=== PATIENT | female | born 1990 | race Caucasian/White ===

== ENCOUNTER 2024-01-03 10:43 | Outpatient (CLI) | payer BC, SELFPAY ==
[2024-01-03 11:45] LABS: Basophils # 0.1 K/mm3 (0-0.2); Basophils % 0.9 % (0.1-2.0); Eosinophils # 0.2 K/mm3 (0.0-0.4); Eosinophils % 2.7 % (0.1-12.0); Hematocrit 40.6 % (37.0-47.0); Hemoglobin 12.8 g/dL (12.2-16.2); Lymphocytes # 2.2 K/mm3 (0.7-4.5); Lymphocytes % 24.5 % (10-50); Mean Corpuscular HGB Conc 31.5 g/dL (31.8-35.4); Mean Corpuscular Hemoglobin 28.4 pg (27.0-31.2); Mean Platelet Volume 7.4 fl (7.4-10.4); Monocytes # 0.5 K/mm3 (0.1-1.0); Monocytes % 5.3 % (1.7-9.3); Neutrophils # 5.9 K/mm3 (1.8-7.8); Neutrophils % 66.6 % (37.0-80.0); Platelet Count 446 K/mm3 (142-424); White Blood Count 8.8 K/mm3 (4.8-10.8)
[2024-01-03 12:22] LABS: Direct LDL Cholesterol 116.39 mg/dL (100-129)
[2024-01-03 12:27] LABS: Free T4 (Free Thyroxine) 0.91 ng/dl (0.78-2.19)
[2024-01-03 12:41] LABS: Thyroid Stimulating Hormone 1.28 uIU/mL (0.465-4.68)
[2024-01-03 14:14] LABS: Alanine Aminotransferase 59 U/L (12-78); Alkaline Phosphatase 69 U/L (38-126); Aspartate Amino Transferase 43 U/L (14-36); Bilirubin,Direct 0.1 mg/dl (0.0-0.4); Bilirubin,Indirect 0.2 mg/dL (0.0-0.9); Bilirubin,Total 0.3 mg/dl (0.2-1.3); Bilirubin,Unconjugated 0.2 mg/dL (0.0-1.1); Blood Urea Nitrogen 6 mg/dl (7-17); Calcium 9.5 mg/dl (8.4-10.2); Carbon Dioxide 28 mmol/L (22.0-30.0); Chloride 108 mmol/L (98-107); Chol/HDL Ratio 4.9 (1-3.5); Cholesterol 207 mg/dl (140-200); Estimated Glomerular Filt Rate 97 ml/min (>60); GFR (African American) 117 ML/MIN (>60); Glucose 100 mg/dl (74-100); HDL Cholesterol 42 mg/dl (40-60); Sodium 141 mmol/L (136-145); Total Protein,Serum 6.9 g/dl (6.3-8.2); Triglycerides 116 mg/dl (30-150); VLDL Cholesterol 23 mg/dL (0-40)
== END 2024-01-03 23:59 | disposition home or self-care (01) ==
LOC: LAB 10:44
PROVIDERS: PCP Nurse Practitioner Family; Visit Provider Nurse Practitioner
DX: R00.2 Palpitations (principal); R07.9 Chest pain, unspecified
CPT/HCPCS: 36415; 80048; 80061; 80076; 83735; 84439; 84443; 85025; 93270

== ENCOUNTER 2024-01-21 13:53 | Outpatient (CLI) | payer BC, SELFPAY ==
--- NOTE | 2024-01-21 13:53 | CA_ITS ---
APPROVED REPORT EXAM: Comprehensive 2D, Doppler, and color-flow Echocardiogram Computer Aided Design Technician: Umm Castañeda RDCS Ht: 4 ft 11 in Wt: 207lbs BSA: 1.87 BP: 132/88 mmHg Indications: Chest pain, palpitations M-Mode Dimensions RVDd 1.69 cm (0.9-2.6) LA Diam 3.11 cm (1.9-4.0) LVDd 4.28 cm (3.5-5.7) LVDs 2.67 cm (3.5-5.7) IVSd 0.59 cm (0.6-1.1) PWd 0.72 cm (0.6-1.1) EF (Teich) 68.00% FS 37.60% EDV (Teich) 82.20 mL ESV (Teich) 26.30 mL LV Diastology E Decel Time 213 (160-240 msec) E/A Ratio 1.4 Mitral Valve MV E Max Alvaro. 69.0 (40-130 cm/s) MV A Velocity 50.0 (40-130 cm/s) E/A Ratio 1.38 MV PHT 62.0 ms Left Ventricle The left ventricle is normal size. The left ventricular systolic function is normal. The left ventricular ejection fraction is within the normal range. There is normal left ventricular wall thickness. There is normal LV segmental wall motion. The left ventricular diastolic function is normal. LVEF is 55%. Right Ventricle The right ventricle is normal size. The right ventricular systolic function is normal. Atria The left atrium size is normal. The right atrium size is normal. There is no Doppler evidence of atrial shunt. Aortic Valve There is valve opens well. There is no aortic valvular stenosis. No aortic regurgitation is present. Mitral Valve The mitral valve is normal in structure. No evidence of mitral valve stenosis. There is no mitral valve regurgitation noted. Tricuspid Valve The tricuspid valve leaflets are thin and pliable. Trace tricuspid regurgitation. Insufficient TR jet to estimate RVSP. Pulmonic Valve The pulmonary valve is normal in structure. Trace pulmonic regurgitation. Great Vessels The aortic root is normal in size. The ascending aorta is not well-visualized. IVC is normal in size and collapses >50% with inspiration. Pericardium There is no pericardial effusion. Other Information Study Quality: Adequate Conclusion Normal biventricular systolic function. No significant valvular stenosis or regurgitation. Electronically signed by : Alexa Georges MD 01/25/2024 00:53:05
--- NOTE | 2024-01-21 13:53 | CA_ITS ---
APPROVED REPORT Exam: Exercise Treadmill Technologist: Nasrin Ndiaye Ht: 4 ft 11 in Wt: 207 lbs BSA: 1.87 m2 HR: 89 bpm BP: 155/65 mmHg Rhythm: NSR Indications: Chest pain, Palpitations Medical History Medications: Metoprolol,,,,, Pantoprazole,,,,, TopIRAMATE,,,,, Anne-Marie,,,,, AmiTRIPTYLINE,,,,, Vitamin D2,,,,, OxYbutynin,,,,, Phentermine,,,,, RIZATRIPTAN,,,,, Mirabegron,,,,, Epinephrine,,,,, FluTICASONE Propionate,,,,, Stress Test Details Test: Manual Treadmill, Exercise stress testing was performed using a Raman protocol. HR Resting HR: 94 bpm Max Heart Rate (APMHR): 188 bpm Max HR Achieved: 164 bpm Target HR (85% APMHR): 160 bpm % of APMHR: 87 Recovery HR: 104 bpm HR response to stress: Normal HR response to stress BP Resting BP: 155.0/65 mmHg Max BP: 172/90 mmHg Recovery BP: 147.0/76.0 mmHg BP response to stress: Normal blood pressure response to stress. ECG Resting ECG: Normal sinus rhythm Stress ECG: < 0.[address] depression Arrhythmia: PVCs Recovery ECG: Return to baseline within 3 minutes of recovery Recovery Arrhythmia: None Clinical Exercise duration: 08:41 min Highest Stage Achieved: Exercise capacity: 10.1 METs Overall Exercise Capacity for Age: Average Stress ECG Conclusion Stopped early due to leg pain. Symptoms: Shortness of air. No chest pain. Arrhythmias/Ectopy: PVC ST-T Changes: < 0.[address] depression Conclusion: Average exercise capacity. No ischemic ECG changes at peak stress. GXT only. Test Summary REST . . . . . . . Sitting REST . . . . . . . Standing REST 02:51 0.0 0.0 94 . 155/ 65 . . Stage 1 01:00 10.0 1.7 115 . . . . Stage 1 02:00 10.0 1.7 126 . . . . Stage 1 03:00 10.0 1.7 124 . 144/ 82 . . Stage 2 01:00 12.0 2.5 136 . . . . Stage 2 02:00 12.0 2.5 141 . . . . Stage 2 03:00 12.0 2.5 140 . 156/ 84 . . Stage 3 01:00 14.0 3.4 154 . . . . Stage 3 . . . . . . . Protocol changed to Manual Treadmill Stage 3 02:00 14.0 3.0 164 . . . . Stage 3 02:41 14.0 3.0 163 . . . Stop exercise at 08:41 RECOVERY 01:00 0.0 0.0 129 . 172/ 90 . . RECOVERY 02:00 0.0 0.0 120 . 156/ 80 . . RECOVERY 03:00 0.0 0.0 105 . 157/ 98 . . RECOVERY 04:00 0.0 0.0 108 . 157/ 98 . . RECOVERY 04:32 0.0 0.0 105 . 147/ 76 . . Electronically signed by : Alexa Georges MD 01/24/2024 14:13:13
== END 2024-01-21 23:59 | disposition home or self-care (01) ==
LOC: RT 13:53
PROVIDERS: PCP Nurse Practitioner Family; Visit Provider Nurse Practitioner
DX: R07.9 Chest pain, unspecified (principal); R00.2 Palpitations
CPT/HCPCS: 93017; 93018; 93306

== ENCOUNTER 2025-05-21 15:49 | Outpatient (CLI) | payer OTHER, SELFPAY ==
--- OUTSIDE RECORDS SUMMARY | 2025-05-21 15:51 | XMS_ITS | Clinical Summary ---
Author Organization [facility] Address [address] [place] [address] Care Team Providers Care Community Relations Police Lieutenant Name Role Phone Rose Pradhan BRUNO Primary Care Provider [phone]- [phone] Allergies Active Allergy Reactions Criticality Noted Date Comments Cephalosporins Rash 11/12/2021 Penicillins Reaction Unknown 11/12/2021 Sulfa (Sulfonamide Antibiotics) Reaction Unknown 11/12/2021 Medications citalopram (CELEXA) 20 mg tablet TAKE ONE (1) TABLET DAILY 09/05/2021 Active MYRBETRIQ 25 mg Tb24 ER tab TAKE ONE (1) TABLET DAILY 11/01/2021 Active fluticasone propionate (FLONASE) 50 mcg/Actuation nasal spray SPRAY ONE (1) SPRAY INTO EACH NOSTRIL ONCE DAILY 08/26/2021 Active oxybutynin (DITROPAN) 5 mg tablet TAKE ONE (1) TABLET BY MOUTH TWICE DAILY 09/13/2021 Active Phentermine (ADIPEX-P) 37.5 mg tablet TAKE ONE (1) TABLET EVERY DAY 11/08/2021 Active esomeprazole (NEXIUM) [address] capsule TAKE ONE (1) CAPSULE EVERY DAY BY ORAL ROUTE FOR 30 DAYS. Active metoprolol (TOPROL-XL) 25 mg XL tablet TAKE ONE (1) TABLET TWICE A DAY BY ORAL ROUTE FOR 90 DAYS. 01/03/2024 Active MYRBETRIQ 50 mg Tb24 ER tab Take 1 Tablet by mouth Once Daily. 01/03/2024 Active vilazodone 20 mg Tab Take 20 mg by mouth. Active amitriptyline (ELAVIL) 25 mg tablet Take 1 Tablet by mouth Once Daily. 01/03/2024 Active levocetirizine (XYZAL) 5 mg tablet Take 1 Tablet by mouth Once Daily. 01/03/2024 Active Topiramate 50 mg Tab TAKE ONE (1) TABLET EVERY DAY BY ORAL ROUTE AT BEDTIME FOR 90 DAYS. 01/03/2024 Active Social History Tobacco Use Types Packs/Day Years Used Date Smoking Tobacco: Never Passive Smoke Exposure: Never Smokeless Tobacco: Never Tobacco Cessation:Counseling Given: Not Answered PHQ-2 Answer Date Recorded PHQ-2 SCORE 0 06/15/2024 Comments No Sex and Gender Information Value Date Recorded Sex Assigned at Not on file Legal Sex Female 11:52 AM EST Gender Identity Not on file Sexual Orientation Not on file Last Filed Vital Signs Vital Sign Reading Time Taken Comments Blood Pressure 121/86 06/15/2024 5:53 PM EDT Pulse 87 06/15/2024 5:53 PM EDT Temperature 36.6 C (97.9 F) 06/15/2024 5:53 PM EDT Respiratory Rate 18 06/15/2024 5:53 PM EDT Oxygen Saturation 100% 06/15/2024 5:53 PM EDT Inhaled Oxygen Concentration - - Weight 93 kg (205 lb) 06/15/2024 5:53 PM EDT Height 151.1 cm (4' 11.5 ) 06/15/2024 5:53 PM ED T Body Mass Index 40.71 06/15/2024 5:53 PM EDT Plan of Treatment Health Maintenance Due Date Last Done Comments HEP C SCREENING 1991 PAP SMEAR EVERY 3 YR (Cervical Cancer Screen) 1991 DTAP/TDAP/TD VACCINE (2 - Td or Tdap) 07/03/2023 07/03/2013 ANNUAL WELLNESS EXAM 03/14/2025 03/13/2024, 03/08/2023, 03/07/2022, Additional history exists COVID-19 Vaccine ( season) 2025 05/05/2021, 11/16/2020 INFLUENZA VACCINE (#1) 2025 HEP A VACCINE Aged Out No longer elig ible based on patient's age to complete this topic HIB VACCINE Aged Out No longer eligi ble based on patient's age to complete this topic ROTOVIRUS VACCINE Aged Out No longer eligible based on patient's age to complete this topic Insurance Care Teams Community Relations Police Lieutenant Relationship Specialty Start Date End Date Rose Pradhan APRN [address] [place] [id number] PCP - General Nurse Practitioner 06/15/24
--- OUTSIDE RECORDS SUMMARY | 2025-05-21 15:51 | XMS_ITS | Clinical Summary ---
Author Organization [facility] Address [address] [place] [id number] Care Team Providers Care Passenger Vessel Chef Name Role Phone Carolynn Rose CARR Primary Care Provider [phone]- [phone] Source Comments This information has been disclosed to you from confidential records protectedfrom disclosure by state law. You shall make no further disclosure of thisinformation without the specific, written, and informed release of theindividual to whom it pertains, or as otherwise permitted by law. A generalauthorization for the release of medical or other information is not sufficientfor the purposes of therelease of HIV test results or diagnoses. [id number] Health Allergies Active Allergy Reactions Criticality Noted Date Comments Adhesive 03/10/2024 Cephalosporins 03/10/2024 Penicillin 03/10/2024 Sulfa (Sulfonamide Antibiotics) 02/16 Medications amitriptyline (ELAVIL) 25 MG tablet Take 1 tablet (25 mg total) by mouth at bedtime. Active mirabegron (MYRBETRIQ) 50 mg Take 1 tablet (50 mg total) by mouth daily. Active pantoprazole (PROTONIX) 40 MG tablet Take 1 tablet (40 mg total) by mouth every morning before breakfast. Active vilazodone (VIIBYRD) 20 mg Tab Take 1 tablet (20 mg total) by mouth daily. Active levocetirizine (XYZAL) 5 MG tablet Take 1 tablet (5 mg total) by mouth every evening. Active topiramate (TOPAMAX) 50 MG tablet Take 1 tablet (50 mg total) by mouth 2 times a day. Active methylPREDNISol one (MEDROL, ALLIE,) 4 mg tablet follow package directions 21 each 4 Active fluticasone propionate (FLONASE) 50 mcg/actuation nasal spray Use 2 sprays into each nostril daily. 16 g 1 4 Active azelastine (ASTELIN) 137 mcg (0.1 %) nasal spray Use 2 sprays into each nostril 2 times a day. Use in each nostril as directed 30 mL 3 4 Active Active Problems Problem Noted Date Diagnosed Date Sensation of fullness in left ear 04/10/2024 Hearing loss of left ear 04/10/2024 Dysfunction of left eustachian tube 03/10/2024 ASNHL (asymmetrical sensorineural hearing loss) 03/10/2024 Social History Tobacco Use Types Packs/Day Years Used Date Smoking Tobacco: Never Smokeless Tobacco: Never Tobacco Cessation:Counseling Given: Not Answered Alcohol Use Standard Drinks/Week Comments Never 0 (1 standard drink = 0.6 oz pur e alcohol) AUDIT-C Answer Date Recorded Q1: How often do you have a drink containing alcohol? Never 03/10/2024 Q2: How many drinks containi ng alcohol do you have on a typical day when you are drinking? Patient does not drink Q3: How often do you have si x or more drinks on one occasion? Never 03/10/2024 PHQ-2 Answer Date Recorded PHQ-2 Total Score 0 03/10/2024 Yearly Questionnaire Answer Date Record ed Do you need any assistance w ith obtaining housing, meals, medication, transportation or medical equipment? No 03/10 Assistance needed for: Not on file Yearly Questionnaire Answer Date Record ed Do you need any assistance w ith obtaining housing, meals, medication, transportation or medical equipment? No 03/10 Assistance needed for: Not on file Yearly Questionnaire Answer Date Record ed Do you need any assistance w ith obtaining housing, meals, medication, transportation or medical equipment? No 03/10 Assistance needed for: Not on file 4 Comments No Sex and Gender Information Value Date Recorded Sex Assigned at Not on file Legal Sex Female 10:54 AM EDT Gender Identity Not on file Sexual Orientation Not on file Last Filed Vital Signs Vital Sign Reading Time Taken Comments Blood Pressure 125/78 2024 4:16 PM EST Pulse 82 2024 4:16 PM EST Temperature - - Respiratory Rate - - Oxygen Saturation 90% 04/10/2024 3:36 PM EDT Inhaled Oxygen Concentration 90% 04/10/2024 3 :36 PM EDT Weight 92.1 kg (203 lb) 2024 4:16 PM EST Height 149.9 cm (4' 11 ) 2024 4:16 PM EST Body Mass Index 41 2024 4:16 PM EST Plan of Treatment Health Maintenance Due Date Last Done Comments Diabetes Screening 1991 Hepatitis C Screening ([facility]) 1991 HIV Screening 11/17/2009 Cervical Cancer Screening/Pa p Smear ([facility]) 11/17/2021 Immunization: DTaP/Tdap/Td ( 4 - Td or Tdap) 07/03/2023 07/03/2013, 12/15/2002, 03/24/1996 Depression Screening 03/10/2025 03/10/2024 Immunization: COVID-19 ( season) 2025 05/05/2021, 11/16/2020 Immunization: Influenza ([facility]) (#1) 05/18/2025 06/06/2013, 07/01/2012 Immunization: Hepatitis B Completed 1996, 05/05/1996, 03/24/1996 Immunization: Pneumococcal Aged Out N o longer eligible based on patient's age to complete this topic Insurance BLUE [facility] Care Teams Passenger Vessel Chef Relationship Specialty Start Date End Date Rose Pradhan APRN [address] [place] [address] [place] [address] PCP - General Family Medicine 03/09/24
[2025-05-21 16:21] LABS: Hematocrit 39.2 % (37.0-47.0); Hemoglobin 12.6 g/dL (12.2-16.2); Immature Granulocytes % 0.3 %; Mean Corpuscular HGB Conc 32.1 g/dL (31.8-35.4); Mean Corpuscular Hemoglobin 28.8 pg (27.0-31.2); Mean Corpuscular Volume 89.7 fl (81-99); Nucleated Red Blood Cells % 0 %; Platelet Count 451 K/mm3 (142-424); Red Blood Count 4.37 M/mm3 (4.20-5.40); Red Cell Distribution Width-SD 43.5 fL; White Blood Count 11.6 K/mm3 (4.8-10.8)
[2025-05-21 17:57] LABS: Free T4 (Free Thyroxine) 1.22 ng/dl (0.78-2.19)
[2025-05-21 20:11] LABS: Alanine Aminotransferase 50 U/L (12-78); Albumin Level 4.3 g/dl (3.5-5.0); Alkaline Phosphatase 83 U/L (38-126); Anion Gap 13.7 mEq/L (5-15); Aspartate Amino Transferase 45 U/L (14-36); Bilirubin,Direct 0.3 mg/dl (0.0-0.4); Bilirubin,Indirect 0.3 mg/dL (0.0-0.9); Bilirubin,Total 0.6 mg/dl (0.2-1.3); Bilirubin,Unconjugated 0.3 mg/dL (0.0-1.1); Blood Urea Nitrogen 9 mg/dl (7-17); Calcium 9.1 mg/dl (8.4-10.2); Carbon Dioxide 25 mmol/L (22.0-30.0); Chloride 104 mmol/L (98-107); Cholesterol 202 mg/dl (140-200); Creatinine,Serum 0.60 mg/dl (0.52-1.04); Estimated Glomerular Filt Rate 115 ml/min (>60); GFR (African American) 139 ML/MIN (>60); Glucose 84 mg/dl (74-100); HDL Cholesterol 44 mg/dl (40-60); Magnesium 1.5 mg/dl (1.6-2.3); Potassium 3.7 mmoL/L (3.5-5.1); Sodium 139 mmol/L (136-145); Total Protein,Serum 7.0 g/dl (6.3-8.2); Triglycerides 121 mg/dl (30-150)
[2025-05-21 21:20] LABS: Hemoglobin A1C 5.8 % (4.0-6.0)
[2025-05-21 22:24] LABS: Thyroid Stimulating Hormone 0.76 uIU/mL (0.465-4.68)
== END 2025-05-21 23:59 | disposition home or self-care (01) ==
LOC: LAB 15:50
PROVIDERS: PCP Nurse Practitioner Family; Visit Provider Nurse Practitioner
DX: R00.2 Palpitations (principal); R07.9 Chest pain, unspecified; R73.09 Other abnormal glucose; E66.9 Obesity, unspecified
CPT/HCPCS: 36415; 80048; 80061; 80076; 83036; 83735; 84439; 84443; 85025

== ENCOUNTER 2025-06-26 08:28 | Outpatient (CLI) | payer OTHER, SELFPAY ==
--- OUTSIDE RECORDS SUMMARY | 2025-06-26 08:31 | XMS_ITS | Continuity of Care Document ---
Author Organization [facility] Address [address] [place] [address] Care Team Providers Care Extra Gang Supervisor Name Role Phone BENNIE LOMELI Acid Maker Assessment Encounter Date Assessment Date Assessment LastModified by Organization Details LastModified Time 05/05/2025 05/05/2025 Patient's migraine headaches are worsening from last visit. Patient has been taking preventative medication as prescribed. Frequency of headaches is approximately every a day. There have not been possible side effects from the medication. Abortive medication fails to alleviate headache. Triggering factors remain stress. Patient counseled on risk of NSAID withdrawal headaches. Patient will monitor blood pressure and report if unable to control or if they develop new symptoms. [email or web address] Not available 05/05/2025 22:58:43 Plan of Treatment Reminders Order Date Submit Date Provider Last Modified By Organization Details Last Modified Time Details Appointments None recorded. Lab None recorded. Referral None recorded. Procedures None recorded. Surgeries None recorded. Imaging None recorded. Medication Orders Ubrelvy 100 mg tablet 2024 025 [email or web address] [facility], [address], [place], [address], 13:18:36 amlodipine 2.5 mg tablet 2024 025 JESSICA [facility], [address], [place], [address], 13:15:05 amitriptyli ne 50 mg tablet 2024 025 [facility], [address], [place], [address], 5 13:15:05 albuterol sulfate HFA 90 mcg/actuati on aerosol inhaler 2024 025 [facility], [address], [place], [address], 5 13:15:06 Patient TargetsNo targets recorded. Patient InstructionsNo instructions recorded. Reason for Referral None Reported. Problems Name Problem SNOMED Code Status Onset Date Resolution Date Notes Provider Name and Address Organization Details Recorded Time Irritabl e bowel syndrome [id number] Active lactose intolera nt Katie Petey, [employer] [address], [place], [address], [place] [facility] 4 11:12:16 Polycyst ic ovaries Completed 01/15/2023 Teresa adair, [place] - [facility] 3 15:34:53 Hyperins ulinism 82407923 Active Katie Angelo [employer] [address], [place], [address], [place] [facility] 4 11:12:06 Asthma 619310424 Active Katiebrinda Angelo [employer] [address], [place], [address], [place] [facility] 4 11:11:48 Chronic intersti tial cystitis 143489731 Active 2011 Katie Angelo [employer] [address], [place], [address], [place] [facility] 4 11:11:53 Cyst of right ovary 6993026855 6841424 Completed 201801/15/2023 Teresa [place]air[place] [facility] 3 15:35:05 Exposure to SARS-CoV -2 Completed 201901/15/2023 [place] [facility] 3 15:34:31 COVID-19 683906803 Completed 201901/15/2023 Teresa Zacariass null[place] [facility] 3 15:34:22 Migraine 68266265 Active 2020 Katie Angelo, [employer] [address], [place], [address] [facility] 4 11:12:22 Mixed anxiety and depressi ve disorder 112663744 Active 2021 Katie Angelo, [employer] [address], [place], [address], [place] [facility] 4 11:12:24 Menorrha esteban 692508285 Completed 202101/15/2023 Teresa Zacariass [place] [facility] 3 15:34:40 Irregula r intermen strual bleeding 99970400 Completed 202101/15/2023 Teresa [place]ac[place]ass [place] [facility] 3 15:34:35 Uterine leiomyom a 15997859 Completed 202101/15/2023 Teresa Maar [place] [facility] 3 15:34:59 Cellulit is of skin 779415437 Completed 202101/15/2023 [place] Mar[place] [facility] 3 15:34:26 Depressi ve disorder 34377839 Active 2021 Katie Angelo, [employer]ERK [address], [place], [address], [place] [facility] 4 11:11:54 Metaboli c syndrome X 047679845 Active 2022 Katie Angelo, [employer] [address], [place], [address], [place] [facility] 4 11:12:20 Body mass index 30+ - obesity 352644916 Active 2022 Adela Bluntcker, [employer] [address], [place], [address], [place] [facility] 5 09:30:49 Obesity 860750063 Active 2022 Katie Angelo, [employer] [address], [place], [address], [place] [facility] 4 11:12:30 Fatigue 81845059 Active 2022 Katie Angelo, [employer] [address], [place], [address], [place] [facility] 4 11:12:02 Acute left otitis media 925448911 Completed 202201/15/2023 Adela Coello, [employer] [address], [place], [address], [place] [facility] 4 10:26:25 Conjunct ivitis 1592392 Completed 202201/15/2023 Teresa Mar[place] [facility] 3 15:35:08 Pain of ear 330958930 Completed 202201/15/2023 [place] Mar[place] [facility] 3 15:34:46 Influenz a-like symptoms 941407729 Completed 202201/15/2023 [place] [facility] 3 15:34:37 Upper respirat ory infectio n 52774362 Completed 202201/15/2023 [place] [facility] 3 15:34:56 Pharyngi tis 631871539 Completed 202201/15/2023 Caryn Sand[place] [facility] 5 09:03:35 History of total hysterec nilay 072671492 Active 2022 Katie Angelo, [employer] [address], [place], [address], [place] [facility] 4 11:12:04 Acne 30223320 Active 2022 Katie Angelo, [employer] [address], [place], [address], [place] [facility] 4 11:11:42 Pain of breast 20767521 Completed 202212/10/2023 bilat [place]-benig n lymph node left breast Katie Angelo, [employer] [address], [place], [address], [place] [facility] 4 11:12:37 Prediabe gustavo 597787621 Active 2022 Julieta Marcano, [employer] [address], [place], [address], [place] [facility] 5 15:58:37 Acute upper respirat ory infectio n 02193168 Completed 202209/03/2023 Caryn [place] [facility] 5 09:03:45 Insect bite - wound 915687926 Completed 202212/10/2023 Katie Angelo, [employer]ERK [address], [place], [address], [place] [facility] 4 11:12:13 Pharyngi tis 435345973 Completed 202212/10/2023 Caryn [place] [facility] 5 09:03:35 Labial cyst 145080330 Completed 202212/10/2023 Katie Angelo, [employer]ERK [address], [place], [address], [place] [facility] 4 11:12:18 Overacti ve urinary bladder 897123677 Active 2022 Katie Angelo, [employer] [address], [place], [address], [place] [facility] 4 11:12:32 Anxiety 01865035 Active 2022 Katie Agnelo, [employer]ERK [address], [place], [address], [place] [facility] 4 11:11:47 Acute left otitis media 399248702 Completed 202312/10/2023 Adela Coello, [employer] [address], [place], [address], [place] [facility] 4 10:26:25 Hyperten sive disorder 02685229 Active 2023 Julieta Marcano APRN [address], [place], [address], [place] [facility] 5 13:13:22 Right upper quadrant pain 729966890 Completed 202302/20/2024 Adela Coello APRN [address], [place], [address], [place] [facility] 4 10:53:19 Nausea 535927451 Completed 202312/10/2023 Katie Angelo APRN [address], [place], [address], [place] [facility] 4 11:12:27 Pain radiatin g to right side of chest 701261795 Completed 202303/16/2025 Caryn Kin [place] [facility] 5 09:01:52 Diarrhea 33704338 Completed 202312/10/2023 Julieta Marcano APRN [address], [place], [address], [place] [facility] 4 10:41:09 Steatoti c liver disease 409135320 Active 2023 Katie Angelo APRN [address], [place], [address], [place] [facility] 4 11:12:51 Unintent ional weight gain 8951217334 92292 Active 2023 Katie Angelo APRN [address], [place], [address], [place] [facility] 4 11:12:54 Acute pharyngi tis 013861346 Completed 202303/13/2024 Adela Coello APRN [address], [place], [address], [place] [facility] 4 10:26:30 Otitis externa 8142427 Active 2023 Tia Larsen MD [address], [place], [address], [place] [facility] 4 09:34:50 Cough 54233033 Completed 202303/13/2024 Julieta Marcano, [employer] [address], [place], [address], [place] [facility] 4 11:13:09 Malaise and fatigue 772815265 Active 2023 Johnny Justine, [employer] [address], [place], [address], [place] [facility] 4 08:09:42 Acute otitis externa of right ear 3604847270 897465 Completed 202303/13/2024 Adela Coello, [employer] [address], [place], [address], [place] [facility] 4 10:26:27 Acute sinusiti s 62422521 Completed 202303/13/2024 Adela Coello, [employer]ERK [address], [place], [address], [place] [facility] 4 10:26:36 Acute bronchit is 78791050 Completed 202303/13/2024 Adela Coello, [employer]ERK [address], [place], [address], [place] [facility] 4 10:26:21 Biliary dyskines ia 996783653 Active 2023 Adela Coello, [employer]ERK [address], [place], [address], [place] [facility] 4 08:56:27 Acute left otitis media 234815215 Completed 202303/13/2024 Adela Coello APRN [address], [place], [address], [place] [facility] 4 10:26:25 Vitamin D deficien cy 86424434 Active 2023 Rose Pradhan, [employer] [address], [place], [address], [place] [facility] 4 09:00:18 History of cholecys tectomy 183836892 Active 2023 Katie Angelo, [employer] [address], [place], [address], [place] [facility] 4 13:28:28 Non-terry pausal hot flash 4502393252 62993 Active 2023 Adela Coello, [employer] [address], [place], [address], [place] [facility] 4 10:51:47 Chest wall pain 664744887 Active 2023 Johnny Fletcher, [employer] [address], [place], [address], [place] [facility] 4 08:31:23 Chest pain 78973249 Active 2023 Johnny Fletcher, [employer] [address], [place], [address], [place] [facility] 4 10:34:37 Localize d eruption of skin 273760335 Active 2023 Adela Coello, [employer] [address], [place], [address], [place] [facility] 4 13:38:51 Middle ear effusion 0438164751 Completed 202303/16/2025 Caryn Sanderson [facility], [place] [facility] 5 09:02:21 Gastroes ophageal reflux disease without esophagi tis 201035961 Active 2023 Rose Pradhan, [employer] [address], [place], [address], [place] [facility] 4 12:08:17 Allergic rhinitis 58926391 Active 2023 Rose Pradhan APRN [address], [place], [address], [place] [facility] 4 13:25:43 Diarrhea 15169436 Active 2023 Julieta Marcano [employer] [address], [place], [address], [place] [facility] 4 10:41:09 Nausea and vomiting 44167612 Active 2023 Julieta Marcano [employer] [address], [place], [address], [place] [facility] 4 10:44:14 Acute bilatera l otitis media 361255799 Completed 202303/16/2025 Caryn [place] [facility] 5 09:02:46 Pharyngi tis 535034516 Completed 202303/16/2025 Caryn [place] [facility] 5 09:03:35 Candidia sis of vagina 64668058 Completed 202303/16/2025 Caryn [place] [facility] 5 09:01:26 Cough 79127032 Active 2023 Julieta Marcano, [employer] [address], [place], [address], [place] [facility] 4 11:13:09 Pain in finger of right hand 8284164366 11601 Active 2023 Julieta Marcano, [employer] [address], [place], [address], [place] [facility] 4 14:42:47 Sleep pattern disturba nce 60313632 Active 2023 Julieta Marcano, [employer] [address], [place], [address], [place] [facility] 4 10:03:11 Narcolep sy 61151174 Active 2023 Julieta Marcano, [employer]ERK [address], [place], [address], [place] [facility] 5 08:37:16 Pain of left knee joint 9483850860 98636 Active 2024 Julieta Marcano, [employer] [address], [place], [address], [place] [facility] 5 09:18:32 Acute lower respirat ory tract infectio n 473430691 Active 2024 Julieta Marcano, [employer] [address], [place], [address], [place] [facility] 5 14:31:38 Acute upper respirat ory infectio n 08393550 Completed 202403/16/2025 Caryn [place] [facility] 5 09:03:45 Urgent desire to urinate 09293097 Active 2024 Adela Coello, [employer] [address], [place], [address], [place] [facility] 16:47:50 Low back pain 518525145 Active 2024 Adela Coello, [employer]ERK [address], [place], [address], [place] [facility] 16:47:52 Microsco pic hematuri a 822028460 Completed 202403/16/2025 Caryn Sanderson [facility], [place] [facility] 5 09:01:11 Ear pressure sensatio n 282754080 Active 2024 Julieta Marcano, [employer] [address], [place], [address], [place] [facility] 13:22:18 Contact dermatit is 37991035 Active 2024 Julieta Marcano [employer] [address], [place], [address], [place] [facility] 5 15:32:34 Obstruct doreen sleep apnea syndrome 04831558 Active 2024 Julieta Marcano [employer] [address], [place], [address], [place] [facility] 5 14:08:48 Narcolep sy type 2 9079338896 9104 Active 2024 Julieta JeetBRUNO [address], [place], [address], [place] [facility] 5 11:27:05 Posterio r rhinorrh ea 67023027 Active 2024 Julieta Marcano [employer] [address], [place], [address], [place] [facility] 13:26:42 Feeling of lump in throat 877852565 Active 2024 Julieta Jeet [employer] [address], [place], [address], [place] [facility] 13:27:54 Infectio n of skin 122626201 Active 2024 Julieta Marcano, [employer]ERK [address], [place], [address], [place] [facility] 11:46:34 Mixed hyperlip idemia 877133879 Active 2024 Julieta Marcano, [employer]ERK [address], [place], [address], [place] [facility] 16:04:32 Mild intermit tent asthma 730575811 Active 2024 Julieta Marcano, [employer] [address], [place], [address], [place] [facility] 13:10:40 Acute migraine 2872276621 92180 Active 2024 Julieta Marcano APRN [address], [place], [address], [place] [facility] 13:17:40 Problem Notes None recorded. Procedures Surgical History Date Name Laterality Status Provider Name and Address Organization Details Recorded Time 025 OMT completed Mathew Arzate DO [address], [place], [address], [place] [facility] 12/15/2024 13:12:34 025 OMT completed Mathew Arzate DO [address], [place], [address], [place] [facility] 2024 10:21:49 024 Infusion Center completed Infusion Nurse [facility] [address], [place], [address] [facility] 08/29/2024 08:17:32 024 Infusion Center completed Infusion Nurse [facility] [address], [place], [address] [facility] 08/06/2024 08:00:28 024 Infusion Center completed Infusion Nurse [facility] [address], [place], [address] [facility] 07/30/2024 11:38:15 024 Infusion Center completed Infusion Nurse [facility] [address], [place], [address], [place] [facility] 07/23/2024 08:03:49 024 Infusion Center completed Infusion Nurse [facility] [address], [place], [address] [facility] 07/16/2024 08:18:37 024 Cholecystectomy completed Katie Angelo, [employer]ERK [address], [place], [place], [address], [place] [facility] 02/12/2024 13:28:14 024 Cholecystectomy, laparoscopic completed Caryn Sanderson [place] [facility] 03/13/2024 09:59:35 024 Ear Tubes - Tympanostomy Tubes completed Caryn [place]erson [place] [facility] 02/20/2024 10:20:35 024 Skin Tag Removal completed Bennie Lomeli, [employer]ERK [address], [place], [place], [address], [place] [facility] 11/27/2023 17:45:47 023 Dimethyl Sulfoxide (DMSO) completed Johana Krause MD [address], [place], [address], [place] [facility] 04/10/2023 12:36:40 023 Dimethyl Sulfoxide (DMSO) completed Julietamagy Webber, [employer]ERK [address], [place], [place], [address], [place] [facility] 03/27/2023 12:01:45 023 Dimethyl Sulfoxide (DMSO) completed Johana Krause MD [address], [place], [place], [address], [place] [facility] 03/13/2023 08:52:24 023 Dimethyl Sulfoxide (DMSO) completed Johana Krause MD [address], [place], [place], [address], [place] [facility] 02/27/2023 13:01:22 023 potassium sensitivity test- MOB completed Johana Krause MD [address], [place], [place], [address], [place] [facility] 02/16/2023 21:17:46 023 Skin Tag Removal completed Shanna Velasquez [place] [facility] 09/20/2022 13:25:20 022 Hysterectomy, Total laparoscopic completed Priti Jean-Baptiste [place] [facility] 07/10/2022 10:57:59 06/21/2 022 Date of Last Pap Smear completed Anne Peña, [employer] [address], [place], [address] [facility] 03/10/2022 11:52:50 021 cystoscopy completed Teresa Holmanrus [place] [facility] 01/15/2023 15:47:53 020 Systolic B/P less than 130 mm Hg completed Ashlie Dennis [place] [facility] 10/21/2019 11:01:48 020 Diastolic B/P 80-89 mm Hg completed Ashlie Dennis [place] [facility] 10/21/2019 11:01:49 019 IUD Insertion (Mirena) completed Anne Peña, [employer]ERK [address], [place], [address], [place] [facility] 02/28/2019 16:50:46 019 IUD Insertion completed Fern Cary [place] [facility] 02/28/2019 15:36:40 017 Appl. Splint - Finger completed Carolee De Leon PA-C [address], [place], [address], [place] [facility] 08/06/2017 14:45:47 017 IUD Removal completed Rissa Morgan, BRUNO [address], [place], [address], [place] [facility] 04/20/2017 15:36:01 017 IUD Removal completed Teresa Mara [place] [facility] 06/19/2017 13:23:09 015 IUD Insertion completed [place]a [place] [facility] 03/15/2017 13:13:26 013 Colposcopy completed [place] [facility] 03/15/2017 13:15:53 013 Colposcopy completed [place] [facility] 03/15/2017 13:16:23 Tonsillectomy [place]ita [place]uera [place] [facility] 11/14/2021 08:36:51 cystoscopy completed [place] Mara [place] [facility] 01/15/2023 15:47:26 Ear Tubes - Tympanostomy Tubes [place] Deepika [place] [facility] 01/02/2017 11:54:55 Remove tonsils and adenoids completed Deepika [place] [facility] 01/02/2017 11:55:01 Unlisted px urinary system completed Teresa Terry [place] [facility] 03/15/2017 13:17:16 Imaging Results None recorded. Procedure Notes None recorded. Medical Equipment None Reported. Allergies Allergen ID Allergen Name Allergen Category Reaction Reaction Severity Criticality Documentation Date Start Date Code Code System Note Provider Name and Address Organization Details Recorded Time 30318 Product containin g penicilli n (product) medicatio n Not available Not available Not available 06/23/20162007 88526 8001 SNOMED React ion: unsur e; Comme nt: pcn; Not Available [facility] 6 09:04:57 75978 Substance with sulfonami de structure and antibacte rial mechanism of action (substanc e) medicatio n Not available Not available Not available 06/23/20162007 86426 8003 SNOMED React ion: unsur e; Comme nt: Sulfo namid es; Not Available [facility] 6 09:04:57 77919 Cephalosp vi (substanc e) medicatio n rash Not available Not available 06/23/20162009 80048 7003 SNOMED React ion: rash; Not Available [facility] 6 09:28:10 Medications Name Sig Start Date Stop Date Status Note LastModified by Organization Details LastModified Time Allergy serum (from clinical data assistant ) injectio n(repeat same dose as before 2022 active Not Available Not Available Not Avai lable CANKER SORE ADHESIVE POWDER use as directed 02/16 completed Not Available Not Available Not Available Allergy serum (from clinical data assistant ) injectio n 2023 active Mix 1 Not Available Not Available Not Avai lable Allergy serum (from clinical data assistant ) injectio n 2022 active Not Available Not Available Not Avai lable Allergy serum (from clinical data assistant ) injectio n 2023 active Patient presente d with allergy serum. Not Available Not Available Not Available Magic Mouthwash (lido/meghan /maa) 10mL swish and spit every 4 hours PRN sore throat 01/03 completed Not Available Not Available Not Available Allergy serum (from clinical data assistant ) injectio n( repeat same dose as before 2022 active Not Available Not Available Not Avai lable Allergy serum (from clinical data assistant ) injectio n 2022 active Not Available Not Available Not Avai lable Allergy serum (from clinical data assistant ) inject 0.3ml 01/21 completed Not Available Not Available Not Available Magic Mouthwash (lido/meghan /maa) 10mL gargle and spit every 4 hours PRN sore throat 2021 active Not Available Not Available Not Avai lable Allergy serum (from clinical data assistant ) Mix 3 2023 active Mix 3 Not Available Not Available Not Avai lable Allergy serum (from clinical data assistant ) inject 0.25ml 2023 active Not Available Not Available Not Avai lable Allergy serum (from clinical data assistant ) injectio n 2023 active Not Available Not Available Not Avai lable Allergy serum (from clinical data assistant ) Mixture #3 q wk 2023 active Not Available Not Available Not Avai lable Allergy serum (from clinical data assistant ) SQ every week 2023 active Not Available Not Available Not Avai lable Allergy serum (from clinical data assistant ) mixture #2 q wk 2023 active Not Available Not Available Not Avai lable Allergy serum (from clinical data assistant ) inject 0.3ml 2024 active Not Available Not Available Not Avai lable Allergy serum (from clinical data assistant ) Weekly injectio ns 2023 active Mix 2 Not Available Not Available Not Avai lable Allergy serum (from clinical data assistant ) Inject ).25ml SQ from red top vial Cat, mite, W 2022 active Not Available Not Available Not Avai lable Allergy serum (from clinical data assistant ) injectio n( repeated same dose as before 2022 active Not Available Not Available Not Avai lable Allergy serum (from clinical data assistant ) inject 0.3ml 2024 active Not Available Not Available Not Avai lable Allergy serum (from clinical data assistant ) Mixture #3 q wk 2023 active Not Available Not Available Not Avai lable Allergy serum (from clinical data assistant ) inject 0.25ml RASQ from red vial Mold 2022 active Not Available Not Available Not Avai lable semagluti de 1mg/1ml injectabl e Inject 0.25mL (0.25mg= 25 units) subcutan eously once weekly for four (4) weeks. 07/18 completed Not Available Not Available Not Available Allergy serum (from clinical data assistant ) 0.25ml 2023 active Not Available Not Available Not Avai lable Allergy serum (from clinical data assistant ) inject 0.25ml 2023 active Not Available Not Available Not Avai lable Allergy serum (from clinical data assistant ) injectio n 2022 active Not Available Not Available Not Avai lable Allergy serum (from clinical data assistant ) injectio n 2023 active Not Available Not Available Not Avai lable semagluti de methylcob alamin 4mg 1mg/1ml injectabl e Inject 0.25mL (1mg=25 units) subcutan eously once weekly for four (4) weeks 01/27 completed Not Available Not Available Not Available Prescript ion - Prior Authoriza tion Request active Not Available Not Available Not Available Allergy serum (from clinical data assistant ) SQ every week 2023 active Mix 2 Not Available Not Available Not Avai lable Allergy serum (from clinical data assistant ) injectio n 2023 active Not Available Not Available Not Avai lable Allergy serum (from clinical data assistant ) Mixture #3 q wk 2023 active Not Available Not Available Not Avai lable Allergy serum (from clinical data assistant ) Inject 0.25ml SQ from red top vial cat, corn, G.T 2022 active Not Available Not Available Not Avai lable cyclobenz aprine 10 mg tablet TAKE ONE (1) TABLET THREE (3) TIMES A DAY BY ORAL ROUTE FOR 7 DAYS. 06/17 completed Not Available Not Available Not Available Anti-Diar rheal (loperami de) 2 mg tablet TAKE ONE (1) TABLET FOUR (4) TIMES A DAY BY ORAL ROUTE NEEDED, FOR DIARRHEA . 06/17 completed Not Available Not Available Not Available Mirena 21 mcg/24 hr (up to 8 years) 52 mg intrauter ine device place 1 device by intraute rine route every 5 years 08/23 completed Not Available Not Available Not Available buspirone 5 mg tablet TAKE 1 & 1/2 TABLETS BY MOUTH EVERY DAY THREE (3) TIMES DAILY NEEDED FOR ANXIETY 10/16 completed Not Available Not Available Not Available promethaz ine-DM 6.25 mg-15 mg/5 mL oral syrup TAKE FIVE (5) ML EVERY SIX (6) HOURS BY ORAL ROUTE NEEDED FOR FIVE (5) DAYS. 12/25 completed Not Available Not Available Not Available dextromet horphan polistire x ER 30 mg/5 mL oral susp ext.relea se 12hr TAKE 10ML EVERY 12 HOURS NEEDED FOR 10 DAYS. 10/16 completed Not Available Not Available Not Available prednison e 10 mg tablet TAKE ONE (1) TABLET ONCE DAILY FOR FIVE (5) DAYS 06/24 completed Not Available Not Available Not Available doxycycli ne hyclate 100 mg capsule Take 1 capsule twice a day by oral route after meals for 7 days. 02/13 completed Not Available Not Available Not Available ketoconaz ole 2 % shampoo APPLY TO THE AFFECTED AREA(S), LATHER, LEAVE IN PLACE FOR 15 MINUTES, AND THEN RINSE OFF WITH WATER BY TOPICAL ROUTE 3-5 times weekly 2024 active Not Available Not Available Not Avai lable Benadryl 12.5 mg/5 mL oral liquid 2 tsp po q6 hr prn 07/08 completed Replaced /Retired Drug 12.5 mg/5 mL oral liquid;R ecorded Status: Recorded on: 06/20/20 08 10:03PM; Disconti nued Status: Disconti nued on: 07/08/20 08 9:30AM;U ser: poczatek p Not Available Not Available Not Available Depo-Medr ol 40 mg/mL suspensio n for injection Take 1 mL by injectio n route for 1 day. 10/13 completed Not Available Not Available Not Available clindamyc in HCl 300 mg capsule TAKE 1 CAPSULE BY MOUTH FOUR (4) TIMES DAILY FOR 7 DAYS 10/13 completed Not Available Not Available Not Available citalopra m 40 mg tablet TAKE ONE (1) TABLET BY MOUTH EVERY DAY 01/20 completed Not Available Not Available Not Available triamcino lone acetonide 0.5 % topical cream APPLY A THIN LAYER TO THE AFFECTED AREA(S) BY TOPICAL ROUTE TWO (2) TIMES PER DAY FOR 10 DAYS 03/07 completed Not Available Not Available Not Available atorvasta tin 10 mg tablet TAKE ONE (1) TABLET BY MOUTH EVERY DAY 04/14 completed perisist ent cough Not Available Not Available Not Available oxybutyni n chloride ER 10 mg tablet,ex tended release 24 hr TAKE ONE (1) TABLET BY MOUTH EVERY DAY 01/03 completed Not Available Not Available Not Available azithromy yessenia 250 mg tablet TAKE 2 TABLETS TODAY, THEN TAKE 1 TABLET EVERY DAY FOR 4 DAYS 05/05 completed Not Available Not Available Not Available Lidocaine Viscous 2 % mucosal solution take 15 millilit ers and swish and spit out by oral route every 3 hours for 7 days 08/06 completed Not Available Not Available Not Available fluconazo le 150 mg tablet TAKE ONE (1) TABLET BY ORAL ROUTE EVERY 72 HOURS NEEDED 05/05 completed Not Available Not Available Not Available benzonata te 200 mg capsule Take 1 capsule 3 times a day by oral route as directed for 10 days. 11/01 completed Not Available Not Available Not Available ketotifen 0.025 % (0.035 %) eye drops INSTILL ONE (1) DROP INTO AFFECTED EYE(S) BY OPHTHALM IC ROUTE TWO (2) TIMES PER DAY 09/20 completed Not Available Not Available Not Available valacyclo vir 1 gram tablet TAKE 2 TABLETS BY MOUTH EVERY 12 HOURS FOR ONE DAY. START MOSHE AFTER ONSET OF SYMPTOMS active Not Available Not Available No t Available hydrocodo ne 5 mg-acetam inophen 325 mg tablet TAKE ONE (1) TO TWO (2) TABLETS BY MOUTH EVERY SIX (6) HOURS NEEDED FOR PAIN SCALE 1-5 02/19 completed Not Available Not Available Not Available Claritin 10 mg tablet take 1 tablet (10 mg) by oral route once daily for 30 days 03/30 completed Claritin 10 mg oral tablet;R ecorded Status: Recorded on: 01/01/20 15 1:49PM;D iscontin ued Status: Disconti nued on: 03/30/20 15 3:57PM;U ser: poczatek p;Est. Completi on: 03/01/20 15;Print ed: 01/01/20 15 Not Available Not Available Not Available Keflex 500 mg capsule take 1 capsule (500 mg) by oral route every 12 hours for 10 days 02/09 completed Keflex 500 mg oral capsule; Recorded Status: Recorded on: 02/01/20 10 9:17AM;D iscontin ued Status: Disconti nued on: 02/10/20 10 2:24PM;U ser: canarya; Est. Completi on: 02/11/20 10;Print ed: 02/01/20 10 Not Available Not Available Not Available minocycli ne 100 mg capsule take 1 capsule (100 mg) by oral route 2 times per day for 3 days 03/30 completed minocycl ine 100 mg oral capsule; Recorded Status: Recorded on: 03/03/20 15 4:54PM;D iscontin ued Status: Disconti nued on: 03/30/20 15 3:57PM;U ser: webbg;Es t. Completi on: 03/06/20 15;Indic ation: IUD insertio n - (V25.11) ;Printed : 03/03/20 15 Not Available Not Available Not Available meloxicam 15 mg tablet 02/19 completed Not Available Not Available Not Available sucralfat e 1 gram tablet 01/26 completed Not Available Not Available Not Available sumatript an 25 mg tablet TAKE ONE (1) TABLET ONE FOR ONE (1) DOSE WITH FLUIDS EARLY POSSIBLE AFTER THE ONSET OF A MIGRAINE ATTACK; IF HEADACHE RETURNS THE DOS 05/20 completed Not Available Not Available Not Available ondansetr on HCl 4 mg tablet TAKE 1 TABLET BY MOUTH EVERY 4-6 HOURS NEEDED 05/20 completed Not Available Not Available Not Available Aplisol 5 tub. unit/0.1 mL intraderm al injection solution Inject 0.1 mL by intrader mal route. 02/13 completed Not Available Not Available Not Available prednison e 20 mg tablet TAKE ONE (1) TABLET EVERY DAY BY ORAL ROUTE FOR FIVE (5) DAYS. 11/06 completed Not Available Not Available Not Available rizatript an 10 mg tablet TAKE ONE (1) TABLET AT ONSET OF MIGRAINE , MAY REPEAT DOSE IN TWO (2) HOURS (MAX THREE (3) TABS/24 HOURS) active Not Available Not Available No t Available Pyridium 100 mg tablet Take 1 tablet 3 times a day by oral route as needed for 2 days. 03/07 completed Not Available Not Available Not Available Atrovent 0.03 % nasal spray inhale 1 spray by nasal route 3 times a day for 3 days 01/09 completed Atrovent 0.03 % nasal spray,no n-aeroso l;Record ed Status: Recorded on: 09/23/19 14 3:57PM;D iscontin ued Status: Disconti nued on: 01/10/20 14 1:14PM;U ser: [email or web address] ;Est. Completi on: 09/26/19 14;Print ed: 09/23/19 14 Not Available Not Available Not Available Pyridium 200 mg tablet take 1 tablet (200 mg) by oral route 3 times per day after meals 07/25 completed Pyridium 200 mg oral tablet;R ecorded Status: Recorded on: 07/05/20 11 6:37PM;D iscontin ued Status: Disconti nued on: 07/25/20 11 3:23PM;U ser: [email or web address] ;Printed : 07/05/20 11 Not Available Not Available Not Available Elmiron 100 mg capsule Take 1 capsule 3 times a day by oral route. 04/10 completed Patient never started this, see 6 1 3 23 notes Not Available Not Available Not Available clobetaso l 0.05 % topical cream apply a thin layer to the affected area(s) by topical route 2 times per day 12/19 completed clobetas ol 0.05 % topical cream;Re corded Status: Recorded on: 05/01/20 12 4:27PM;D iscontin ued Status: Disconti nued on: 12/20/19 13 8:56AM;U ser: poczatek p;Printe d: 05/01/20 12 Not Available Not Available Not Available clindamyc in HCl 150 mg capsule 08/06 completed Not Available Not Available Not Available Protonix 20 mg tablet,de layed release Take 2 tablets every day by oral route. 05/03 completed Not Available Not Available Not Available Biaxin 500 mg tablet take 1 tablet (500 mg) by oral route every 12 hours for 10 days 05/01 completed Biaxin 500 mg oral tablet;R ecorded Status: Recorded on: 01/09/20 12 3:11PM;D iscontin ued Status: Disconti nued on: 05/01/20 12 4:32PM;U ser: himese;E st. Completi on: 01/19/20 12;Print ed: 01/09/20 12 Not Available Not Available Not Available topiramat e 25 mg tablet TAKE ONE (1) TABLET EVERY DAY AT BEDTIME X1 WEEK, THEN TWO (2) TABLETS EVERY DAY AT BEDTIME FOR REMAINDE R 11/15 completed Not Available Not Available Not Available amlodipin e 2.5 mg tablet TAKE 1 TABLET BY MOUTH EVERY DAY active Not Available Not Available No t Available metronida zole 500 mg tablet take 1 tablet (500 mg) by oral route 2 times per day for 7 days 01/24 completed Not Available Not Available Not Available phentermi ne 37.5 mg tablet TAKE 1 TABLET BY MOUTH EVERYDAY 10/20 completed Not Available Not Available Not Available fexofenad ine 180 mg tablet TAKE ONE (1) TABLET BY MOUTH EVERY DAY 01/21 completed Not Available Not Available Not Available Benadryl Itch Stopping 1 %-0.1 % topical cream APPLY TOPICALL Y FOUR (4) TIMES DAILY NEEDED. 09/03 completed Not Available Not Available Not Available ciproflox acin 500 mg tablet take 1 tablet (500 mg) by oral route every 12 hours for 7 days 09/24 completed Not Available Not Available Not Available Terazol 3 0.8 % vaginal cream insert 1 applicat orful by vaginal route once daily at bedtime for 3 days 12/26 completed Terazol 3 0.8 % vaginal cream;Re corded Status: Recorded on: 12/20/19 13 9:22AM;D iscontin ued Status: Disconti nued on: 12/27/19 13 1:13PM;U ser: [email or web address];Es t. Completi on: 12/26/19 13;Indic ation: Vulvovag inal Candidia sis - ();Prin malia: 12/20/19 13 Not Available Not Available Not Available amitripty line 50 mg tablet TAKE ONE (1) TABLET EVERY DAY BY ORAL ROUTE. active Not Available Not Available No t Available triamcino lone acetonide 0.1 % topical cream APPLY A THIN LAYER TO THE AFFECTED AREA(S) BY TOPICAL ROUTE TWO (2) TIMES PER DAY active Not Available Not Available No t Available Sudogest 30 mg tablet TAKE ONE (1) TABLET EVERY SIX (6) HOURS NEEDED. 09/20 completed Not Available Not Available Not Available butalbita l-acetami nophen-ca ffeine 50 mg-325 mg-40 mg tablet TAKE ONE (1) TABLET EVERY FOUR (4) HOURS DIRECTED . 03/07 completed Not Available Not Available Not Available Zantac 150 mg tablet take 1 tablet (150 mg) by oral route 2 times per day for 30 days 09/23 completed Zantac 150 mg oral tablet;R ecorded Status: Recorded on: 05/23/20 13 9:37AM;D iscontin ued Status: Disconti nued on: 09/23/19 14 3:39PM;U ser: [email or web address]; Est. Completi on: 08/21/20 13;Print ed: 05/23/20 13 Not Available Not Available Not Available oxycodone -acetamin ophen 5 mg-325 mg tablet TAKE ONE (1) TO TWO (2) TABLETS BY MOUTH EVERY SIX (6) HOURS NEEDED FOR PAIN TAKE ONE (1) TO TWO (2) TAB NEEDED FOR SEVERE PAIN, MAX OF SIX (6) TABLETS PER DAY 08/23 completed Not Available Not Available Not Available ofloxacin 0.3 % ear drops INSTILL 10 DROPS INTO AFFECTED EAR(S) BY OTIC ROUTE ONCE DAILY 02/19 completed Not Available Not Available Not Available citalopra m 20 mg tablet TAKE ONE (1) TABLET BY MOUTH FOR 3 DAYS ; THEN TAKE ONE (1) TABLET EVERY OTHER DAY FOR ONE WEEK ; THEN TAKE ONE (1) TABLET EVERY TWO (2) DAYS FOR ONE WEEK 02/07 completed Not Available Not Available Not Available famotidin e 20 mg tablet TAKE 1 TABLET BY MOUTH EVERY 12 HOURS 01/26 completed Not Available Not Available Not Available amitripty line 25 mg tablet TAKE ONE (1) TABLET EVERY DAY BY ORAL ROUTE FOR 90 DAYS. 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 Completi on: 04/14/20 12;Print ed: 03/15/20 12 Not Available Not Available Not Available dicyclomi ne 20 mg tablet Take 1 tablet 4 times a day by oral route as directed for 30 days. 03/16 completed Not Available Not Available Not Available benzonata te 100 mg capsule TAKE ONE (1) CAPSULE THREE (3) TIMES A DAY BY ORAL ROUTE NEEDED FOR 14 DAYS. active Not Available Not Available No t Available rizatript an 10 mg disintegr ating tablet DISSOLVE ONE (1) TABLET ON TOP OF TONGUE WITH ONSET OF HEADACHE . MAY REPEAT DOSE IN TWO (2) HOURS. MAX OF THREE (3) TABLETS IN 24 HOURS 04/16 completed Not Available Not Available Not Available hyoscyami ne 0.125 mg disintegr ating tablet Place 1 tablet every 4 hours by sublingu al route as needed. 08/06 completed Not Available Not Available Not Available ferrous gluconate 325 mg (37 mg iron) tablet take 1 tablets (650 mg) by oral route daily per day 04/13 completed ferrous gluconat e 325 mg (37 mg iron) oral tablet;R ecorded Status: Recorded on: 01/08/20 10 9:47AM;D iscontin ued Status: Disconti nued on: 04/13/20 10 10:38AM; User: [email or web address]; Est. Completi on: 08/05/20 10;Indic ation: Iron Deficien cy Anemia - (2809 00);Prin malia: 01/08/20 10 Not Available Not Available Not Available hydrocodo ne 7.5 mg-acetam inophen 325 mg tablet 08/06 completed Not Available Not Available Not Available pantopraz ole 40 mg tablet,de layed release TAKE ONE (1) TABLET BY MOUTH EVERY DAY 05/14 completed Not Available Not Available Not Available erythromy yessenia 5 mg/gram (0.5 %) eye ointment APPLY 1 CM RIBBON INTO THE LOWER CONJUNCT IVAL SAC(S) IN THE AFFECTED EYE(S) BY OPHTHALM IC ROUTE 3 TIMES PER DAY 11/27 completed Not Available Not Available Not Available oseltamiv ir 75 mg capsule take 1 capsule (75 mg) by oral route 2 times per day for 5 days 10/21 completed Not Available Not Available Not Available ferrous sulfate 325 mg (65 mg iron) tablet take 1 tablet by oral route 2 times a day for 30 days 12/26 completed ferrous sulfate 325 mg (65 mg iron) oral tablet;R ecorded Status: Recorded on: 12/28/19 12 1:52PM;D iscontin ued Status: Disconti nued on: 12/27/19 13 1:13PM;U ser: himese;E st. Completi on: 03/27/20 12;Indic ation: Iron Deficien cy Anemia - (277);Prin malia: 12/28/19 12 Not Available Not Available Not Available esomepraz ole magnesium 40 mg capsule,d elayed release TAKE ONE (1) CAPSULE BY MOUTH EVERY DAY 2024 active Not Available Not Available Not Avai lable neomycin- polymyxin -dexameth 3.5 mg/mL-10, 000 unit/mL-0 .1% eye drops INSTILL ONE (1) TO TWO (2) DROPS IN AFFECTED EYE(S) FOUR TIMES DAILY THEN TAPERING DOWN OVER A 10 DAY COURSE 09/20 completed Not Available Not Available Not Available promethaz ine 25 mg tablet TAKE ONE (1) TABLET BY ORAL ROUTE THREE (3) TIMES A DAY NEEDED FOR NAUSEA 02/13 completed Not Available Not Available Not Available Qvar 40 mcg/actua tion Metered Aerosol oral inhaler 12/19 completed Qvar 40 mcg/actu ation inhalati on aerosol; Recorded Status: Recorded on: 06/05/20 11 8:56AM;D iscontin ued Status: Disconti nued on: 12/20/19 13 8:56AM;U ser: hinesm;I ndicatio n: Asthma Preventi on - (4939 ) Not Available Not Available Not Available losartan 25 mg tablet TAKE 1 TABLET BY MOUTH EVERY DAY active Not Available Not Available No t Available metoprolo l tartrate 50 mg tablet TAKE ONE (1) TABLET BY MOUTH EVERY DAY 02/19 completed Not Available Not Available Not Available hydrochlo rothiazid e 12.5 mg capsule Take 1 capsule every day by oral route for 30 days. 12/29 completed Not Available Not Available Not Available Maxalt 5 mg tablet take 1 tablet (5 mg) by oral route once, may repeat at 2 hour interval s; do not exceed 30 mg in 24 hours 12/31 completed Maxalt 5 mg oral tablet;R ecorded Status: Recorded on: 10/22/19 15 2:41PM;D iscontin ued Status: Disconti nued on: 01/01/20 15 1:16PM;U ser: himese;I ndicatio n: Headache - (784.0); Printed: 10/22/19 15 Not Available Not Available Not Available diclofena c potassium 50 mg tablet 02/19 completed Not Available Not Available Not Available docusate sodium 100 mg capsule TAKE 1 CAPSULE BY MOUTH TWICE DAILY TAKE WITH AT LEAST 8 OZ OF WATER 08/23 completed Not Available Not Available Not Available oxybutyni n chloride ER 5 mg tablet,ex tended release 24 hr TAKE 1 TABLET BY MOUTH ONCE DAILY 04/26 completed Not Available Not Available Not Available sertralin e 25 mg tablet TAKE 1 TABLET BY MOUTH EVERY DAY 01/26 completed Not Available Not Available Not Available buspirone 7.5 mg tablet TAKE 1 TABLET BY MOUTH THREE (3) TIMES DAILY NEEDED ANXIETY active Not Available Not Available No t Available Zofran ODT 8 mg disintegr ating tablet dissolve 1 tablet by oral route 3 times a day as needed 02/19 completed Zofran ODT 8 mg oral tablet,d isintegr ating;Re corded Status: Recorded on: 01/17/20 14 1:15PM;D iscontin ued Status: Disconti nued on: 02/20/20 14 10:55AM; User: himese;P rinted: 01/17/20 14 Not Available Not Available Not Available dextromet horphan-g uaifenesi n ER 60 mg-1,200 mg tab,exten d release,1 2hr Take 1 tablet twice a day by oral route for 7 days, for cough/co ngestion . 12/25 completed Not Available Not Available Not Available monteluka st 10 mg tablet TAKE ONE (1) TABLET EVERY DAY BY ORAL ROUTE. active Not Available Not Available No t Available hydroxyzi ne HCl 25 mg tablet Take 2 po at hs 09/23 completed hydroxyz ine HCl 25 mg oral tablet;R ecorded Status: Recorded on: 08/27/20 13 12:45PM; Disconti nued Status: Disconti nued on: 09/23/19 14 3:39PM;U ser: kerrs;Es t. Completi on: 08/28/20 13;Indic ation: Insomnia , unspecif ied - (780.52) ;Printed : 08/27/20 13 Not Available Not Available Not Available mupirocin 2 % topical ointment APPLY A SMALL AMOUNT TO THE AFFECTED AREA BY TOPICAL ROUTE 3 TIMES PER DAY 10/20 completed Not Available Not Available Not Available metoprolo l succinate ER 25 mg tablet,ex tended release 24 hr TAKE ONE (1) TABLET TWICE A DAY BY ORAL ROUTE FOR 90 DAYS. active Not Available Not Available No t Available ergocalci ferol (vitamin D2) 1,250 mcg (50,000 unit) capsule TAKE 1 CAPSULE BY MOUTH TWICE A WEEK 01/28 completed Not Available Not Available Not Available azelastin e 137 mcg (0.1 %) nasal spray USE TWO (2) SPRAYS INTO EACH NOSTRIL TWO (2) TIMES A DAY. USE IN EACH NOSTRIL DIRECTED 02/13 completed Not Available Not Available Not Available epinephri ne 0.3 mg/0.3 mL injection , auto-inje ctor INJECT ONE (1) PEN A SINGLE DOSE NEEDED INTO OUTER THIGH FOR SEVERE ALLERGIC REACTION . CALL 911 AFTER USE. 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 12/29 completed Not Available Not Available Not Available levofloxa yessenia 500 mg tablet TAKE 1 TABLET BY MOUTH EVERY DAY 01/26 completed Not Available Not Available Not Available methylpre dnisolone 4 mg tablets in a dose pack TAKE ONE (1) DOSE PACKET BY ORAL ROUTE DIRECTED . 06/15 completed Not Available Not Available Not Available albuterol sulfate HFA 90 mcg/actua tion aerosol inhaler INHALE TWO (2) PUFFS BY MOUTH EVERY FOUR (4) HOURS NEEDED active Not Available Not Available No t Available ferrous sulfate 325 mg (65 mg iron) tablet,de layed release take 1 tablet by oral route daily for 30 days 09/23 completed ferrous sulfate 325 mg (65 mg iron) oral tablet,d elayed release (/JOSÉ); Recorded Status: Recorded on: 07/03/20 13 9:31AM;D iscontin ued Status: Disconti nued on: 09/23/19 14 3:39PM;U ser: hogger;E stMichelle Completi on: 10/01/19 14;Print ed: 07/03/20 13 Not Available Not Available Not Available ketorolac 60 mg/2 mL intramusc ular solution Inject 60 mg by intramus cular route. 11/17 completed Not Available Not Available Not Available celecoxib 100 mg capsule 01/26 completed Not Available Not Available Not Available oxybutyni n chloride 5 mg tablet TAKE ONE (1) TABLET BY MOUTH TWICE DAILY NEEDED FOR SPASMS active Not Available Not Available No t Available Cortispor in-TC 3.3 mg-3 mg-10 mg-0.5 mg/mL ear drops,bi pension Instill 4 drops 4 times a day by otic route as needed for 5 days. 12/19 completed Not Available Not Available Not Available brompheni ramine-ps eudoephed rine-DM 2 mg-30 mg-10 mg/5 mL oral syrup TAKE 10 ML EVERY FOUR (4) HOURS BY ORAL ROUTE NEEDED, FOR COUGH. 10/31 completed Not Available Not Available Not Available ondansetr on 4 mg disintegr ating tablet ALLOW ONE (1) TABLET TO DISSOLVE ON TOP OF THE TONGUE EVERY EIGHT (8) HOURS NEEDED 05/20 completed Not Available Not Available Not Available cefdinir 300 mg capsule Take 1 capsule every 12 hours by oral route for 10 days. 09/24 completed Not Available Not Available Not Available topiramat e 100 mg tablet TAKE ONE (1) TABLET EVERY DAY BY ORAL ROUTE AT BEDTIME active Not Available Not Available No t Available dexametha sone sodium phosphate 10 mg/mL injection solution Take 1 mL every day by injectio n route for 1 day. 02/13 completed Not Available Not Available Not Available fluticaso ne propionat e 50 mcg/actua tion nasal spray,bi pension GENTLY INHALE ONE (1) SPRAY IN EACH NARE ONE (1) TO TWO (2) TIMES PER DAY NEEDED FOR CONGESTI ON/SINUS PRESSURE active Not Available Not Available No t Available metformin ER 500 mg tablet,ex tended release 24 hr TAKE ONE (1) TABLET BY MOUTH EVERY DAY WITH A MEAL active Not Available Not Available No t Available clotrimaz ole 1 % topical cream APPLY TO THE AFFECTED AND SURROUND ING AREAS OF SKIN BY TOPICAL ROUTE 2 TIMES PER DAY IN THE MORNING AND EVENING 03/16 completed Not Available Not Available Not Available imipramin e 25 mg tablet 1-2 phs 11/06 completed imiprami ne HCl 25 mg oral tablet;R ecorded Status: Recorded on: 10/03/19 13 8:44AM;D iscontin ued Status: Disconti nued on: 11/06/19 13 10:50AM; User: molly Not Available Not Available Not Available doxycycli ne hyclate 100 mg tablet take 1 tablet by oral route BID x10 days 09/03 completed Not Available Not Available Not Available phentermi ne 37.5 mg capsule TAKE ONE (1) CAPSULE (37.5 MG) BY ORAL ROUTE ONCE DAILY BEFORE BREAKFAS T 02/19 completed Not Available Not Available Not Available naproxen 500 mg tablet TAKE ONE (1) TABLET TWICE A DAY BY ORAL ROUTE FOR 7 DAYS. 06/17 completed Not Available Not Available Not Available Estrace 1 mg tablet take 1 tablet (1 mg) by oral route once daily for 7 days 12/01 completed Estrace 1 mg oral tablet;R ecorded Status: Recorded on: 10/05/19 11 1:58PM;D iscontin ued Status: Disconti nued on: 12/02/19 11 9:36AM;U ser: webbg;Es t. Completi on: 10/12/19 11;Print ed: 10/05/19 11 Not Available Not Available Not Available Phenergan 25 mg/mL injection solution 25 mg IM for one dose 10/13 completed Not Available Not Available Not Available clindamyc in phosphate 1 % topical solution APPLY A THIN LAYER TO THE AFFECTED AREA(S) BY TOPICAL ROUTE TWO (2) TIMES PER DAY 09/03 completed Not Available Not Available Not Available neomycin- polymyxin -hydrocor t 3.5 mg-10,000 unit/mL-1 % ear drops,bi p INSTILL FOUR (4) DROPS INTO AFFECTED EAR(S) EVERY 8 HOURS FOR 7 DAYS 01/06 completed Not Available Not Available Not Available NuvaRing 0.12 mg-0.015 mg/24 hr vaginal Insert 1 vaginal ring every month by vaginal route. 06/22 completed Not Available Not Available Not Available iron ER 325 mg (65 mg iron) capsule,e xtended release 12/01 completed iron 325 mg (65 mg iron) oral capsule, extended release; Recorded Status: Recorded on: 06/07/20 10 3:02PM;D iscontin ued Status: Disconti nued on: 12/02/19 11 9:36AM;U ser: hinesm;I ndicatio n: Iron Deficien cy Anemia - (2809 ) Not Available Not Available Not Available Mononessa (28) 0.25 mg-35 mcg tablet TAKE ONE (1) TABLET BY MOUTH ONCE DAILY 03/28 completed Not Available Not Available Not Available oxymetazo line 0.05 % nasal spray [place] 2 sprays twice a day by intranas al route as needed for 2 days, for nasal congesti on. 02/19 completed Not Available Not Available Not Available bupropion HCl XL 150 mg 24 hr tablet, extended release TAKE 1 TABLET BY MOUTH EACH MORNING 06/21 completed Not Available Not Available Not Available topiramat e 50 mg tablet TAKE ONE (1) TABLET EVERY DAY BY ORAL ROUTE AT BEDTIME FOR 90 DAYS. 11/04 completed Not Available Not Available Not Available nitrofura ntoin monohydra te/macroc rystals 100 mg capsule TAKE ONE (1) CAPSULE TWICE DAILY FOR 5 DAYS 03/07 completed Not Available Not Available Not Available Sure Comfort Insulin Syringe 0.5 mL 31 gauge x 01/30 USE DIRECTED active Not Available Not Available No t Available Albuterol Sulfate HFA 90 mcg/Actua tion aerosol inhaler 2 puffs q4 hr prn cough 07/08 completed Replaced /Retired Drug 90 mcg/Actu ation inhalati on aerosol; Recorded Status: Recorded on: 06/20/20 08 10:04PM; Disconti nued Status: Disconti nued on: 07/08/20 08 9:30AM;U ser: [email or web address] p Not Available Not Available Not Available chlorhexi dine gluconate 0.12 % mouthwash SWISH AND SPIT 15 ML TWICE A DAY FOR FIVE (5) DAYS. 08/13 completed Not Available Not Available Not Available omeprazol e 1qd 12/29 completed omeprazo le 20mg;Rec orded Status: Recorded on: 08/31/20 09 10:50AM; Disconti nued Status: Disconti nued on: 12/30/19 10 9:34AM;U ser: [email or web address]; Indicati on: - (-5) Not Available Not Available Not Available Adipex-P 02/14 completed Not Available Not Available Not Available metoprolo l succinate 25mg daily 02/04 completed Cardiolo gist Not Available Not Available Not Available Mirena 04/20 completed Insertio n of Mirena 03/03/15 Not Available Not Available Not Available Tylenol Sinus 30 mg-500 mg tablet 04/13 completed Tylenol Sinus 30-500 mg oral tablet;R ecorded Status: Recorded on: 02/23/20 10 2:47PM;D iscontin ued Status: Disconti nued on: 04/13/20 10 10:38AM; User: luis alberto Not Available Not Available Not Available Loestrin 24 Fe 1 mg-20 mcg (24)/75 mg (4) tablet take 1 tablet by oral route once daily for 28 days 10/18 completed Loestrin 24 Fe 1 mg-20 mcg (24)/75 mg (4) oral tablet;R ecorded Status: Recorded on: 06/05/20 11 9:23AM;D iscontin ued Status: Disconti nued on: 10/18/19 12 6:00PM;U ser: [email or web address];Es t. Completi on: 05/06/20 12;Indic ation: Pregnanc y Contrace ption - (18.V259 00);Prin malia: 06/05/20 11 Not Available Not Available Not Available Seasoniqu e 0.15 mg-30 mcg (84)/10 mcg(7) tablets,3 month dose pack Take 1 tablet every day by oral route. 06/24 completed Not Available Not Available Not Available Implanon 68 mg subdermal implant as directed 12/01 completed Implanon 68 mg subderma l implant; Recorded Status: Recorded on: 06/14/20 10 3:23PM;D iscontin ued Status: Disconti nued on: 12/02/19 11 10:01AM; User: achvr;Jerri rosas Completi on: 06/15/20 10 Not Available Not Available Not Available hydrochlo rothiazid e 12.5 mg tablet 11/27 completed Not Available Not Available Not Available budesonid e-formote rol HFA 160 mcg-4.5 mcg/actua tion aerosol inhaler INHALE TWO (2) PUFFS TWICE A DAY BY INHALATI ON ROUTE FOR 30 DAYS. active Not Available Not Available No t Available cholecalc iferol (vitamin D3) 1,250 mcg (50,000 unit) capsule TAKE ONE (1) CAPSULE BY MOUTH EVERY WEEK ON FRIDAYS active Not Available Not Available No t Available Mario 60 mg capsule TAKE 1 CAPSULE BY MOUTH THREE (3) TIMES DAILY ADMINIST ER WITH MEALS 02/19 completed Not Available Not Available Not Available Mucinex D Maximum Strength 120 mg-1,200 mg tablet,ex tended release take 1 tablet by oral route every 12 hours as needed 06/01 completed Mucinex D Maximum Strength 120-1,20 0 mg oral tablet extended release 12 hr;Recor ded Status: Recorded on: 03/07/20 11 1:50PM;D iscontin ued Status: Disconti nued on: 06/01/20 11 1:18PM;U ser: himese;I ndicatio n: Cold Symptoms - ( 00);Prin malia: 03/07/20 11 Not Available Not Available Not Available levocetir izine 5 mg tablet TAKE ONE (1) TABLET EVERY DAY BY ORAL ROUTE FOR 90 DAYS. active Not Available Not Available No t Available guaifenes in ER 1,200 mg tablet, extended release 12 hr Take 1 tablet twice a day by oral route for 10 days. 06/12 completed Not Available Not Available Not Available diclofena c 1 % topical gel 05/20 completed prn Not Available Not Available Not Available Latisse 0.03 % eyelash drops APPLY ONE (1) DROP TO APPLICAT OR AND APPLY TO UPPER EYELID ALONG EYELASHE S BY TOPICAL ROUTE ONCE DAILY AT NIGHTTIM E 09/20 completed Not Available Not Available Not Available Mucus Relief ER 600 mg tablet, extended release TAKE TWO (2) TABLET TWICE A DAY BY ORAL ROUTE FOR 10 DAYS. 06/12 completed Not Available Not Available Not Available Vol-Tab Rx 29 mg iron-1 mg tablet take 1 tablet by oral route once daily for 30 days 09/23 completed Vol-Tab Rx 29 mg iron- 1 mg oral tablet;R ecorded Status: Recorded on: 12/20/19 13 8:57AM;D iscontin ued Status: Disconti nued on: 09/23/19 14 3:39PM;U ser: [email or web address] ;Est. Completi on: 10/15/19 14;Print ed: 12/20/19 13 Not Available Not Available Not Available vilazodon e 40 mg tablet TAKE ONE (1) TABLET EVERY DAY BY ORAL ROUTE FOR 30 DAYS. 2024 active Not Available Not Available Not Avai lable vilazodon e 20 mg tablet TAKE ONE (1) TABLET EVERY DAY BY ORAL ROUTE FOR 30 DAYS. 04/25 completed Not Available Not Available Not Available mirabegro n ER 50 mg tablet,ex tended release 24 hr TAKE ONE (1) TABLET EVERY DAY BY ORAL ROUTE FOR 90 DAYS. active Not Available Not Available No t Available Myrbetriq 25 mg tablet,ex tended release TAKE ONE (1) TABLET twice a day 04/28 completed Not Available Not Available Not Available Enskyce 0.15 mg-0.03 mg tablet Take 1 tablet every day by oral route. 01/28 completed Not Available Not Available Not Available Contrave 8 mg-90 mg tablet,ex tended release TAKE ONE (1) TABLET BY MOUTH EACH MORNING FOR ONE WEEK, THEN ONE (1) TAB TWICE DAILY FOR ONE WEEK, THEN TWO (2) TABS EACH MORNING AND ONE (1) TAB EACH EVENING FOR ONE WEEK, THEN TWO (2) TABS TWICE DAILY THEREAFT ER 04/09 completed Not Available Not Available Not Available desvenlaf axine succinate ER 25 mg tablet,ex tended release 24 hr Take 2 tablets every day by oral route. 12/15 completed Not Available Not Available Not Available Saxenda 3 mg/0.5 mL (18 mg/3 mL) subcutane ous pen injector Inject 0.6 mg SC qd x1wk, then incr. dose by 0.6 mg/day qwk to target 3 mg SC qd; Max: 3 mg/day 06/12 completed Not Available Not Available Not Available Allergy 04/28 completed Not Available Not Available Not Available Ozempic 0.25 mg or 0.5 mg (2 mg/1.5 mL) subcutane ous pen injector Inject 0.25 mg every week by subcutan eous route. 04/14 completed Not Available Not Available Not Available Rybelsus 3 mg tablet 04/16 completed Not Available Not Available Not Available Ubrelvy 100 mg tablet Take 1 tablet every day by oral route as needed. 2024 active [id number] Not Available Not Available Not Available Urinary Pain Relief 99.5 mg tablet TAKE ONE (1) TABLET THREE (3) TIMES DAILY NEEDED FOR 2 DAYS 03/07 completed Not Available Not Available Not Available Gemtesa 75 mg tablet active Not Available Not Available Not Available semagluti de (weight loss) 0.5 mg/0.5 mL subcutane ous pen injector active Not Available Not Available Not Available semagluti de (weight loss) 0.25 mg/0.5 mL subcutane ous pen injector inject 1 mg subcutan eously every week 02/13 completed Not Available Not Available Not Available Mounjaro 2.5 mg/0.5 mL subcutane ous pen injector active Not Available Not Available Not Available Ozempic 0.25 mg or 0.5 mg (2 mg/3 mL) subcutane ous pen injector active Not Available Not Available Not Available Zepbound 2.5 mg/0.5 mL subcutane ous pen injector Inject 2.5 mg every week by subcutan eous route. 03/16 completed Not Available Not Available Not Available Vitals Date Recorded Body height Body mass index (BMI) Body weight Pain severity - 0-10 verbal numeric rating [Score] - Reported Oxygen saturation Oxygen saturation in Arterial blood by Pulse oximetry Respiratory rate Heart rate Systolic And Diastolic Provider Name and Address Organization Details Last Updated DateTime 5 154.94 cm 37.9 kg/m2 52507.2 7 g 2 98 % 98 % 16 /min 76 /min 130/86 mm[Hg] Sarina Dean in [facility] 5 12:49:22 Social History Question Answer Notes LastModified by Organization Details LastModified Time Tobacco Smoking Status Never Smoker Deepika Santiago giovany, [facility] 01/02/2017 11:54:14 Do You Have An Advance Directive? No [email or web address] Information not available 01/28/2018 Are You Blind Or Do You Have Difficulty Seeing? No [email or web address] Information not available 03/08/2023 Is Blood Transfusion Acceptable In An Emergency? Yes [email or web address] Information not available 01/28/2018 What Is Your Level Of Caffeine Consumption? Occasional Information not available 01/24/2017 How Much Tobacco Do You Chew? None Information not available 01/02/2017 In The 14 Days Before Symptom Onset, Have You Had Close Contact With A Laboratory-conf irmed COVID-19 While That Case Was Ill? No [email or web address] Information not available 03/08/2023 In The 14 Days Before Symptom Onset, Have You Had Close Contact With A Person Who Is Under Investigation For COVID-19 While That Person Was Ill? No Information not available 03/08/2023 Have You Been To An Area Known To Be High Risk For COVID-19? No [email or web address] Information not available 03/08/2023 Are You Deaf Or Do You Have Serious Difficulty Hearing? No [email or web address] Information not available 01/28/2018 What Type Of Diet Are You Following? [email or web address] Information not available 11/14/2021 Which Illicit Or Recreational Drugs Have You Used? N/A Information not available 11/14/2021 Have You Processed Blood Or Body Fluids From An Ebola Virus Disease Patient Without Appropriate PPE? No [email or web address] Information not available 03/08/2023 Do You Reside In Or Have You Traveled To An Area Where Ebola Virus Transmission Is Active? No [email or web address] Information not available 03/08/2023 What Is The Highest Grade Or Level Of School You Have Completed Or The Highest Degree You Have Received? [id number] Information not available 11/14/2021 How Many Days Of Moderate To Strenuous Exercise, Like A Brisk Walk, Did You Do In The Last 7 Days? 3 Information not available 03/08/2023 On Those Days That You Engage In Moderate To Strenuous Exercise, How Many Minutes, On Average, Do You Exercise? 45 [email or web address] Information not available 03/08/2023 Have There Been Any Changes To Your Family Or Social Situation? No [email or web address] Information not available 03/08/2023 How Hard Is It For You To Pay For The Very Basics Like Food, Housing, Medical Care, And Heating? Not Very Hard [email or web address] Information not available 03/08/2023 What Is The Fluoride Status Of Your Home? Fluoridated [email or web address] Information not available 03/08/2023 Have You Recently Or Are You Planning To Travel To An Area With Zika Virus? No [email or web address] Information not available 03/08/2023 Live Alone Or With Others? With Others [email or web address] Information not available 03/08/2023 Do You Have A Medical Power Of Card Dealer? No [email or web address] Information not available 03/08/2023 What Was The Date Of Your Most Recent Tobacco Screening? 06/18/2025 Information not available 06/18/2025 How Many Children Do You Have? 3 [email or web address] Information not available 04/25/2024 Performs Monthly Self-breast Exam? Yes [email or web address] Information not available 03/08/2023 Do You Use Protection During Sex? No [email or web address] Information not available 03/08/2023 Do You Use Protection Against STDs? No [email or web address] Information not available 01/24/2023 What Is Your Relationship Status? Information not available 01/02/2017 Do You Use Your Seat Belt Or Car Seat Routinely? No Information not available 11/14/2021 Seat Belts Used Routinely Yes Information not available 03/08/2023 Are You Sexually Active? Yes Information not available 11/14/2021 Do You Have Smoke And Carbon Monoxide Detectors In Your Home? Yes [email or web address] Information not available 07/19/2021 Are You Passively Exposed To Smoke? No [email or web address] Information not available 07/19/2021 How Much Tobacco Do You Smoke? No [email or web address] Information not available 03/08/2023 General Stress Level Medium [email or web address] Information not available 03/08/2023 Do You Use Sunscreen Routinely? Yes [email or web address] Information not available 03/08/2023 Has Tobacco Cessation Counseling Been Provided? No [email or web address] Information not available 12/17/2023 On What Date Was Tobacco Cessation Counseling Provided? 06/18/2025 [email or web address] Answered No To The Tobacco Cessation Counseling Provided Question On 01/28/2018. Information not available 06/18/2025 How Many Years Have You Smoked Tobacco? 0 [email or web address] Information not available 02/16/2023 Do You Have Difficulty Walking Or Climbing Stairs? No Information not available 03/08/2023 What Contraceptive Method Was Reported At End Of This Visit? None Hysterectomy Information not available 03/08/2023 Do You Want To Talk About Contraception Or Prevention During Your Visit Today? No - I Do Not Want To Talk About Contraception Today Because I Am Here For Something Else [email or web address] Information not available 03/08/2023 How Was The Contraceptive Method Provided? Provided On Site [email or web address] Information not available 03/08/2023 Do You Have Any Future Plans To Get ? No, I Don't Want To Become Information not available 03/08/2023 Sex: Female Functional Status Question Answer Note LastModified by Organizat ion Details LastModified Time Do you or have you ever used smokeless tobacco? Never used smokeless tobacco [email or web address] Information not available 02/20/2020 Are you currently employed? No Information not available 03/16/2025 Do you have transportation difficulties? No [email or web address] Information not available 03/08/2023 Are you able to care for yourself independently? Yes Information not available 02/10/2021 Do you have difficulty dressing, bathing, grooming, or toileting? No [email or web address] Information not available 03/08/2023 Do you or have you ever used e-cigarettes or vape? Never used electronic cigarettes [email or web address] Information not available 02/20/2020 What is your exercise level? Occasional Information not available 11/14/2021 Do you use any illicit or recreational drugs? No [email or web address] Information not available 03/08/2023 Do you or have you ever used any other forms of tobacco or nicotine? No [email or web address] Information not available 03/08/2023 What is your level of alcohol consumption? Occasional [email or web address] Information not available 02/03/2021 What is your status? Not [email or web address] Information no t available 03/08/2023 Are you able to walk independently without assistance or assistive devices? YESWOREST [email or web address] Information not available 03/08/2023 Do you have difficulty doing errands alone? No [email or web address] Information not available 03/08/2023 Mental Status Question Answer Note LastModified by Organizat ion Details LastModified Time Do you feel stressed (tense, restless, nervous, or anxious, or unable to sleep at night)? [id number] [email or web address] Information not available 03/08/2023 Do you have difficulty concentrating, remembering or making decisions? No [email or web address] Information no t available 03/08/2023 Family History Relationship Description Onset Age of this Age Resolved Age Notes LastModified by Organization Details LastModified Time Father Cerebrovascu lar accident Not available 16:01:06 Father Hypertensive disorder [email or web address] Not available 2023 09:15:40 Mother Type 2 diabetes mellitus [email or web address] Not available 2024 09:41:42 Mother Hypertensive disorder [email or web address] Not available 2021 09:19:20 Mother Diabetes mellitus [email or web address] Not available 2022 09:30:13 Mother Osteoporosis [email or web address] Not [employer] 03/13/2024 09:57:00 Maternal Grandfather Family history of malignant neoplasm skin cancer [email or web address] Not available 06/18/2025 09:41:42 Maternal Grandmother Type 2 diabetes mellitus [email or web address] Not available 2024 09:41:42 Maternal Grandmother Diabetes mellitus [email or web address] Not available 2023 09:15:40 Maternal Grandmother Osteoporosis [email or web address] Not available 03/13/2024 09:57:00 Paternal Grandmother Malignant neoplasm of lung [email or web address] Not available 2022 08:45:36 Maternal Aunt Diabetes mellitus [email or web address] Not available 2023 09:15:40 Medical History Condition Response Pancreatitis N Coronary Artery Disease N Other N Gout N Atrial Fibrillation N congenital heart disease N Kidney Stones N Blood Diseases N Hyperthyroidism N Rheumatoid arthritis N Blood Transfusion N Erectile Dysfunction N amputation N Colonoscopy N Skin Lesions N Depression Y COPD N Pneumonia N Incontinence N Murmur N Edema N Alzheimer's Disease N Migraine Headaches N Tobacco Abuse N Anxiety Disorder Y Muscle, Joint, or Bone Problems N Hemorrhoids N Obesity Y Vision or Eye Problems N Restless Leg Syndrome N Arthritis N Polyps N Infertility N Mental Disorder N Carpal Tunnel N Acid Reflux (GERD) Y Cancer N Varicosities N Stroke N Tendonitis N Crohn's Disease N Hypercholesterolemia N Skin Cancer N Headaches Y Fibromyalgia N Irritable Bowel Syndrome N Anal Fissure N Kidney Disease N Heart Problems N Ear or Hearing Problems Y Hospitalizations N Gallstones N Kidney or Bladder Problems Y Goiter N Acne N Skin Problems N Eating Disorder N Bob's Esophagus N Hypertriglyceridemia N MRSA exposure N Constipation N Embolism N Vitamin B12 Deficiency N Deviated Septum N Tuberculosis N AIDS/HIV N Myocardial Infarction N Asthma N Mitral Valve Disorders N Vertigo N Hepatitis N Thyroid Cancer N Neuropathy N Pulmonary Embolism N History of DVT N Herniated Disc N Chronic Ear Infections N Chicken Pox N Autism Spectrum Disorder (ASD) N Von Willebrands Disease N Thrombophilias N Breast Cancer N Hernia N Plantar Fasciitis N Hospital Admission Other Than N Lung Disease N Hypothyroidism N Defects or Inherited Disease N Developmental or Behavioral Disorders N Breast Problem N Difficulty Swallowing N Ovarian Cyst Y Anesthesia Complications N Testosterone Deficiency N Meniere's disease N Head Injury/Concussion N Interstitial Cystitis N Congenital Anomalies N Hypoglycemia N Blood clot N Vitamin D Deficiency N Cellulitis N Endometriosis N Bladder or Kidney Problems N Fracture N Liver Disease N Schizophrenia N Panic Disorder N Concussion N Spina Bifida N Allergies/Hayfever Y Osteoarthritis N Parkinson's Disease N Disc Protrusion N STI N Esophagitis N Angina N Thyroid Problems N GI Problems N ADD/ADHD N Anemia Y Multiple Sclerosis N Abnormal PAP Y Lumbago N Mental Illness N Psychiatric Illness N Ovarian Cancer N Diabetes N Bedwetting N Degenerative Disc Disease N Seizures/Epilepsy N Congestive Heart Failure (CHF) N Syncope N Hyperlipidemia N Insomnia N Eczema N Abuse/Domestic Violence N Attention Deficient Disorder N Dementia N Diverticulitis N Ulcerative colitis N Cerebrovascular Disease N Depression N Guillain-Doerun N Sleep Apnea N Aneurysm N Bronchitis N Heart Disease N Suicidal Ideation N Pre-Eclampsia N Hypertension Y Osteoporosis N Gynecological History Statement/Question Response Abnormal Pap Y Date of LMP 04/26/2022 Post Menopausal Bleeding N STIs/STDs N Colposcopy 02/03/2013 HPV Vaccine Y Current Control Method Hysterectom y Age at First Child 22 Last Annual Exam/Provider 03/16/25 DT Last Lipids 03/16/25- If Post Menopausal, Age at Menopause 30 Sexually Active? Y Menses Monthly No Date of Last Pap Smear 03/07/2022 Sexual Problems? N Hormone Replacement Therapy N Obstetrics History GPAL:G 1 P 1 0 0 1 Type Value Full Term 1 Living 1 Total 1 Immunizations Vaccine Type Date Status Note Provider Nam e and Address Organization Details Recorded Time MMR 6 completed Adela Coello APRN [address], [place], [address], [place] - [facility] 10/22/2024 22:28:24 OPV, trivalent 6 completed Adela Coello APRN [address], [place], [address], [place] [facility] 10/22/2024 22:28:24 Influenza, split virus, trivalent, preservative 3 completed Adela Coello APRN [address], [place], [address], [place] [facility] 10/22/2024 22:28:24 Influenza, split virus, trivalent, PF 3 completed Adela Coello APRN [address], [place], [address], [place] [facility] 10/22/2024 22:28:24 Influenza, split virus, trivalent, PF 2 completed Adela Coello APRN [address], [place], [address], [place] [facility] 10/22/2024 22:28:24 Td (adult), 2 Lf tetanus toxoid, preservative free, adsorbed 3 completed Adela Coello APRN [address], [place], [address], [place] [facility] 10/22/2024 22:28:24 Hep B, adolescent or pediatric 7 completed Adela Coello APRN [address], [place], [address], [place] [facility] 10/22/2024 22:28:24 Hep B, adolescent or pediatric 6 completed Adela Coello APRN [address], [place], [address], [place] [facility] 10/22/2024 22:28:24 Hep B, adolescent or pediatric 6 completed Adela Coello APRN [address], [place], [address], [place] [facility] 10/22/2024 22:28:24 DTaP, unspecified formulation 6 completed Adela Coello APRN [address], [place], [address], [place] [facility] 10/22/2024 22:28:24 COVID-19, mRNA, LNP-S, PF, 100 mcg/0.5mL dose or 50 mcg/0.25mL dose 1 completed Ashlie adair, [place] - [facility] 05/05/2021 19:00:06 influenza, unspecified formulation 2 completed Adela Coello APRN [address], [place], [address], [place] [facility] 10/22/2024 22:28:24 influenza, unspecified formulation 3 completed Adela Coello APRN [address], [place], [address], [place] [facility] 10/22/2024 22:28:24 Tdap 3 completed Not Available [facility] 10/16/2023 08:10:39 HPV, unspecified formulation 0 completed Not Available [facility] 10/16/2023 08:10:39 HPV, unspecified formulation 0 completed Not Available [facility] 10/16/2023 08:10:39 HPV, unspecified formulation 1 completed Not Available [facility] 10/16/2023 08:10:39 COVID-19, mRNA, LNP-S, PF, 100 mcg/0.5mL dose or 50 mcg/0.25mL dose 1 completed Caryn adair[place], [place] - [facility] 03/08/2023 08:35:30 Past Encounters Encounter ID Performer Location Encounter Start Date Encounter Closed Date Diagnosis/Indication Diagnosis SNOMED-CT Code Diagnosis ICD10 Code Diagnosis IMO Codes Diagnosis Note [id number] Julieta Marcano APRN [address] [place] [address] 04/14/2025 08:23:26 04/14/2025 09:27:20 Pharyngitis 481608207 J02.9 [id number] Julieta Marcano APRN [address] [place] [address] 05/05/2025 12:30:33 05/05/2025 13:21:33 Migraine 15752449 G43.909 Mild inter mittent asthma 365776000 J45.20 [id number] Chronic in terstitial cystitis 823461153 N30.10 Hypertensive disorder 38 656378 I10 [id number] Acute migraine 658639051 1 99927 G43.909 [id number] Health Concerns Section Related Observation LastModified by Organization Detai ls LastModified Time None Recorded Concern Status LastModified by Organization Details LastModified Time None Recorded Payers Encounter Date Sequence Insurance Name Policy Number Policy Castañeda Covered Member ID Castañeda Member ID Guarantor Name 05/05/2025 1 JOHNATHAN [id number] Lon Cornell [id number] Keira Kanchan Cornell Notes Date Note Type Note Provider Name and Address Organization Details Recorded Time 05/05/2025 text/html ROS as noted in the HPI Keira is a 34 yof who presents to the clinic for follow up-cough continues despite stopping statin. High bp for 2 days-she does admit this is the only time she has really checked her BP. She follows up with pulmonology in July-will discuss modanofil dose. She also reports a persistent migraine to the right temporal area. She has struggled with migraines but has been well controlled on topamax up until recently. Julieta Marcano, [employer] [address], [place], [address], [place] [facility] 05/05/2025 22:58:47 OBGyn Episode No OBEpisode recorded.
--- OUTSIDE RECORDS SUMMARY | 2025-06-26 08:33 | XMS_ITS | Data Portability ---
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 Removal completed Ashley Armani, MC [facility] [employer] [address], [place], [address], [place] [facility] 11/27/2023 17:45:47 023 Dimethyl Sulfoxide (DMSO) completed Johana Krause MD [address], [place], [address], [place] [facility] 04/10/2023 12:36:40 023 Dimethyl Sulfoxide (DMSO) completed Julieta Webber, MC K[facility] MACHINE OPERATOR [address], [place], [address], [place] [facility] 03/27/2023 12:01:45 023 Dimethyl Sulfoxide (DMSO) completed Johana Krause MD [address], [place], [address], [place] [facility] 03/13/2023 08:52:24 023 Dimethyl Sulfoxide (DMSO) completed Johana Krause MD [address], [place], [address], [place] [facility] 02/27/2023 13:01:22 023 potassium sensitivity test- MOB completed Johana Krause MD [address], [place], [address], [place] [facility] 02/16/2023 21:17:46 023 Skin Tag Removal completed Shanna Velasquez [place] [facility] 09/20/2022 13:25:20 022 Hysterectomy, Total laparoscopic completed Priti Jean-Baptiste [place] [facility] 07/10/2022 10:57:59 022 Date of Last Pap Smear completed Anne Peña, MC [facility] MACH[employer] OPERATOR [address], [place], [address], [place] [facility] 03/10/2022 11:52:50 021 cystoscopy completed Teresa Zacariass [place] [facility] 01/15/2023 15:47:53 020 Systolic B/P less than 130 mm Hg completed Ashlie Dennis [place] [facility] 10/21/2019 11:01:48 020 Diastolic B/P 80-89 mm Hg completed Ashlie Dennis [place] [facility] 10/21/2019 11:01:49 019 IUD Insertion (Mirena) completed Anne Peña, MC [employer] MACH[employer] OPERATOR [address], [place], [address], [place] [facility] 02/28/2019 16:50:46 019 IUD Insertion completed Fern Cary [place] [facility] 02/28/2019 15:36:40 017 Appl. Splint - Finger completed Carolee De Leon PA-C [address], [place], [address], [place] [facility] 08/06/2017 14:45:47 017 IUD Removal completed Rissa Morgan, BRUNO [address], [place], [address], [place] [facility] 04/20/2017 15:36:01 017 IUD Removal completed Teresa Holmanrus [place] [facility] 06/19/2017 13:23:09 015 IUD [...] Name and Address Organization Details Recorded Time 36946 Product containin g penicilli n (product) medicatio n Not available Not available Not available 06/23/20162007 82400 8001 SNOMED React ion: unsur e; Comme nt: pcn; Not Available [facility] 6 09:04:57 63000 Substance with sulfonami de structure and antibacte rial mechanism of action (substanc e) medicatio n Not available Not available Not available 06/23/20162007 91432 8003 SNOMED React ion: unsur e; Comme nt: Sulfo namid es; Not Available [facility] 6 09:04:57 88600 Cephalosp vi (substanc e) medicatio n rash Not available Not available 06/23/20162009 26958 7003 SNOMED React ion: rash; Not Available [facility] 6 09:28:10 Medications Name Sig Start Date Stop Date Status Note LastModified by Organization Details LastModified Time Allergy serum (from investigative reporter ) injectio n(repeat same dose as before 2022 active Not Available Not Available Not Avai lable CANKER SORE ADHESIVE POWDER use as directed 02/16 completed Not Available Not Available Not Available Allergy serum (from investigative reporter ) injectio n 2023 active Mix 1 Not Available Not Available Not Avai lable Allergy serum (from investigative reporter ) injectio n 2022 active Not Available Not Available Not Avai lable Allergy serum (from investigative reporter ) injectio n 2023 active Patient presente d with allergy serum. Not Available Not Available Not Available Magic Mouthwash (lido/meghan /maa) 10mL swish and spit every 4 hours PRN sore throat 01/03 completed Not Available Not Available Not Available Allergy serum (from investigative reporter ) injectio n( repeat same dose as before 2022 active Not Available Not Available Not Avai lable Allergy serum (from investigative reporter ) injectio n 2022 active Not Available Not Available Not Avai lable Allergy serum (from investigative reporter ) inject 0.3ml 01/21 completed Not Available Not Available Not Available Magic Mouthwash (lido/meghan /maa) 10mL gargle and spit every 4 hours PRN sore throat 2021 active Not Available Not Available Not Avai lable Allergy serum (from investigative reporter ) Mix 3 2023 active Mix 3 Not Available Not Available Not Avai lable Allergy serum (from investigative reporter ) inject 0.25ml 2023 active Not Available Not Available Not Avai lable Allergy serum (from investigative reporter ) injectio n 2023 active Not Available Not Available Not Avai lable Allergy serum (from investigative reporter ) Mixture #3 q wk 2023 active Not Available Not Available Not Avai lable Allergy serum (from investigative reporter ) SQ every week 2023 active Not Available Not Available Not Avai lable Allergy serum (from investigative reporter ) mixture #2 q wk 2023 active Not Available Not Available Not Avai lable Allergy serum (from investigative reporter ) inject 0.3ml 2024 active Not Available Not Available Not Avai lable Allergy serum (from investigative reporter ) Weekly injectio ns 2023 active Mix 2 Not Available Not Available Not Avai lable Allergy serum (from investigative reporter ) Inject ).25ml SQ from red top vial Cat, mite, W 2022 active Not Available Not Available Not Avai lable Allergy serum (from investigative reporter ) injectio n( repeated same dose as before 2022 active Not Available Not Available Not Avai lable Allergy serum (from investigative reporter ) inject 0.3ml 2024 active Not Available Not Available Not Avai lable Allergy serum (from investigative reporter ) Mixture #3 q wk 2023 active Not Available Not Available Not Avai lable Allergy serum (from investigative reporter ) inject 0.25ml RASQ from red vial Mold 2022 active Not Available Not Available Not Avai lable semagluti de 1mg/1ml injectabl e Inject 0.25mL (0.25mg= 25 units) subcutan eously once weekly for four (4) weeks. 07/18 completed Not Available Not Available Not Available Allergy serum (from investigative reporter ) 0.25ml 2023 active Not Available Not Available Not Avai lable Allergy serum (from investigative reporter ) inject 0.25ml 2023 active Not Available Not Available Not Avai lable Allergy serum (from investigative reporter ) injectio n 2022 active Not Available Not Available Not Avai lable Allergy serum (from investigative reporter ) injectio n 2023 active Not Available Not Available Not Avai lable semagluti de methylcob alamin 4mg 1mg/1ml injectabl e Inject 0.25mL (1mg=25 units) subcutan eously once weekly for four (4) weeks 01/27 completed Not Available Not Available Not Available Prescript ion - Prior Authoriza tion Request active Not Available Not Available Not Available Allergy serum (from investigative reporter ) SQ every week 2023 active Mix 2 Not Available Not Available Not Avai lable Allergy serum (from investigative reporter ) injectio n 2023 active Not Available Not Available Not Avai lable Allergy serum (from investigative reporter ) Mixture #3 q wk 2023 active Not Available Not Available Not Avai lable Allergy serum (from investigative reporter ) Inject 0.25ml SQ from red top [...] FOUR (4) TIMES DAILY FOR 7 DAYS 01/27 /2025 completed Not Available Not Available Not Available [...] mg oral tablet;R ecorded Status: Recorded on: 04/16/20 15 1:49PM;D iscontin ued Status: Disconti nued [...] Disconti nued on: 01/10/20 14 1:14PM;U ser: [email or web address] ;Est. 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 12/29 completed Not [...] (65 mg iron) oral tablet,d elayed release (/EC); Recorded Status: Recorded on: 07/03/20 13 9:31AM;D iscontin ued Status: Disconti nued on: 09/23/19 14 3:39PM;U ser: hogger;E stMichelle Crooksi on: 10/01/19 14;Print ed: 07/03/20 13 Not [...] Available oxymetazo line 0.05 % nasal spray [place] 2 sprays twice a day by intranas [...] Insulin Syringe 0.5 mL 31 gauge x 5/16 USE DIRECTED active Not Available Not Available [...] Disconti nued on: 12/02/19 11 10:01AM; User: Miguel rosas Completi on: 06/15/20 10 Not Available [...] ser: himese;I ndicatio n: Cold Symptoms - (4600 00);Prin malia: 03/07/20 11 Not Available Not [...] by oral route as needed. 2024 active [id number] Not Available Not Available Not Available [...] 0-10 verbal numeric rating [Score] - Reported Systolic And Diastolic Provider Name and Address Organization Details Last Updated DateTime 03/16/2025 154.94 cm 38.8 kg/m2 05840.87 g 0 118/72 mm[Hg] Caryn Sanderson [facility] 5 09:07:54 Date Recorded Body height Body mass index (BMI) Body weight Respiratory rate Oxygen saturation Oxygen saturation in Arterial blood by Pulse oximetry Heart rate Pain severity - 0-10 verbal numeric rating [Score] - Reported Systolic And Diastolic Provider Name and Address Organization Details Last Updated DateTime 5 154.94 cm 37.9 kg/m2 48555.9 2 g 16 /min 98 % 98 % 76 /min 2 120/74 mm[Hg] Sarina Dean [facility] 5 15:34:07 Date Recorded Body height Body mass index (BMI) Body weight Oxygen saturation Oxygen saturation in Arterial blood by Pulse oximetry Respiratory rate Pain severity - 0-10 verbal numeric rating [Score] - Reported Heart rate Systolic And Diastolic Provider Name and Address Organization Details Last Updated DateTime 5 154.94 cm 38 kg/m2 08265.0 7 g 98 % 98 % 16 /min 0 78 /min 120/76 mm[Hg] Sarina Dean in [facility] 5 08:46:28 Date Recorded Body height Body mass index (BMI) Body weight Pain severity - 0-10 verbal numeric rating [Score] - Reported Oxygen saturation Oxygen saturation in Arterial blood by Pulse oximetry Respiratory rate Heart rate Systolic And Diastolic Provider Name and Address Organization Details Last Updated DateTime 5 154.94 cm 37.9 kg/m2 81614.2 7 g 2 98 % 98 % 16 /min 76 /min 130/86 mm[Hg] Sarina Dean in [facility] 5 12:49:22 Date Recorded Body height Body mass index (BMI) Body weight Body temperature Oxygen saturation Oxygen saturation in Arterial blood by Pulse oximetry Respiratory rate Pain severity - 0-10 verbal numeric rating [Score] - Reported Heart rate Systolic And Diastolic Provider Name and Address Organization Details Last Updated DateTime 5 154.94 cm 38 kg/m2 32000.4 7 g 98.4 [degF] 98 % 98 % 16 /min 0 102 /min 124/76 mm[Hg] Claritza Vega [place] - [facility] 5 09:54:48 Social History Question Answer Notes LastModified by Organization Details LastModified Time Tobacco Smoking Status Never Smoker Deepika [place] [facility] 01/02/2017 11:54:14 Do You Have An Advance Directive? No [email or web address] Information not available 01/28/2018 Are You Blind Or Do You Have Difficulty Seeing? No [email or web address] Information not available 03/08/2023 Is Blood Transfusion Acceptable In An Emergency? Yes [email or web address] Information not available 01/28/2018 What Is Your Level Of Caffeine Consumption? Occasional Information not available 01/24/2017 How Much Tobacco Do You Chew? None Information not available 01/02/2017 In The 14 Days Before Symptom Onset, Have You Had Close Contact With A Laboratory-conf irmed COVID-19 While That Case Was Ill? No [email or web address] Information not available 03/08/2023 In The 14 Days Before Symptom Onset, Have You Had Close Contact With A Person Who Is Under Investigation For COVID-19 While That Person Was Ill? No [email or web address] Information not available 03/08/2023 Have You Been To An Area Known To Be High Risk For COVID-19? No [email or web address] Information not available 03/08/2023 Are You Deaf Or Do You Have Serious Difficulty Hearing? No [email or web address] Information not available 01/28/2018 What Type Of Diet Are You Following? [email or web address] Information not available 11/14/2021 Which Illicit Or Recreational Drugs Have You Used? N/A Information not available 11/14/2021 Have You Processed Blood Or Body Fluids From An Ebola Virus Disease Patient Without Appropriate PPE? No [email or web address] Information not available 03/08/2023 Do You Reside In Or Have You Traveled To An Area Where Ebola Virus Transmission Is Active? No Information not available 03/08/2023 What Is The Highest Grade Or Level Of School You Have Completed Or The Highest Degree You Have Received? [id number] Information not available 11/14/2021 How Many Days Of Moderate To Strenuous Exercise, Like A Brisk Walk, Did You Do In The Last 7 Days? 3 [email or web address] Information not available 03/08/2023 On Those Days That You Engage In Moderate To Strenuous Exercise, How Many Minutes, On Average, Do You Exercise? 45 [email or web address] Information not available 03/08/2023 Have There Been Any Changes To Your Family Or Social Situation? No [email or web address] Information not available 03/08/2023 How Hard Is It For You To Pay For The Very Basics Like Food, Housing, Medical Care, And Heating? Not Very Hard [email or web address] Information not available 03/08/2023 What Is The Fluoride Status Of Your Home? Fluoridated Information not available 03/08/2023 Have You Recently Or Are You Planning To Travel To An Area With Zika Virus? No [email or web address] Information not available 03/08/2023 Live Alone Or With Others? With Others [email or web address] Information not available 03/08/2023 Do You Have A Medical Power Of Screen Handler? No [email or web address] Information not available 03/08/2023 What Was The Date Of Your Most Recent Tobacco Screening? 06/18/2025 Information not available 06/18/2025 How Many Children Do You Have? 3 [email or web address] Information not available 04/25/2024 Performs Monthly Self-breast Exam? Yes [email or web address] Information not available 03/08/2023 Do You Use Protection During Sex? No [email or web address] Information not available 03/08/2023 Do You Use Protection Against STDs? No Information not available 01/24/2023 What Is Your Relationship Status? Information not available 01/02/2017 Do You Use Your Seat Belt Or Car Seat Routinely? No Information not available 11/14/2021 Seat Belts Used Routinely Yes [email or web address] Information not available 03/08/2023 Are You Sexually Active? Yes Information not available 11/14/2021 Do You Have Smoke And Carbon Monoxide Detectors In Your Home? Yes Information not available 07/19/2021 Are You Passively Exposed To Smoke? No [email or web address] Information not available 07/19/2021 How Much Tobacco Do You Smoke? No Information not available 03/08/2023 General Stress Level Medium [email or web address] Information not available 03/08/2023 Do You Use Sunscreen Routinely? Yes [email or web address] Information not available 03/08/2023 Has Tobacco Cessation Counseling Been Provided? No [email or web address] Information not available 12/17/2023 On What Date Was Tobacco Cessation Counseling Provided? 06/18/2025 [email or web address] Answered No To The Tobacco Cessation Counseling Provided Question On 01/28/2018. Information not available 06/18/2025 How Many Years Have You Smoked Tobacco? 0 [email or web address] Information not available 02/16/2023 Do You Have Difficulty Walking Or Climbing Stairs? No [email or web address] Information not available 03/08/2023 What Contraceptive Method Was Reported At End Of This Visit? None Hysterectomy Information not available 03/08/2023 Do You Want To Talk About Contraception Or Prevention During Your Visit Today? No - I Do Not Want To Talk About Contraception Today Because I Am Here For Something Else [email or web address] Information not available 03/08/2023 How Was The Contraceptive Method Provided? Provided On Site [email or web address] Information not available 03/08/2023 Do You Have Any Future Plans To Get ? No, I Don't Want To Become [email or web address] Information not available 03/08/2023 Sex: Female Functional Status Question Answer Note LastModified by Organizat ion Details LastModified Time Do you or have you ever used smokeless tobacco? Never used smokeless tobacco [email or web address] Information not available 02/20/2020 Are you currently employed? No [email or web address] Information not available 03/16/2025 Do you have transportation difficulties? No [email or web address] Information not available 03/08/2023 Are you able to care for yourself independently? Yes [email or web address] Information not available 02/10/2021 Do you have difficulty dressing, bathing, grooming, or toileting? No [email or web address] Information not available 03/08/2023 Do you or have you ever used e-cigarettes or vape? Never used electronic cigarettes [email or web address] Information not available 02/20/2020 What is your exercise level? Occasional Information not available 11/14/2021 Do you use any illicit or recreational drugs? No [email or web address] Information not available 03/08/2023 Do you or have you ever used any other forms of tobacco or nicotine? No [email or web address] Information not available 03/08/2023 What is your level of alcohol consumption? Occasional [email or web address] Information not available 02/03/2021 What is your status? Not [email or web address] Information no t available 03/08/2023 Are you able to walk independently without assistance or assistive devices? YESWOREST [email or web address] Information not available 03/08/2023 Do you have difficulty doing errands alone? No Information not available 03/08/2023 Mental Status Question Answer Note LastModified by Organizat ion Details LastModified Time Do you feel stressed (tense, restless, nervous, or anxious, or unable to sleep at night)? [id number] [email or web address] Information not available 03/08/2023 Do you have difficulty concentrating, remembering or making decisions? No [email or web address] Information no t available 03/08/2023 Family History Relationship Description Onset Age of this Age Resolved Age Notes LastModified by Organization Details LastModified Time Father Cerebrovascu lar accident [email or web address] Not available 16:01:06 Father Hypertensive disorder [email or web address] Not available 2023 09:15:40 Mother Type 2 diabetes mellitus [email or web address] Not available 2024 09:41:42 Mother Hypertensive disorder [email or web address] Not available 2021 09:19:20 Mother Diabetes mellitus [email or web address] Not available 2022 09:30:13 Mother Osteoporosis [email or web address] Not [employer] 03/13/2024 09:57:00 Maternal Grandfather Family history of malignant neoplasm skin cancer [email or web address] Not available 06/18/2025 09:41:42 Maternal Grandmother Type 2 diabetes mellitus [email or web address] Not available 2024 09:41:42 Maternal Grandmother Diabetes mellitus [email or web address] Not available 2023 09:15:40 Maternal Grandmother Osteoporosis [email or web address] Not available 03/13/2024 09:57:00 Paternal Grandmother Malignant neoplasm of lung [email or web address] Not available 2022 08:45:36 Maternal Aunt Diabetes mellitus [email or web address] Not available 2023 09:15:40 Medical History Condition Response Pancreatitis N Coronary Artery Disease N Gout N Other N Atrial Fibrillation N congenital heart disease N Kidney Stones N Blood Diseases N Hyperthyroidism N Blood Transfusion N Rheumatoid arthritis N Erectile Dysfunction N amputation N Colonoscopy N Skin Lesions N Depression Y COPD N Pneumonia N Incontinence N Murmur N Edema N Alzheimer's Disease N Migraine Headaches N Tobacco Abuse N Anxiety Disorder Y Hemorrhoids N Muscle, Joint, or Bone Problems N Obesity Y Vision or Eye Problems N Arthritis N Restless Leg Syndrome N Polyps N Infertility N Mental Disorder N Carpal Tunnel N Acid Reflux (GERD) Y Cancer N Varicosities N Stroke N Tendonitis N Crohn's Disease N Hypercholesterolemia N Skin Cancer N Headaches Y Fibromyalgia N Anal Fissure N Irritable Bowel Syndrome N Kidney Disease N Heart Problems N [...] D Deficiency N Cellulitis N Endometriosis N Fracture N Bladder or Kidney Problems N Liver Disease N Panic Disorder N Schizophrenia N Concussion N Spina Bifida N Allergies/Hayfever Y Osteoarthritis N Parkinson's Disease N Disc Protrusion N STI N Esophagitis N Angina N Thyroid Problems N GI Problems N ADD/ADHD N Anemia Y Multiple Sclerosis N Abnormal PAP Y Lumbago N Mental Illness N Psychiatric Illness N Diabetes N Ovarian Cancer N Bedwetting N Degenerative Disc Disease N Seizures/Epilepsy N Congestive Heart Failure (CHF) N Hyperlipidemia N Syncope N Insomnia N Eczema N Abuse/Domestic Violence N Attention Deficient Disorder N Diverticulitis N Dementia N Ulcerative colitis N Cerebrovascular Disease N Depression N Guillain-Scuddy N Sleep Apnea N Aneurysm N Bronchitis [...] MMR 6 completed Adela Coello APRN [address], [place], [address], [place] [facility] 10/22/2024 22:28:24 OPV, trivalent 6 completed Adela Coello APRN [address], [place], [address], [place] [facility] 10/22/2024 22:28:24 Influenza, split virus, trivalent, preservative 3 completed Adela Coello APRN [address], [place], [address], [place] [facility] 10/22/2024 22:28:24 Influenza, split virus, trivalent, PF 3 completed Adela Coello APRN [address], [place], [address], [place] [facility] 10/22/2024 22:28:24 Influenza, split virus, trivalent, PF 2 completed Adela Coello APRN [address], [place], [address], [place] [facility] 10/22/2024 22:28:24 Td (adult), 2 Lf tetanus toxoid, preservative free, adsorbed 3 completed Adela Coello APRN [address], [place], [address], [place] [facility] 10/22/2024 22:28:24 Hep B, adolescent or pediatric 7 completed Adela Coello APRN [address], [place], [address], [place] [facility] 10/22/2024 22:28:24 Hep B, adolescent or pediatric 6 completed Adelamagy Coello APRN [address], [place], [address], [place] [facility] 10/22/2024 22:28:24 Hep B, adolescent or pediatric 6 completed Adela Coello APRN [address], [place], [address], [place] [facility] 10/22/2024 22:28:24 DTaP, unspecified formulation 6 completed Adela Coello APRN [address], [place], [address], [place] [facility] 10/22/2024 22:28:24 COVID-19, mRNA, LNP-S, PF, 100 mcg/0.5mL dose or 50 mcg/0.25mL dose 1 completed Ashlie Monzon [facility] [place] - [facility] 05/05/2021 19:00:06 influenza, unspecified formulation 2 completed Adela Coello APRN [address], [place], [address], [place] - [facility] 10/22/2024 22:28:24 influenza, unspecified formulation 3 completed Adela Coello APRN [address], [place], [address], [place] - [facility] 10/22/2024 22:28:24 Tdap 3 completed Not Available [facility] 10/16/2023 08:10:39 HPV, unspecified formulation 0 completed Not Available [facility] 10/16/2023 08:10:39 HPV, unspecified formulation 0 completed Not Available [facility] 10/16/2023 08:10:39 HPV, unspecified formulation 1 completed Not Available [facility] 10/16/2023 08:10:39 COVID-19, mRNA, LNP-S, PF, 100 mcg/0.5mL dose or 50 mcg/0.25mL dose 1 completed [facility] [place] - [facility] 03/08/2023 08:35:30 Past Encounters Encounter ID Performer Location Encounter Start Date Encounter Closed Date Diagnosis/Indication Diagnosis SNOMED-CT Code Diagnosis ICD10 Code Diagnosis IMO Codes Diagnosis Note [id number] [facility] [address] [place] [address] 03/29/2004 00:00:[id number] [facility] [address] [place] [address] 5 04/18/2004 00:00:[id number] [facility] [address] [place] [address] 05/25/2004 00:00:[id number] [facility] [address] [place] [address] 06/03/2004 00:00:[id number] [facility] [address] [place] [address] 06/22/2004 00:00:[id number] [facility] [address] [place] [address] 5 09/01/2004 00:00:[id number] [facility] [address] [place] [address] 5 09/06/2004 00:00:[id number] [facility] [address] [place] [address] 5 05/05/2003 00:00:[id number] [facility] [address] [place] [address] 5 08/28/2003 00:00:[id number] [facility] [address] [place] [address] 5 09/01/2003 00:00:[id number] [facility] [address] [place] [address] 09/23/2003 00:00:[id number] [facility] [address] [place] [address] 5 09/23/2003 00:00:[id number] [facility] [address] [place] [address] [address] 5 01/19/2004 00:00:[id number] [facility] [address] [place] [address] [address] 5 09/06/2004 00:00:[id number] [facility] [address] [place] [address] 5 10/11/2004 00:00:[id number] [facility] [address] [place] [address] 5 03/27/2005 00:00:[id number] [facility] [address] [place] [address] 5 03/15/2006 00:00:[id number] [facility] [address] [place] [address] [address] 5 01/21/2007 00:00:[id number] [facility] [address] [place] [address] [address] 5 04/25/2007 00:00:[id number] [facility] [address] [place] [address] 05/21/2007 00:00:[id number] [facility] [address] [place] [address] 11/19/2007 00:00:[id number] [facility] [address] [place] [address] 03/18/2010 00:00:[id number] [facility] [address] [place] [address] [address] 5 04/13/2010 00:00:[id number] [facility] [address] [place] [address] 5 01/06/2010 00:00:[id number] [facility] [address] [place] [address] 5 06/01/2010 00:00:[id number] [facility] [address] [place] [address] [address] 08/05/2009 00:00:[id number] [facility] [address] [place] [address] [address] 5 01/31/2010 00:00:[id number] [facility] [address] [place] [address] [address] 5 08/24/2009 00:00:[id number] [facility] [address] [place] [address] 5 06/07/2010 00:00:[id number] [facility] [address] [place] [address] 02/22/2010 00:00:[id number] [facility] [address] [place] [address] [address] 5 12/30/2009 00:00:[id number] [facility] [address] [place] [address] [address] 5 06/14/2010 00:00:[id number] [facility] [address] [place] [address] [address] 5 07/06/2010 00:00:[id number] [facility] [address] [place] [address] 5 07/11/2010 00:00:[id number] [facility] [address] [place] [address] 07/08/2008 00:00:[id number] [facility] [address] [place] [address] 07/10/2008 00:00:[id number] [facility] [address] [place] [address] 5 03/22/2009 00:00:[id number] [facility] [address] [place] [address] 5 06/11/2009 00:00:[id number] [facility] [address] [place] [address] [address] 5 08/05/2009 00:00:[id number] [facility] [address] [place] [address] [address] 5 10/04/2010 00:00:[id number] [facility] [address] [place] [address] 5 11/30/2010 00:00:[id number] [facility] [address] [place] [address] [address] 5 08/04/2010 00:00:[id number] [facility] [address] [place] [address] 5 08/15/2010 00:00:[id number] [facility] [address] [place] [address] 5 08/25/2010 00:00:[id number] [facility] [address] [place] [address] 5 09/02/2010 00:00:[id number] [facility] [address] [place] [address] 5 11/30/2010 00:00:[id number] [facility] [address] [place] [address] 5 12/01/2010 00:00:[id number] [facility] [address] [place] [address] 5 12/05/2010 00:00:[id number] [facility] [address] [place] [address] 5 01/31/2011 00:00:[id number] [facility] [address] [place] [address] 5 03/07/2011 00:00:[id number] [facility] [address] [place] [address] 5 03/13/2011 00:00:[id number] [facility] [address] [place] [address] 03/13/2011 00:00:[id number] [facility] [address] [place] [address] 5 03/21/2011 00:00:[id number] [facility] [address] [place] [address] 06/01/2011 00:00:[id number] [facility] [address] [place] [address] 5 06/05/2011 00:00:[id number] [facility] [address] [place] [address] 07/05/2011 00:00:[id number] [facility] [address] [place] [address] 5 09/02/2012 00:00:[id number] [facility] [address] [place] [address] 5 07/21/2011 00:00:[id number] [facility] [address] [place] [address] 5 10/03/2012 00:00:[id number] [facility] [address] [place] [address] 5 07/25/2011 00:00:[id number] [facility] [address] [place] [address] 11/06/2012 00:00:[id number] [facility] [address] [place] [address] 5 12/19/2012 00:00:[id number] [facility] [address] [place] [address] 5 12/26/2012 00:00:[id number] [facility] [address] [place] [address] 5 02/16/2012 00:00:[id number] [facility] [address] [place] [address] 5 03/01/2012 00:00:[id number] [facility] [address] [place] [address] 5 03/15/2012 00:00:[id number] [facility] [address] [place] [address] 5 05/01/2012 00:00:[id number] [facility] [address] [place] [address] 5 07/25/2011 00:00:[id number] [facility] [address] [place] [address] 5 10/18/2011 00:00:[id number] [facility] [address] [place] [address] 5 07/01/2012 00:00:[id number] [facility] [address] [place] [address] 5 11/06/2011 00:00:[id number] [facility] [address] [place] [address] 5 07/10/2012 00:00:[id number] [facility] [address] [place] [address] 5 12/27/2011 00:00:[id number] [facility] [address] [place] [address] 5 09/02/2012 00:00:[id number] [facility] [address] [place] [address] 5 01/09/2012 00:00:[id number] [facility] [address] [place] [address] 5 02/16/2012 00:00:[id number] [facility] [address] [place] [address] 5 08/18/2013 00:00:[id number] [facility] [address] [place] [address] 5 09/23/2013 00:00:[id number] [facility] [address] [place] [address] [address] 5 10/14/2013 00:00:[id number] [facility] [address] [place] [address] 5 12/01/2013 00:00:[id number] [facility] [address] [place] [address] 5 01/09/2014 00:00:[id number] [facility] [address] [place] [address] [address] 5 08/31/2009 00:00:[id number] [facility] [address] [place] [address] [address] 5 09/20/2009 00:00:[id number] [facility] [address] [place] [address] 5 11/30/2009 00:00:[id number] [facility] [address] [place] [address] [address] 5 11/30/2009 00:00:[id number] [facility] [address] [place] [address] 5 12/29/2009 00:00:[id number] [facility] [address] [place] [address] 5 04/04/2013 00:00:[id number] [facility] [address] [place] [address] 07/22/2013 00:00:00 [id number] Ginny Abraham APRN [facility] [address] [place] [address] 01/02/2017 16:10:59 01/02/2017 17:13:33 Cyst of left ovary 7940555521 6407625 N83.202 Bacterial vaginosis 4197 12731 N76.0 [id number] Ginny Abraham APRN [facility] [address] [place] [address] 01/24/2017 09:36:35 01/24/2017 10:51:35 Routine gynecologic examination done 2228681677 9101 Z01.419 Depression screening 171 063041 Z13.89 PHQ-9 completed today. Diet education 91057852 Z71.3 Counseling 771611245 Z71 .9 Exercise counsellin g. Patient encouraged to exercise 30 minutes 5 days a week. Examinatio n of blood pressure 495402445 Z01.30 Body mass index 30+ - obesity 280909600 Z68.32 Complainin g of pelvic pain 751952685 R10.2 Cyst of ovary 70065930 N 83.209 Contracept ion care management 628285775 Z30.9 Vaginal discharge 063021 006 N89.8 Candidiasis of skin 4988 3006 B37.2 [id number] Ginny Abraham APRN [facility] [address] [place] [address] 01/31/2017 08:16:32 01/31/2017 08:56:24 Polycystic ovaries 71475877 E28.2 Irritable bowel syndrome 08412160 K58.9 Pain in pelvis 35087965 R10.2 Hyperinsulinism 75811662 E16.1 [id number] BRUNO Gomez CRUSHER OPERATOR [address] [place] [address] [place] [address] 03/16/2017 13:09:10 03/16/2017 14:10:51 Right lower quadrant pain 571233413 R10.31 Cyst of ovary 27664912 N 83.201 Irritable bowel syndrome 66284226 K58.9 Chronic in terstitial cystitis 886463253 N30.10 The diagnosis of, physiology of, and natural history of interstiti al cystitis was discussed with the patient today. Multiple modalities of treatment including dietary, behavioral , and pharmacolo gic were all discussed today. [id number] BRUNO Gomez CRUSHER OPERATOR [address] [place] [address] [place] [address] 04/20/2017 13:40:40 04/20/2017 15:59:10 Irritable bowel syndrome 36153057 K58.9 Abdominal pain 90555766 R10.9 Removal of intrauterine device 02147200 Z30.144 [id number] Carolee De Leon PA-C [facility] [address] [place] [address] 08/06/2017 14:09:51 08/06/2017 15:35:42 Body mass index 30+ - obesity 937859219 Z68.39 Sprained finger/thumb 28 3345336 S63.611A [id number] BRUNO Gomez CRUSHER OPERATOR [address] [place] [address] [place] [address] 09/27/2017 10:34:55 09/27/2017 11:26:09 Acute pelvic pain 961709000 R10.2 Resolved - continue with OCPs [id number] BRUNO Anne CRUSHER OPERATOR [address] [place] [address] [place] [address] 01/28/2018 10:07:11 01/28/2018 11:03:05 Routine gynecologic examination done 2032709421 9101 Z01.419 Examinatio n of blood pressure 737508869 Z01.30 BP goal < 140/90 Depression screening 171 577563 Z13.89 Diet education 82009234 Z71.3 1778-1920 calorie diet recommende d with emphasis on low saturated fat, low carbohydra te, and adequate protein intake. She declines dietary consult. Counseling 214425531 Z71 .9 Exercise counselrufina francis. Patient encouraged to exercise 30 minutes 5 days a week. Vaccine de clined by patient 9767483874 02 Z28.21 Screening for malignant neoplasm of cervix 454562163 Z12.4 Z11.8 Body mass index 25-29 - overweight 967024010 Z68.29 Surveillan ce of oral contraception done 4209425278 84241 Z30.41 Dysmenorrhea 342178314 N 94.6 Bladder mu scle dysfunction - overactive 633108334 N32.81 [id number] BRUNO Anne CRUSHER OPERATOR [address] [place] [address] [place] [address] 02/14/2019 15:35:15 02/14/2019 16:39:51 Routine gynecologic examination done 5400999313 9101 Z01.419 Examinatio n of blood pressure 674913899 Z01.30 BP goal < 140/90 Depression screening 171 963305 Z13.31 Diet education 00225412 Z71.3 1280-7410 calorie diet recommende d with emphasis on low saturated fat, low carbohydra te, and adequate protein intake. She declines dietary consult. Counseling 418955038 Z71 .82 Exercise counsellin g. Patient encouraged to exercise 30 minutes 5 days a week. Screening for malignant neoplasm of cervix 200473214 Z12.4 Z11.8 Contracept ion care management 502372271 Z30.9 Body mass index 30+ - obesity 202442920 Z68.32 [id number] BRUNO Anne CRUSHER OPERATOR [address] [place] [address] [place] [address] 02/20/2020 11:19:13 02/20/2020 11:59:46 Routine gynecologic examination done 9144533216 9101 Z01.419 Examinatio n of blood pressure 064337246 Z01.30 BP goal < 140/90 Depression screening 171 366423 Z13.31 Diet education 70933850 Z71.3 7808-2379 calorie diet recommende d with emphasis on low saturated fat, low carbohydra te, and adequate protein intake. She declines dietary consult. Counseling 589653745 Z71 .82 Exercise counsellin g. Patient encouraged to exercise 30 minutes 5 days a week. Chronic in terstitial cystitis 227625243 N30.10 Body mass index 30+ - obesity 966783953 Z68.35 Surveillan ce of intrauterine device contraception done 2040380633 94952 Z30.40 [id number] BRUNO Anne CRUSHER OPERATOR [address] [place] [address] [place] [address] 02/28/2019 15:29:11 02/28/2019 16:12:11 Insertion of intrauterine contraceptive device 63261985 Z30.769 [id number] BRUNO Anne CRUSHER OPERATOR [address] [place] [address] [place] [address] 03/28/2019 15:13:20 03/28/2019 16:29:00 Surveillance of intrauterine device contraception done 0737462368 10334 Z30.40 Cyst of right ovary 1223 902846 3125619 N83.760 [id number] BRUNO Anne CRUSHER OPERATOR [address] [place] [address] [place] [address] 06/06/2019 10:27:58 06/06/2019 13:31:09 Cyst of right ovary 6740101863 7640194 N83.201 resolved Surveillan ce of intrauterine device contraception done 8850169323 19104 Z30.40 [id number] Cristy vila MD [facility] [address] [place] [address] 08/19/2019 14:44:15 08/19/2019 15:32:51 Pharyngitis 062592217 J02.9 Ulcer of mouth 48274972 K12.1 [id number] Cristy vila MD [facility] [address] [place] [address] 10/21/2019 10:45:12 10/21/2019 12:04:35 Low back pain 321283290 M54.5 [id number] BRUNO Anne CRUSHER OPERATOR [address] [place] [address] [place] [address] 03/07/2022 15:25:11 03/07/2022 16:45:41 Routine gynecologic examination done 4224683429 9101 Z01.419 Examinatio n of blood pressure 755357368 Z01.30 BP goal < 140/90 Depression screening 171 934173 Z13.31 Diet education 55792666 Z71.3 4818-3175 calorie diet recommende d with an emphasis on reducing sugar and refined carbohydra gustavo, avoiding highly processed foods and decreasing saturated fats. She declines dietary consult. Counseling 625743586 Z71 .82 Exercise counsellin g. Patient encouraged to exercise 30 minutes 5 days a week. Screening for malignant neoplasm of cervix 566122724 Z12.4 Z11.8 Body mass index 30+ - obesity 293120173 Z68.36 Surveillan ce of intrauterine device contraception done 5202186691 56989 Z30.40 Mirena current until 2025 Chronic in terstitial cystitis 397962045 N30.10 on Myrbetriq per Michael Webber APRN [id number] Cristy vila MD [facility] [address] [place] [address] 08/06/2020 15:50:14 08/06/2020 16:48:43 Exposure to SARS-CoV-2 554074570 Z20.828 COVID-19 384887348 U07.1 quarantine instructio ns given to patient, patient voiced understand ing.pt instructed to increase fluid intake to decrease chances of dehydratio n, tylenol or ibuprofen for fever or body aches, if any sob or concerning symptoms please call the office [id number] Carolee De Leon PA-C [facility] [address] [place] [address] 08/16/2020 10:53:04 08/16/2020 11:07:27 COVID-19 842375066 U07.1 [id number] Nicola Avalos MD [facility] [address] [place] [address] 12/15/2020 09:25:21 12/15/2020 10:26:47 Exposure to SARS-CoV-2 267338438 Z20.276 [id number] Ashley Lomeli [facility] [employer] [address] [place] [address] 01/26/2021 15:04:41 01/26/2021 15:53:41 Multiple benign melanocytic nevi 399285489 D22.9 patient educated on risk of tanning bed use Educated on monitoring for ABCDE changes. Offered reassuranc e regarding benign clinical nature of nevi [id number] Carolee De Leon PA-C [facility] [address] [place] [address] 02/03/2021 15:53:36 02/03/2021 16:34:26 Increased frequency of urination 805392457 R35.0 [id number] Julieta Webber [facility] [employer] [address] [place] [address] 02/10/2021 08:14:37 02/10/2021 09:03:36 Body mass index 30+ - obesity 601377096 Z68.38 38.4 Increased frequency of urination 171583222 R35.0 - US - suspect she will benefit from an additional bladder hydrodiste ntion. -We may try switching her to myrbetriq possibly following that if she still has some frequency. Sensation as if urinary bladder still full 165201778 R39.14 Chronic in terstitial cystitis 700887416 N30.10 -never had PST or any instillati ons. denies clockwork frequency. [id number] Julieta Webber APRN [address] [place] [address] 02/24/2021 07:57:09 02/24/2021 08:39:55 Chronic interstitial cystitis 742161392 N30.10 -never had PST or any installati on's. denies clockwork frequency. -reports successful bladder hydrodiste ntion at age 16. would like to try this again to maybe avoid taking meds as much as possible. -Will refer for considerat ion of this. will f/u with pt in 2 months to see how her referral goes and reassess medical management postop. Body mass index 30+ - obesity 115227962 Z68.38 38.2 Increased frequency of urination 274620753 R35.0 - suspect she will benefit from an additional bladder hydrodiste ntion. -We may try switching her to myrbetriq possibly following that if she still has some frequency. Sensation as if urinary bladder still full 891874817 R39.14 [id number] Carolee De Leon PA-C [facility] [address] [place] [address] 03/02/2021 14:26:50 03/02/2021 15:10:52 Increased frequency of urination 112686057 R35.0 Migraine 12701529 G43.90 9 [id number] Ashlie Monzon MD [facility] [address] [place] [address] 05/05/2021 16:44:19 05/05/2021 17:01:42 Administration of SARS-CoV-2 antigen vaccine 984770758 Z23 [id number] Angela Perez APRN [facility] [address] [place] [address] 05/20/2021 11:45:47 05/20/2021 12:43:30 Axillary lymphadenopathy 151039906 R59.0 Explained that according to her history this is a normal findingAs long as the area fluctuates in size and doesn't become larger and stay that sizeIf characteri stics change RTC for further evaluation . Eczema of scalp 17033233 13 2100 L30.9 Instructed to use selsun blue shampoo around 2 times a week and wash with regular shampoo other timesRTC if symptoms worsen [id number] Shanna Velasquez [facility] [address] [address] 06/14/2021 07:50:32 06/14/2021 09:32:58 Body mass index 30+ - obesity 770482587 Z68.36 Chronic in terstitial cystitis 279155890 N30.10 [id number] Shanna Velasquez [facility] [address] [place] [address] 07/19/2021 08:05:12 07/19/2021 09:03:42 General examination of patient [id number] Z00.00 Screening for cardiovascular system disease 780441592 Z13.6 Endocrine/ metabolic screening 126021884 Z13.228 Exercises education, guidance, and counseling 939040343 Z71.82 Dietary ma nagement surveillance 382981252 Z71.3 Vitamin D deficiency 347 26209 E55.9 Body mass index 30+ - obesity 399000227 Z68.36 Hypotricho sis of eyelid 54760662 H02.729 Internal h ordeolum of lower eyelid 127908134 H00.029 Mucopurule nt conjunctivitis 396419349 H10.029 Environmental allergy 42 4836334 T78.49XA [id number] Shanna Velasquez [facility] [address] [place] [address] 09/20/2021 07:56:55 09/20/2021 08:41:22 Long-term drug therapy 584381206 Z79.899 Body mass index 30+ - obesity 571920093 Z68.35 High hemog lobin A1c level 393673371 R73.09 Vesicular eczema of hand 662624079 L30.8 [id number] Julieta Webber, MC KAY MACHINE OPERATOR [facility] [address] [facility] [place] [address] 11/01/2021 07:51:49 11/01/2021 08:43:03 Body mass index 30+ - obesity 173583650 Z68.38 35.3 Chronic in terstitial cystitis 878258628 N30.10 -will try switching to myrbetriq 25mg daily. Sensation as if urinary bladder still full 124446398 R39.14 Overactive urinary bladder 079438757 N32.81 -avoid anticholin ergics in this patient since she already reports memory issues.-sa mples of myrbetriq given. [id number] Julieta Webber [facility] [address] [place] [address] 01/05/2022 07:55:08 01/05/2022 08:30:57 Chronic interstitial cystitis 133416421 N30.10 continue myrbetriq 25mg daily. Overactive urinary bladder 037190495 N32.81 -avoid anticholin ergics in this patient since she already reports memory issues.-sa mples of myrbetriq given. Microscopic hematuria 19 9632394 R31.29 d/t IC [id number] Shanna Velasquez [facility] [address] [address] 11/08/2021 17:45:34 11/08/2021 18:04:12 Migraine 78000435 G43.675 [id number] Freedom Emerson [facility] [address] [place] [address] [place] [address] 11/14/2021 08:24:15 11/14/2021 09:18:53 Streptococcal sore throat 36350693 J02.0 AcuteAsses sment: Rapid strep positive at [facility], started on clindamyci n without improvemen t. Posterior pharynx erythemato us. Tmax 102Plan: Continue clindamyci n for today, if no improvemen t in symptoms, stop clindamyci n and start azithromyc in tomorrow. Magic mouthwash for symptom relief.Dis position: Follow up in 3 - 5 days if symptoms do not improve, sooner if symptoms worsen. Allergy to drug 33601456 2 Z88.9 Patient reports allergies to PCN and Cephalospo rins. Patient unable to recall reaction to PCN.Recomm end investigative reporter referral for allergy testing [id number] Shanna Velasquez [facility] [address] [address] 01/03/2022 07:56:16 01/03/2022 08:57:15 Mixed anxiety and depressive disorder 510715008 F41.8 Fatigue 72703822 R53.83 Failure to lose weight 54897990 R63.8 History of migraine 1614 89480 Z86.69 [id number] [facility] [address] [place] [address] 03/30/2022 07:54:59 03/30/2022 08:37:42 Chronic interstitial cystitis 311927933 N30.10 continue myrbetriq daily. Overactive urinary bladder 079221458 N32.81 -avoid anticholin ergics in this patient since she already reports memory issues.-sa mples of myrbetriq given. Microscopic hematuria 19 4068200 R31.29 d/t IC vaginal spotting- awaiting DIRECTOR CORPORATE COMMUNICATIONS appt [id number] Shanna Velasquez [facility] [address] [address] 01/18/2022 16:46:16 01/18/2022 18:15:43 Mixed anxiety and depressive disorder 474496942 F41.8 Elevated blood-pressure reading without diagnosis of hypertension 071072186 R03.0 [id number] Shanna Velasquez [facility] [address] [address] 02/07/2022 08:21:37 02/07/2022 09:39:10 General examination of patient 104993290 Z00.00 Body mass index 30+ - obesity 373689022 Z68.36 Screening for cardiovascular system disease 720442740 Z13.6 Endocrine/ metabolic screening 514633508 Z13.228 Exercises education, guidance, and counseling 339901099 Z71.82 Dietary ma nagement surveillance 866205271 Z71.3 [id number] rFeedom Emerson [facility] [address] [place] [address] [place] [address] 02/20/2022 10:21:33 02/20/2022 12:15:00 Dysuria 62964287 R30.9 Acute urin martín tract infection 022374800 N39.0 AcutePlan: 5-day course of Macrobid.D isposition : Follow-up in 5 to 7 days if your symptoms fail to improve, sooner if symptoms worsen or new symptoms develop. [id number] Shanna Velasquez APRN [facility] [address] [place] [address] [place] [address] 03/08/2022 15:25:35 03/08/2022 18:03:59 Allergy to drug 144551412 Z88.9 History of multiple allergies 519043522 Z91.018 Aphthous u lcer of mouth 954017907 K12.0 Unintentio nal weight gain 7071675212 75184 R63.5 [id number] BRUNO Perez CRUSHER OPERATOR [address] [facility] [place] [address] 03/08/2023 08:32:28 03/08/2023 09:25:40 Routine gynecologic examination done 7636108191 9101 Z01.419 Depression screening 171 139471 Z13.31 Hypertensi on screening 110148963 Z13.6 Diet education 48846369 Z71.3 Encourage healthy eating/dec reased fats, sugars, fried foods Counseling 202768923 Z71 .82 Encouraged regular exercise 30-40min/d ay 4-5 days/wk Examinatio n of blood pressure 671155582 Z01.30 Body mass index 30+ - obesity 889426186 Z68.35 Obesity 764412920 E66.9 History of total hysterectomy 601081560 Z90.710 Acne 14341419 L70.9 Hyperlipid emia screening 555890717 Z13.220 Endocrine/ metabolic screening 052911692 Z13.228 HIV screening 656045115 Z11.4 Hepatitis C screening 41 2205430 Z11.59 Depressive disorder 3548 9007 F32.A Chronic in terstitial cystitis 980445550 N30.10 Pain of breast 24577476 N64.4 [id number] Freedom Emerson APRN [facility] [address] [place] [address] [place] [address] 03/17/2022 07:57:49 03/17/2022 08:44:52 Pain of right ankle joint 2209089579 3583055 M25.571 Sprain of right ankle 11 83082347 8305502 S93.401A Acute Management : Supportive care measures, ibuprofen or acetaminop hen per OTC label instructio ns for pain/swell ing. Continue to use Tan wrap or you may utilize a commercial compressio n sleeve for your ankle for the next 3 days. Dispositio n: Follow-up in 5 to 7 days if your symptoms fail to improve, sooner if symptoms worsen or new symptoms develop. [id number] Julieta Webber APRN [facility] [address] [place] [address] 09/28/2022 07:46:57 09/28/2022 08:32:07 Chronic interstitial cystitis 036267456 N30.10 Overactive urinary bladder 970276556 N32.81 -avoid anticholin ergics in this patient since she already reports memory issues.-sa mples of myrbetriq given. Microscopic hematuria 19 7652271 R31.29 d/t IC vaginal spotting- awaiting [employer]ATE COMMUNICATIONS appt [id number] BRUNO Anne CRUSHER OPERATOR [address] [place] [address] [place] [address] 04/07/2022 16:05:38 04/07/2022 17:21:58 Irregular periods 68465009 N92.6 Surveillan ce of intrauterine device contraception done 4226152464 18822 Z30.40 Mirena current until 2025 [id number] Anne Peña APRN [facility] CRUSHER [employer] [address] [place] [address] [place] [address] 04/28/2022 15:41:23 04/28/2022 17:01:01 Menorrhagia 513440500 N92.0 Sterilizat ion requested 986458990 Z30.2 Irregular intermenstrual bleeding 52042112 N92.1 Uterine leiomyoma 672007 05 D25.9 3 cm intramural fibroid Body mass index 30+ - obesity 621568451 Z68.36 Surveillan ce of intrauterine device contraception done 2922807722 43575 Z30.40 Mirena current until 2025 [id number] Ashley Lomeli APRN [facility] [address] [place] [address] 05/03/2022 17:05:00 05/03/2022 17:47:43 Solar lentigo 77546088 X32.XXXS continue to monitor for changes Melanocytic nevus 624257 001 D22.9 continue to monitor for changes [id number] Ayana Curiel DO [facility] CRUS[employer] OPER[employer] [address] [facility] [place] [address] 05/31/2022 15:55:16 05/31/2022 16:25:38 Menorrhagia 564436703 N92.0 Irregular intermenstrual bleeding 63266420 N92.1 Sterilizat ion requested 398862800 Z30.2 Uterine leiomyoma 402437 05 D25.9 3 cm intramural fibroid Body mass index 30+ - obesity 813561124 Z68.36 [id number] Shanna Velasquez APRN [facility] [address] [place] [address] [place] [address] 06/05/2022 15:21:42 06/05/2022 16:16:20 Inflammation related to voluntary body piercing 362768598 L25.8 cont mupirocin x 4-5 more days - most likely will resolve with this - do not touch area without clean hands - change back to your original jewelry, keep jewelry and piercing clean and dry - do not change hardware until instructed to by ashley and be sure to use quality hardware/m etal. If no improvemen t or worsening, will start oral abx as well, however I do not believe this needs it at this time since it's only been 3 days of using ointment and pt reports it has improved some. [id number] Angie salinas APRN [facility] [address] [place] [address] 06/16/2022 08:29:29 06/16/2022 09:17:59 Cellulitis of skin 800230510 L03.90 acute, unhealed Depressive disorder 2056 8619 F32.A chronic, stable [id number] DO Carlito Riddle CRUSHER OPERATOR [address] [place] [address] [place] [address] 06/23/2022 12:52:37 06/23/2022 13:15:23 Pre-surgery evaluation 074214835 Z01.818 Irregular intermenstrual bleeding 08441459 N92.1 Menorrhagia 679150527 N9 2.0 Uterine leiomyoma 131148 05 D25.9 3 cm intramural fibroid [id number] Angie salinas [facility] [address] [address] 06/26/2022 16:59:33 06/26/2022 17:35:52 Cellulitis of skin 288800569 L03.90 Resolved. Patient completed all her medication , feeling better. [id number] DO Carlito Riddle CRUSHER OPERATOR [address] [place] [address] [place] [address] 07/10/2022 10:48:01 07/10/2022 11:20:40 Surgical follow-up 092738163 Z09 [id number] DO Carlito Riddle CRUSHER OPERATOR [address] [place] [address] [place] [address] 08/15/2022 12:56:06 08/15/2022 13:14:52 Surgical follow-up 387305559 Z09 [id number] Shanna Velasquez [facility] [address] [address] 08/23/2022 07:56:47 08/23/2022 08:52:03 Body mass index 30+ - obesity 220739462 Z68.37 Obesity 838655599 E66.3 Fatigue 73210799 R53.83 [id number] Shanna Velasquez [facility] [address] [address] 08/30/2022 17:20:34 08/30/2022 18:39:01 Metabolic syndrome X 010771256 E88.81 Body mass index 30+ - obesity 498038775 Z68.37 Obesity 124981918 E66.3 Fatigue 73617821 R53.83 [id number] Shanna Velasquez [facility] [address] [place] [address] 09/12/2022 08:31:21 09/12/2022 09:36:04 Nasal congestion 57862184 R09.81 Pain in throat 402731409 R07.0 Acute fron mikaela sinusitis 03594731 J01.10 Cough 61977519 R05.9 [id number] Cristy vila MD [facility] [address] [place] [address] [place] [address] 09/13/2022 10:35:45 09/13/2022 11:23:50 Diarrhea 79508302 R19.7 Viral gastroenteritis 11 4928603 A08.4 Nausea 078411158 R11.0 [id number] Shanna Velasquez [facility] [address] [place] [address] 09/20/2022 13:12:14 09/20/2022 13:31:53 Skin tag 636151832 L91.8 [id number] Julieta Webber [facility] [address] [place] [address] 03/27/2023 11:21:16 03/27/2023 12:00:58 Chronic interstitial cystitis 533940891 N30.10 Overactive urinary bladder 602174645 N32.81 -avoid anticholin ergics in this patient since she already reports memory issues.-sa mples of myrbetriq given. History of total hysterectomy 032233386 Z90.050 [id number] Alyson Marcano [address] [place] [address] 10/13/2022 09:15:59 10/13/2022 09:55:26 Viral screening 068840239 Z11.52 Pharyngitis 755286170 J0 2.9 Influenza- like symptoms 913005886 R68.89 Nasal congestion 7809496 0 R09.81 [id number] Rose Pradhan [address] [place] [address] 10/16/2022 13:54:27 10/16/2022 15:00:09 Body mass index 30+ - obesity 484015049 Z68.37 Obesity 215670789 E66.9 Cough 33993094 R05.9 Acute left otitis media 825065345 H66.92 F/U PRN if symptoms worsen or no improvemen t [id number] Adela Coello APRN [facility] CRUSHER OPERATOR [address] [place] [address] [place] [address] 10/19/2022 09:05:11 10/19/2022 09:21:16 Conjunctivitis 7029006 H10.9 Acute left otitis media 583784185 H66.92 [id number] Miranda Muir MD [address] [place] [address] 10/23/2022 11:37:22 10/25/2022 08:05:14 Allergic rhinitis 83155105 J30.9 [id number] Rose Pradhan APRN [address] [place] [address] 11/01/2022 08:53:35 11/01/2022 09:36:20 Body mass index 30+ - obesity 086421060 Z68.36 Restart Adipex - has taken in the past; Discussed side effects of medication . F/U 1 month. Obesity 932865415 E66.9 Ear pressu re sensation 195404463 H93.8X9 Advised to use Flonase regularly along with HCTZ x10-14 days. Long-term current use of drug therapy 350468638 Z79.028 [id number] Rose Pradhan APRN [address] [place] [address] 11/08/2022 13:29:58 11/08/2022 14:36:20 Allergic rhinitis 97359903 J30.9 [id number] Rose Pradhan APRN [address] [place] [address] 11/15/2022 13:06:46 11/15/2022 13:59:54 Allergic rhinitis 15873507 J30.9 patient spoke to investigative reporter- recommende d repeating same dose due to last reaction. Patient stayed in the office 10 minutes after the injections . [id number] Rose Pradhan MC KAY MACHINE OPERATOR [address] [place] [address] 11/27/2022 11:36:00 11/27/2022 12:02:14 Body mass index 30+ - obesity 267035875 Z68.35 Continue Adipex - advised on continued diet/exerc ise. F/U 1 month. Obesity 967986905 E66.9 [id number] Julieta Webber [facility] [address] [place] [address] 12/08/2022 08:04:49 12/08/2022 08:40:51 Chronic interstitial cystitis 557401459 N30.10 Overactive urinary bladder 668781563 N32.81 -avoid anticholin ergics in this patient since she already reports memory issues.-sa mples of myrbetriq given. Microscopic hematuria 19 8661653 R31.29 d/t IC vaginal spotting- awaiting DIRECTOR [employer]PORATE COMMUNICATIONS appt [id number] Alyson Marcano [address] [place] [address] 12/29/2022 10:17:20 12/29/2022 10:51:52 Irritation of ear 965376918 H93.8X9 Body mass index 30+ - obesity 614918745 Z68.35 [id number] Rose Pradhan APRN [address] [place] [address] 01/08/2023 11:12:58 01/08/2023 12:03:05 Body mass index 30+ - obesity 626964683 Z68.35 Continue phentermin e - advised on continued diet/exerc ise. F/U 1 month. Discussed stopping phentermin e next month and trying Contrave or another form of weight loss medication if available. Obesity 984301041 E66.9 [id number] Joe Logan PA-C [address] [place] [address] 01/10/2023 09:02:50 01/10/2023 10:01:47 Influenza-like symptoms 591137603 R68.89 Upper resp iratory infection 79427831 J06.9 URI vs allergic, has OTC fluticason e/antihist amine at home.Discu ssed supportive care with patient. Advised to drink plenty of fluids and fluids containing electrolyt es. Try to get plenty of rest. Can take OTC pain medication such as tylenol or ibuprofen (dosed based on weight for pediatric patients) as needed to relieve fever, headache, or body aches. If patient should get worse call clinic or go to emergency room. Discussed expected course and cautioned signs and sxs to seek further treatment. Pharyngitis 243527318 J0 2.9 check culture [id number] Johana Krause MD [facility] CRUSHER OPER[employer] [address] [place] [address] [place] [address] 01/19/2023 14:47:38 01/23/2023 11:15:28 [id number] Snuny Nuñez MD [address] [place] [address] 01/17/2023 10:05:53 01/17/2023 10:59:39 Pharyngitis 031599506 J02.9 Body mass index 30+ - obesity 707942083 Z68.35 [id number] Johana Krause MD [facility] CRUSHER OPERATOR [address] [place] [address] [place] [address] 01/23/2023 10:45:58 01/23/2023 11:49:51 Increased frequency of urination 916180974 R35.0 Overactive urinary bladder 150992675 N32.81 Patient with chronic urgency/fr equency symptoms, with label from some earlier provider of interstiti al cystitis. Has never had luke dysuria pelvic pain or dyspareuni a component to her syndrome although this might be on the spectrum between OAB and IC( painless )ymptomat ology, particular given that there are definite dietary provocatio ns that she is noting.. Interestin gly she is having no nocturia. Symptoms have transientl y responded to [address] Cabrera, but then become refractory to escalating doses of overactive bladder medication s and has tried variations even of adrenergic and anticholin ergic drugs in combinatio n..We will send lisseth renee culture today, and have her return to assess sensitivit y with PST. If this recreates either urgency and/or discomfort , can continue down this pathway further for treatment, to consider possible DMSO treatment as well as Elavil and/or Elmiron. For the short-term I have advised her to get some Prelief otc and give this a try before trying soda drinks. Dietary guidelines reviewed to see if there are any other triggers that she can note. Continue current Gemtesa dosing as this definitely will also have a role in treatment. I know she also has follow-up with Julieta in March. We will be glad to comanage with Julieta, appears patient had stopped this consult on her own rather than being referred hereLastly , would also be reasonable to have her see Dr. Cabrera periodical ly for repeat hydrodiste ntion as this has at least transient effects with her. [id number] BRUNO Perez CRUSHER OPERATOR [address] [place] [address] [place] [address] 01/24/2023 10:04:44 01/24/2023 10:28:28 Superficial folliculitis 718261789 L73.9 [id number] Rose Pradhan APRN [address] [place] [address] 02/06/2023 07:42:01 02/06/2023 08:36:17 Body mass index 30+ - obesity 298208466 Z68.35 Continue phentermin e - advised on continued diet/exerc ise. F/U 1 month. Discussed stopping phentermin e next month and trying Contrave or another form of weight loss medication if available. Migraine 45742009 G43.90 9 Well-contr olled Candidiasis of vagina 72 453253 B37.31 F/U PRN Obesity 814717991 E66.9 [id number] MD Carlito Grijalva CRUSHER OPERATOR [address] [place] [address] [place] [address] 02/16/2023 14:54:40 02/16/2023 18:13:55 Chronic interstitial cystitis 965434059 N30.10 discontinu e gemtesa, restart myrbetriq 50 has samples rx ,; starting meds as below, return for DMSO flush. consider referral to Dr. dana albarran for repeat hydrodiste ntion, did not want to but this yet. Risk and benefits of Elmiron particular ly potential pigmented retinopath y reviewed. Encouraged her to see Dr. Felix (prior employer) for formal baseline retinal check Overactive urinary bladder 242641942 N32.81 Patient with chronic urgency/fr equency symptoms, with label from some earlier provider of interstiti al cystitis. Has never had luke dysuria pelvic pain or dyspareuni a component to her syndrome although this might be on the spectrum between OAB and IC( painless ) symptomato logy, particular given that there are definite dietary provocatio ns that she is noting.. Interestin gly she is having no nocturia. Symptoms have transientl y responded to [address] Cabrera, but then become refractory to escalating doses of overactive bladder medication s and has tried variations even of adrenergic and anticholin ergic drugs in combinatio n..negativ e urine culture 01/23/2023 . PST 023 recreated not only urgency but a burning discomfort syndrome suggestive more of an IC syndrome than just straight forward overactive bladder.. Advise going down treatment pathway for IC to include trial of Elavil and Elmiron as well as the DMSO cocktail flushes. Reviewed and encouraged option of repeat hydrodiste ntion as she had gotten at least transient relief in the past. continue to advise avoidance of dietary triggers , and use Prelief if this has helped her. advise continue away be meds although these will likely not be enough by themselves , can return to Myrbetriq 50 mg/ discontinu e attempt as Myrbetriq had seemed to help her in the past and is definitely more cost effective for her. She has plenty of samples of this at home.Revie wed what ever path she takes , she will likely need At least intermitte nt long-term management with multimodal therapy, with best treatment combinatio n being determined by outcome of treatment trial and affect Increased frequency of urination 124956396 R35.0 [id number] MD Carlito Grijalva CRUSHER OPERATOR [address] [place] [address] [place] [address] 02/27/2023 11:12:46 02/27/2023 11:39:31 Chronic interstitial cystitis 860094351 N30.10 Overactive urinary bladder 892201458 N32.81 Patient with chronic urgency/fr equency symptoms, with label from some earlier provider of interstiti al cystitis. Has never had luke dysuria pelvic pain or dyspareuni a component to her syndrome although this might be on the spectrum between OAB and IC( painless ) symptomato logy, particular given that there are definite dietary provocatio ns that she is noting.. Interestin gly she is having no nocturia. Symptoms have transientl y responded to [address] Cabrera, but then become refractory to escalating doses of overactive bladder medication s and has tried variations even of adrenergic and anticholin ergic drugs in combinatio n..negativ e urine culture 01/23/2023 . PST 023 recreated not only urgency but a burning discomfort syndrome suggestive more of an IC syndrome than just straight forward overactive bladder.. Advised02/16 to go down treatment pathway for IC to include trial of Elavil and Elmiron as well as the DMSO cocktail flushes. . At this point has started M[employer] Elavil, holding Elmiron and 1st DMSO today and doing much better. She is aware of recommenda tions to consider repeat hydrodiste ntion with Dr. Cabrera wants to try local treatments 1st continue to advise avoidance of dietary triggers , and use Prelief if this has helped her. advise continue away be meds although these will likely not be enough by themselves , continue Myrbetriq 50 mg/ She has plenty of samples of this at home.Revie wed what ever path she takes , she will likely need At least intermitte nt long-term management with multimodal therapy, with best treatment combinatio n being determined by outcome of treatment trial and affect [id number] MD Carlito Grijalva CRUSHER OPERATOR [address] [place] [address] [place] [address] 03/13/2023 07:57:28 03/13/2023 08:52:48 Chronic interstitial cystitis 006733306 N30.10 Symptoms of refractory urgency symptoms -significa ntly resolved see below Overactive urinary bladder 701288019 N32.81 Patient with chronic urgency/fr equency symptoms, with label from some earlier provider of interstiti al cystitis. Has never had luke dysuria pelvic pain or dyspareuni a component to her syndrome although this might be on the spectrum between OAB and IC( painless ) symptomato logy, particular given that there are definite dietary provocatio ns that she is noting.. Interestin gly she is having no nocturia. Symptoms have transientl y responded to [address] Cabrera, but then become refractory to escalating doses of overactive bladder medication s and has tried variations even of adrenergic and anticholin ergic drugs in combinatio n..negativ e urine culture 01/23/2023 . PST 023 recreated not only urgency but a burning discomfort syndrome suggestive more of an IC syndrome than just straight forward overactive bladder.. Advised02/16 to go down treatment pathway for IC to include trial of Elavil and Elmiron as well as the DMSO cocktail flushes. . At this point has started Myrbetriq, Elavil, and 2nd DMSO today and doing much better. She has opted to hold Elmiron because these other things are working well . She is aware of recommenda tions to consider repeat hydrodiste ntion with Dr. Cabrera wants to try local treatments 1st ; continue to advise avoidance of dietary triggers , and use Prelief if this has helped her. advise continue away be meds although these will likely not be enough by themselves , continue Myrbetriq 50 mg/ She has plenty of samples of this at home.Revie wed what ever path she takes , she will likely need At least intermitte nt long-term management with multimodal therapy, with best treatment combinatio n being determined by outcome of treatment trial and affectAs she has shown such good response to initial medical management , we will space next DMSO treatment to 4 weeks. She has appointmen t in 2 weeks previously scheduled with Julieta and encouraged her to keep that follow-up as well. If she is starting to have flare of symptoms in the interval, it is okay to take another DMSO at a 2-week interval then. [id number] Rose Pradhan APRN [address] [place] [address] 03/13/2023 09:43:31 03/13/2023 13:26:22 Body mass index 30+ - obesity 331813665 Z68.35 Continue phentermin e but switch to capsules - advised on continued diet/exerc ise. F/U 1 month. Discussed stopping phentermin e next month and trying Contrave or another form of weight loss medication if no weight loss next month. Obesity 923776842 E66.9 [id number] MD Oly [place] CRUSHER OPERATOR [address] [place] [address] [place] [address] 04/10/2023 11:12:52 04/10/2023 12:06:35 Chronic interstitial cystitis 659857874 N30.10 Overactive urinary bladder 847891338 N32.81 Patient with chronic urgency/fr equency symptoms, with label from some earlier provider of interstiti al cystitis. Has never had luke dysuria pelvic pain or dyspareuni a component to her syndrome although this might be on the spectrum between OAB and IC( painless ) symptomato logy, particular given that there are definite dietary provocatio ns that she is noting.. Interestin gly she is having no nocturia. Symptoms have transientl y responded to [address] Cabrera, but then become refractory to escalating doses of overactive bladder medication s and has tried variations even of adrenergic and anticholin ergic drugs in combinatio n..negativ e urine culture 01/23/2023 . PST- 023 recreated not only urgency but a burning discomfort syndrome suggestive more of an IC syndrome than just straight forward overactive bladder.. Advised02/16 to go down treatment pathway for IC to include trial of Elavil and Elmiron as well as the DMSO cocktail flushes. . As of 02/27 she had started Myrbetriq, Elavil, started DMSO (02/27,27. 7/) and doing much better. She has opted to hold Elmiron because these other things are working well . She is aware of recommenda tions to consider repeat hydrodiste ntion with Dr. Cabrera wants to try local treatments 1st ; continue to advise avoidance of dietary triggers , and use Prelief if this has helped her. advise continue OAB meds although these will likely not be enough by themselves , continue Myrbetriq 50 mg/ She has plenty of samples of this at home.Revie wed what ever path she takes , she will likely need at least intermitte nt long-term management with multimodal therapy, with best treatment combinatio n being determined by outcome of treatment trial and affectAs she has shown such good response to initial medical management , we will complete 4th DMSO today and then call for further tx on prn basis. [id number] Rose Pradhan APRN [address] [place] [address] 04/16/2023 09:31:26 04/16/2023 10:08:37 Body mass index 30+ - obesity 164295106 Z68.35 No change in weight with phentermin e so will stop that, Start Saxenda - discussed this is a daily injectable ; advised on possible side effects of medication . Offered referral to powerhouse engineer, patient refuses at this time. Advised on diet/exerc ise. Obesity 943703419 E66.9 Migraine 30972134 G43.90 9 Well-contr olled, switched to regular tab instead of disintegra ting tab [id number] Rose Pradhan APRN [address] [place] [address] 05/15/2023 08:12:56 05/15/2023 09:00:13 Body mass index 30+ - obesity 650056110 Z68.35 Restart Adipex - F/U 1 month. Advised on diet/exerc ise. Offered referral to powerhouse engineer but patient refused today. Obesity 009415707 E66.9 Depressive disorder 2227 9005 F32.A Genetic test sent today - F/U when results return Anxiety 16188163 F41.9 Will call with results of genetic testing [id number] Noemi Kincaid MC KAY MACHINE OPERATOR [facility] [place] [address] 05/16/2023 10:16:12 05/16/2023 11:06:43 Pharyngitis 918108781 J02.9 Body mass index 30+ - obesity 132877744 Z68.36 [id number] Johnny Fletcher APR[address] [place] [address] 05/17/2023 08:02:11 05/17/2023 10:14:50 Acute upper respiratory infection 83170446 J06.9 [id number] Rose Pradhan MC KAY MACHINE OPERATOR [address] [place] [address] 06/12/2023 08:08:03 06/12/2023 08:50:13 Body mass index 30+ - obesity 958432203 Z68.36 Continue Adipex - F/U 1 month. Advised on continued diet/exerc ise. Candidiasis of vagina 72 622219 B37.31 F/U PRN Obesity 932281594 E66.9 Long-term drug therapy 671874706 Z79.899 Depressive disorder 3548 9007 F32.A Stop Wellbutrin , Start Viibryd. F/U 1 month. Discussed possible side effects of medication . [id number] Adela Coello APRN [facility] CRUSHER OPERATOR [address] [place] [address] [place] [address] 07/09/2023 08:14:16 07/09/2023 08:31:47 Insect bite - wound 312573007 T14.8XXA [id number] Rose Pradhan APRN [address] [place] [address] 07/13/2023 08:29:11 07/13/2023 09:35:47 Body mass index 30+ - obesity 535293204 Z68.36 Continue Adipex - F/U 1 month. Advised on continued diet/exerc ise. (Already sent RX to [facility]) Depressive disorder 3548 9007 F32.A Well-contr olled Obesity 604093722 E66.9 Long-term current use of drug therapy 806563423 Z79.021 [id number] Rose Pradhan APRN [address] [place] [address] 07/23/2023 08:32:12 07/23/2023 09:03:05 Body mass index 30+ - obesity 244336615 Z68.36 Obesity 325200960 E66.9 Spider bite wound 562922 008 T14.8XXA F/U PRN if symptoms worsen - has hydrocorti sone cream [id number] Kera Rojas DO [address] [place] [address] 07/31/2023 14:59:11 07/31/2023 15:32:31 Pharyngitis 868316267 J02.9 Reassuring exam, negative rapid strep. Recommend supportive care as needed. [id number] Ashley Lomeli APRN [facility] [place] [address] 08/07/2023 17:12:23 08/07/2023 18:09:57 Folliculitis 79606787 L73.9 Melanocytic nevus 026832 001 D22.9 continue to monitor for changes patient notes she pays close attention as many are within her tattoos Seborrheic dermatitis 50 526389 L21.9 [id number] Miranda Muir MD [address] [place] [address] 08/13/2023 16:33:51 08/13/2023 17:18:30 Migraine 54793022 G43.620 [id number] Rose Pradhan APRN [address] [place] [address] 08/14/2023 07:54:32 08/14/2023 08:37:13 Body mass index 30+ - obesity 521777104 Z68.36 Migraine 24438411 G43.90 9 Start Topamax - discussed possible side effects of medication . F/U 1 month. Viral screening 85875087 4 Z11.59 Obesity 277155655 E66.9 Acute sinusitis 32861949 J01.90 F/U PRN if symptoms worsen or no improvemen t Long-term current use of drug therapy 722960544 Z79.566 [id number] Adela Coello APRN [facility] CRUSHER OPERATOR [address] [place] [address] [place] [address] 09/03/2023 08:22:46 09/03/2023 09:09:15 Labial cyst 960081671 N90.7 [id number] Rose Pradhan APRN [address] [place] [address] 09/04/2023 08:02:47 09/04/2023 08:50:05 Body mass index 30+ - obesity 379527189 Z68.37 Chronic in terstitial cystitis 482719224 N30.10 Well-contr olled; sees Urology Allergic rhinitis 971650 04 J30.9 patient spoke to investigative reporter- recommende d repeating same dose due to last reaction. Patient stayed in the office 10 minutes after the injections . Overactive urinary bladder 142705010 N32.81 Follows with Urology Irritable bowel syndrome 77936189 K58.9 Well-contr olled Depressive disorder 3548 9007 F32.A Well-contr olled Migraine 99286222 G43.90 9 Well-contr olled; continue Topamax Anxiety 22010031 F41.9 Start Buspar - discussed taking twice daily (AM AND PM) consistent ly, then will have extra dose for mid-day if needed. F/U 1 month or sooner if needed. Discussed anxiety likely situationa l and may not have to take Buspar moth exterminator but this should help with the anxiety attacks/ch est tightness she has felt. [id number] DO Carlito Riddle CRUSHER OPERATOR [address] [place] [address] [place] [address] 10/04/2023 11:20:29 10/04/2023 12:08:31 Labial cyst 267641380 N90.7 [id number] Johnny Fletcher APRN [address] [place] [address] 10/11/2023 09:22:01 10/11/2023 10:18:12 Body mass index 30+ - obesity 836568960 Z68.37 Obesity 024157355 E66.9 Acute left otitis media 725701350 H66.92 Otitis MediaDiscu ssed otitis media, potential causes, treatment, and prognosis. Prescribed oral antibiotic Follow-up in 5 days or sooner if required. [id number] Rose Pradhan APRN [address] [place] [address] 10/16/2023 08:10:08 10/16/2023 08:54:00 Anxiety 94358655 F41.9 Well-contr olled; Continue Buspar PRN Body mass index 30+ - obesity 035356770 Z68.38 Restart Adipex - discussed possible side effects of medication . Advised on continued diet/exerc ise. Offered referral to dietitian patient refused at this time. F/U 1 month. Obesity 608300849 E66.9 Long-term drug therapy 845444841 Z79.899 Hyperinsulinism 64903992 E16.1 Prediabetes 440055017 R7 3.03 [id number] Alyson Marcano APRN [address] [place] [address] 11/08/2023 09:11:46 11/08/2023 09:53:51 Chest pain 23459915 R07.9 Anxiety 33240671 F41.9 Elevated blood-pressure reading without diagnosis of hypertension 134062436 R03.0 Body mass index 30+ - obesity 858216364 Z68.37 Obesity 145479214 E66.9 [id number] Rose Pradhan APRN [address] [place] [address] 11/16/2023 08:10:39 11/16/2023 09:18:42 Body mass index 30+ - obesity 696570757 Z68.38 Advised to continue to hold Adipex while trying to identify cause of chest pain. Hypertensive disorder 38 671108 I10 Start metoprolol - discussed possible side effects of medication . F/U 1 month. Go to ER for any chest pain lasting longer than 5 minutes. Monitor BP at home and keep log to bring to F/U visit. Epigastric pain 85709271 R10.13 Will get labs/US to evaluate if gallbladde r is causing symptoms. F/U PRN if symptoms worsen - will call with results and consider HIDA pending results. Anxiety 24391084 F41.9 Well-contr olled; discussed she can D/C Buspar since it is not helping, but continue the Viibryd. [id number] Ashley Lomeli APRN [facility] [address] [facility] [place] [address] 11/27/2023 17:06:39 11/27/2023 17:39:48 Skin tag 404329800 L91.8 removed today, patient tolerated well [id number] BRUNO Perez CRUSHER OPERATOR [address] [place] [address] [place] [address] 11/28/2023 09:54:22 11/28/2023 10:14:54 Nausea 934924572 R11.0 Right uppe r quadrant pain 098292453 R10.11 Pain radia ting to right side of chest 776223100 R07.89 Diarrhea 35204861 R19.7 Steatotic liver disease 014998050 K76.0 [id number] BRUNO Lopez CRUSHER OPERATOR [address] [place] [address] [place] [address] 12/07/2023 08:24:41 12/07/2023 09:22:01 Unintentional weight gain 9468595141 40360 R63.5 [id number] Tia Larsen MD [address] [place] [address] 12/17/2023 08:47:56 12/17/2023 09:25:20 Viral screening 551331100 Z11.59 Acute pharyngitis 722641 003 J02.9 Strep, influenza and COVID screens are negative but patient has marked erythema of throat with enlarged tonsils. Will treat with azithromyc in, decongesta nts Otitis externa 8251462 H 60.91 [id number] Johnny Fletcher APRN [address] [place] [address] 12/20/2023 07:44:39 12/20/2023 08:50:01 Body mass index 30+ - obesity 924312128 Z68.38 Obesity 379706963 E66.9 Malaise and fatigue 2717 77923 R53.83 -patient requesting to be tested for [place]; low suspicion but cannot say definitive ly that she does not so will proceed with Monospot test Cough 91338025 R05.9 Acute otit is externa of right ear 8619343516 924649 H60.501 -ear drops prescribed by previous provider were unavailabl e-Explaine d otitis externa, possible causes, treatment, and prognosis. -Prescribe d antibiotic ear drops and suggested pain relief measures.- Return in 5 days for a follow-up or sooner if required. Acute bronchitis 4842685 2 J20.9 - Patient presents with cough and chest congestion for 6 days. No signs of pneumonia or other complicati ons.- currently finishing 5-day course of azithromyc in with no improvemen t- Prescribe a 7-day course of doxycyclin and a medrol dose pack and antitussiv e/mucolyti c for symptom relief.- Advise patient to drink plenty of fluids, rest, and avoid smoking.- Schedule a follow-up visit in 1 weeks to monitor recovery and rule out any secondary infections . [id number] Kera Rojas DO [address] [place] [address] 12/25/2023 08:25:09 12/25/2023 09:20:59 Tuberculosis screening 248861178 Z11.1 [id number] Rose Pradhan APRN [address] [place] [address] 12/26/2023 08:14:03 12/26/2023 08:33:05 Body mass index 30+ - obesity 309648455 Z68.38 May resume post-HIDA scan today pending results. Advised on diet/exerc ise. F/U 1 month. Offered referral to dietitian patient refuses at this time. Switching to capsules to see if that works for weight loss better than the tablets have been. Obesity 545845827 E66.9 Hyperlipidemia 15931346 E78.5 Vitamin D deficiency 347 55881 E55.9 Endocrine/ metabolic screening 328051501 Z13.249 [id number] BRUNO Perez CRUSHER OPERATOR [address] [place] [address] [place] [address] 01/02/2024 14:02:06 01/02/2024 14:19:00 Acute left otitis media 091520937 H66.92 [id number] Rose Pradhan APRN [address] [place] [address] 01/07/2024 08:25:50 01/07/2024 09:09:30 Acute left otitis media 251413096 H66.92 F/U PRN if symptoms worsen or no improvemen t - Clinda since allergic to other abx that would be useful and drops show no improvemen t. Advised to schedule with ENT for ear tube consult. Body mass index 30+ - obesity 434122051 Z68.39 Obesity 903994243 E66.9 Candidiasis of vagina 72 970632 B37.31 F/U PRN [id number] Rose Pradhan APRN [address] [place] [address] 01/29/2024 08:15:56 01/29/2024 09:11:01 Body mass index 30+ - obesity 079344967 Z68.39 Obesity 014031846 E66.9 Vitamin D deficiency 347 08478 E55.9 Hyperinsulinism 19179395 E16.1 Hypertensive disorder 38 398083 I10 Systolic slightly elevated today - diastolic WNL - advised to discuss with Cardiology at appt. tomorrow - patient verbalized understand ing. Prediabetes 182973612 R7 3.03 Will call with results Biliary dyskinesia 2007 K82.8 [id number] BRUNO Galindo[address] [place] [address] 02/05/2024 09:47:22 02/05/2024 10:22:39 History of tympanostomy 760937770 Z93.8 Referred for further evaluation [id number] BRUNO Lopez CRUSHER OPERATOR [address] [place] [address] [place] [address] 02/12/2024 07:56:14 02/12/2024 08:55:34 Postoperative visit 293884795 Z48.89 History of cholecystectomy 890821097 Z90.49 02/07/2024 [id number] BRUNO Perez CRUSHER OPERATOR [address] [place] [address] [place] [address] 02/20/2024 10:06:10 02/20/2024 10:54:23 Hypertensive disorder 81682262 I10 Non-menopa usal hot flash 4279294705 45475 R23.2 Prediabetes 037801561 R7 3.03 [id number] BRUNO Perez CRUSHER OPERATOR [address] [place] [address] [place] [address] 03/13/2024 09:10:15 03/13/2024 10:33:16 Routine gynecologic examination done 0143890256 9101 Z01.419 Depression screening 171 375188 Z13.31 Diet education 10559610 Z71.3 Encourage healthy eating/dec reased fats, sugars, fried foods Counseling 020901476 Z71 .82 Encouraged regular exercise 30-40min/d ay 4-5 days/wk Examinatio n of blood pressure 812951677 Z01.30 Hyperlipid emia screening 479311852 Z13.220 Endocrine/ metabolic screening 507235631 Z13.228 History of total hysterectomy 246829149 Z90.710 Body mass index 30+ - obesity 516758436 Z68.38 Obesity 375540176 E66.9 Hypertensive disorder 38 527164 I10 Depressive disorder 3548 9007 F32.A Prediabetes 583469934 R7 3.03 Screening for malignant neoplasm of colon 949543235 Z12.11 [id number] MD Carlito Young CRUSHER OPERATOR [address] [place] [address] [place] [address] 03/21/2024 13:30:55 03/21/2024 14:14:23 Acute left otitis media 229086959 H66.92 Candidiasis of vagina 72 893504 B37.31 History of tympanostomy 885933969 Z93.8 [id number] Johnny Fletcher APRN [address] [place] [address] 03/24/2024 07:51:03 03/24/2024 08:33:49 Chest pain 18583456 R07.9 - normal EKG- very minimal concern for cardiovasc ular etiology with normal EKG and recent normal ECHO, exercise stress test, and holter monitor (cardiolog y notes reviewed)- troponin to further evaluate and rule out cardiac dysfunctio n as cause of chest pain- CMP and CBC to assess kidney, liver function, anemia, infectious process Body mass index 30+ - obesity 590215884 Z68.39 Obesity 842045436 E66.9 Chest wall pain 27219444 6 R07.89 - most likely musculoske letal in nature with movement aggravatin g the symptoms- will treat with NSAIDs and muscle relaxers while ruling out other etiologies [id number] BRUNO Perez CRUSHER OPERATOR [address] [place] [address] [place] [address] 03/31/2024 13:10:03 03/31/2024 13:35:29 Body mass index 30+ - obesity 697363701 Z68.39 Obesity 417372490 E66.9 Chafing of skin 13255232 2 L30.4 [id number] BRUNO Perez CRUSHER OPERATOR [address] [place] [address] [place] [address] 04/14/2024 15:59:44 04/14/2024 16:35:53 Fatigue 46795867 R53.83 [id number] BRUNO [place] [address] [place] [address] 04/16/2024 08:12:49 04/16/2024 08:39:51 Body mass index 30+ - obesity 943984043 Z68.38 Obesity 109568493 E66.9 Middle ear effusion 1004 372611 H74.8X9 -oral corticoste roid for short term relief-sta rt azelastine as directed by ENT-follow up with ENT and investigative reporter for re-evaluat ion if symptoms persist [id number] BRUNO Galindo[address] [place] [address] 04/25/2024 08:00:28 04/25/2024 08:48:29 Hypertensive disorder 61800737 I10 Well-contr olled Migraine 37279612 G43.90 9 Well-contr olled; continue Topamax Irritable bowel syndrome 54271116 K58.9 Well-contr olled Body mass index 30+ - obesity 395919794 Z68.38 Discussed can restart phentermin e since stopping the Wegovy since Cardiology has cleared her to do so. They would like her to lose weight to decrease risk for heart disease due to her tachycardi a, HLD and fatty liver. Aware of possible side effects - F/U 1 month or sooner if needed. Offered referral to dietitian but patient declines at this time. Vitamin D deficiency 347 95777 E55.9 Depressive disorder 3548 9007 F32.A Well-contr olled Obesity 137105475 E66.9 Prediabetes 112743791 R7 3.03 Last A1C 6.0, has been as high as 6.3 - medically necessary for patient to be on weight lowering medication . Cardiology had her on Wegovy but ran out of samples and not covered by insurance. Chronic in terstitial cystitis 095974354 N30.10 Well-contr olled; sees Urology Acute fron mikaela sinusitis 47475587 J01.10 Refills Allergic rhinitis 064236 04 J30.9 Well-contr olled; sees Rubber Tester getting allergy injections regularly Gastroesop hageal reflux disease without esophagitis 617222508 K21.9 Well-contr olled [id number] DO Oly [place] CRUSHER OPERATOR [address] [place] [address] [place] [address] 05/05/2024 09:03:15 05/05/2024 09:19:54 Labial cyst 117270566 N90.7 resolved [id number] Julieta Marcano APRN [address] [place] [address] 05/07/2024 10:14:36 05/07/2024 10:51:50 Diarrhea 57385847 R19.7 Nausea and vomiting 3 1999 R11.2 [id number] Julieta Marcano APRN [address] [place] [address] 06/18/2024 09:07:48 06/18/2024 09:26:36 Pharyngitis 930862146 J02.9 Acute left otitis media 703033855 H66.92 Candidiasis of vagina 72 222475 B37.31 [id number] Julieta Marcano APRN [address] [place] [address] 06/24/2024 10:26:52 06/24/2024 11:16:18 Sore throat 627969006 J02.9 Cough 28731197 R05.9 Prediabetes 219976715 R7 3.03 [id number] BRUNO [place] CRUSHER OPERATOR [address] [place] [address] [place] [address] 07/04/2024 08:46:45 07/04/2024 09:11:43 Fatigue 42192267 R53.83 Prediabetes 458351680 R7 3.03 [id number] Infusion Nurse DAVE Esteban CRUSHER OPERATOR [address] [place] [address] [place] [address] 07/16/2024 08:05:02 07/16/2024 08:24:52 Allergic rhinitis 87011698 J30.9 [id number] Julieta Marcano APRN [address] [place] [address] 07/18/2024 13:56:45 07/18/2024 15:09:52 Fatigue 82021182 R53.83 Pain in fi nger of right hand 3182822341 41142 M79.185 [id number] Infusion Nurse DAVE Esteban CRUSHER OPERATOR [address] [place] [address] [place] [address] 07/23/2024 07:51:32 07/23/2024 08:04:46 Allergic rhinitis 60536002 J30.9 [id number] Infusion Nurse DAVE Esteban CRUSHER OPERATOR [address] [place] [address] [place] [address] 07/30/2024 10:12:41 07/30/2024 11:33:54 Allergic rhinitis 52668422 J30.9 [id number] Infusion Nurse DAVE Esteban CRUSHER OPERATOR [address] [place] [address] [place] [address] 08/06/2024 07:47:19 08/06/2024 07:47:32 Allergic rhinitis 98950495 J30.9 [id number] Julieta Marcano APRN [address] [place] [address] 08/06/2024 09:02:52 08/06/2024 10:09:30 Sleep pattern disturbance 05498888 G47.9 [id number] Julieta Marcano APRN [address] [place] [address] 08/13/2024 14:20:02 08/13/2024 15:24:26 Acute bilateral otitis media 144124314 H66.93 [id number] Adilia Mueller MD [facility] CRUSHER OPERATOR [address] [place] [address] [place] [address] 08/27/2024 13:38:09 08/27/2024 14:13:06 Folliculitis 45107060 L73.9 Body mass index 30+ - obesity 772008665 Z68.39 Obesity 190169789 E66.9 [id number] Infusion Nurse DAVE [place] CRUSHER OPERATOR [address] [place] [address] [place] [address] 08/29/2024 07:52:45 08/29/2024 08:23:18 Allergic rhinitis 47107448 J30.9 [id number] BRUNO Lopez CRUSHER OPERATOR [address] [place] [address] [place] [address] 09/12/2024 09:28:30 09/12/2024 09:57:08 Allergic rhinitis 97551171 J30.9 [id number] BRUNO Lopez CRUSHER OPERATOR [address] [place] [address] [place] [address] 09/19/2024 09:14:14 09/19/2024 09:14:30 Allergic rhinitis 15027719 J30.9 [id number] Julieta Webber APRN [facility] [address] [place] [address] 09/24/2024 09:57:23 09/24/2024 10:35:53 Chronic interstitial cystitis 879136940 N30.10 Overactive urinary bladder 263977883 N32.81 -avoid anticholin ergics in this patient since she already reports memory issues.-sa mples of myrbetriq given. -we also discussed EBP study which showed in pts with underlying OAB that phentermin e can cause increased bladder sphincter tone, inflammati on of the urethra, both resulting in worsening OAB symptoms. History of total hysterectomy 838329023 Z90.665 [id number] Julieta Marcano APRN [address] [place] [address] 09/29/2024 13:15:17 09/29/2024 14:54:23 Migraine 78378186 G43.390 [id number] Julieta Marcano APRN [address] [place] [address] 09/30/2024 09:04:14 09/30/2024 10:06:31 Pain of left knee joint 2775596668 91134 M25.348 [id number] Julieta Marcano MC KAY MACHINE OPERATOR [address] [place] [address] 10/07/2024 08:22:51 10/07/2024 08:51:37 Acute bilateral otitis media 692507095 H66.93 Candidiasis of vagina 72 546604 B37.31 Cough 15063746 R05.9 [id number] Julieta Marcano MC KAY MACHINE OPERATOR [address] [place] [address] 10/13/2024 14:04:48 10/13/2024 14:33:03 Acute upper respiratory infection 77969361 J06.9 Cough 99637324 R05.9 [id number] Adela Coello APRN [facility] CRUSHER OPERATOR [address] [place] [address] [place] [address] 10/22/2024 16:10:54 10/22/2024 16:52:30 Urgent desire to urinate 86835489 R39.15 Low back pain 123328518 M54.50 Microscopic hematuria 19 [id number] R31.29 [id number] Julieta Marcano APRN [address] [place] [address] 10/31/2024 13:03:57 10/31/2024 13:26:00 Ear pressure sensation 529755153 H93.8X9 Prediabetes 949603529 R7 3.03 Contact dermatitis 44755 004 L25.9 [id number] Adela Coello [facility] CRUSHER OPERATOR [address] [place] [address] [place] [address] 11/06/2024 15:58:48 11/06/2024 16:22:34 Migraine 09802446 G43.645 [id number] Julieta Marcano [facility] KAY MACHINE OPERATOR [address] [place] [address] 11/11/2024 07:55:58 11/11/2024 08:15:46 Obstructive sleep apnea syndrome 73668869 G47.33 [id number] Mathew Arzate [address] [place] [address] 11/17/2024 16:19:38 11/17/2024 16:50:47 Migraine 57922816 G43.909 chronic; exacerbate d; somatic dysfunctio n present and complicati ng; OMT provided and well tolerated with subjective mild improvemen t in sx Somatic dy sfunction of head region 078137952 M99.00 as above Cervical s omatic dysfunction 537886522 M99.01 as above Somatic dy sfunction of thoracic region 861676097 M99.02 as above Spasm of back muscles 20 4946712 M62.830 b/l trapezius mm; a/c; likely stimulus for above; treated as above Chronic neck pain 172309 8081 107 M54.2 a/c; likely stimulus for above; treated as above [id number] Mathew Arzate [address] [place] [address] 12/15/2024 16:01:06 12/15/2024 16:26:12 Chronic neck pain 4533343613 107 M54.2 chronic; improved to baseline comparativ morgan to last visit; somatic dysfunctio n present and complicati ng; treated with OMT in office today with improvemen t in sx following tx Somatic dy sfunction of head region 023834035 M99.00 as above Cervical s omatic dysfunction 436540670 M99.01 as above Somatic dy sfunction of thoracic region 982600923 M99.02 as above Spasm of back muscles 20 6798934 M62.830 R>L trapezius mm; as above Migraine 52876673 G43.90 9 chronic; stable; somatic dysfunctio n present and complicati ng; OMT provided and well tolerated with subjective mild improvemen t in sx; continue chronic regimen for this [id number] DO Oly [place] CRUSHER OPERATOR [address] [place] [address] [place] [address] 12/22/2024 08:24:46 12/22/2024 08:51:02 Tuberculosis screening 031558038 Z11.1 [id number] Julieta Marcano APRN [address] [place] [address] 01/05/2025 10:56:47 01/05/2025 12:43:39 Obstructive sleep apnea syndrome 57338027 G47.33 Narcolepsy type 2 906142 5617 9104 G47.429 01716904 [id number] Julieta Marcano APRN [address] [place] [address] 01/21/2025 12:51:59 01/21/2025 14:43:26 Pharyngitis 599440158 J02.9 87289644 Posterior rhinorrhea 758 62434 J34.89 438523 Feeling of lump in throat 417053941 R22.1 829765 Prediabetes 533631817 R7 3.03 [id number] Julieta Marcano APRN [address] [place] [address] 02/10/2025 11:05:33 02/10/2025 12:47:00 Infection of skin 357124504 L08.9 56842 Candidiasis of vagina 72 209468 B37.31 678191 [id number] BRUNO Perez CRUSHER OPERATOR [address] [place] [address] [place] [address] 03/16/2025 08:40:08 03/16/2025 09:48:52 Routine gynecologic examination done 8707683475 9101 Z01.419 Depression screening 171 190353 Z13.31 Hypertensi on screening 780830370 Z13.6 Diet education 93621065 Z71.3 Encourage healthy eating/dec reased fats, sugars, fried foods Counseling 167078974 Z71 .82 Encouraged regular exercise 30-40min/d ay 4-5 days/wk Examinatio n of blood pressure 530858213 Z01.30 Body mass index 30+ - obesity 330155847 Z68.38 332002 Obesity 097369173 E66.9 Hyperlipid emia screening 930327970 Z13.220 464776 Endocrine/ metabolic screening 544532516 Z13.29 5882352 History of total hysterectomy 589659101 Z90.710 Hypertensive disorder 38 680285 I10 Depressive disorder 3548 9007 F32.A Prediabetes 333977628 R7 3.03 [id number] BRUNO [address] [place] [address] 03/30/2025 15:21:33 03/30/2025 16:07:12 Prediabetes 828003362 R73.03 438383 Mixed hyperlipidemia 267 082302 E78.2 94795 [id number] [place] [address] [place] [address] 04/14/2025 08:23:26 04/14/2025 09:27:20 Pharyngitis 423836070 J02.9 [id number] Julieta Marcano APRN [facility] [address] [place] [address] 05/05/2025 12:30:33 05/05/2025 13:21:33 Migraine 94928654 G43.909 Mild inter mittent asthma 479899483 J45.20 6687387 Chronic in terstitial cystitis 809455485 N30.10 Hypertensive disorder 38 203968 I10 13612983 Acute migraine 303192509 1 63623 G43.909 7610028369 [id number] Alyson Marcano APRN [facility] [address] [place] [address] 06/18/2025 09:41:38 06/18/2025 10:24:51 Seborrheic dermatitis of scalp 809122901 L21.9 472895 Discussed alternatin g her Ketoconazo le shampoo with t-gel and selsun blue shampoo. Body mass index 30+ - obesity 460317567 Z68.38 03529671 38 Health Concerns Section Related Observation LastModified by Organization Detai ls LastModified Time None Recorded Concern Status LastModified by Organization Details LastModified Time None Recorded Advance Directives Directive N: Payers Insurance Date Sequence Insurance Name Policy Number Policy Castañeda Covered Member ID Castañeda Member ID Guarantor Name 02/14/2019 1 [employer] (PPO) [id number] Lon Cornell [id number] Keira Cornell 06/19/2025 1 [employer] [id number] Lon Cornell [id number] Keira Cornell 03/30/2025 1 [place] [id number] Keira Cornell [id number] Keira Cornell Notes Date Note Type Note Provider Name and Address Organization Details Recorded Time 03/16/2025 text/html Annual - MOBRepo rted by PatientHistoryFor history, patient reportslast annual exam: 03/13/24andno gynecologic complaints.Contracepti onFor current contraception, patient reportshistory of hysterectomy.Preventat doreen measuresFor preventive measures, patient reportsencourage self breast examination,encourage regular exercise,encourage no tobacco use, andencourage regular mammograms starting age 40.Keira rto for AWE.She requests fasting labs as well. Adela Coello, [place] [address], [place], [address], [place] - [facility] 03/16/2025 15:11:18 03/30/2025 text/html ROS as noted in the HPI Keira is a 34 yof who presents to the clinic today to follow up on labs from OB. She is noted to have elevated Lipids, trigs and LDL. No previous hx of statin use but she is sensitive to meds so we will start at a low dose to determine tolerance. Patient also with continued concerns with weight. She has lost 5lbs since previous visit however, she struggles with severe PRICILA and Narcolepsy which is exacerbated by weight. Ozempic compound was utilized previously until compounding changed. She is aware of risks of compound and would like to proceed with ozempic through retail pharmacy. She is watching her diet more and trying to get more activity. She denies any acute concerns and is doing well on RX from pulmonology. She denies chest pain, shortness of breath, N/V/D. CPAP continues. Julieta Marcano APRN [address], [place], [address], [place] [facility] 03/30/2025 22:30:08 04/14/2025 text/html ROS as noted in the HPI Keira is a 34 yof who presents to the clinic for a Dry cough and left side of tongue is sore. No longer utilizing CPAP, she does believe that a new medication may have caused some of her symptoms. She would like to stop statin as she believes this is the culprit. She continues to be managed by pulmonology for narcolepsy-modafinil is effective and she does report being well rested with decreased daytime sleeping noted. Julieta Marcano APRN [address], [place], [address], [place] - [facility] 04/17/2025 22:30:28 05/05/2025 text/html ROS as noted in the [...] controlled on topamax up until recently. Julieta Marcano APRN [address], [place], [address], [place] - [facility] 05/05/2025 22:58:47 06/18/2025 text/html ROS as noted in the HPI Keira presents today for a full body skin exam. Has been using Ketoconazole shampoo for years. She will use it every time she washes her hair. Doesn't feel like it is as effective as it once was. Was last seen by Michael Lomeli APRN on 08/07/23.No personal history of skin cancer. Grandfather has a hx of skin cancer, unsure the type. Alyson BRUN[place] Marcano [address], [place], [address], [place] - [facility] 06/18/2025 10:21:11 OBGyn Episode Ob Episode Information Episode Created Date Number of Fetuses Patient Bloodtype Patient rh Status Prepregnancy Weight lbs Domestic Partner Domestic Partner Phone Father Name Hand Packager Status 03/15/20 17 1 CLOSED Fetus Data First Name Last Name Admitted to NICU Weight (g) Sex Living Outcome Pediatric Complications Fetus ID Race Codes Race Delivery Type 3316.66 4704 M Full Term [id number] Vaginal Theo Calculation Initial Theo Date Initial Exam Date Initial Exam Provider Initial Ultrasound Date Last Menstrual Period Date Ultra Sound Weeks Gestation 0 Eighteen To Twenty Week Theo Update Ultra Sound Date Fundal Height At Umbil Quickening Date Ultra Sound Latest Weeks Gestation Final Theo Confirmed By Final Theo Confirmed Date Final Theo Date Ultra Sound Latest Days Gestation 0 0 Menstrual History Last Menstrual Date Menses Monthly On Bcp Conception Prior Menses Frequency Hcg Plus Date Menarche Onset Age Delivery Information Delivery Date Delivery Type Labor Anesthesia Weeks Gestation Incision Type Labor Labor Length Hrs Delivered By Post Complications Tubal Sterilization Discharge Date Comments 3 Regional-Ep idural 40 14 no lac or repairnee ded Stanton Song Discharge Information Feeding Method Contraceptive Method Maternal HG B and HCT Levels
[2025-06-26 08:53] VITALS: BP 109/69; PULSE 64; RESP 16; TEMP 36.6; O2SAT 100
[2025-06-26 09:00] VITALS: BMI 40.4
[2025-06-26 09:20] VITALS: PULSE 66
[2025-06-26] MEDS: IVABRADINE HCL 7.5MG TABLET PO (09:34)
[2025-06-26] MEDS: METOPROLOL TARTRATE 50MG TABLET PO (09:35)
[2025-06-26 09:36] LABS: Chloride 105 mmol/L (98-107); Potassium 3.4 mmoL/L (3.5-5.1); Sodium 138 mmol/L (136-145)
[2025-06-26 09:39] LABS: Anion Gap 12.4 mEq/L (5-15); Calcium 9.2 mg/dl (8.4-10.2); Carbon Dioxide 24 mmol/L (22.0-30.0); Glucose 102 mg/dl (74-100)
[2025-06-26 09:44] LABS: Blood Urea Nitrogen 7 mg/dl (7-17); Creatinine Clearance Estimated 164 mL/min (50-200); Creatinine,Serum 0.70 mg/dl (0.52-1.04); Estimated Glomerular Filt Rate 96 ml/min (>60); GFR (African American) 117 ML/MIN (>60)
[2025-06-26 09:48] VITALS: PULSE 62
[2025-06-26 09:59] VITALS: PULSE 56
--- NOTE | 2025-06-26 10:00 | CT_ITS ---
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 A noncontrast coronary calcium scan was performed. A CT attenuation threshold of 130 Hounsfield units (HU) was used for the detection of calcium in contiguous voxels of 1 sq mm in area to be counted as individual lesions. Bolus tracking in the ascending aorta with a threshold of 180 HU was performed. Immediately afterwards, ECG synchronized cardiac CT was then performed from the cardiac base to apex using retrospective gating with ECG tube current modulation. A total of 85 mL of Isovue 370 mg/mL contrast medium was administered at 5 mL/sec followed by a saline flush using a biphasic injection protocol. A tube voltage of 120 KVp was used. The patient received the following medications prior to the cardiac CT. 50 mg of oral metoprolol 7.5 mg of oral ivabradine The average heart rate at the time of acquisition was 69 bpm and regular. Image Reconstruction Transaxial images were reconstructed at 0.67 mm slide thickness. Data was reviewed interactively on an advanced workstation capable of 2 and 3-dimensional displays in all conventional reconstruction formats, including multiplanar reformations, maximum intensity projections, curved multiplanar reformations, and volume rendered reconstructions. When applicable, selected routine images describing the relevant coronary anatomy and pathology were saved and sent to PACS. Complications None Technical Quality Overall image quality was fair. Coronary artery opacification was fair. Total DLP (Dose-Length Product) is 1232.7 mGy-cm. The reported value represents the total of one or more individual components during the CT acquisition of this date and at this time, and as such, the same value may appear in more than one CT report depending on the interpreting/reporting physicians. COMPARISON None FINDINGS CT Coronary Calcium Scoring LMA (Left Main Artery) = 0 LAD (Left Anterior Descending) = 0 LCX (Left Coronary Circumflex) = 0 RCA (Right Coronary Artery) = 0 Total Calcium Score = 0 using the AJ-130 method. The interpretation of the calcium heart score is based on the following continuum*: 0 = no calcified plaque detected (risk of coronary artery disease is very low ??? less than 5%) 1-10 = calcium detected in extremely minimal levels (risk of coronary diseases is still low ??? less than 10%) 11-100 = mild levels of plaque detected with certainty (mild or minimal narrowing of heart arteries is likely) 101-400 = definite,at least moderate levels of plaque detected (relatively high risk of a heart attack within 3-5 years) >401-999 = extensive levels of plaque detected (high risk of heart attack, high levels of vascular disease are present, high likelihood of at least one significant coronary narrowing) *The calcium heart score quantifies the burden of coronary calcification/plaque in the coronary arteries. The calcium heart score is not able to evaluate the presence or burden of non-calcified (i.e. soft) plaque. There is no identifiable calcification in the aortic valve, mitral annulus or mitral valve, pericardium, or myocardium. Coronary CT Angiography The coronary arterial system is left dominant. Quantitative Stenosis Grading: Left Main (LM): The left main originates normally from the left sinus of Valsalva. The LM bifurcates into the left anterior descending artery and left circumflex artery. The LM is patent with no evidence of atherosclerosis. Left Anterior Descending (LAD) and Diagonal Branches: The LAD gives off 3 diagonal branch(es). The LAD and its branches are patent with no evidence of atherosclerosis. There is no evidence of LAD-myocardial bridge. Left Circumflex (LCX) and Obtuse Marginals (OM): The LCX gives off 2 Obtuse Marginal (OM) branch(es). The LCX and its branches are patent with no evidence of atherosclerosis. Right Coronary Artery (RCA): The RCA originates normally from the right sinus of Valsalva. The RCA and its branches are patent with no evidence of atherosclerosis. Non-Coronary Cardiac Findings: Analysis of the left ventricular (LV) structure and function was performed after 3-D reconstruction of the LV from axial images, with user-corrected automatic contouring for assessment of LV volumes and user-defined reconstruction from oblique planes for measurement of 3-D cardiac structure and function. -The left ventricle systolic function is normal. -There is no left atrial appendage filling defect. Two right pulmonary veins and two left pulmonary veins drain normally into the left atrium. -No pericardial thickening or calcification. -Central and branch pulmonary arteries in the [id number] are unremarkable. -Thoracic aorta within the visualized thoracic aortic-branches in the [id number] is unremarkable. Extracardiac Structures No significant extra-cardiac findings. Note, however, that this study is focused on the cardiac findings. IMPRESSION -Fair imagre quality. -Absence of coronary calcification with an Agatston score = 0 using the AJ-130 method. -No evidence of significant flow-limiting atherosclerosis of the coronary arteries. -No obvious evidence of coronary anomalies or myocardial bridges. -CAD-RADS 0. Management recommendations per ACC/AHA guidelines*, as clinically appropriate. *Recommendations: CAD RADS 0: Reassurance. Consider non-atherosclerotic causes of chest pain. CAD RADS 1: Consider non-atherosclerotic causes of chest pain. Consider preventive therapy and risk factor modification. CAD RADS 2: Consider non-atherosclerotic causes of chest pain. Consider preventive therapy and risk factor modification, particularly for patients with nonobstructive plaque in multiple segments. CAD RADS 3: Consider further functional testing. Consider symptom-guided anti-ischemic and preventive pharmacotherapy as well as risk factor modification per published guideline statements. CAD RADS 4A: Consider further functional testing or invasive coronary angiography with revascularization per published guideline statements. Consider symptom-guided anti-ischemic and preventive pharmacotherapy as well as risk factor modification per published guideline statements. CAD RADS 4B: Invasive coronary angiography recommended with revascularization per published guideline statements. Consider symptom-guided anti-ischemic and preventive pharmacotherapy as well as risk factor modification per published guideline statements. CAD RADS 5: Consider invasive angiography and/or viability assessment with revascularization per published guideline statements. Consider symptom-guided anti-ischemic and preventive pharmacotherapy as well as risk factor modification per published guideline statements. CRITICAL RESULT None COMMUNICATION Per this written report The coronary and cardiac findings of this CCTA were reviewed, reported, and signed by Edwin Georges MD (Swamper) Conclusion Electronically signed by : Alexa Georges MD 06/28/2025 22:28:25
--- NOTE | 2025-06-26 10:03 | PC.NURSE ---
pt HR maintaining 56-60 post protocol medication administration. called CT. will take pt in 5-10 min when schedule is clear.
[2025-06-26] MEDS: 0.9 % SODIUM CHLORIDE 50 ML VIAL 40 ML IV (10:35)
[2025-06-26] MEDS: IOPAMIDOL-370 (76%);100ML BOTTLE 85 ML IV (10:35)
[2025-06-26] MEDS: SODIUM CHLORIDE 0.9% 10ML SYR (RAD ONLY) 10 ML IV (10:35)
[2025-06-26 10:38] VITALS: BP 119/63; PULSE 83; RESP 14; O2SAT 96
[2025-06-26 11:22] LABS: HCG Qualitative, Serum Negative (Negative)
== END 2025-06-26 10:36 | disposition home or self-care (01) ==
PROVIDERS: PCP Nurse Practitioner Family; Visit Provider Nurse Practitioner
DX: R07.9 Chest pain, unspecified (principal); R53.83 Other fatigue
CPT/HCPCS: 75574; 80048; 84703; Q9967

== ENCOUNTER 2025-07-20 15:59 | Outpatient (CLI) | payer BC, OTHER, SELFPAY ==
--- OUTSIDE RECORDS SUMMARY | 2025-07-20 16:05 | XMS_ITS | Clinical Summary ---
Author Organization [facility] Address [address] [place] [address] Care Team Providers Care Transitional Care Nurse Name Role Phone Rose Pradhan BRUNO Primary Care Provider [phone] Allergies Active Allergy Reactions Criticality Noted Date [...] to complete this topic Insurance Care Teams Transitional Care Nurse Relationship Specialty Start Date End Date Rose Pradhan APRN [address] [place] [id number] PCP - General Nurse Practitioner 06/15/24
[2025-07-20 16:46] LABS: Hematocrit 39.0 % (37.0-47.0); Hemoglobin 12.2 g/dL (12.2-16.2); Immature Granulocytes % 0.2 %; Mean Corpuscular HGB Conc 31.3 g/dL (31.8-35.4); Mean Corpuscular Hemoglobin 28.0 pg (27.0-31.2); Mean Corpuscular Volume 89.7 fl (81-99); Nucleated Red Blood Cells % 0 %; Platelet Count 429 K/mm3 (142-424); Red Blood Count 4.35 M/mm3 (4.20-5.40); Red Cell Distribution Width-SD 44.4 fL; White Blood Count 10.7 K/mm3 (4.8-10.8)
[2025-07-20 17:04] LABS: D-Dimer 0.86 ug/mL (0.0-0.5)
[2025-07-20 17:44] LABS: Alanine Aminotransferase 32 U/L (12-78); Albumin Level 4.4 g/dl (3.5-5.0); Alkaline Phosphatase 79 U/L (38-126); Anion Gap 15.3 mEq/L (5-15); Aspartate Amino Transferase 28 U/L (14-36); Bilirubin,Direct 0.2 mg/dl (0.0-0.4); Bilirubin,Indirect 0.1 mg/dL (0.0-0.9); Bilirubin,Total 0.3 mg/dl (0.2-1.3); Bilirubin,Unconjugated 0.1 mg/dL (0.0-1.1); Blood Urea Nitrogen 2 mg/dl (7-17); Calcium 9.4 mg/dl (8.4-10.2); Carbon Dioxide 20 mmol/L (22.0-30.0); Chloride 108 mmol/L (98-107); Cholesterol 200 mg/dl (140-200); Creatinine,Serum 0.60 mg/dl (0.52-1.04); Estimated Glomerular Filt Rate 115 ml/min (>60); GFR (African American) 139 ML/MIN (>60); Glucose 143 mg/dl (74-100); HDL Cholesterol 48 mg/dl (40-60); Magnesium 1.8 mg/dl (1.6-2.3); Potassium 3.3 mmoL/L (3.5-5.1); Sodium 140 mmol/L (136-145); Total Protein,Serum 7.6 g/dl (6.3-8.2); Triglycerides 117 mg/dl (30-150)
[2025-07-20 17:56] LABS: Free T4 (Free Thyroxine) 0.94 ng/dl (0.78-2.19)
[2025-07-20 18:10] LABS: Thyroid Stimulating Hormone 0.88 uIU/mL (0.465-4.68)
== END 2025-07-20 23:59 | disposition home or self-care (01) ==
LOC: LAB 16:02
PROVIDERS: PCP Nurse Practitioner Family; Visit Provider Internal Medicine
DX: R07.89 Other chest pain (principal); R94.31 Abnormal electrocardiogram [ECG] [EKG]; R00.2 Palpitations
CPT/HCPCS: 36415; 80048; 80061; 80076; 83735; 84439; 84443; 85025; 85378; 93270

== ENCOUNTER 2025-07-21 13:56 | Emergency (ER) | payer BC, OTHER, SELFPAY ==
[2025-07-21 14:12] VITALS: BP 155/94; PULSE 77; RESP 18; TEMP 36.9; O2SAT 100; BMI 40.1
--- NOTE | 2025-07-21 14:20 | HMH.EDGENADL ---
Discharge Plan Disposition Patient Disposition: Home, Self-Care Condition: Good Prescriptions Prescriptions: No Action epinephrine 0.3 mg/0.3 mL auto-injector 0.3 mg IM Q4H PRN levocetirizine 5 mg tablet 5 mg PO DAILY Patient Comments: TAKE ONE (1) TABLET BY MOUTH EVERY DAY Myrbetriq 50 mg tablet extended release 24 hr 50 mg PO DAILY Patient Comments: TAKE ONE (1) TABLET EVERY DAY BY ORAL ROUTE FOR 90 DAYS. amlodipine 2.5 mg tablet 2.5 mg PO DAILY Patient Comments: TAKE 1 TABLET BY MOUTH EVERY DAY amitriptyline 50 mg tablet 50 mg PO DAILY Patient Comments: TAKE ONE (1) TABLET EVERY DAY BY ORAL ROUTE. modafinil 200 mg tablet 200 mg PO DAILY Patient Comments: TAKE 1 TABLET BY MOUTH EVERY DAY montelukast 10 mg tablet 10 mg PO DAILY Patient Comments: TAKE ONE (1) TABLET EVERY DAY BY ORAL ROUTE. metoprolol succinate 25 mg tablet extended release 24 hr 25 mg PO BID Patient Comments: TAKE ONE (1) TABLET TWICE A DAY BY ORAL ROUTE FOR 90 DAYS. albuterol sulfate 90 mcg/actuation HFA aerosol inhaler 2 puff inhalation Q4H PRN Patient Comments: INHALE TWO (2) PUFFS BY MOUTH EVERY FOUR (4) HOURS NEEDED topiramate 100 mg tablet 100 mg PO HS Patient Comments: TAKE ONE (1) TABLET EVERY DAY BY ORAL ROUTE AT BEDTIME cholecalciferol (vitamin D3) 1,250 mcg (50,000 unit) capsule 1,250 mcg PO WEEKLY Patient Comments: TAKE ONE (1) CAPSULE BY MOUTH EVERY WEEK budesonide-formoterol 160-4.5 mcg/actuation HFA aerosol inhaler inhalation Patient Comments: INHALE TWO (2) PUFFS TWICE A DAY BY INHALATION ROUTE FOR 30 DAYS. vilazodone 40 mg tablet 40 mg PO DAILY Patient Comments: TAKE ONE (1) TABLET EVERY DAY BY ORAL ROUTE FOR 30 DAYS. esomeprazole magnesium 40 mg capsule,delayed release(DR/EC) 40 mg PO BID 30 Days Qty: 60 2RF losartan 25 mg tablet See Rx Instructions .ROUTE .COMPLEX Qty: 90 3RF Dose Instruction: TAKE 1 TABLET BY MOUTH EVERY DAY Rx Instructions: TAKE 1 TABLET BY MOUTH EVERY DAY Referrals Follow up/Referrals: Julieta Marcano APRN [Primary Care Provider, Medical] - See instructions Activity Restrictions/Add. Instructions Additional Instructions/Restrictions: Follow-up with your outpatient doctors including your PCP and cardiology. Clinical Impressions Clinical Impression: Chest pain Print Language Print Language: Armenian Discharge ED Provider: Rashel Trinh Adult HPI <Rashel Trinh MD - Last Filed: 07/21/25 17:01> General Chief complaint: PAIN Stated complaint: per [facility] for elevated D-Dimer/requesting CT Time Seen by Provider: 07/21/25 14:20 Mode of Arrival: Ambulatory Source of Information: Patient Description of Symptoms (Recalled from ER Triage Doc. by RN): patient presents after being called by her pcp in regards to labwork drawn yesterday. they called to tell her to go to the ED for an elevated D Dimer and have a CT chest protocol ordered. History of Present Illness HPI narrative: This patient is a 34-year-old female with minimal past medical history who presents to the emergency department after an abnormal lab draw. The patient reports that she has had ongoing chest pain over the last 6 months, she is currently seeing a local marine painter, she has had multiple negative laboratory workups and a negative CT angiogram of the heart. Over the past 2 to 3 days she has developed worsening pain between the shoulder blades and so her marine painter ordered a D-dimer which was positive. She was sent to the emergency department for further workup. Currently the patient endorses no shortness of breath, no tachycardia, only persistent posterior chest wall pain. Related Data Home Medications ?Medication ?Instructions ?Recorded ?Confirmed epinephrine 0.3 mg/0.3 mL 0.3 mg IM Q4H PRN 01/03/24 07/20/25 injection, auto-injector levocetirizine 5 mg tablet 5 mg PO DAILY 01/03/24 07/20/25 mirabegron 50 mg tablet,extended 50 mg PO DAILY 01/03/24 07/20/25 release 24 hr (Myrbetriq) albuterol sulfate 90 mcg/actuation 2 puff inhalation Q4H PRN 05/21/25 07/20/25 aerosol inhaler amitriptyline 50 mg tablet 50 mg PO DAILY 05/21/25 07/20/25 amlodipine 2.5 mg tablet 2.5 mg PO DAILY 05/21/25 07/20/25 budesonide-formoterol HFA 160 inhalation 05/21/25 07/20/25 mcg-4.5 mcg/actuation aerosol inhaler cholecalciferol (vitamin D3) 1,250 1,250 mcg PO WEEKLY 05/21/25 07/20/25 mcg (50,000 unit) capsule metoprolol succinate 25 mg 25 mg PO BID 05/21/25 07/20/25 tablet,extended release 24 hr modafinil 200 mg tablet 200 mg PO DAILY 05/21/25 07/20/25 montelukast 10 mg tablet 10 mg PO DAILY 05/21/25 07/20/25 topiramate 100 mg tablet 100 mg PO HS 05/21/25 07/20/25 vilazodone 40 mg tablet 40 mg PO DAILY 05/21/25 07/20/25 Previous Rx's ?Medication ?Instructions ?Recorded losartan 25 mg tablet See Rx Instructions .Route 07/13/25 .COMPLEX #90 tabs esomeprazole magnesium 40 mg 40 mg PO BID 30 days #60 caps 07/20/25 capsule,delayed release Allergies Allergy/AdvReac Type Severity Reaction Status Date / Time adhesive tape Allergy Rash Verified 07/20/25 15:06 Cephalosporins AdvReac Unknown Verified 07/20/25 15:06 allergy reaction Sulbactam and Other AdvReac Unknown Verified 07/20/25 15:06 Inhibitor Analo allergy (Penicillanic Sulfone BL reaction Beta-Lactam) Sulfa (Sulfonamide AdvReac Unknown Verified 07/20/25 15:06 Antibiotics) allergy reaction [facility] <Rashel Trinh MD - Last Filed: 07/21/25 17:01> [facility] Disclaimer: The information contained in this section may have been updated after the patient was seen, as this information can be updated by other users. Medical History (Updated 07/21/25 @ 19:14 by Priti Pedersen DO) Elevated d-dimer Abnormal ECG Gallbladder disease Fatigue Obesity Elevated hemoglobin A1c measurement Acid reflux Anxiety Surgical History H/O: hysterectomy S/P tonsillectomy and adenoidectomy Family History Grandfather Family history of hypertension Grandmother Family history of diabetes mellitus type II Other Family history of Crohn's disease Social History Smoking Status: Light tobacco smoker alcohol intake: never substance use type: denies use current occupational status: employed Travel in the last 8 weeks?: Inside the [place] Have you lived/traveled outside US in past 30 days?: No Contact w/someone who lives/traveled outside US past 30 days?: No Exposure to someone with infectious disease in past 14 days?: No Do you have a fever (greater than 100.4 F or 38 C)?: No Have you tested positive for COVID-19?: No Exposed to someone with COVID-19 in past 14 days?: No Do you have a sore throat?: No Do you have a cough?: No Do you have any weakness?: No Do you have any diarrhea?: No Are you experiencing any unusual bleeding?: No Do you have any muscle aches/pain?: No Do you have any abdominal pain?: No Are you experiencing loss of taste or smell?: No Other Medical History Have you received the Flu Vaccine for this season: No Have you received the Pneumonia Vaccine: No <Rashel Trinh MD - Last Filed: 07/21/25 17:01> ROS Obtained: Yes All systems reviewed & no additional complaints except as documented Physical Exam <Rashel Trinh MD - Last Filed: 07/21/25 17:01> General General appearance: alert and in no apparent distress Head Head exam: atraumatic and normocephalic Eye Eye exam: Present normal appearance, PERRL and EOMI ENT ENT exam: Present normal exam and normal external ear exam Neck Neck exam: Present normal inspection, full ROM and trachea midline Chest Chest inspection: Present normal inspection and symmetric chest wall rise; Absent tenderness Respiratory Respiratory exam: Absent respiratory distress Cardiovascular Cardiovascular exam: Present regular rate, normal rhythm and other (appears warm and well perfused) Abdominal Exam Abdominal exam: Absent distention or tenderness Extremities Exam Extremities exam: Present normal inspection and full ROM Neurological Exam Neurological exam: Present alert and oriented X3 Psychiatric Psychiatric exam: Present normal affect Skin Skin exam: Present warm and dry Medical Decision Making <Rashel Trinh MD - Last Filed: 07/21/25 17:01> Medical Records Medical records reviewed: Yes I reviewed the patient's medical records. Screening: Per USPSTF and CDC recommendations, given the prevalence of disease in our region, it is our hospital?s policy to screen for HIV and viral Hepatitis for all patients aged 18 and over and those with ongoing risk factors. Kobe Inquiry Pt receiving controlled substance: No Kobe was queried for this patient: No Vital Signs: 07/21/25 14:12 07/21/25 17:29 07/21/25 19:29 Temperature 98.4 F 98.2 F 98.2 F Temperature Source Oral Oral Oral Pulse Rate 64 68 Pulse Rate [Right Radial] 77 Respiratory Rate 18 18 18 Blood Pressure 113/78 137/87 Blood Pressure [Right Arm] 155/94 H Blood Pressure Mean [Right Arm] 114 Blood Pressure Source Automatic Cuff Automatic Cuff Blood Pressure Source [Right Arm] Automatic Cuff Blood Pressure Position Sitting Sitting Blood Pressure Position [Right Arm] Sitting 02 Sat by Pulse Oximetry 100 100 Oxygen Delivery Method Room Air Room Air Room Air Lab Data Lab results reviewed: Yes I reviewed the patient's lab results. Lab Results 07/21/25 14:40: WBC 9.3, RBC 4.40, Hgb 12.9, Hct 39.1, MCV 88.9, MCH 29.3, MCHC 33.0, RDW 13.4, Plt Count 445 H, MPV 9.0, Neut % (Auto) 59.4, Lymph % (Auto) 28.5, [place] % (Auto) 7.3, Eos % (Auto) 3.6, Baso % (Auto) 1.0, Neut # (Auto) 5.5, Lymph # (Auto) 2.7, [place] # (Auto) 0.7, Eos # (Auto) 0.3, Baso # (Auto) 0.1, PT 10.5, INR 0.94, Sodium 139, Potassium 3.1 L, Chloride 106, Carbon Dioxide 23, Anion Gap 13.1, BUN 2 L, Creatinine 0.70, Estimated Creat Clear 163, Estimated GFR 96, Est GFR ( Amer) 117, Glucose 106 H D, Calcium 9.2, Total Bilirubin 0.4, AST 33, ALT 37, Alkaline Phosphatase 86, Troponin I < 0.01, Total Protein 8.6 H, Albumin 4.9 D, Globulin 3.7 H, Albumin/Globulin Ratio 1.3 07/21/25 17:37: Troponin I < 0.01 07/21/25 14:40 07/21/25 14:40 Orders (Tests/Meds): ED MEDICATIONS Discontinued Medications Generic Name Dose Route Start Last Admin Trade Name Germanq PRN Reason Stop Dose Admin Iopamidol 70 ml 07/21/25 15:07 07/21/25 15:07 Iopamidol-370 (76%);100ml Bottle IV 07/21/25 15:08 70 ml ONCE ONE Administration Potassium Chloride 40 meq 07/21/25 17:37 07/21/25 18:15 Potassium Chloride 20meq Tab PO 07/21/25 17:38 40 meq ONCE ONE Administration Sodium Chloride 10 ml 07/21/25 15:07 07/21/25 15:07 Sodium Chloride 0.9% 10ml Syr (Rad Only) IV 08/20/25 15:06 10 ml NEEDED PRN Administration Maintain IV Site Sodium Chloride 50 ml 07/21/25 15:07 07/21/25 15:07 0.9 % Sodium Chloride 50 Ml Vial IV 07/21/25 15:08 50 ml ONCE ONE Administration ORDERS Category Date Time Status CTA Chest [CT angio chest PE protocol] Stat Cat Scan 07/21/25 14:31 Completed CBC w/Auto Diff [Complete Blood Count Auto Diff] Stat Lab 07/21/25 14:40 Completed CMP [Comprehensive Metabolic Panel] Stat Lab 07/21/25 14:40 Completed PT INR [Prothrombin Time INR] Stat Lab 07/21/25 14:40 Completed Troponin I Q3H Lab 07/21/25 14:40 Completed Troponin I Q3H Lab 07/21/25 17:37 Completed Medical Decision Narrative: MDM In summary, this 34-year-old female presents to the emergency department today with chest pain. Initial evaluation the patient mildly uncomfortable, hemodynamically stable. Differential diagnosis includes but is not limited to ACS, MA, pulmonary embolism. Based on these concerns, I ordered comprehensive laboratory imaging work. On arrival to the emergency department I evaluated the patient and found her to be hemodynamically stable and comfortable. I ordered labs and imaging and unfortunately before these could result I signed out the care of this patient to the oncoming attending Dr. Pedersen <Priti Pedersen, DO - Last Filed: 07/22/25 00:31> Vital Signs: 07/21/25 14:12 07/21/25 17:29 07/21/25 19:29 Temperature 98.4 F 98.2 F 98.2 F Temperature Source Oral Oral Oral Pulse Rate 64 68 Pulse Rate [Right Radial] 77 Respiratory Rate 18 18 18 Blood Pressure 113/78 137/87 Blood Pressure [Right Arm] 155/94 H Blood Pressure Mean [Right Arm] 114 Blood Pressure Source Automatic Cuff Automatic Cuff Blood Pressure Source [Right Arm] Automatic Cuff Blood Pressure Position Sitting Sitting Blood Pressure Position [Right Arm] Sitting 02 Sat by Pulse Oximetry 100 100 Oxygen Delivery Method Room Air Room Air Room Air Lab Data Lab Results 07/21/25 14:40: WBC 9.3, RBC 4.40, Hgb 12.9, Hct 39.1, MCV 88.9, MCH 29.3, MCHC 33.0, RDW 13.4, Plt Count 445 H, MPV 9.0, Neut % (Auto) 59.4, Lymph % (Auto) 28.5, [place] % (Auto) 7.3, Eos % (Auto) 3.6, Baso % (Auto) 1.0, Neut # (Auto) 5.5, Lymph # (Auto) 2.7, [place] # (Auto) 0.7, Eos # (Auto) 0.3, Baso # (Auto) 0.1, PT 10.5, INR 0.94, Sodium 139, Potassium 3.1 L, Chloride 106, Carbon Dioxide 23, Anion Gap 13.1, BUN 2 L, Creatinine 0.70, Estimated Creat Clear 163, Estimated GFR 96, Est GFR ( Amer) 117, Glucose 106 H D, Calcium 9.2, Total Bilirubin 0.4, AST 33, ALT 37, Alkaline Phosphatase 86, Troponin I < 0.01, Total Protein 8.6 H, Albumin 4.9 D, Globulin 3.7 H, Albumin/Globulin Ratio 1.3 07/21/25 17:37: Troponin I < 0.01 Orders (Tests/Meds): ED MEDICATIONS Discontinued Medications Generic Name Dose Route Start Last Admin Trade Name Freq PRN Reason Stop Dose Admin Iopamidol 70 ml 07/21/25 15:07 07/21/25 15:07 Iopamidol-370 (76%);100ml Bottle IV 07/21/25 15:08 70 ml ONCE ONE Administration Potassium Chloride 40 meq 07/21/25 17:37 07/21/25 18:15 Potassium Chloride 20meq Tab PO 07/21/25 17:38 40 meq ONCE ONE Administration Sodium Chloride 10 ml 07/21/25 15:07 07/21/25 15:07 Sodium Chloride 0.9% 10ml Syr (Rad Only) IV 08/20/25 15:06 10 ml NEEDED PRN Administration Maintain IV Site Sodium Chloride 50 ml 07/21/25 15:07 07/21/25 15:07 0.9 % Sodium Chloride 50 Ml Vial IV 07/21/25 15:08 50 ml ONCE ONE Administration ORDERS Category Date Time Status CTA Chest [CT angio chest PE protocol] Stat Cat Scan 07/21/25 14:31 Completed CBC w/Auto Diff [Complete Blood Count Auto Diff] Stat Lab 07/21/25 14:40 Completed CMP [Comprehensive Metabolic Panel] Stat Lab 07/21/25 14:40 Completed PT INR [Prothrombin Time INR] Stat Lab 07/21/25 14:40 Completed Troponin I Q3H Lab 07/21/25 14:40 Completed Troponin I Q3H Lab 07/21/25 17:37 Completed Medical Decision Narrative: MDM In summary, this 34-year-old female presents to the emergency department today with chest pain. Initial evaluation the patient mildly uncomfortable, hemodynamically stable. Differential diagnosis includes but is not limited to ACS, MA, pulmonary embolism. Based on these concerns, I ordered comprehensive laboratory imaging work. On arrival to the emergency department I evaluated the patient and found her to be hemodynamically stable and comfortable. I ordered labs and imaging and unfortunately before these could result I signed out the care of this patient to the oncoming attending Dr. Slava Pedersen, DO I assumed care of the patient at 1500. Labs were reviewed and interpreted by myself: CBC showed no leukocytosis, hemoglobin was stable. CMP was unremarkable. Initial troponin was less than 0.01, second troponin was less than 0.01. CT chest was reviewed and interpreted by myself and showed no acute pathology Given patient's unremarkable workup I felt the patient was stable and appropriate for discharge home. Patient was advised to follow-up with cardiology and PCP as scheduled. Critical Care <Rashel Trinh MD - Last Filed: 07/21/25 17:01> Critical Care Time Critical Care Time: No
--- OUTSIDE RECORDS SUMMARY | 2025-07-21 14:25 | XMS_ITS | Clinical Summary ---
Author Organization [facility] Address [address] [place] [id number] Care Team Providers Care Region Manager Name Role Phone Carolynn Rose CARR Primary Care Provider [phone]- [phone] Source Comments This information has been disclosed [...] therelease of HIV test results or diagnoses. [id number] Health Allergies Active Allergy Reactions Criticality Noted [...] Comments Diabetes Screening 1991 Hepatitis C Screening ([place]) 1991 HIV Screening 11/17/2009 Cervical Cancer Screening/Pa p Smear ([place]) 11/17/2021 Immunization: DTaP/Tdap/Td ( 4 - Td or Tdap) 07/03/2023 07/03/2013, 12/15/2002, 03/24/1996 Depression Screening 03/10/2025 03/10/2024 Immunization: COVID-19 ( season) 2025 05/05/2021, 11/16/2020 Immunization: Influenza ([place]) (#1) 2025 06/06/2013, 07/01/2012 Immunization: Hepatitis B Completed 1996, 05/05/1996, 03/24/1996 Immunization: Pneumococcal Aged Out N o longer eligible based on patient's age to complete this topic Insurance BLUE [facility] Care Teams Region Manager Relationship Specialty Start Date End Date Rose Pradhan APRN [address] [place] [address] [place] [address] PCP - General Family Medicine 03/09/24
--- OUTSIDE RECORDS SUMMARY | 2025-07-21 14:25 | XMS_ITS | Clinical Summary ---
Author Organization [facility] Address [address] [place] [address] Care Team Providers Care Cut Off Sawyer Log Name Role Phone Rose Pradhan BRUNO Primary Care Provider [phone]- [phone] Allergies Active Allergy Reactions Criticality Noted Date [...] to complete this topic Insurance Care Teams Cut Off Sawyer Log Relationship Specialty Start Date End Date Rose Pradhan APRN [address] [place] [id number] PCP - General Nurse Practitioner 06/15/24
--- NOTE | 2025-07-21 14:31 | CT_ITS ---
FINAL REPORT TECHNIQUE: Axial imaging of the chest is obtained after the administration of contrast. 3-D MIP reformatted images were also obtained and reviewed per PE protocol. This study was performed with techniques to keep radiation doses as low as reasonably achievable, (ALARA). Individualized dose reduction techniques using automated exposure control or adjustment of mA and/or kV according to the patient's size were employed. CLINICAL HISTORY: SOB, chest pains, elevated d-dimer, vapes x 5 yrs FINDINGS: The pulmonary arteries are well filled. There is no evidence of pulmonary embolus. There is no aortic dissection. Heart size is normal. There is no mediastinal, hilar, or axillary lymphadenopathy. The lungs are clear. There is no pleural or pericardial effusion. Limited evaluation of the upper abdomen is without acute abnormality. No acute osseous abnormality. IMPRESSION: No evidence of pulmonary embolism or aortic dissection. Reviewed, Interpreted and Dictated by Stacia Perez MD Transcribed by Kezia Davila Authenticated and [facility]
[2025-07-21 14:50] LABS: Hematocrit 39.1 % (37.0-47.0); Hemoglobin 12.9 g/dL (12.2-16.2); Immature Granulocytes % 0.2 %; Mean Corpuscular HGB Conc 33.0 g/dL (31.8-35.4); Mean Corpuscular Hemoglobin 29.3 pg (27.0-31.2); Mean Corpuscular Volume 88.9 fl (81-99); Nucleated Red Blood Cells % 0 %; Platelet Count 445 K/mm3 (142-424); Red Blood Count 4.40 M/mm3 (4.20-5.40); Red Cell Distribution Width-SD 43.7 fL; White Blood Count 9.3 K/mm3 (4.8-10.8)
[2025-07-21 15:01] LABS: INR 0.94 (0.9-1.1); Prothrombin Time 10.5 seconds (10.1-12.5)
[2025-07-21] MEDS: 0.9 % SODIUM CHLORIDE 50 ML VIAL IV (15:07)
[2025-07-21] MEDS: SODIUM CHLORIDE 0.9% 10ML SYR (RAD ONLY) 10 ML IV (15:07)
[2025-07-21] MEDS: IOPAMIDOL-370 (76%);100ML BOTTLE 70 ML IV (15:07)
[2025-07-21 15:10] LABS: Alanine Aminotransferase 37 U/L (12-78); Albumin Level 4.9 g/dl (3.5-5.0); Albumin/Globulin Ratio 1.3 (1.1-1.8); Alkaline Phosphatase 86 U/L (38-126); Anion Gap 13.1 mEq/L (5-15); Aspartate Amino Transferase 33 U/L (14-36); Bilirubin,Total 0.4 mg/dl (0.2-1.3); Blood Urea Nitrogen 2 mg/dl (7-17); Calcium 9.2 mg/dl (8.4-10.2); Carbon Dioxide 23 mmol/L (22.0-30.0); Chloride 106 mmol/L (98-107); Creatinine Clearance Estimated 163 mL/min (50-200); Creatinine,Serum 0.70 mg/dl (0.52-1.04); Estimated Glomerular Filt Rate 96 ml/min (>60); GFR (African American) 117 ML/MIN (>60); Globulin 3.7 g/dL (1.3-3.2); Glucose 106 mg/dl (74-100); Potassium 3.1 mmoL/L (3.5-5.1); Sodium 139 mmol/L (136-145); Total Protein,Serum 8.6 g/dl (6.3-8.2)
[2025-07-21 15:24] LABS: Troponin I < 0.01 ng/ml (0.00-0.034)
[2025-07-21 17:29] VITALS: BP 113/78; PULSE 64; RESP 18; TEMP 36.8; O2SAT 100
[2025-07-21] MEDS: POTASSIUM CHLORIDE 20MEQ TAB 40 MEQ PO (18:15)
[2025-07-21 18:53] LABS: Troponin I < 0.01 ng/ml (0.00-0.034)
[2025-07-21 19:29] VITALS: BP 137/87; PULSE 68; RESP 18; TEMP 36.8; O2SAT 100
== END 2025-07-21 19:29 | disposition home or self-care (01) ==
PROVIDERS: Emergency Provider Student in an Organized Health Care Education/Training Program; PCP Nurse Practitioner Family
DX: R07.9 Chest pain, unspecified (principal); E87.1 Hypo-osmolality and hyponatremia
CPT/HCPCS: 71275; 80053; 84484; 85025; 85610; 99283; 99284; Q9967

== ENCOUNTER 2025-08-07 09:26 | Outpatient (CLI) | payer BC, OTHER, SELFPAY ==
--- OUTSIDE RECORDS SUMMARY | 2025-08-07 09:35 | XMS_ITS | Clinical Summary ---
Author Organization [facility] Address [address] [place] [address] Phone Care Team Providers Care Boiler Fireman Name Role Phone Unavailable Primary Care Provider Unavailabl e Social History Tobacco Use Types Packs/Day Years Used Date Smoking Tobacco: Never Assessed Comments Unknown Sex and Gender Information Value Date Recorded Sex Assigned at Not on file Legal Sex Female 9:32 AM EST Gender Identity Not on file Sexual Orientation Not on file Plan of Treatment Upcoming Encounters Date Type Department Care Team (Late st Contact Info) Description 12/18/2025 1:20 PM EDT Office Visit [facility] [address] [place] [address] Luci Rogel, DO [address] [place] [address] Health Maintenance Due Date Last Done Comments Annual Wellness Exam 11/17/1994 DTaP/TDaP/Td (1 - Tdap) 11/17/2010 Hepatitis B Vaccine (1 of 3 - 19+ 3-dose series) 11/17/2010 Cervical Cancer Screening 11/17/2012 Pap Smear 11/17/2012 HPV/Pap Cotest 11/17/2021 COVID-19 Vaccine ( - 2024-2 6 season) 2025 Influenza Vaccine (#1) 2025 Meningococcal B Vaccine Aged Out No l onger eligible based on patient's age to complete this topic Pneumococcal Vaccine 0-49 Aged Out No longer eligible based on patient's age to complete this topic
--- OUTSIDE RECORDS SUMMARY | 2025-08-07 09:36 | XMS_ITS | Continuity of Care Document ---
Author Organization [facility] Address [address] [place] [address] Care Team Providers Care Traffic Inspector Name Role Phone ASHLEY LOMELI Doctor Of Naturopathic Medicine Assessment No assessment recorded. Plan of Treatment Reminders Order Date Submit Date Provider Last Modified By Organization Details Last Modified Time Details Appointments None recorded. Lab None recorded. Referral None recorded. Procedures None recorded. Surgeries None recorded. Imaging None recorded. Medication Orders ketoconazol e 2 % shampoo 2024 025 [facility], [address] [place] [address] , [place], [address], 10:15:01 Patient TargetsNo targets recorded. Patient Instructions Encounter Date Encounter Id Patient Instructions Last Modified By Organization Details Last Modified Time 06/18/2025 [id number] Alternate Ketoconazole shampoo with T-GEL and/or Selsun blue shampoo. If you have any questions or concerns, call pp or seek medical attention. Not available 06/18/2025 10:20:25 Discussed ABCDEs of melanoma. Not available 06/18/2025 10:20:34 Reason for Referral None Reported. Results Created Date Observation Date Name Description Value Unit Range Abnormal Flag Note LastModifiedBy Organization Detail LastModifiedTime 06/28/2006/26/2025 CT, angio gram, carot id arter ies, w/ contr ast No observ ation record ed. [email or web address] [facility] [address], [place], [address], 06/30/2025 08:28:03 07/21/20 25 07/21/2025 imagi ng/di agnos tic resul t No observ ation record ed. [email or web address] [facility] [address], [place], [address], 07/23/2025 17:44:26 07/31/20 25 07/31/2025 MRI, brain , w/o contr ast [facility] Name: BRIAN CORNELL Juan Francisco [address] Med[address] l iAdvize Phys: [place], [place] [address] : 1990 Age: 34 Sex: F Acct: [id number] Loc: G.MRI PHONE #: Exam Date: 2024 Status : REG CLI FAX #: Rad# [id number] Unit# [id number] Admit Date: 2024 EXAMS: CPT CODE: [id number] MRI BRAIN W/O CONTRA ST 72235 MR BRAIN WITHOU T IV CONTRA ST, 2024 11:53 AM HEALTH CLINICIAN INDICA TION: MIGRAI NE MRI brain withou t the use of IV contra st. * Compar mino CT Januar y 2020. * Suscep tibili ty artifa ct within the left face. * Fluid/ mucosa l thicke rochelle within the left portio n of the spheno id sinus. * Mastoi d air cells unrema rkable . * No acute hemorr liv, hydroc ephalu s, mass or infarc t. * Fluid attenu ation invers ion recove ry and T2 images reveal no focal areas of increa sed signal within the deep white matter which are common ly seen in Associ ation with migrai ne headac hes. * IMPRES MATIAS: * No acute intrac ranial abnorm ality . Electr onical ly signed by: Emeterio wagoner MD 2024 02:24 PM EST RP Workst ation: [id number] Electr onical ly Signed by EMETERIO Wagoner on 2024 at 1420 Report ed and signed by: HUI HENDRICKS CC: BRUNO CEJA Dictat ed Date/T tyron: 2024 (1420) Techno logist : DEACON GUEVARA Transc ribed Date/T tyron: 2024 (1420) Transc riptio nist: DR.SCH JOSE Meléndez onic Signat ure Date/T tyron: 2024 (1420) Printe d Date/T tyron: 2024 (1427) BATCH NO: N/A PAGE 1 Signed Report CC'ed Logic: Orderi ng Provid er: MARCIAL GARRETT Attend ing Provid er: MARCIAL GARRETT Referr ing Provid er: MARCIAL GARRETT Consul ting Provid er: MARCIAL GARRETT [address] , [place], [address], 08/04/2025 13:57:25 08/03/20 25 03/26/2023 US, breas t, unila teral , limit ed [facility] Medica l Ce Name: BRIAN CORNELL [address] [place] [address] Phys: [place] [address] : 1990 Age: 32 Sex: F Acct: [id number] Loc: UNK PHONE #: Exam Date: 2022 Status : Nuvyyo FAX #: Rad# [id number] Unit# [id number] Admit Date: EXAMS: CPT CODE: [id number] [address] LIMITE D RIGHT BREAST ULTRAS OUND, 023: CLINIC AL HISTOR Y: Palpab le thicke rochelle in the upper outer quadra nt of the right breast on physic al exam in a 32-yea r-old female . No family histor y of breast carcin rahul. COMPAR MINO: None. FINDIN GS: Ultras ound of the upper outer quadra nt of the left breast was perfor med by Hira Mazariegos RDMS. There are scatte red fibrog landul ar densit ies withou t ciara ectura l distor tion or suspic ious shadow ing. At the 10 o'cloc k positi on of the right breast , there is a renifo rm lesion compat ible with a lymph node. This measur es 6.5 x 5 x 3.5 mm. There is no cystic mass IMPRES MATIAS: 1. 6.5 mm intrap arench ymal lymph node at the 10 o'cloc k positi on of the left breast . This is benign . These findin gs were discus sed with the patien t direct ly follow ing the examin ation CAT2 - CATEGO RY 2, BENIGN FINDIN GS BASE - BASELI NE AT AGE 36 Electr onical ly Signed by HALEY SHELL MD on 2022 at 0949 Report ed and signed by: HALEY SHELL MD CC: Shanna Velasquez APRN; Adela Coello APRN Dictat ed Date/T tyron: 2022 (0949) Techno logist : HIRA MAZARIEGOS Transc ribed Date/T tyron: 2022 (0949) Transc riptio nist: DR.HAG KATHERYN Meléndez onic Signat ure Date/T tyron: 2022 (0949) Printe d Date/T tyron: 2024 (0855) BATCH NO: N/A PAGE 1 Signed Report CC'ed Logic: Orderi ng Provid er: MODE ARCHER [address] [place], [address], 08/03/2025 12:09:10 08/03/20 25 12/26/2023 NM, hepat obili martín scan [facility] Med[facility] l Ce Name: BRIAN CORNELL [facility] [employer] Phys: [place] [address] : 1990 Age: 33 Sex: F Acct: [id number] Loc: UNK PHONE #: Exam Date: 2023 Status : UNK FAX #: Rad# [id number] Unit# [id number] Admit Date: EXAMS: CPT CODE: [id number] NM HEPATO BILIAR Y W/EF 40177 CLINIC AL INFORM ATION: Right upper quadra nt abdomi nal pain DOSAGE : Techne tium Cholet ec 5.0 mCi IV COMPAR ISONS: There are no releva nt anatom ic examin ations and/or corela tive/c ompari son studie s. FINDIN GS: There is prompt homoge nous hepati c uptake . Biliar y tree and small bowel are both well visual ized by 15 minute s. The gallbl adder begins to fill at about 40 minute s postin jectio n. There is approp riate cleara nce of activi ty from the liver into the biliar y tree and small bowel, over the initia l 60 minute s of the examin ation. At 60 minute s post inject ion, the patien t receiv ed sincal jolene 1.8 mcg by slow intrav enous inject ion over 5 minute s. The gallbl adder ejecti on fracti on is abnorm ally low and calcul ated at 17%. The patien t experi enced right upper quadra nt abdomi nal pain with the sincal jolene inject ion IMPRES MATIAS: Findin gs are compat ible with biliar y dyskin esia. This report is genera malia using voice recogn ition comput er softwa re. Inadve rtent errors may have occurr ed while dictat ing report . Common sense approa ch is apprec iated and do not hesita te to call for clarif icatio n when necess martín. Electr onical ly Signed by Scott Pulido on 2023 at 1418 Report ed and signed by: CORI Pulido M.D. CC: Alliso n Margie th VEGETABLE VENDOR; Adela Coello VEGETABLE VENDOR Dictat ed Date/T tyron: 2023 (7278) Techno logist : PARISH BEARD, BS, SIGN LETTERER Transc ribed Date/T tyron: 2023 (1418) Transc riptio nist: DR.HAR MATT newman Signat ure Date/T tyron: 2023 (1418) Printe d Date/T tyron: 2024 (0855) BATCH NO: N/A PAGE 1 Signed Report CC'ed Logic: Scarlett ng Provid er: MODE ARCHER [address] , [place], [address], 08/03/2025 12:09:10 Result Notes None recorded. Problems Name Problem SNOMED Code Status Onset Date Resolution Date Notes Provider Name and Address Organization Details Recorded Time Irritabl e bowel syndrome 27748208 Active lactose intolera nt Katie Angelo, VEGETABLE VENDOR [address], [place], [address], [place] [facility] 4 11:12:16 Polycyst ic ovaries Completed 01/15/2023 Teresa Terry null, [place] - [facility] 3 15:34:53 Hyperins ulinism 44142939 Active Katie Angelo, VEGETABLE VENDOR [address], [place], [address], [place] [facility] 4 11:12:06 Asthma 425715861 Active Katie Angelo, VEGETABLE VENDOR [address], [place], [address], [place] [facility] 4 11:11:48 Chronic intersti tial cystitis 012919741 Active 2011 Katie Angelo, VEGETABLE VENDOR [address], [place], [address], [place] [facility] 4 11:11:53 Cyst of right ovary 4245207250 8105238 Completed 201801/15/2023 Teresa Terry null[place] [facility] 3 15:35:05 Exposure to SARS-CoV -2 Completed 201901/15/2023 Teresa Terry [place] [facility] 3 15:34:31 COVID-19 319488352 Completed 201901/15/2023 Teresa Zacariass null[place] [facility] 3 15:34:22 Migraine 96422035 Active 2020 Katie Angelo, VEGETABLE VENDOR [address], [place], [address], [place] [facility] 4 11:12:22 Mixed anxiety and depressi ve disorder 532821557 Active 2021 Katie Angelo, VEGETABLE VENDOR [address], [place], [address], [place] [facility] 4 11:12:24 Menorrha esteban 348023139 Completed 202101/15/2023 Teresa Mara null, [place] [facility] 3 15:34:40 Irregula r intermen strual bleeding 58041449 Completed 202101/15/2023 Teresa Mara [place] [facility] 3 15:34:35 Uterine leiomyom a 67571900 Completed 202101/15/2023 Teresa Mar[place] [facility] 3 15:34:59 Cellulit is of skin 080648546 Completed 202101/15/2023 Teresa Mar[place] [facility] 3 15:34:26 Depressi ve disorder 81079113 Active 2021 Katie Angelo, VEGETABLE VENDOR [address], [place], [address], [place] [facility] 4 11:11:54 Metaboli c syndrome X 240336894 Active 2022 Katie Angelo, VEGETABLE VENDOR [address], [place], [address], [place] [facility] 4 11:12:20 Body mass index 30+ - obesity 598452366 Active 2022 Adela Coello, VEGETABLE VENDOR [address], [place], [address], [place] [facility] 5 09:30:49 Obesity 852083749 Active 2022 Katie Angelo, VEGETABLE VENDOR [address], [place], [address], [place] [facility] 4 11:12:30 Fatigue 55306669 Active 2022 Katie Angelo, VEGETABLE VENDOR [address], [place], [address], [place] [facility] 4 11:12:02 Acute left otitis media 044528992 Completed 202201/15/2023 Adela Mode, VEGETABLE VENDOR [address], [place], [address], [place] [facility] 4 10:26:25 Conjunct ivitis 2108881 Completed 202201/15/2023 Teresa Mar[place] [facility] 3 15:35:08 Pain of ear 793943524 Completed 202201/15/2023 Teresa Mar[place] [facility] 3 15:34:46 Influenz a-like symptoms 279107759 Completed 202201/15/2023 [place] [facility] 3 15:34:37 Upper respirat ory infectio n 28872761 Completed 202201/15/2023 [place] [facility] 3 15:34:56 Pharyngi tis 832027737 Completed 202201/15/2023 Caryn Sanderson [place] [facility] 5 09:03:35 History of total hysterec nilay 089424179 Active 2022 Katie Angelo, VEGETABLE VENDOR [address], [place], [address], [place] [facility] 4 11:12:04 Acne 05911309 Active 2022 Katie Angelo, VEGETABLE VENDOR [address], [place], [address], [place] [facility] 4 11:11:42 Pain of breast 94849236 Completed 202212/10/2023 bilat US-benig n lymph node left breast Katie Angelo, VEGETABLE VENDOR [address], [place], [address], [place] [facility] 4 11:12:37 Prediabe gustavo 056835350 Active 2022 Juiletakatalina Ceja, VEGETABLE VENDOR [address], [place], [address], [place] [facility] 5 15:58:37 Acute upper respirat ory infectio n 76061792 Completed 202209/03/2023 Caryn Sand[place] [facility] 5 09:03:45 Insect bite - wound 898832764 Completed 202212/10/2023 Katie Angelo, VEGETABLE VENDOR [address], [place], [address], [place] [facility] 4 11:12:13 Pharyngi tis 795351266 Completed 202212/10/2023 Caryn [place] [facility] 5 09:03:35 Labial cyst 578673154 Completed 202212/10/2023 Katie Angelo, VEGETABLE VENDOR [address], [place], [address], [place] [facility] 4 11:12:18 Overacti ve urinary bladder 849387734 Active 2022 Katie Angelo, VEGETABLE VENDOR [address], [place], [address], [place] [facility] 4 11:12:32 Anxiety 65644862 Active 2022 Katie Angelo, VEGETABLE VENDOR [address], [place], [address], [place] [facility] 4 11:11:47 Acute left otitis media 303509463 Completed 202312/10/2023 Adela Coello, VEGETABLE VENDOR [address], [place], [address], [place] [facility] 4 10:26:25 Hyperten sive disorder 58746042 Active 2023 Julieta Ceja APRN [address], [place], [address], [place] [facility] 5 13:13:22 Right upper quadrant pain 912083594 Completed 202302/20/2024 Adela Coello APRN [address], [place], [address], [place] [facility] 4 10:53:19 Nausea 559729621 Completed 202312/10/2023 Katie Angelo APRN [address], [place], [address], [place] [facility] 4 11:12:27 Pain radiatin g to right side of chest 079381488 Completed 202303/16/2025 Caryn Kin adair[place] [facility] 5 09:01:52 Diarrhea 77667292 Completed 202312/10/2023 Julieta Ceja APRN [address], [place], [address], [place] [facility] 4 10:41:09 Steatoti c liver disease 163621634 Active 2023 Katie Angelo APRN [address], [place], [address], [place] [facility] 4 11:12:51 Unintent ional weight gain 9187857428 54443 Active 2023 Katie Angelo APRN [address], [place], [address], [place] [facility] 4 11:12:54 Acute pharyngi tis 657861959 Completed 202303/13/2024 Adela Coello APRN [address], [place], [address], [place] [facility] 4 10:26:30 Otitis externa 3218242 Active 2023 Tia Larsen MD [address], [place], [address], [place] [facility] 4 09:34:50 Cough 80272357 Completed 202303/13/2024 Julieta Wells, VEGETABLE VENDOR [address], [place], [address], [place] [facility] 4 11:13:09 Malaise and fatigue 719978643 Active 2023 Johnny Justine, VEGETABLE VENDOR [address], [place], [address], [place] [facility] 4 08:09:42 Acute otitis externa of right ear 1053168448 650959 Completed 202303/13/2024 Adela Coello, VEGETABLE VENDOR [address], [place], [address], [place] [facility] 4 10:26:27 Acute sinusiti s 32231290 Completed 202303/13/2024 Adela Coello, VEGETABLE VENDOR [address], [place], [address], [place] [facility] 4 10:26:36 Acute bronchit is 96267024 Completed 202303/13/2024 Adela Coello, VEGETABLE VENDOR [address], [place], [address], [place] [facility] 4 10:26:21 Biliary dyskines ia 960473723 Active 2023 Adela Coello, VEGETABLE VENDOR [address], [place], [address], [place] [facility] 4 08:56:27 Acute left otitis media 400158203 Completed 202303/13/2024 Adela Coello APRN [address], [place], [address], [place] [facility] 4 10:26:25 Vitamin D deficien cy 08560663 Active 2023 Rose Pradhan, VEGETABLE VENDOR [address], [place], [address], [place] [facility] 4 09:00:18 History of cholecys tectomy 573491392 Active 2023 Katie Angelo, VEGETABLE VENDOR [address], [place], [address], [place] [facility] 4 13:28:28 Non-terry pausal hot flash 5887058953 16947 Active 2023 Adela Coello, VEGETABLE VENDOR [address], [place], [address], [place] [facility] 4 10:51:47 Chest wall pain 451146882 Active 2023 Johnny Fletcher, VEGETABLE VENDOR [address], [place], [address], [place] [facility] 4 08:31:23 Chest pain 82466532 Active 2023 Johnny Fletcher, VEGETABLE VENDOR [address], [place], [address], [place] [facility] 4 10:34:37 Localize d eruption of skin 649404063 Active 2023 Adela Coello, VEGETABLE VENDOR [address], [place], [address], [place] [facility] 4 13:38:51 Middle ear effusion 8809986579 Completed 202303/16/2025 Caryn Sanderson [facility], [place] - [facility] 5 09:02:21 Gastroes ophageal reflux disease without esophagi tis 081233580 Active 2023 Rosemino Pradhan, VEGETABLE VENDOR [address], [place], [address], [place] [facility] 4 12:08:17 Allergic rhinitis 53385395 Active 2023 Rose Pradhan VEGETABLE VENDOR [address], [place], [address], [place] [facility] 4 13:25:43 Diarrhea 39877905 Active 2023 Julieta Ceja VEGETABLE VENDOR [address], [place], [address], [place] [facility] 4 10:41:09 Nausea and vomiting 21204817 Active 2023 Julieta Ceja VEGETABLE VENDOR [address], [place], [address], [place] [facility] 4 10:44:14 Acute bilatera l otitis media 428421093 Completed 202303/16/2025 Caryn [place] [facility] 5 09:02:46 Pharyngi tis 710360068 Completed 202303/16/2025 Caryn [place] [facility] 5 09:03:35 Candidia sis of vagina 74757302 Completed 202303/16/2025 Caryn [place] [facility] 5 09:01:26 Cough 45963310 Active 2023 Julieta Ceja, VEGETABLE VENDOR [address], [place], [address], [place] [facility] 4 11:13:09 Pain in finger of right hand 7394185033 83190 Active 2023 Julieta Ceja, VEGETABLE VENDOR [address], [place], [address], [place] [facility] 4 14:42:47 Sleep pattern disturba nce 97034702 Active 2023 Julieta Cjea, VEGETABLE VENDOR [address], [place], [address], [place] [facility] 4 10:03:11 Narcolep sy 83895877 Active 2023 Julieta Ceja VEGETABLE VENDOR [address], [place], [address], [place] [facility] 5 08:37:16 Pain of left knee joint 4533955457 17783 Active 2024 Julieta Ceja VEGETABLE VENDOR [address], [place], [address], [place] [facility] 5 09:18:32 Acute lower respirat ory tract infectio n 302904892 Active 2024 Julieta Ceja, VEGETABLE VENDOR [address], [place], [address], [place] [facility] 5 14:31:38 Acute upper respirat ory infectio n 83415159 Completed 202403/16/2025 Caryn [place] [facility] 5 09:03:45 Urgent desire to urinate 18100356 Active 2024 Adela Coello, VEGETABLE VENDOR [address], [place], [address], [place] [facility] 16:47:50 Low back pain 266350204 Active 2024 Adela Coello, VEGETABLE VENDOR [address], [place], [address], [place] [facility] 16:47:52 Microsco pic hematuri a 406013641 Completed 202403/16/2025 Caryn Sanderson [facility], [place] [facility] 5 09:01:11 Ear pressure sensatio n 531546927 Active 2024 Julieta Ceja, VEGETABLE VENDOR [address], [place], [address], [place] [facility] 5 13:22:18 Contact dermatit is 33321294 Active 2024 Julieta Ceja VEGETABLE VENDOR [address], [place], [address], [place] [facility] 5 15:32:34 Obstruct doreen sleep apnea syndrome 61977458 Active 2024 Julieta Ceja VEGETABLE VENDOR [address], [place], [address], [place] [facility] 5 14:08:48 Narcolep sy type 2 7469083196 9104 Active 2024 Julieta MarcialBRUNO [address], [place], [address], [place] [facility] 5 11:27:05 Posterio r rhinorrh ea 92574561 Active 2024 Julieta Marcial VEGETABLE VENDOR [address], [place], [address], [place] [facility] 5 13:26:42 Feeling of lump in throat 901850702 Active 2024 Julieta Marcial VEGETABLE VENDOR [address], [place], [address], [place] [facility] 13:27:54 Infectio n of skin 317147365 Active 2024 Julieta Ceja VEGETABLE VENDOR [address], [place], [address], [place] [facility] 11:46:34 Mixed hyperlip idemia 354882104 Active 2024 Julieta Ceja VEGETABLE VENDOR [address], [place], [address], [place] [facility] 16:04:32 Mild intermit tent asthma 308381341 Active 2024 Julieta Ceja, VEGETABLE VENDOR [address], [place], [address], [place] [facility] 5 13:10:40 Acute migraine 0669828605 35393 Active 2024 Julieta Ceja APRN [address], [place], [address], [place] [facility] 5 13:17:40 Migraine without aura, not refracto ry 509557117 Active 2024 Julieta Ceja APRN [address], [place], [address], [place] [facility] 13:23:19 Problem Notes None recorded. Procedures Surgical History Date Name Laterality Status Provider Name and Address Organization Details Recorded Time 025 OMT completed Mathew Arzate DO [address], [place], [address], [place] [facility] 12/15/2024 13:12:34 025 OMT completed Mathew Arzate DO [address], [place], [address], [place] [facility] 2024 10:21:49 024 Infusion Center completed Infusion Nurse [facility] [address], [place], [address], [place] [facility] 08/29/2024 08:17:32 024 Infusion Center completed Infusion Nurse [facility] [address], [place], [address], [place] [facility] 08/06/2024 08:00:28 024 Infusion Center completed Infusion Nurse [facility] [address], [place], [address], [place] [facility] 07/30/2024 11:38:15 024 Infusion Center completed Infusion Nurse [facility] [address], [place], [address], [place] [facility] 07/23/2024 08:03:49 024 Infusion Center completed Infusion Nurse [facility] [address], [place], [address] [facility] 07/16/2024 08:18:37 024 Cholecystectomy completed Katie Angelo, VEGETABLE VENDOR [address], [place], [address], [place] [facility] 02/12/2024 13:28:14 024 Cholecystectomy, laparoscopic completed Caryn Sanderson [place] [facility] 03/13/2024 09:59:35 024 Ear Tubes - Tympanostomy Tubes completed Caryn [place]erson [place] [facility] 02/20/2024 10:20:35 024 Skin Tag Removal completed Ashley Lomeli, VEGETABLE VENDOR [address], [place], [address] [facility] 11/27/2023 17:45:47 023 Dimethyl Sulfoxide (DMSO) completed Johana Krause MD [address], [place], [address], [place] [facility] 04/10/2023 12:36:40 023 Dimethyl Sulfoxide (DMSO) completed Julieta Webber, VEGETABLE VENDOR [address], [place], [address], [place] [facility] 03/27/2023 12:01:45 023 Dimethyl Sulfoxide (DMSO) completed Johana Krause MD [address], [place], [address], [place] [facility] 03/13/2023 08:52:24 023 Dimethyl Sulfoxide (DMSO) completed Johana Krause MD [address], [place], [address], [place] [facility] 02/27/2023 13:01:22 023 potassium sensitivity test- MOB completed Johana Krause MD [address], [place], [address], [place] [facility] 02/16/2023 21:17:46 023 Skin Tag Removal completed Shanna Velasquez [place] [facility] 09/20/2022 13:25:20 022 Hysterectomy, Total laparoscopic completed Priti Jean-Baptiste [place] [facility] 07/10/2022 10:57:59 022 Date of Last Pap Smear completed Anne Castillomond, VEGETABLE VENDOR [address], [place], [address], [place] [facility] 03/10/2022 11:52:50 021 cystoscopy completed Teresa Terry [place] [facility] 01/15/2023 15:47:53 020 Systolic B/P less than 130 mm Hg completed Ashlie Dennis [place] [facility] 10/21/2019 11:01:48 020 Diastolic B/P 80-89 mm Hg completed Ashlie Dennis [place] [facility] 10/21/2019 11:01:49 019 IUD Insertion (Mirena) completed Annetorito Peña, BRUNO [address], [place], [address], [place] [facility] 02/28/2019 16:50:46 019 IUD Insertion completed Fern Cary [place] [facility] 02/28/2019 15:36:40 017 Appl. Splint - Finger completed Carolee De Leon PA-C [address], [place], [address], [place] [facility] 08/06/2017 14:45:47 017 IUD Removal completed Rissa Morgan APRN [address], [place], [address], [place] [facility] 04/20/2017 15:36:01 017 IUD Removal completed Teresa Zacariass [place] [facility] 06/19/2017 13:23:09 015 IUD Insertion completed Teresa Mara [place] [facility] 03/15/2017 13:13:26 013 Colposcopy completed [place] Mara [place] [facility] 03/15/2017 13:15:53 013 Colposcopy completed [place]a [place] [facility] 03/15/2017 13:16:23 Tonsillectomy completed Zita GUO - [facility] 11/14/2021 08:36:51 cystoscopy completed Teresa GUO - [facility] 01/15/2023 15:47:26 Ear Tubes - Tympanostomy Tubes completed Deepika GUO - [facility] 01/02/2017 11:54:55 Remove tonsils and adenoids completed Deepika GUO - [facility] 01/02/2017 11:55:01 Unlisted px urinary system completed Teresa GUO - [facility] 03/15/2017 13:17:16 Imaging Results None recorded. Procedure Notes None recorded. Medical Equipment None Reported. Allergies Allergen ID Allergen Name Allergen Category Reaction Reaction Severity Criticality Documentation Date Start Date Code Code System Note Provider Name and Address Organization Details Recorded Time [id number] Adhesive agent (substanc e) environme nt,medica tion Not available Not available Not available 08/03/20252023 79598 [id number] SNOMED Not Available formerly [facility], [facility] External Data Service - prod 5 07:51:25 [id number] Product containin g penicilli n (product) medicatio n Not available Not available Not available 06/23/20162007 11855 8001 SNOMED React ion: unsur e; Comme nt: pcn; Not Available [facility] 6 09:04:57 [id number] Substance with sulfonami de structure and antibacte rial mechanism of action (substanc e) medicatio n Not available Not available Not available 06/23/20162007 77660 8003 SNOMED React ion: unsur e; Comme nt: Sulfo namid es; Not Available [facility] 6 09:04:57 [id number] Cephalosp vi (substanc e) medicatio n rash Not available Not available 06/23/20162009 14922 7003 SNOMED React ion: rash; Not Available [facility] 6 09:28:10 Medications Name Sig Start Date Stop Date Status Note LastModified by Organization Details LastModified Time Allergy serum (from community engagement specialist ) injectio n(repeat same dose as before 2022 active Not Available Not Available Not Avai lable CANKER SORE ADHESIVE POWDER use as directed 02/16 completed Not Available Not Available Not Available Allergy serum (from community engagement specialist ) injectio n 2023 active Mix 1 Not Available Not Available Not Avai lable Allergy serum (from community engagement specialist ) injectio n 2022 active Not Available Not Available Not Avai lable Allergy serum (from community engagement specialist ) injectio n 2023 active Patient presente d with allergy serum. Not Available Not Available Not Available Magic Mouthwash (lido/meghan /maa) 10mL swish and spit every 4 hours PRN sore throat 01/03 completed Not Available Not Available Not Available Allergy serum (from community engagement specialist ) injectio n( repeat same dose as before 2022 active Not Available Not Available Not Avai lable Allergy serum (from community engagement specialist ) injectio n 2022 active Not Available Not Available Not Avai lable Allergy serum (from community engagement specialist ) inject 0.3ml 01/21 completed Not Available Not Available Not Available Magic Mouthwash (lido/meghan /maa) 10mL gargle and spit every 4 hours PRN sore throat 2021 active Not Available Not Available Not Avai lable Allergy serum (from community engagement specialist ) Mix 3 2023 active Mix 3 Not Available Not Available Not Avai lable Allergy serum (from community engagement specialist ) inject 0.25ml 2023 active Not Available Not Available Not Avai lable Allergy serum (from community engagement specialist ) injectio n 2023 active Not Available Not Available Not Avai lable Allergy serum (from community engagement specialist ) Mixture #3 q wk 2023 active Not Available Not Available Not Avai lable Allergy serum (from community engagement specialist ) SQ every week 2023 active Not Available Not Available Not Avai lable Allergy serum (from community engagement specialist ) mixture #2 q wk 2023 active Not Available Not Available Not Avai lable Allergy serum (from community engagement specialist ) inject 0.3ml 2024 active Not Available Not Available Not Avai lable Allergy serum (from community engagement specialist ) Weekly injectio ns 2023 active Mix 2 Not Available Not Available Not Avai lable Allergy serum (from community engagement specialist ) Inject ).25ml SQ from red top vial Cat, mite, W 2022 active Not Available Not Available Not Avai lable Allergy serum (from community engagement specialist ) injectio n( repeated same dose as before 2022 active Not Available Not Available Not Avai lable Allergy serum (from community engagement specialist ) inject 0.3ml 2024 active Not Available Not Available Not Avai lable Allergy serum (from community engagement specialist ) Mixture #3 q wk 2023 active Not Available Not Available Not Avai lable Allergy serum (from community engagement specialist ) inject 0.25ml RASQ from red vial Mold 2022 active Not Available Not Available Not Avai lable semagluti de 1mg/1ml injectabl e Inject 0.25mL (0.25mg= 25 units) subcutan eously once weekly for four (4) weeks. 07/18 completed Not Available Not Available Not Available Allergy serum (from community engagement specialist ) 0.25ml 2023 active Not Available Not Available Not Avai lable Allergy serum (from community engagement specialist ) inject 0.25ml 2023 active Not Available Not Available Not Avai lable Allergy serum (from community engagement specialist ) injectio n 2022 active Not Available Not Available Not Avai lable Allergy serum (from community engagement specialist ) injectio n 2023 active Not Available Not Available Not Avai lable semagluti de methylcob alamin 4mg 1mg/1ml injectabl e Inject 0.25mL (1mg=25 units) subcutan eously once weekly for four (4) weeks 01/27 completed Not Available Not Available Not Available Prescript ion - Prior Authoriza tion Request active Not Available Not Available Not Available Allergy serum (from community engagement specialist ) SQ every week 2023 active Mix 2 Not Available Not Available Not Avai lable Allergy serum (from community engagement specialist ) injectio n 2023 active Not Available Not Available Not Avai lable Allergy serum (from community engagement specialist ) Mixture #3 q wk 2023 active Not Available Not Available Not Avai lable Allergy serum (from community engagement specialist ) Inject 0.25ml SQ from red top vial cat, fuentes, G.T 2022 active Not Available Not Available [...] MINUTES, AND THEN RINSE OFF WITH WATER 3-5 TIMES WEEKLY active Not Available Not Available No t Available Benadryl 12.5 mg/5 mL oral liquid 2 [...] turnerk; Est. 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 12/29 completed Not [...] nued on: 09/23/19 14 3:39PM;U ser: hogger;E . Completi on: 10/01/19 14;Print ed: 07/03/20 13 [...] n: Iron Deficien cy Anemia - (2809 00) Not Available Not Available Not Available Mononessa (28) 0.25 mg-35 mcg tablet TAKE ONE (1) TABLET BY MOUTH ONCE DAILY 03/28 completed Not Available Not Available Not Available oxymetazo line 0.05 % nasal spray [place] 2 sprays twice a day by intranas [...] nued on: 10/18/19 12 6:00PM;U ser: webbg;Es alison Completi on: 05/06/20 12;Indic ation: Pregnanc y [...] Disconti nued on: 12/02/19 11 10:01AM; User: web;Jerri Gray on: 06/15/20 10 Not Available Not Available [...] D3) 1,250 mcg (50,000 unit) capsule TAKE 1 CAPSULE BY MOUTH EVERY WEEK active Not Available Not Available No t [...] DAY BY ORAL ROUTE FOR 30 DAYS. active Not Available Not Available No t Available vilazodon e 20 mg tablet TAKE ONE [...] every day by oral route as needed. 07/17 completed L [id number] Not Available Not Available Not Available Ajovy 225 mg/1.5 mL subcutane ous auto-inje ctor active Not Available Not Available Not Available Urinary [...] (BMI) Body weight Body temperature Oxygen saturation Respiratory rate Pain severity - 0-10 verbal numeric rating [Score] - Reported Heart rate Systolic And Diastolic Provider Name and Address Organization Details Last Updated DateTime 5 154.94 cm 38 kg/m2 43576.4 7 g 98.4 [degF] 98 % 16 /min 0 102 /min 124/76 mm[Hg] Claritza Vega [place] - [facility] 5 09:54:48 Social History Question Answer Notes LastModified by Organization Details LastModified Time Tobacco Smoking Status Never Smoker Deepika Francisurman giovany [place] - [facility] 01/02/2017 11:54:14 Do You Have An Advance Directive? No [email or web address] Information not available 01/28/2018 Are You Blind Or Do You Have Difficulty Seeing? No [email or web address] Information not available 03/08/2023 Is Blood Transfusion Acceptable In An Emergency? Yes [email or web address] Information not available 01/28/2018 What Is Your Level Of Caffeine Consumption? Occasional Information not available 01/24/2017 How Much Tobacco Do You Chew? None Information not available 01/02/2017 In The 14 Days Before Symptom Onset, Have You Had Close Contact With A Laboratory-conf irmed COVID-19 While That Case Was Ill? No [email or web address] Information not available 03/08/2023 In The 14 Days Before Symptom Onset, Have You Had Close Contact With A Person Who Is Under Investigation For COVID-19 While That Person Was Ill? No [email or web address] Information not available 03/08/2023 Have You Been To An Area Known To Be High Risk For COVID-19? No [email or web address] Information not available 03/08/2023 Are You Deaf Or Do You Have Serious Difficulty Hearing? No [email or web address] Information not available 01/28/2018 What Type Of Diet Are You Following? VEGETARIAN Information not available 11/14/2021 Which Illicit Or Recreational Drugs Have You Used? N/A Information not available 11/14/2021 Have You Processed Blood Or Body Fluids From An Ebola Virus Disease Patient Without Appropriate PPE? No [email or web address] Information not available 03/08/2023 Do You Reside In Or Have You Traveled To An Area Where Ebola Virus Transmission Is Active? No [email or web address] Information not available 03/08/2023 What Is The Highest Grade Or Level Of School You Have Completed Or The Highest Degree You Have Received? [id number] Information not available 11/14/2021 How Many Days Of Moderate To Strenuous Exercise, Like A Brisk Walk, Did You Do In The Last 7 Days? 3 [email or web address] Information not available 03/08/2023 On Those Days That You Engage In Moderate To Strenuous Exercise, How Many Minutes, On Average, Do You Exercise? 45 [email or web address] Information not available 03/08/2023 Have There Been Any Changes To Your Family Or Social Situation? No Information not available 03/08/2023 How Hard Is It For You To Pay For The Very Basics Like Food, Housing, Medical Care, And Heating? Not Very Hard [email or web address] Information not available 03/08/2023 What Is The Fluoride Status Of Your Home? Fluoridated [email or web address] Information not available 03/08/2023 Have You Recently Or Are You Planning To Travel To An Area With Zika Virus? No [email or web address] Information not available 03/08/2023 Live Alone Or With Others? With Others [email or web address] Information not available 03/08/2023 Do You Have A Medical Power Of Professor Criminal Justice? No [email or web address] Information not available 03/08/2023 What Was The Date Of Your Most Recent Tobacco Screening? 07/17/2025 [email or web address] Information not available 07/17/2025 How Many Children Do You Have? 3 [email or web address] Information not available 04/25/2024 Performs Monthly Self-breast Exam? Yes [email or web address] Information not available 03/08/2023 Do You Use Protection During Sex? No [email or web address] Information not available 03/08/2023 Do You Use Protection Against STDs? No [email or web address] Information not available 01/24/2023 What Is Your Relationship Status? Information not available 01/02/2017 Do You Use Your Seat Belt Or Car Seat Routinely? No Information not available 11/14/2021 Seat Belts Used Routinely Yes [email or web address] Information not available 03/08/2023 Are You Sexually Active? Yes Information not available 11/14/2021 Do You Have Smoke And Carbon Monoxide Detectors In Your Home? Yes [email or web address] Information not available 07/19/2021 Are You Passively Exposed To Smoke? No [email or web address] Information not available 07/19/2021 How Much Tobacco Do You Smoke? No [email or web address] Information not available 03/08/2023 General Stress Level Medium [email or web address] Information not available 03/08/2023 Do You Use Sunscreen Routinely? Yes [email or web address] Information not available 03/08/2023 Has Tobacco Cessation Counseling Been Provided? No [email or web address] Information not available 12/17/2023 On What Date Was Tobacco Cessation Counseling Provided? 06/18/2025 [email or web address] Answered No To The Tobacco Cessation Counseling Provided Question On 01/28/2018. [email or web address] Information not available 06/18/2025 How Many Years Have You Smoked Tobacco? 0 [email or web address] Information not available 02/16/2023 Do You Have Difficulty Walking Or Climbing Stairs? No [email or web address] Information not available 03/08/2023 What Contraceptive Method Was Reported At End Of This Visit? None Hysterectomy [email or web address] Information not available 03/08/2023 Do You Want To Talk About Contraception Or Prevention During Your Visit Today? No - I Do Not Want To Talk About Contraception Today Because I Am Here For Something Else [email or web address] Information not available 03/08/2023 How Was The Contraceptive Method Provided? Provided On Site [email or web address] Information not available 03/08/2023 Do You Have Any Future Plans To Get ? No, I Don't Want To Become Information not available 03/08/2023 Sex: Female Functional Status Question Answer Note LastModified by Organizat ion Details LastModified Time Do you or have you ever used smokeless tobacco? Never used smokeless tobacco [email or web address] Information not available 02/20/2020 Are you currently employed? No [email or web address] Information not available 03/16/2025 Do you have transportation difficulties? No [email or web address] Information not available 03/08/2023 Are you able to care for yourself independently? Yes Information not available 02/10/2021 Do you have difficulty dressing, bathing, grooming, or toileting? No Information not available 03/08/2023 Do you or have you ever used e-cigarettes or vape? Never used electronic cigarettes [email or web address] Information not available 02/20/2020 What is your exercise level? Occasional Information not available 11/14/2021 Do you use any illicit or recreational drugs? No [email or web address] Information not available 03/08/2023 Do you or have you ever used any other forms of tobacco or nicotine? No [email or web address] Information not available 03/08/2023 What is your level of alcohol consumption? Occasional [email or web address] Information not available 02/03/2021 What is your status? Not [email or web address] Information no t available 03/08/2023 Are you able to walk independently without assistance or assistive devices? YESWOREST [email or web address] Information not available 03/08/2023 Do you have difficulty doing errands alone? No [email or web address] Information not available 03/08/2023 Mental Status Question Answer Note LastModified by Organizat ion Details LastModified Time Do you feel stressed (tense, restless, nervous, or anxious, or unable to sleep at night)? [id number] [email or web address] Information not available 03/08/2023 Do you have difficulty concentrating, remembering or making decisions? No [email or web address] Information no t available 03/08/2023 Family History Relationship Description Onset Age of this Age Resolved Age Notes LastModified by Organization Details LastModified Time Father Cerebrovascu lar accident [email or web address] Not available 16:01:06 Father Hypertensive disorder [email or web address] Not available 2023 09:15:40 Mother Type 2 diabetes mellitus [email or web address] Not available 2024 09:41:42 Mother Hypertensive disorder Not available 2021 09:19:20 Mother Diabetes mellitus [email or web address] Not available 2022 09:30:13 Mother Osteoporosis [email or web address] Not avai lable 03/13/2024 09:57:00 Maternal Grandfather Family history of malignant neoplasm skin cancer [email or web address] Not available 06/18/2025 09:41:42 Maternal Grandmother Type 2 diabetes mellitus [email or web address] Not available 2024 09:41:42 Maternal Grandmother Diabetes mellitus [email or web address] Not available 2023 09:15:40 Maternal Grandmother Osteoporosis [email or web address] Not available 03/13/2024 09:57:00 Paternal Grandmother Malignant neoplasm of lung [email or web address] Not available 2022 08:45:36 Maternal Aunt Diabetes mellitus [email or web address] Not available 2023 09:15:40 Medical History Condition [...] Than N Lung Disease N Hypothyroidism N Developmental or Behavioral Disorders N Defects or Inherited Disease N Breast Problem N Difficulty Swallowing N Ovarian Cyst Y Anesthesia Complications N Testosterone Deficiency N Meniere's disease N Head Injury/Concussion N Interstitial Cystitis N Congenital Anomalies N Hypoglycemia N Blood clot N Vitamin D Deficiency N Cellulitis N Endometriosis N Fracture N Bladder or Kidney Problems N Liver Disease N Schizophrenia N Panic [...] Congestive Heart Failure (CHF) N Syncope N Insomnia N Hyperlipidemia N Eczema N Diverticulitis N Dementia N Attention Deficient Disorder N Abuse/Domestic Violence N Ulcerative colitis N Cerebrovascular Disease N Depression N Guillain-Willet N Sleep Apnea N Aneurysm N Heart Disease N Bronchitis N Suicidal Ideation N Pre-Eclampsia N Hypertension [...] Immunizations Vaccine Type Date Status Note Provider Tod e and Address Organization Details Recorded Time MMR 6 irma Coello APRN [address], [address], [place] - [facility] 10/22/2024 22:28:24 OPV, trivalent 6 irma Coello APRN [address] [place], [address], [place] - [facility] 10/22/2024 22:28:24 Influenza, split virus, trivalent, preservative 3 irma Coello APRN [address], [address], [place] - [facility] 10/22/2024 22:28:24 Influenza, split virus, trivalent, PF 3 completed Adela Coello APRN [address], [place], [address], [place] - [facility] 10/22/2024 22:28:24 Influenza, split virus, trivalent, PF 2 completed Adlea Coello VEGETABLE V[employer]OR [address], [place], [address], [place] - [facility] 10/22/2024 22:28:24 Td (adult), 2 Lf tetanus toxoid, preservative free, adsorbed 3 completed Adela Coello APRN [address], [place], [address], [place] - [facility] 10/22/2024 22:28:24 Hep B, adolescent or pediatric 7 completed Adela Coello APRN [address], [place], [address], [place] - [facility] 10/22/2024 22:28:24 Hep B, adolescent or pediatric 6 completed Adela Coello APRN [address], [place], [address], [place] [facility] 10/22/2024 22:28:24 Hep B, adolescent or pediatric 6 completed Adela Coello APRN [address], [place], [address], [place] - [facility] 10/22/2024 22:28:24 DTaP, unspecified formulation 6 completed Adela Coello APRN [address], [place], [address], [place] - [facility] 10/22/2024 22:28:24 COVID-19, mRNA, LNP-S, PF, 100 mcg/0.5mL dose or 50 mcg/0.25mL dose 1 completed Ashlie adair, [place] - [facility] 05/05/2021 19:00:06 influenza, unspecified formulation 2 completed Adela Coello APRN [address], [place], [address], [place] - [facility] 10/22/2024 22:28:24 influenza, unspecified formulation 3 completed Adela Bluntcker, [employer]GET[employer] [address], [place], [address], [place] - [facility] 10/22/2024 22:28:24 Tdap 3 completed Not Available [facility] 10/16/2023 08:10:39 HPV, unspecified formulation 0 completed Not Available [facility] 10/16/2023 08:10:39 HPV, unspecified formulation 0 completed Not Available [facility] 10/16/2023 08:10:39 HPV, unspecified formulation 1 completed Not Available [facility] 10/16/2023 08:10:39 COVID-19, mRNA, LNP-S, PF, 100 mcg/0.5mL dose or 50 mcg/0.25mL dose 1 completed BRANT [place] - [facility] 03/08/2023 08:35:30 Past Encounters Encounter ID Performer Location Encounter Start Date Encounter Closed Date Diagnosis/Indication Diagnosis SNOMED-CT Code Diagnosis ICD10 Code Diagnosis IMO Codes Diagnosis Note [id number] Alyson Ceja APRN [facility] [address] [place] [address] 06/18/2025 09:41:38 06/18/2025 10:24:51 Seborrheic dermatitis of scalp 995445967 L21.9 [id number] Discussed alternatin g her Ketoconazo le shampoo with t-gel and selsun blue shampoo. Body mass index 30+ - obesity 876498971 Z68.38 [id number] 38 Health Concerns Section Related Observation LastModified by Organization Detai ls LastModified Time None Recorded Concern Status LastModified by Organization Details LastModified Time None Recorded Payers Encounter Date Sequence Insurance Name Policy Number Policy Castañeda Covered Member ID Castañeda Member ID Guarantor Name 06/18/2025 2 JOHNATHAN [id number] Lon Cornell [id number] Keira Cornell Notes Date Note Type Note Provider Name and Address Organization Details Recorded Time 06/18/2025 text/html ROS as noted in the [...] of skin cancer, unsure the type. Alyson Ceja APRN [address], [place], [address], [facility] - [facility] 06/18/2025 10:21:11 OBGyn Episode No OBEpisode recorded.
--- OUTSIDE RECORDS SUMMARY | 2025-08-07 09:36 | XMS_ITS | Continuity of Care Document ---
Author Organization [facility] [place], [place] OFFICE Address [address] [place] [address] [address] [place] [address] Care Team Providers Care Carriage Setter Name Role Phone GERRY CEJA Referring Provider Assessment Encounter Date Assessment Date Assessment LastModified by Organization Details LastModified Time 05/14/2025 05/14/2025 Assessment 1. PRICILA *HST (08/19/2024): mild PRICILA, AHI 5.1, 90% night snoring, NISREEN 90% *Overnight PSG w/CPAP (03/11/2025): w/CPAP AHI 0.5, NISREEN 92%, max HR 92 bpm *MSLT (03/11/2025): 5 naps completed, mean sleep latency values on the 5 naps were 0.5 minutes, 0.5 minutes, 0 minutes, 5.5 minutes and 3 minutes; REM sleep achieved on 2 o f 5 naps, suspicious for narcolepsy without cataplexy; overall mean sleep latency value was 1.9 minutes for the 5 naps which denotes hypersomnia. 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 Daytime hypersomnia 4. Mild intermittent asthma *PFT (05/14/1997): mild obstruction, no restriction, + PRANAV response, + small airway obstruction, no gas trapping, DLCO WNL: corrects for VA reduced mildly *FeNo (05/14/2025): 16 5. Seasonal allergies Plan RX Symbicort 160 mcg 2 puffs BID; rinse mouth after each use; I personally demonstrated use of the inhaled device during todays visit RX Medrol Dose Juan RX Benzonatate TID prn for cough Continue Proventil HfA prn 1. CPAP returned due to non coverage with insurance *Advised no driving or operating heavy machinery if feeling tired or fatigued. Avoid alcohol or any sedating agents *Discussed weight loss, dietary changes and increased physical activity. 2. Continue Modafinil 200 mg daily * TRICIA checked 04/16/2025. Patient compliant as of 04/16/2025. Discussed risks versus benefits of CDS use including risk for dependence and addiction. Patient voices understanding. 3. RTO in 4 months, sooner if needed Portions of this note may be dictated using voice recognition software and or use of a neuropsychology medical consultant. Variances in spelling and vocabulary are possible and unintentional. Not all errors are caught/corrected . Please notify the author if any discrepancies are noted or if the meaning of any statement is not clear. This is a summary discussion with the patient and in no way is intended to be a verbatum summation of everything discussed. We apologize for any inconvenience. [email or web address] Not available 05/18/2025 20:24:09 Plan of Treatment Reminders Order Date Submit Date Provider Last Modified By Organization Details Last Modified Time Details Appointments FOLLOW_UP 2025 03:40P Emmanuel Bloom NP Not available Not available Not available Lab None recorded. Referral None recorded. Procedures None recorded. Surgeries None recorded. Imaging None recorded. Medication Orders Symbicort 160 mcg-4.5 mcg/actua tion HFA aerosol inhaler 2024 025 [facility], [facility] [address], [place], [address], 05/14/2025 14:04:24 Medrol (Juan) 4 mg tablets in a dose pack 2024 025 [facility], [address] [place], [address], 07/22/2025 08:21:23 benzonata te 100 mg capsule 2024 025 [facility], [address] [place], [address], 06/04/2025 05:01:24 Patient TargetsNo targets recorded. Patient InstructionsNo instructions recorded. Reason for Referral None Reported. Results Created Date Observation Date Name Description Value Unit Range Abnormal Flag Note LastModifiedBy Organization Detail LastModifiedTime 04/20/2003/10/2025 CPAP compl iance * No observ ation record ed. [email or web address] Not Available 2024 15:39:36 05/20/20 25 05/14/2025 fract ional exhal ed nitri c oxide * No observ ation record ed. Not Available 2024 14:48:53 05/20/2005/14/2025 compl ete PFT* No observ ation record ed. [email or web address] Not Available 2024 16:37:55 07/09/2006/26/2025 CT, angio gram, chest , w/ contr ast No observ ation record ed. [email or web address] Not Available 07/09 11:53:39 07/09/2006/26/2025 CT, angio gram, coron martín arter ies, w/wo contr ast No observ ation record ed. [email or web address] Not Available 2024 12:12:12 07/10/2006/26/2025 CT, angio gram, coron martín arter ies, w/ contr ast No observ ation record ed. [email or web address] Not Available 07/10 09:00:52 Result Notes None recorded. Problems Name Problem SNOMED Code Status Onset Date Resolution Date Notes Provider Name and Address Organization Details Recorded Time Obstructive sleep apnea syndrome 64536569 Active 2024 Day Bloom NP [address], [place], [address], [place] [facility] 10:36:26 Daytime hypersomnia 7251499287536 2 Active 2024 Day Bloom NP [address], [place], [address], [place] [facility] 5 10:36:34 Seasonal allergy 820350867 Active 2024 Day Bloom NP [address], [place], [address], [place] - [facility] 5 10:36:41 Narcolepsy type 2 1254658252221 4 Active 2024 Day Bloom NP [address], [place], [address], [place] - [facility] 5 15:43:00 Asthma 821306845 Active 2024 Day Bloom NP [address], [place], [address], [place] - [facility] 14:00:09 Cough 72505283 Active 2024 Day Bloom NP [address], [place], [place], [address], [place] - [facility] 14:02:41 Problem Notes None recorded. Procedures Surgical History Date Name Laterality Status Provider Name and Address Organization Details Recorded Time cholecystectomy completed bro myers [place] - [facility] 02/11/2025 16:51:55 hysterectomy completed bro myers [place] - [facility] 02/11/2025 16:52:01 cystoscopy completed bro myers [place] - [facility] 02/11/2025 16:54:53 tonsillectomy and adenoidectomy completed bro myers [place] - [facility] 02/11/2025 16:55:19 myringotomy and insertion of T tube completed bro myers [place] - [facility] 02/11/2025 16:55:38 Imaging Results None recorded. Procedure Notes None recorded. Medical Equipment None Reported. Allergies Allergen ID Allergen Name Allergen Category Reaction Reaction Severity Criticality Documentation Date Start Date Code Code System Note Provider Name and Address Organization Details Recorded Time 48959 Cephalosp vi (substanc e) medicatio n Not available Not available Not available 02/11/2025 04976 7003 SNOMED [place] - [facility] 16:50:02 03834 Product containin g penicilli n (product) medicatio n Not available Not available Not available 02/11/2025 04331 8001 SNOMED [place], [place] - [facility] 16:50:08 64703 Substance with sulfonami de structure and antibacte rial mechanism of action (substanc e) medicatio n Not available Not available Not available 02/11/2025 72785 8003 SNOMED [place] - [facility] 16:50:14 96818 Adhesive agent (substanc e) environme nt,medica tion Not available Not available Not available 08/05/20252023 85359 0007 SNOMED Not Available cheli - External Data Service - prod 15:23:33 Medications Name Sig Start Date Stop Date Status Note LastModified by Organization Details LastModified Time cyclobenzap rine 10 mg tablet TAKE ONE (1) TABLET THREE (3) TIMES A DAY BY ORAL ROUTE FOR 7 DAYS. 02/12 completed Not Available Not Available Not Available Anti-Diarrh eal (loperamide ) 2 mg tablet TAKE ONE (1) TABLET FOUR (4) TIMES A DAY BY ORAL ROUTE NEEDED, FOR DIARRHEA. 02/12 completed Not Available Not Available Not Available doxycycline hyclate 100 mg capsule TAKE ONE (1) CAPSULE TWICE A DAY BY ORAL ROUTE AFTER MEALS FOR 7 DAYS. 02/12 completed Not Available Not Available Not Available ketoconazol e 2 % shampoo APPLY TO THE AFFECTED AREA(S), LATHER, LEAVE IN PLACE FOR 15 MINUTES, AND THEN RINSE OFF WITH WATER 3-5 TIMES WEEKLY active Not Available Not Available No t Available clindamycin HCl 300 mg capsule TAKE 1 CAPSULE BY MOUTH FOUR (4) TIMES DAILY FOR 7 DAYS 02/12 completed Not Available Not Available Not Available atorvastati n 10 mg tablet TAKE ONE (1) TABLET BY MOUTH EVERY DAY 04/16 completed Not Available Not Available Not Available azithromyci n 250 mg tablet TAKE 2 TABLETS TODAY, THEN TAKE 1 TABLET EVERY DAY FOR 4 DAYS 05/14 completed Not Available Not Available Not Available fluconazole 150 mg tablet TAKE ONE (1) TABLET BY ORAL ROUTE EVERY 72 HOURS NEEDED 02/12 completed Not Available Not Available Not Available valacyclovi r 1 gram tablet TAKE 2 TABLETS BY MOUTH EVERY 12 HOURS FOR ONE DAY. START MOSHE AFTER ONSET OF SYMPTOMS 02/12 completed Not Available Not Available Not Available prednisone 20 mg tablet TAKE ONE (1) TABLET EVERY DAY BY ORAL ROUTE FOR FIVE (5) DAYS. 02/12 completed Not Available Not Available Not Available rizatriptan 10 mg tablet Take 1 tablet as needed by oral route. active Not Available Not Available No t Available amlodipine 2.5 mg tablet TAKE 1 TABLET BY MOUTH EVERY DAY active Not Available Not Available No t Available phentermine 37.5 mg tablet TAKE 1 TABLET BY MOUTH EVERYDAY 02/12 completed Not Available Not Available Not Available fexofenadin e 180 mg tablet TAKE ONE (1) TABLET BY MOUTH EVERY DAY 02/12 completed Not Available Not Available Not Available ciprofloxac in 500 mg tablet TAKE ONE (1) TABLET (500 MG) BY ORAL ROUTE EVERY 12 HOURS FOR 7 DAYS 02/12 completed Not Available Not Available Not Available amitriptyli ne 50 mg tablet TAKE ONE (1) TABLET EVERY DAY BY ORAL ROUTE. active Not Available Not Available No t Available triamcinolo ne acetonide 0.1 % topical cream APPLY A THIN LAYER TO THE AFFECTED AREA(S) BY TOPICAL ROUTE TWO (2) TIMES PER DAY 02/12 completed Not Available Not Available Not Available amitriptyli ne 25 mg tablet TAKE ONE (1) TABLET EVERY DAY BY ORAL ROUTE FOR 90 DAYS. 05/14 completed Not Available Not Available Not Available modafinil 200 mg tablet TAKE 1 TABLET BY MOUTH EVERY DAY active Not Available Not Available No t Available benzonatate 100 mg capsule Take 1 capsule 3 times a day by oral route as needed for 14 days. 06/04 completed Not Available Not Available Not Available pantoprazol e 40 mg tablet,javier yed release TAKE ONE (1) TABLET BY MOUTH EVERY DAY 02/12 completed Not Available Not Available Not Available esomeprazol e magnesium 40 mg capsule,del ayed release TAKE ONE (1) CAPSULE BY MOUTH EVERY DAY active Not Available Not Available No t Available promethazin e 25 mg tablet TAKE ONE (1) TABLET BY ORAL ROUTE THREE (3) TIMES A DAY NEEDED FOR NAUSEA 02/12 completed Not Available Not Available Not Available losartan 25 mg tablet TAKE ONE (1) TABLET BY MOUTH EVERY DAY active Not Available Not Available No t Available buspirone 7.5 mg tablet TAKE 1 TABLET BY MOUTH THREE (3) TIMES DAILY NEEDED ANXIETY active Not Available Not Available No t Available montelukast 10 mg tablet TAKE ONE (1) TABLET EVERY DAY BY ORAL ROUTE. active Not Available Not Available No t Available metoprolol succinate ER 25 mg tablet,exte nded release 24 hr TAKE ONE (1) TABLET TWICE A DAY BY ORAL ROUTE FOR 90 DAYS. active Not Available Not Available No t Available azelastine 137 mcg (0.1 %) nasal spray USE TWO (2) SPRAYS INTO EACH NOSTRIL TWO (2) TIMES A DAY. USE IN EACH NOSTRIL DIRECTED 02/12 completed Not Available Not Available Not Available methylpredn isolone 4 mg tablets in a dose pack TAKE ONE (1) DOSE PACKET BY ORAL ROUTE DIRECTED. 07/21 completed Not Available Not Available Not Available albuterol sulfate HFA 90 mcg/actuati on aerosol inhaler INHALE TWO (2) PUFFS BY MOUTH EVERY FOUR (4) HOURS NEEDED active Not Available Not Available No t Available oxybutynin chloride 5 mg tablet TAKE ONE (1) TABLET BY MOUTH TWICE DAILY NEEDED FOR SPASMS active Not Available Not Available No t Available bromphenira mine-pseudo ephedrine-D M 2 mg-30 mg-10 mg/5 mL oral syrup TAKE 10 ML EVERY FOUR (4) HOURS BY ORAL ROUTE NEEDED, FOR COUGH. 02/12 completed Not Available Not Available Not Available cefdinir 300 mg capsule TAKE ONE (1) CAPSULE EVERY 12 HOURS BY ORAL ROUTE FOR 10 DAYS. 02/12 completed Not Available Not Available Not Available topiramate 100 mg tablet TAKE ONE (1) TABLET EVERY DAY BY ORAL ROUTE AT BEDTIME active Not Available Not Available No t Available fluticasone propionate 50 mcg/actuati on nasal spray,suspe nsion GENTLY INHALE ONE (1) SPRAY IN EACH NARE ONE (1) TO TWO (2) TIMES PER DAY NEEDED FOR CONGESTIO N/SINUS PRESSURE active Not Available Not Available No t Available naproxen 500 mg tablet TAKE ONE (1) TABLET TWICE A DAY BY ORAL ROUTE FOR 7 DAYS. 02/12 completed Not Available Not Available Not Available topiramate 50 mg tablet TAKE ONE (1) TABLET EVERY DAY BY ORAL ROUTE AT BEDTIME FOR 90 DAYS. 05/14 completed Not Available Not Available Not Available Sure Comfort Insulin Syringe 0.5 mL 31 gauge x /16 USE DIRECTED 02/12 completed Not Available Not Available Not Available chlorhexidi ne gluconate 0.12 % mouthwash SWISH AND SPIT 15 ML TWICE A DAY FOR FIVE (5) DAYS. 02/12 completed Not Available Not Available Not Available budesonide- formoterol HFA 160 mcg-4.5 mcg/actuati on aerosol inhaler INHALE TWO (2) PUFFS TWICE A DAY BY INHALATIO N ROUTE FOR 30 DAYS. active Not Available Not Available No t Available cholecalcif daniele (vitamin D3) 1,250 mcg (50,000 unit) capsule TAKE 1 CAPSULE BY MOUTH EVERY WEEK active Not Available Not Available No t Available levocetiriz ine 5 mg tablet TAKE ONE (1) TABLET EVERY DAY BY ORAL ROUTE FOR 90 DAYS. active Not Available Not Available No t Available vilazodone 40 mg tablet TAKE ONE (1) TABLET EVERY DAY BY ORAL ROUTE FOR 30 DAYS. active Not Available Not Available No t Available vilazodone 20 mg tablet TAKE ONE (1) TABLET EVERY DAY BY ORAL ROUTE FOR 30 DAYS. 05/14 completed Not Available Not Available Not Available mirabegron ER 50 mg tablet,exte nded release 24 hr TAKE ONE (1) TABLET EVERY DAY BY ORAL ROUTE FOR 90 DAYS. active Not Available Not Available No t Available desvenlafax ine succinate ER 25 mg tablet,exte nded release 24 hr TAKE TWO (2) TABLETS EVERY DAY BY ORAL ROUTE. 02/12 completed Not Available Not Available Not Available Wakix 17.8 mg tablet Take 1 tablet every day by oral route. active Not Available Not Available No t Available Wakix 4.45 mg tablet Take 2 tablets every day by oral route for 7 days. active Not Available Not Available No t Available Vitals Date Recorded Body height Body mass index (BMI) Body weight Body temperature Systolic And Diastolic Provider Name and Address Organization Details Last Updated DateTime 05/14/2025 149.86 cm 40.8 kg/m2 42336.3 8 g 99.2 [degF] 138/94 mm[Hg] bro myers [facility] 13:33:51 Social History Question Answer Notes LastModified by [email or web address] Details LastModified Time Tobacco Smoking Status Never Smoker bro myers [facility] 02/11/2025 16:53:43 Do You Have An Advance Directive? No [email or web address] Information not available 02/12/2025 Is Your Home Air Conditioned? Yes [email or web address] Information not available 02/12/2025 Where Do You Live? SingleLevelHouse [email or web address] Information not available 05/14/2025 Do You Have A Medical Power Of Band Saw Runner? No Information not available 02/11/2025 What Was The Date Of Your Most Recent Tobacco Screening? 05/14/2025 [email or web address] Information not available 05/14/2025 Do You Have Any Pets? Yes Dog, Cat, Chicken [email or web address] Information not available 02/12/2025 What Is Your Relationship Status? [email or web address] Information not available 02/12/2025 Are There Any Smokers In Your House? No [email or web address] Information not available 02/11/2025 Has Tobacco Cessation Counseling Been Provided? Yes [email or web address] Information not available 02/12/2025 On What Date Was Tobacco Cessation Counseling Provided? 07/20/2025 [email or web address] Information not available 07/20/2025 Have You Recently Traveled Abroad? No [email or web address] Information not available 02/11/2025 Are You Currently In School? No [email or web address] Information not available 02/12/2025 How Many Years Have You Used E-cigarettes Or Vape? 3 [email or web address] Information not available 02/12/2025 Sex: Female Functional Status Question Answer Note LastModified by [employer] Details LastModified Time Do you or have you ever used any other forms of tobacco or nicotine? Yes [email or web address] Information not available 02/12/2025 Do you or have you ever used smokeless tobacco? Never used smokeless tobacco [email or web address] Information not available 02/12/2025 Are you currently employed? Yes [email or web address] Information not available 02/11/2025 What is your occupation? [employer] [email or web address] Information not available 02/12/2025 Do you or have you ever used e-cigarettes or vape? Current user of electronic cigarettes [email or web address] Information not available 02/12/2025 Mental Status None recorded. Family History Relationship Description Onset Age of this Age Resolved Age Notes LastModified by Organization Details LastModified Time Father Cerebrovascu lar accident [email or web address] Not available 16:52:24 Father Hypertensive disorder [email or web address] Not available 02/11 16:52:40 Mother Hypertensive disorder [email or web address] Not available 02/11 16:52:40 Mother Diabetes mellitus Not available 02/11 16:52:52 Mother Osteoporosis [email or web address] Not pieter ilable 02/11/2025 16:53:08 Maternal Grandmother Diabetes mellitus [email or web address] Not available 02/11 16:52:52 Maternal Grandmother Osteoporosis [email or web address] Not availabl e 02/11/2025 16:53:08 Paternal Grandmother Malignant neoplasm of lung [email or web address] Not available 02/11 16:53:25 Maternal Aunt Diabetes mellitus [email or web address] Not available 02/11 16:53:32 Medical History Condition Response Allergies/Hayfever Y Obesity Y Anemia Y Anxiety Y Sleep Apnea Y Acid Reflux (GERD) Y Headaches Y Hypertension Y Depression Y Gynecological HistoryNo gynecological history recorded. Obstetrics History GPAL:G 0 P 0 0 0 0 Past Encounters Encounter ID Performer Location Encounter Start Date Encounter Closed Date Diagnosis/Indication Diagnosis SNOMED-CT Code Diagnosis ICD10 Code Diagnosis IMO Codes Diagnosis Note [id number] Alli Fitzgerald DO [place] [facility] [address] [place] [address] [address] [place] [address] 04/16/2025 14:28:14 04/16/2025 15:00:11 Daytime hypersomnia 9334998304 9102 G47.10 22595662 Obstructiv e sleep apnea syndrome 94303151 G47.33 555443 Seasonal allergy 6680028 04 J30.2 76946 Narcolepsy type 2 880281 9471 9104 G47.419 266094 [id number] Alli Fitzgerald DO [place] [facility] [address] [place] [address] [address] [place] [address] 05/14/2025 13:10:13 05/14/2025 14:08:57 Daytime hypersomnia 9070437336 9102 G47.10 60587383 Obstructiv e sleep apnea syndrome 70880917 G47.33 779646 Seasonal allergy 3225040 04 J30.2 33531 Narcolepsy type 2 142721 6707 9104 G47.419 988621 Asthma 554494743 J45.90 9 3468122600 Cough 12515076 R05.9 9768762986 Health Concerns Section Related Observation LastModified by Organization Detai ls LastModified Time None Recorded Concern Status LastModified by Organization Details LastModified Time None Recorded Payers Encounter Date Sequence Insurance Name Policy Number Policy Castañeda Covered Member ID Castañeda Member ID Guarantor Name 05/14/2025 2 JOHNATHAN [id number] [employer] Notes Date Note Type Note Provider Name and Address Organization Details Recorded Time 05/14/2025 text/html ROS as noted in the HPI This 34 year-old female returns to the office for the ongoing management of PRICILA and narcolepsy without cataplexy. Today the patient complains of a persistent dry cough, occasionally severe enough to where she feels that she could vomit. She also experiences shortness of breath and notes increased wheezing at night. Last week, she went hiking and had to use a proventil proventil inhaler. Patient reports a history of childhood asthma.Patient is concerned that Modafinil is the cause of her cough but notes good control in her Narcolepsy. Denies any fever, chills, n/v/d, abdominal pain or lower extremity edema. Day Bloom NP [address], [place], [address], [facility] 05/18/2025 20:25:16 OBGyn Episode No OBEpisode recorded.
--- OUTSIDE RECORDS SUMMARY | 2025-08-07 09:36 | XMS_ITS | Clinical Summary ---
Author Organization [facility] Address [address] [place] [address] Care Team Providers Care Bulldogger Name Role Phone Rose Pradhan BRUNO Primary Care Provider [phone] Allergies Active Allergy Reactions Criticality Noted Date [...] to complete this topic Insurance Care Teams Bulldogger Relationship Specialty Start Date End Date Rose Pradhan APRN [address] [place] [id number] PCP - General Nurse Practitioner 06/15/24
--- OUTSIDE RECORDS SUMMARY | 2025-08-07 09:37 | XMS_ITS | Continuity of Care Document ---
Author Organization [facility] Ast[facility] and Pulmonary [place], [place] OFFICE Address [address] [place] [address] [address] [place] [address] Care Team Providers Care Water Aerobics Instructor Name Role Phone GERRY CEJA Referring Provider [phone] Assessment Encounter Date Assessment Date Assessment LastModified by Organization Details LastModified Time 07/20/2025 07/20/2025 Assessment 1. PRICILA *HST (08/19/2024): mild PRICILA, [...] *FeNo (05/14/2025): 16 5. Seasonal allergies Plan 1. CPAP returned due to non coverage with insurance *Advised no driving or operating heavy machinery if feeling tired or fatigued. Avoid alcohol or any sedating agents *Discussed weight loss, dietary changes and increased physical activity. 2. RX Wakix titration to 17.8 mg daily *Failed Modafinil 3. Continue Symbicort 160 mcg 2 puffs twice daily; rinse mouth after each use 5. Continue Proventil HFA prn 6. RTO in 2 months for medication follow up Portions of this note may be dictated using voice recognition software and or use of a medical record technician. Variances in spelling and vocabulary are possible and unintentional. Not all errors are caught/corrected . Please notify the author if any discrepancies are noted or if the meaning of any statement is not clear. This is a summary discussion with the patient and in no way is intended to be a verbatum summation of everything discussed. We apologize for any inconvenience. [email or web address] Not available 07/20/2025 14:10:58 Plan of Treatment Reminders Order Date Submit Date Provider Last Modified By Organization Details Last Modified Time Details Appointments FOLLOW _UP 026 03:40PM Day Bloom NP Not available Not available Not available Lab None record ed. Referral None record ed. Procedures None record ed. Surgeries None record ed. Imaging None record ed. Medication Orders None record ed. Patient TargetsNo targets recorded. Patient InstructionsNo instructions recorded. Reason for Referral None Reported. Results Created Date Observation Date Name Description Value Unit Range Abnormal Flag Note LastModifiedBy Organization Detail LastModifiedTime 07/09/2006/26/2025 CT, angio gram, chest , w/ contr ast No observ ation record ed. [email or web address] Not Available 07/09 11:53:39 07/09/2006/26/2025 CT, angio gram, coron martín arter ies, w/wo contr ast No observ ation record ed. [email or web address] Not Available 2024 12:12:12 07/10/2006/26/2025 CT, angio gram, coron martín arter ies, w/ contr ast No observ ation record ed. [email or web address] Not Available 07/10 09:00:52 Result Notes None recorded. Problems Name Problem SNOMED Code Status Onset Date Resolution Date Notes Provider Name and Address Organization Details Recorded Time Obstructive sleep apnea syndrome 06647322 Active 2024 Day Bloom NP [address], [place], [address], [place] [facility] 5 10:36:26 Daytime hypersomnia 7255268553290 2 Active 2024 Day Bloom NP [address], [place], [address], [place] [facility] 5 10:36:34 Seasonal allergy 188086413 Active 2024 Day Bloom NP [address], [place], [address], [place] [facility] 5 10:36:41 Narcolepsy type 2 3610699540781 4 Active 2024 Day Bloom NP [address], [place], [address], [place] [facility] 15:43:00 Asthma 503971155 Active 2024 Day Bloom NP [address], [place], [address], [place] [facility] 14:00:09 Cough 46451375 Active 2024 Day Bloom NP [address], [place], [address], [place] [facility] [...] 02/11/2025 16:54:53 tonsillectomy and adenoidectomy completed bro myesr [place] [facility] 02/11/2025 16:55:19 myringotomy and insertion of T tube completed bro myers [facility] 02/11/2025 16:55:38 Imaging Results None recorded. Procedure Notes None recorded. Medical Equipment None Reported. Allergies Allergen ID Allergen Name Allergen Category Reaction Reaction Severity Criticality Documentation Date Start Date Code Code System Note Provider Name and Address Organization Details Recorded Time 09698 Cephalosp vi (substanc e) medicatio n Not available Not available Not available 02/11/2025 89490 [facility] bro lucia giovany [facility] 5 16:50:02 91242 Product containin g penicilli n (product) medicatio n Not available Not available Not available 02/11/2025 32670 [facility] bro adair [facility] Speci 16:50:08 20731 Substance with sulfonami de structure and antibacte rial mechanism of action (substanc e) medicatio n Not available Not available Not available 02/11/2025 85412 [address] [facility] bro lucia giovany [facility] Speci 16:50:14 31151 Adhesive agent (substanc e) environme nt,medica tion Not available Not available Not available 08/05/20252023 56107 0007 SNOMED Not Available cheli - External [...] mL 31 gauge x 5/16 USE DIRECTED 02/12 completed Not Available Not [...] Available Vitals Date Recorded Body height Body temperature Respiratory rate Heart rate Oxygen saturation Body mass index (BMI) Body weight Systolic And Diastolic Provider Name and Address Organization Details Last Updated DateTime 149.86 cm 97.4 [degF] 20 /min 79 /min 100 % 40.8 kg/m2 04731.6 6 g 130/90 mm[Hg] pavan torres [facility]i 13:02:23 Social History Question Answer Notes LastModified by Organizat ion Details LastModified Time Tobacco Smoking Status Never Smoker bro adair [facility] 02/11/2025 16:53:43 Do You Have An Advance Directive? No [email or web address] Information not available 02/12/2025 Is Your Home Air Conditioned? Yes [email or web address] Information not available 02/12/2025 [facility] [email or web address] Information not available 05/14/2025 Do You Have A Medical Power Of Director Public Policy? No Information not available 02/11/2025 What Was The Date Of Your Most Recent Tobacco Screening? 05/14/2025 [email or web address] Information not available 05/14/2025 Do You Have Any Pets? Yes Dog, Cat, Chicken [email or web address] Information not available 02/12/2025 What Is Your Relationship Status? [email or web address] Information not available 02/12/2025 Are There Any Smokers In Your House? No [email or web address] Information not available 02/11/2025 Has Tobacco Cessation Counseling Been Provided? Yes [email or web address] Information not available 02/12/2025 On What Date Was Tobacco Cessation Counseling Provided? 07/20/2025 [email or web address] Information not available 07/20/2025 Have You Recently Traveled Abroad? No [email or web address] Information not available 02/11/2025 Are You Currently In School? No [email or web address] Information not available 02/12/2025 How Many Years Have You Used E-cigarettes Or Vape? 3 [email or web address] Information not available 02/12/2025 Sex: Female Functional Status Question Answer Note LastModified by Organizat ion Details LastModified Time Do you or have you ever used any other forms of tobacco or nicotine? Yes [email or web address] Information not available 02/12/2025 Do you or have you ever used smokeless tobacco? Never used smokeless tobacco [email or web address] Information not available 02/12/2025 Are you currently employed? Yes [email or web address] Information not available 02/11/2025 What is your occupation? [employer] [email or web address] Information not available 02/12/2025 Do you or have you ever used e-cigarettes or vape? Current user of electronic cigarettes [email or web address] Information not available 02/12/2025 Mental Status None recorded. Family History Relationship Description Onset Age of this Age Resolved Age Notes LastModified by Organization Details LastModified Time Father Cerebrovascu lar accident [email or web address] Not available 16:52:24 Father Hypertensive disorder [email or web address] Not available 02/11 16:52:40 Mother Hypertensive disorder [email or web address] Not available 02/11 16:52:40 Mother Diabetes mellitus [email or web address] Not available 02/11 16:52:52 Mother Osteoporosis Not pieter ilable 02/11/2025 16:53:08 Maternal Grandmother Diabetes mellitus [email or web address] Not available 02/11 16:52:52 Maternal Grandmother Osteoporosis Not availabl e 02/11/2025 16:53:08 Paternal Grandmother Malignant neoplasm of lung [email or web address] Not available 02/11 16:53:25 Maternal Aunt Diabetes mellitus [email or web address] Not available 02/11 16:53:32 Medical History Condition [...] ICD10 Code Diagnosis IMO Codes Diagnosis Note [id number] Alli Fitzgerald DO [place] [facility] [address] [place] [address] [place] [address] 07/20/2025 12:55:43 07/20/2025 15:08:34 Narcolepsy type 2 4003882821 9104 G47.419 274960 Daytime hypersomnia 3177 903208 7221 G47.10 59928601 Obstructiv e sleep apnea syndrome 43787468 G47.33 865475 Seasonal allergy 3925562 04 J30.2 87169 Asthma 863762651 J45.90 9 4379094096 Cough 39551660 R05.9 [id number] Health Concerns Section Related Observation LastModified by Organization Detai ls LastModified Time None Recorded Concern Status LastModified by Organization Details LastModified Time None Recorded Payers Encounter Date Sequence Insurance Name Policy Number Policy Castañeda Covered Member ID Castañeda Member ID Guarantor Name 07/20/2025 1 [place] [id number] [employer] [id number] [employer] 07/20/2025 2 [employer] [id number] [employer] [id number] [employer] Notes Date Note Type Note Provider Name and Address Organization Details Recorded Time 07/20/2025 text/html ROS as noted in the HPI This is a 34 year-old female who presents to the office today for the 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 Patient states 2 days last week she had to take a nap at work and if she sits on her couch at home she falls asleep. Denies any difficulty or sleepiness when driving.No complaints of fever, chills, n/v/d, abdominal pain or lower extremity edema. Day Bloom NP [address], [place], [address], [facility] 07/20/2025 14:14:48 OBGyn Episode No OBEpisode recorded.
--- OUTSIDE RECORDS SUMMARY | 2025-08-07 09:37 | XMS_ITS | Data Portability ---
Author Organization [facility], [place]JESTIC Address [address] [place] [address] Care Team Providers Care Security Consultant Name Role Phone GERRY PEARL Referring Provider Assessment Encounter Date Assessment Date Assessment LastModified by Organization Details LastModified Time 02/12/2025 02/12/2025 Assessment 1. PRICILA *HST (08/19/2024): mild PRICILA, AHI 5.1, 90% night snoring, NISREEN 90% 2. Daytime hypersomnia 3. Seasonal allergies Plan 1. Continue APAP 4-20 cm H20, nightly and prn; encouraged increased compliance *Advised no driving or operating heavy machinery if feeling tired or fatigued. Avoid alcohol or any sedating agents 2. Order CPAP Titration Study followed by MSLT (order sent to [facility]) *suspect Narcolepsy 3. RTO in 4 weeks for results (patient to call if study completed prior to her f/u and will move up her appointment) Portions of this note may be dictated using voice recognition software and or use of a medical professionals. Variances in spelling and vocabulary are possible and unintentional. Not all errors are caught/corrected . Please notify the author if any discrepancies are noted or if the meaning of any statement is not clear. This is a summary discussion with the patient and in no way is intended to be a verbatum summation of everything discussed. We apologize for any inconvenience. Not available 02/13/2025 11:11:20 03/18/2025 03/18/2025 Assessment 1. PRICILA *HST (08/19/2024): mild PRICILA, [...] the 5 naps which denotes hypersomnia. 2. Daytime hypersomnia 3. Seasonal allergies Plan 1. Continue APAP 4-20 cm H20, nightly and prn; encouraged increased compliance *Advised no driving or operating heavy machinery if feeling tired or fatigued. Avoid alcohol or any sedating agents 2. RX Modafinil 200 mg daily * TRICIA checked 03/18/2025. Patient compliant as of 03/18/2025. Discussed risks versus benefits of CDS use including risk for dependence and addiction. Patient voices understanding. 3. RTO in 4 weeks for medication follow up, sooner if needed Portions of this note may be dictated using voice recognition software and or use of a medical professionals. Variances in spelling and vocabulary are possible and unintentional. Not all errors are caught/corrected . Please notify the author if any discrepancies are noted or if the meaning of any statement is not clear. This is a summary discussion with the patient and in no way is intended to be a verbatum summation of everything discussed. We apologize for any inconvenience. Not available 03/23/2025 08:55:06 04/16/2025 04/16/2025 Assessment 1. PRICILA *HST (08/19/2024): mild PRICILA, [...] Narcolepsy without cataplexy 3. Daytime hypersomnia 4. Seasonal allergies Plan 1. CPAP returned due [...] software and or use of a medical professionals. Variances in spelling and vocabulary are possible and unintentional. Not all errors are caught/corrected . Please notify the author if any discrepancies are noted or if the meaning of any statement is not clear. This is a summary discussion with the patient and in no way is intended to be a verbatum summation of everything discussed. We apologize for any inconvenience. Not available 04/17/2025 21:34:03 05/14/2025 05/14/2025 Assessment 1. PRICILA *HST (08/19/2024): [...] software and or use of a medical professionals. Variances in spelling and vocabulary are possible and unintentional. Not all errors are caught/corrected . Please notify the author if any discrepancies are noted or if the meaning of any statement is not clear. This is a summary discussion with the patient and in no way is intended to be a verbatum summation of everything discussed. We apologize for any inconvenience. Not available 05/18/2025 20:24:09 07/20/2025 07/20/2025 Assessment 1. PRICILA *HST (08/19/2024): [...] software and or use of a medical professionals. Variances in spelling and vocabulary are possible and unintentional. Not all errors are caught/corrected . Please notify the author if any discrepancies are noted or if the meaning of any statement is not clear. This is a summary discussion with the patient and in no way is intended to be a verbatum summation of everything discussed. We apologize for any inconvenience. Not available 07/20/2025 14:10:58 Plan of Treatment Reminders Order Date Submit Date Provider Last Modified By Organization Details Last Modified Time Details Appointments FOLLOW_UP 2025 03:40P Emmanuel Bloom NP Not available Not available Not available Lab None recorded. Referral None recorded. Procedures polysomno graphy, titration study (PROC) - TO BE FOLLOWED BY MSLT 2024 025 [email or web address] [facility] (Central Scheduling), [address] [place], [address], 02/20/2025 12:55:41 multiple sleep latency testing (PROC) 2024 025 [email or web address] [facility] (Centralized Scheduling), [address] [place], [address], 02/20/2025 12:55:50 Surgeries None recorded. Imaging None recorded. Medication Orders Symbicort 160 mcg-4.5 mcg/actua tion HFA aerosol inhaler 2024 025 [facility], [address], [place], [address], 05/14/2025 14:04:24 Medrol (Juan) 4 mg tablets in a dose pack 2024 025 [facility], [address], [place], [address], 07/22/2025 08:21:23 benzonata te 100 mg capsule 2024 025 [facility], [address], [place], [address], 06/04/2025 05:01:24 modafinil 200 mg tablet 2024 025 [facility], [address], [place], [address], 04/16/2025 21:20:40 modafinil 200 mg tablet 2024 025 [facility], [address], [place], [address], 03/18/2025 15:44:21 Patient TargetsNo targets recorded. Patient InstructionsNo instructions recorded. Reason for Referral None Reported. Results Created Date Observation Date Name Description Value Unit Range Abnormal Flag Note LastModifiedBy Organization Detail LastModifiedTime 02/17/2002/11/2025 CPAP compl iance * No observ ation record ed. [email or web address] Not Available 02/16 09:21:47 03/18/20 multi ple sleep laten cy testi ng (PROC ) No observ ation record ed. [email or web address] [facility] (Centralized Scheduling) [address] [facility] , [place], [address], 07/27/2025 14:59:30 04/20/20 25 03/10/2025 CPAP compl iance * No observ ation record ed. [email or web address] Not Available 2024 15:39:36 05/20/20 25 05/14/2025 fract ional exhal ed nitri c oxide * No observ ation record ed. [email or web address] Not Available 2024 14:48:53 05/20/20 25 05/14/2025 compl ete PFT* No observ ation record ed. [email or web address] Not Available 2024 16:37:55 07/09/2006/26/2025 CT, angio gram, chest , w/ contr ast No observ ation record ed. [email or web address] Not Available 07/09 11:53:39 07/09/2006/26/2025 CT, angio gram, coron martín arter ies, w/wo contr ast No observ ation record ed. [email or web address] Not Available 2024 12:12:12 07/10/2006/26/2025 CT, angio gram, coron martín arter ies, w/ contr ast No observ ation record ed. [email or web address] Not Available 07/10 09:00:52 Result Notes None recorded. Problems Name Problem SNOMED Code Status Onset Date Resolution Date Notes Provider Name and Address Organization Details Recorded Time Obstructive sleep apnea syndrome 65458774 Active 2024 Day Bloom NP [address], [place], [address], [place] [facility] 10:36:26 Daytime hypersomnia 3499313812203 2 Active 2024 Day Bloom NP [address], [place], [address], [place] [facility] 10:36:34 Seasonal allergy 932284435 Active 2024 Day Bloom NP [address], [place], [address], [place] [facility] 5 10:36:41 Narcolepsy type 2 7692635317701 4 Active 2024 Day Bloom NP [address], [place], [address], [place] [facility] 15:43:00 Asthma 423126587 Active 2024 Day Bloom, QAMAR [address], [place], [address], [place] [facility] 14:00:09 Cough 48750627 Active 2024 Day Bloom NP [address], [place], [address], [place] [facility] [...] Name and Address Organization Details Recorded Time 57050 Cephalosp vi (substanc e) medicatio n Not available Not available Not available 02/11/2025 60811 7003 SNOMED [place], [place] - [facility] 16:50:02 99399 Product containin g penicilli n (product) medicatio n Not available Not available Not available 02/11/2025 32176 8001 SNOMED [place], [place] [facility] 16:50:08 63829 Substance with sulfonami de structure and antibacte rial mechanism of action (substanc e) medicatio n Not available Not available Not available 02/11/2025 15495 8003 SNOMED [place], [facility] 16:50:14 62585 Adhesive agent (substanc e) environme nt,medica tion Not available Not available Not available 08/05/20252023 51329 0007 SNOMED Not Available cheli - External [...] Insulin Syringe 0.5 mL 31 gauge x 16 USE DIRECTED 02/12 completed Not Available Not [...] No t Available Vitals Date Recorded Body temperature Respiratory rate Body weight Body mass index (BMI) Body height Oxygen saturation Heart rate Systolic And Diastolic Provider Name and Address Organization Details Last Updated DateTime 5 97.5 [degF] 18 /min 04809.5 9 g 41.5 kg/m2 149.86 cm 98 % 78 /min 118/82 mm[Hg] tracy marie [facility] 5 15:41:13 Date Recorded Body height Body mass index (BMI) Body weight Oxygen saturation Heart rate Respiratory rate Body temperature Systolic And Diastolic Provider Name and Address Organization Details Last Updated DateTime 5 149.86 cm 41.5 kg/m2 90622.5 9 g 99 % 96 /min 18 /min 97.9 [degF] 122/84 mm[Hg] tracy kotharie [facility] 5 15:06:00 Date Recorded Body height Body mass index (BMI) Body weight Oxygen saturation Heart rate Respiratory rate Body temperature Systolic And Diastolic Provider Name and Address Organization Details Last Updated DateTime 5 149.86 cm 41 kg/m2 77231.5 3 g 97 % 84 /min 20 /min 98.4 [degF] 128/88 mm[Hg] pavan torres [facility] 5 14:41:35 Date Recorded Body height Body mass index (BMI) Body weight Body temperature Systolic And Diastolic Provider Name and Address Organization Details Last Updated DateTime 05/14/2025 149.86 cm 40.8 kg/m2 34019.3 8 g 99.2 [degF] 138/94 mm[Hg] bro myers [facility] 5 13:33:51 Date Recorded Body height Body temperature Respiratory rate Heart rate Oxygen saturation Body mass index (BMI) Body weight Systolic And Diastolic Provider Name and Address Organization Details Last Updated DateTime 5 149.86 cm 97.4 [degF] 20 /min 79 /min 100 % 40.8 kg/m2 39195.6 6 g 130/90 mm[Hg] pavan torres [facility] 5 13:02:23 Social History Question Answer Notes LastModified by Organizat ion Details LastModified Time Tobacco Smoking Status [facility] 02/11/2025 16:53:43 Do You Have An Advance Directive? No [email or web address] Information not available 02/12/2025 Is Your Home Air Conditioned? Yes [email or web address] Information not available 02/12/2025 Where Do You Live? SingleLevelHouse [email or web address] Information not available 05/14/2025 Do You Have A Medical Power Of School Bus Driver/Teacher Assistant? No [email or web address] Information not available 02/11/2025 What Was The Date Of Your Most Recent Tobacco Screening? 05/14/2025 Information not available 05/14/2025 Do You Have Any Pets? Yes Dog, Cat, Chicken [email or web address] Information not available 02/12/2025 What Is Your Relationship Status? [email or web address] Information not available 02/12/2025 Are There Any Smokers In Your House? No [email or web address] Information not available 02/11/2025 Has Tobacco Cessation Counseling Been Provided? Yes [email or web address] Information not available 02/12/2025 On What Date Was Tobacco Cessation Counseling Provided? 07/20/2025 [email or web address] Information not available 07/20/2025 Have You Recently Traveled Abroad? No [email or web address] Information not available 02/11/2025 Are You Currently In School? No [email or web address] Information not available 02/12/2025 How Many Years Have You Used E-cigarettes Or Vape? 3 [email or web address] Information not available 02/12/2025 Sex: Female Functional Status Question Answer Note LastModified by Organizat ion Details LastModified Time Do you or have you ever used any other forms of tobacco or nicotine? Yes [email or web address] Information not available 02/12/2025 Do you or have you ever used smokeless tobacco? Never used smokeless tobacco [email or web address] Information not available 02/12/2025 Are you currently employed? Yes [email or web address] Information not available 02/11/2025 What is your occupation? [employer] [email or web address] Information not available 02/12/2025 Do you or have you ever used e-cigarettes or vape? Current user of electronic cigarettes [email or web address] Information not available 02/12/2025 Mental Status None recorded. Family History Relationship Description Onset Age of this Age Resolved Age Notes LastModified by Organization Details LastModified Time Father Cerebrovascu lar accident [email or web address] Not available 16:52:24 Father Hypertensive disorder [email or web address] Not available 02/11 16:52:40 Mother Hypertensive disorder [email or web address] Not available 02/11 16:52:40 Mother Diabetes mellitus [email or web address] Not available 02/11 16:52:52 Mother Osteoporosis [email or web address] Not pieter ilable 02/11/2025 16:53:08 Maternal Grandmother Diabetes mellitus [email or web address] Not available 02/11 16:52:52 Maternal Grandmother Osteoporosis Not availabl e 02/11/2025 16:53:08 Paternal Grandmother Malignant neoplasm of lung [email or web address] Not available 02/11 16:53:25 Maternal Aunt Diabetes mellitus Not available 02/11 16:53:32 Medical History Condition Response Depression Y Obesity Y Acid Reflux (GERD) Y Headaches Y Anxiety Y Allergies/Hayfever Y Anemia Y Sleep Apnea Y Hypertension Y Gynecological HistoryNo gynecological history recorded. Obstetrics History GPAL:G 0 P 0 0 0 0 Past Encounters Encounter ID Performer Location Encounter Start Date Encounter Closed Date Diagnosis/Indication Diagnosis SNOMED-CT Code Diagnosis ICD10 Code Diagnosis IMO Codes Diagnosis Note [id number] Alli Fitzgerald [address] [place] [address] [place] [address] 02/12/2025 15:08:26 02/12/2025 16:18:52 Obstructive sleep apnea syndrome 24468086 G47.33 368402 Daytime hypersomnia 3177 685747 7564 G47.10 88313207 Seasonal allergy 4267862 04 J30.2 08230 [id number] Alli Fitzgerald [address] [place] [address] 03/18/2025 15:01:23 03/18/2025 15:29:43 Obstructive sleep apnea syndrome 59451526 G47.33 551676 Daytime hypersomnia 3177 264567 7348 G47.10 99499132 Seasonal allergy 3730100 04 J30.2 10217 Narcolepsy type 2 749116 0058 9104 G47.419 255624 [id number] Alli Fitzgerald [address] [place] [address] [place] [address] 04/16/2025 14:28:14 04/16/2025 15:00:11 Daytime hypersomnia 7943813069 9102 G47.10 84121888 Obstructiv e sleep apnea syndrome 82573286 G47.33 648695 Seasonal allergy 2186106 04 J30.2 48247 Narcolepsy type 2 533287 8261 9104 G47.419 440946 [id number] Alli Fitzgerald [address] [place] [address] 05/14/2025 13:10:13 05/14/2025 14:08:57 Daytime hypersomnia 9646938256 9102 G47.10 81907338 Obstructiv e sleep apnea syndrome 27572095 G47.33 838849 Seasonal allergy 7789375 04 J30.2 18517 Narcolepsy type 2 637678 1408 9104 G47.419 529350 Asthma 108470857 J45.90 9 2089606311 Cough 61389606 R05.9 [id number] Alli Fitzgerald [address] [address] 07/20/2025 12:55:43 07/20/2025 15:08:34 Narcolepsy type 2 2596556305 9104 G47.419 449019 Daytime hypersomnia 3177 061986 0834 G47.10 52101445 Obstructiv e sleep apnea syndrome 92889120 G47.33 820921 Seasonal allergy 4987548 04 J30.2 19018 Asthma 489041725 J45.90 9 0607516811 Cough 76033720 R05.9 1044523383 Health Concerns Section Related Observation LastModified by Organization Detai ls LastModified Time None Recorded Concern Status LastModified by Organization Details LastModified Time None Recorded Advance Directives Directive N: Payers Insurance Date Sequence Insurance Name Policy Number Policy Castañeda Covered Member ID Castañeda Member ID Guarantor Name 08/04/2025 1 [place] [id number] Keira Cornell [id number] Keira Cornell 05/14/2025 2 [place] [id number] Keira Cornell [id number] Keira Cornell 08/04/2025 2 [place] [id number] Keira Cornell [id number] Keira Cornell Notes Date Note Type Note Provider Name and Address Organization Details Recorded Time 02/12/2025 text/html ROS as noted in the HPI This 34 year-old female presents to the office for the evaluation of narcolepsy. She was reffered by Gerry pearl. The patient complains of an occasional cough that she attributes to seasonal allergies. She denies any shortness of breath, wheezing or nocturnal respiratory symptoms. She is not on any inhaled respiratory medications. The patient denies any tobacco history but reports a 3-year history of vaping. She has residential exposure to one indoor dog and outdoor exposure to cats and chickens. A sleep study performed on 08/29/2024 was positive for mild PRICILA (AHI 5.1) and she currently uses CPAP nightly. A compliance report was generated for the dates of 01/13/2025- 025 that revealed 22/30 days (73%) overall compliance, 21 days (70%) compliance greater than 4 hours, AHI 1.3 and median leaks 0. Compliance data was discussed during todays visit. Patient states prior to CPAP use she would have to pull off the road about [address] to and from work and only lives 20 to 25 minutes from work. She states this has only improved mildly since beginning CPAP. She does not an episode of falling asleep at work. Patient also complains of arms and head feeling heavy and numb at times along with falling asleep very easily. Patient states she is aware of these symptoms when they occur and is able to pull off the roadway and rest. Denies any n/v/d/f/c. Day Bloom NP [address], [place], [address], [facility] 02/13/2025 11:12:41 03/18/2025 text/html ROS as noted in the HPI This is a 34 year-old female who presents to the office today to review the results of an Overnight PSG with CPAP and MSLT completed on 03/11/2023. Results and proposed treatment plan was discussed with the patient.Patient denies any significant medical events since her last visit.Denies any fever, chills, n/v/d, abdominal pain or lower extremity edema. Day Bloom NP [address], [place], [address], [facility] 03/23/2025 08:55:34 04/16/2025 text/html ROS as noted in the HPI This 34 year-old female returns to the office for the ongoing management of PRICILA and narcolepsy without cataplexy. The patient took the first dose of Modafinil 200 mg on Sunday and initially experienced difficulty sleeping but noted increased energy. She is now able to sleep through the night, reports improved energy levels, and states her daytime sleepiness has resolved without any urge to nap. The patient returned her CPAP on April 09, 2025, due to insurance denial of coverage. Patient denies any urge to nap, does not fall asleep during daytime hours, has improved sleep quality and increased energy during the daytime. Denies any fever, chills, n/v/d, abdominal pain or lower extremity edema. Day Bloom NP [address], [place], [address], [facility] 04/17/2025 21:34:33 05/14/2025 text/html ROS as noted in the [...] Bloom NP [address], [place], [address], [facility] 05/18/2025 20:25:16 07/20/2025 text/html ROS as noted in the [...] abdominal pain or lower extremity edema. Day Bloom, QAMAR [address], [place], [address], [facility] 07/20/2025 14:14:48 OBGyn Episode No OBEpisode recorded.
--- OUTSIDE RECORDS SUMMARY | 2025-08-07 09:37 | XMS_ITS | Continuity of Care Document ---
Author Organization [facility] Address [address] [place] [address] Care Team Providers Care Preschool Special Education Teacher Name Role Phone ASHLEY LOMELI Photographic Press Screwmaker Assessment Encounter Date Assessment Date Assessment LastModified by Organization Details LastModified Time 07/17/2025 07/17/2025 Patient's migraine headaches are worsening from last visit. Patient has been taking preventative medication as prescribed. Frequency of headaches is approximately twice a week. There have not been possible side effects from the medication. Abortive medication fails to alleviate headache. Triggering factors remain stress. Patient counseled on risk of NSAID withdrawal headaches. [email or web address] Not available 07/17/2025 21:33:36 Plan of Treatment Reminders Order Date Submit Date Provider Last Modified By Organization Details Last Modified Time Details Appointments None recorde d. Lab CMP, serum or plasma 2024 [facility], [address], [place], [address], 08:17:37 phospho amber, serum or plasma 2024 025 [facility], [address], [place], [address], 08:17:39 erythro cyte sedimen tation rate by westerg preston method 2024 025 [facility], [address], [place], [address], 5 08:17:39 C reactiv e protein , QN, serum or plasma 2024 [facility], [address], [place], [address], 5 08:17:40 CBC w/ auto diff 2024 [facility], [address]oni [address], [place], [address], 5 08:17:37 magnesi um, serum or plasma 2024 [place] [facility], [address]oni [address], [place], [address], 5 08:17:39 vitamin D, 25-hydr oxy, total, serum 2024 [place] [facility], [address], [address], [place], [address], 08:17:38 Referral neurolo gist referra l 2024 [facility], [address] [place] [address], [address], 14:44:44 Procedures None recorde d. Surgeries None recorde d. Imaging MRI, brain + brain stem, w/o contras t 2024 [facility] (Centralized Scheduling), [address] [place] [address] , [place], [address], 06:55:43 Medication Orders Ajovy 225 mg/1.5 mL subcuta neous auto-in jector 2024 [facility], [address] [place] [address] , [place], [address], 13:32:23 choleca lcifero l (vitami n D3) 1,250 mcg (50,000 unit) capsule 2024 025 [facility], [address] [place] [address] , [place], [address], 13:32:23 Patient TargetsNo targets recorded. Patient InstructionsNo instructions recorded. 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 Referring Physician: Julieta Ceja, Family Medicine, Encounter Date: 07/17/2025 Results Created Date Observation Date Name Description Value Unit Range Abnormal Flag Note LastModifiedBy Organization Detail LastModifiedTime 07/17/2007/18/2025 CBC WITH DIFFE RENTI AL/PL ATELE T WBC 11.8 x10e3 /uL 3.4-10 .8 above high normal Not Available [facility] ([facility]) [address] [place], [address], 07/18/2025 08:17:37 07/17/2007/18/2025 CBC WITH DIFFE RENTI AL/PL ATELE T RBC 4.28 x10e6 /uL 3.77-5 .28 normal Not Available [facility] ([facility]) [address] [place], [address], 07/18/2025 08:17:37 07/17/20 25 07/18/2025 CBC WITH DIFFE RENTI AL/PL ATELE T hemoglobin 12.1 g/dL 11.1-1 5.9 normal Not Available [facility] ([facility]) [address] [place], [address], 07/18/2025 08:17:37 07/17/20 25 07/18/2025 CBC WITH DIFFE RENTI AL/PL ATELE T hematocrit 38.1 % 34.0-4 6.6 normal Not Available [facility] ([facility]) [address] [place], [address], 07/18/2025 08:17:37 07/17/20 25 07/18/2025 CBC WITH DIFFE RENTI AL/PL ATELE T MCV 89 fL 79-97 normal Not Available [facility] ([facility]) [address] [facility], [place], [address], 07/18/2025 08:17:37 07/17/20 25 07/18/2025 CBC WITH DIFFE RENTI AL/PL ATELE T MCH 28.3 pg 26.6-3 3.0 normal Not Available [facility] ([facility]) [address] [facility], [place], [address], 07/18/2025 08:17:37 07/17/2007/18/2025 CBC WITH DIFFE RENTI AL/PL ATELE T MCHC 31.8 g/dL 31.5-3 5.7 normal Not Available [facility] ([facility]) [address] [facility], [place], [address], 07/18/2025 08:17:37 07/17/2007/18/2025 CBC WITH DIFFE RENTI AL/PL ATELE T RDW 12.5 % 11.7-1 5.4 Not Available [facility] ([facility]) [address] [facility], [place], [address], 07/18/2025 08:17:37 07/17/2007/18/2025 CBC WITH DIFFE RENTI AL/PL ATELE T platelets 443 x10e3 /uL 150-45 0 normal Not Available [facility] ([facility]) [address] [facility], [place], [address], 07/18/2025 08:17:37 07/17/2007/18/2025 CBC WITH DIFFE RENTI AL/PL ATELE T neutrophils 66 % not estab. normal Not Available [facility] ([facility]) [address] [facility], [place], [address], 07/18/2025 08:17:37 07/17/20 25 07/18/2025 CBC WITH DIFFE RENTI AL/PL ATELE T lymphs 23 % not estab. normal Not Available [facility] ([facility]) [address] [facility], [place], [address], 07/18/2025 08:17:37 07/17/20 25 07/18/2025 CBC WITH DIFFE RENTI AL/PL ATELE T monocytes 7 % not estab. normal Not Available [facility] ([facility]) [address] [facility], [place], [address], 07/18/2025 08:17:37 07/17/2007/18/2025 CBC WITH DIFFE RENTI AL/PL ATELE T eos 3 % not estab. normal Not Available [facility] ([facility]) [address] [facility], [place], [address], 07/18/2025 08:17:37 07/17/2007/18/2025 CBC WITH DIFFE RENTI AL/PL ATELE T basos 1 % not estab. normal Not Available [facility] ([facility]) [address] [facility], [place], [address], 07/18/2025 08:17:37 07/17/20 25 07/18/2025 CBC WITH DIFFE RENTI AL/PL ATELE T immature cells TRIM CREW SUPERVISOR Not Available [facility] ([facility]) [address] [facility], [place], [address], 07/18/2025 08:17:37 07/17/20 25 07/18/2025 CBC WITH DIFFE RENTI AL/PL ATELE T neutrophils (absolute) 7.8 x10e3 /uL 1.4-7. 0 above high normal Not Available [facility] ([facility]) [address] [facility], [place], [address], 07/18/2025 08:17:37 07/17/20 25 07/18/2025 CBC WITH DIFFE RENTI AL/PL ATELE T lymphs (absolute) 2.7 x10e3 /uL 0.7-3. 1 normal Not Available [facility] ([facility]) [address] [facility], [place], [address], 07/18/2025 08:17:37 07/17/20 25 07/18/2025 CBC WITH DIFFE RENTI AL/PL ATELE T monocytes(ab solute) 0.8 x10e3 /uL 0.1-0. 9 normal Not Available [facility] ([facility]) [address] [facility], [place], [address], 07/18/2025 08:17:37 07/17/2007/18/2025 CBC WITH DIFFE RENTI AL/PL ATELE T eos (absolute) 0.3 x10e3 /uL 0.0-0. 4 normal Not Available [facility] ([facility]) [address] [place], [address], 07/18/2025 08:17:37 07/17/2007/18/2025 CBC WITH DIFFE RENTI AL/PL ATELE T baso (absolute) 0.1 x10e3 /uL 0.0-0. 2 normal Not Available [facility] ([facility]) [address] [facility], [place], [address], 07/18/2025 08:17:37 07/17/2007/18/2025 CBC WITH DIFFE RENTI AL/PL ATELE T immature granulocytes 0 % not estab. Not Available [facility] ([facility]) [address] [place], [address], 07/18/2025 08:17:37 07/17/2007/18/2025 CBC WITH DIFFE RENTI AL/PL ATELE T immature grans (abs) 0.0 x10e3 /uL 0.0-0. 1 Not Available [facility] ([facility]) [address] [place], [address], 07/18/2025 08:17:37 07/17/20 25 07/18/2025 CBC WITH DIFFE RENTI AL/PL ATELE T NRBC TRIM CREW SUPERVISOR Not Available [facility] ([facility]) [address] [facility], [place], [address], 07/18/2025 08:17:37 07/17/20 25 07/18/2025 CBC WITH DIFFE RENTI AL/PL ATELE T hematology comments: TRIM CREW SUPERVISOR Not Available [facility] ([facility]) [address] [facility], [place], [address], 07/18/2025 08:17:37 07/17/2007/18/2025 COMP. METAB OLIC PANEL (14) glucose 98 mg/dL 70-99 normal Not Available [facility] ([facility]) [address] [facility], [place], [address], 07/18/2025 08:17:37 07/17/20 25 07/18/2025 COMP. METAB OLIC PANEL (14) BUN 4 mg/dL 6-20 below low normal Not Available [facility] ([facility]) [address] [facility] [place], [address], 07/18/2025 08:17:37 07/17/20 25 07/18/2025 COMP. METAB OLIC PANEL (14) creatinine 0.68 mg/dL 0.57-1 .00 normal Not Available [facility] ([facility]) [address] [facility], [place], [address], 07/18/2025 08:17:37 07/17/2007/18/2025 COMP. METAB OLIC PANEL (14) eGFR 118 mL/mi n/1.7 3 >59 normal Not Available [facility] ([facility]) [address] [facility], [place], [address], 07/18/2025 08:17:37 07/17/20 25 07/18/2025 COMP. METAB OLIC PANEL (14) BUN/creatini ne ratio 6 9-23 below low normal Not Available [facility] ([facility]) [address] [facility] [place], [id number], 07/18/2025 08:17:37 07/17/20 25 07/18/2025 COMP. METAB OLIC PANEL (14) sodium 141 mmol/ L 134-14 4 normal Not Available [facility] ([facility]) [address] [place], [id number], 07/18/2025 08:17:37 07/17/20 25 07/18/2025 COMP. METAB OLIC PANEL (14) potassium 4.0 mmol/ L 3.5-5. 2 normal Not Available [facility] ([facility]) [address] [facility] [place], [address], 07/18/2025 08:17:37 07/17/20 25 07/18/2025 COMP. METAB OLIC PANEL (14) chloride 107 mmol/ L 96-106 above high normal Not Available [facility] ([facility]) [address] [facility] [place], [id number], 07/18/2025 08:17:37 07/17/20 25 07/18/2025 COMP. METAB OLIC PANEL (14) carbon dioxide, total 22 mmol/ L 20-29 normal Not Available [facility] ([facility]) [address] [facility] [place], [address], 07/18/2025 08:17:37 07/17/20 25 07/18/2025 COMP. METAB OLIC PANEL (14) calcium 9.4 mg/dL 8.7-10 .2 normal Not Available [facility] ([facility]) [address] [facility] [place], [address], 07/18/2025 08:17:37 07/17/20 25 07/18/2025 COMP. METAB OLIC PANEL (14) protein, total 6.8 g/dL 6.0-8. 5 normal Not Available [facility] ([facility]) [address] [place], [id number], 07/18/2025 08:17:37 07/17/2007/18/2025 COMP. METAB OLIC PANEL (14) albumin 4.4 g/dL 3.9-4. 9 normal Not Available [facility] ([facility]) [address] [place], [id number], 07/18/2025 08:17:37 07/17/2007/18/2025 COMP. METAB OLIC PANEL (14) globulin, total 2.4 g/dL 1.5-4. 5 Not Available [facility] ([facility]) [address] [place], [id number], 07/18/2025 08:17:37 07/17/20 25 07/18/2025 COMP. METAB OLIC PANEL (14) bilirubin, total 0.2 mg/dL 0.0-1. 2 normal Not Available [facility] ([facility]) [address] [place], [id number], 07/18/2025 08:17:37 07/17/2007/18/2025 COMP. METAB OLIC PANEL (14) alkaline phosphatase 86 IU/L 41-116 normal Not Available [facility] ([facility]) [address] [facility] [place], [id number], 07/18/2025 08:17:37 07/17/2007/18/2025 COMP. METAB OLIC PANEL (14) AST (SGOT) 25 IU/L 0-40 normal Not Available [facility] ([facility]) [address] [place], [id number], 07/18/2025 08:17:37 07/17/20 25 07/18/2025 COMP. METAB OLIC PANEL (14) ALT (SGPT) 26 IU/L 0-32 normal Not Available [facility] ([facility]) [address], [place], [address], 07/18/2025 08:17:37 07/17/2007/18/2025 VITAM IN D, 25-HY DROXY vitamin D, 25-hydroxy 65.4 NG/mL 30.0-1 00.0 Vitam in D defic iency has been defin ed by the Insti tute of [facility] ine and an Endoc rine Socie ty pract ice guide line as a level of serum 25-OH vitam in D less than 20 ng/mL (1,2) . The Endoc rine Socie ty went on to furth er defin e vitam in D insuf ficie ncy as a level betwe en 21 and 29 ng/mL (2). 1. IOM (Inst itute of Medic ine). 2009. Dieta ry refer ence intak es for calci um and D. Roslyn lu [place]: The [facility] Press . 2. Moisés willard MF, Yolanda pastor [place], Myron off-F errar i VALENTIN, et al. Evalu ation , treat ment, and preve ntion of vitam in D defic iency : an Endoc rine Socie ty clini som pract ice guide line. JCEM. 2010; 96(7) :1911 -30. Not Available [facility] ([facility]) [address] [facility], [place], [address], 07/18/2025 08:17:38 07/17/2007/18/2025 PHOSP HORUS phosphorus 2.3 mg/dL 3.0-4. 3 below low normal Not Available [facility] ([facility]) [address] [place], [address], 07/18/2025 08:17:38 07/17/2007/18/2025 ERYTH ROCYT E SEDIM ENTAT ION RATE erythrocyte sedimentatio n rate 26 mm/HR 0-32 normal Not Available [facility] ([facility]) [address] [place], [address], 07/18/2025 08:17:39 07/17/2011 0807/18/2025 MAGNE SIUM magnesium 2.1 mg/dL 1.6-2. 3 normal Not Available [facility] ([facility]) [address] [facility], [place], [address], 07/18/2025 08:17:39 07/17/20 25 07/18/2025 C-OMAR CTIVE PROTE IN, QUANT C-reactive protein, quant 7 mg/L 0-10 normal Not Available [facility] ([facility]) [address] [facility], [place], [address], 07/18/2025 08:17:40 06/28/2006/26/2025 CT, angio gram, carot id arter ies, w/ contr ast No observ ation record ed. [address], [place], [address], 06/30/2025 08:28:03 07/21/20 25 07/21/2025 imagi ng/di agnos tic resul t No observ ation record ed. [address], [place], [address], 07/23/2025 17:44:26 07/31/20 25 07/31/2025 MRI, brain , w/o contr ast [facility] Name: BRIAN CORNELL [address] [place], [place] [address]a [facility] Phys: BRUNO CEJA [facility] [place] [address] : 1990 Age: 34 Sex: F Acct: [id number] Loc: G.MRI PHONE #: Exam Date: 2024 Status : REG CLI FAX #: Rad# [id number] Unit# [id number] Admit Date: 2024 EXAMS: CPT CODE: [id number] MRI BRAIN W/O CONTRA ST 21597 MR BRAIN WITHOU T IV CONTRA ST, 2024 11:53 AM FISHING VESSEL DECKHAND INDICA TION: MIGRAI NE MRI brain withou [...] 2024 02:24 PM EST [id number] Electr onical ly Signed by EMETERIO Wagnoer on 2024 at 1420 Report ed and signed by: HUI HENDRICKS CC: BRUNO CEJA Dictat ed Date/T tyron: 2024 (1420) Techno logist : DEACON GUEVARA Transc ribed Date/T tyron: 2024 (1420) Transc riptio nist: DR.SCH GARCIA Electr onic Signat ure Date/T tyron: 2024 (1420) Printe d Date/T tyron: 2024 (1427) BATCH NO: N/A PAGE 1 Signed Report CC'ed Logic: Orderi ng Provid er: MARCIAL GARRETT Attend ing Provid er: MARCIAL GARRETT Referr ing Provid er: MARCIAL GARRETT Consul ting Provid er: MARCIAL rivas[address] , [place], [address], 08/04/2025 13:57:25 08/03/20 25 03/26/2023 US, sylvia t, caitlyn tersamuel , limit ed [facility] Name: BRIAN CORNELL [facility] [employer] Phys: Juan [place] [address] : 1990 Age: 32 Sex: F Acct: [id number] Loc: UNK PHONE #: Exam Date: 2022 Status : UNK FAX #: Rad# [id number] Unit# [id number] Admit Date: EXAMS: CPT CODE: [id number] [address] LIMITE D RIGHT BREAST ULTRAS OUND, 023: [...] 2022 (0949) Transc riptio nist: DR.HAG KATHERYN newman Signat ure Date/T tyron: 2022 (0949) Printe d Date/T tyron: 2024 (0855) BATCH NO: N/A PAGE 1 Signed Report CC'ed Logic: Scarlett ng Provid er: MODE ARCHER [facility] [address] [place] [address] [place], [address], 08/03/2025 12:09:10 08/03/20 25 12/26/2023 NM, hepat obili martín scan [facility] Name: BRIAN CORNELL [employer] Phys: [place] [address] : 1990 Age: 33 Sex: F Acct: [id number] Loc: UNK PHONE #: Exam Date: 2023 Status : UNK FAX #: [phone] Rad# [id number] Unit# [id number] Admit Date: EXAMS: CPT CODE: [id number] NM HEPATO BILIAR Y W/EF 94130 CLINIC AL INFORM ATION: Right upper quadra [...] and signed by: CORI Pulido M.D. CC: Robert Hanson GROCERY ASSOCIATE; Adela Coello GROCERY ASSOCIATE Dictat ed Date/T tyron: 2023 (1418) Techno logist : PARISH BEARD, BS, MANAGER [employer] Transc ribed Date/T tyron: 2023 (1418) Transc riptio nist: DR.HAR GUTIERREZ Electr onic Signat ure Date/T tyron: 2023 (1418) Printe d Date/T tyron: 2024 (0855) BATCH NO: N/A PAGE 1 Signed Report CC'ed Logic: Orderi ng Provid er: MODE ARCHER [id number] [address] [place], [address], 08/03/2025 12:09:10 Result Notes None recorded. Problems Name Problem SNOMED Code Status Onset Date Resolution Date Notes Provider Name and Address Organization Details Recorded Time Irritabl e bowel syndrome 48442561 Active lactose intolera nt Katie Angelo, GROCERY ASSOCIATE [address], [place], [address], [place] - [facility] 11:12:16 Polycyst ic ovaries Completed 01/15/2023 Teresa Maraamber [place]air, [place] - [facility] 3 15:34:53 Hyperins ulinism 34528355 Active Katie Angelo, GROCERY ASSOCIATE [address], [place], [address], [place] - [facility] 4 11:12:06 Asthma 799997523 Active Katie Angelo, GROCERY ASSOCIATE [address], [place], [address], [place] - [facility] 4 11:11:48 Chronic intersti tial cystitis 620849642 Active 2011 Katie Angelo, GROCERY ASSOCIATE [address], [place], [address], [place] - [facility] 4 11:11:53 Cyst of right ovary 2306465950 4677850 Completed 201801/15/2023 Teresa Mara null, [place] - [facility] 15:35:05 Exposure to SARS-CoV -2 Completed 201901/15/2023 Teresa Mara [place] [facility] 15:34:31 COVID-19 419999131 Completed 201901/15/2023 Teresa Holmanrus null, [place] - [facility] 15:34:22 Migraine 54173486 Active 2020 Katie Angelo, GROCERY ASSOCIATE [address], [place], [address], [place] [facility] 4 11:12:22 Mixed anxiety and depressi ve disorder 380134757 Active 2021 Katie Angelo, GROCERY ASSOCIATE [address], [place], [address], [place] - [facility] 11:12:24 Menorrha esteban 799304260 Completed 202101/15/2023 Teresa Mara null, [place] - [facility] 15:34:40 Irregula r intermen strual bleeding 90229975 Completed 202101/15/2023 Teresa Mara [place] [facility] 15:34:35 Uterine leiomyom a 14741168 Completed 202101/15/2023 Teresa Mara [place] [facility] 15:34:59 Cellulit is of skin 369881962 Completed 202101/15/2023 Teresa Mara [place] [facility] 15:34:26 Depressi ve disorder 93774006 Active 2021 Katie Angelo, GROCERY ASSOCIATE [address], [place], [address], [place] - [facility] 4 11:11:54 Metaboli c syndrome X 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 Active 2022 Katie Angelo, GROCERY ASSOCIATE [address], [place], [address], [place] [facility] 4 11:12:20 Body mass index 30+ - obesity 366772362 Active 2022 Adela Coello, GROCERY ASSOCIATE [address], [place], [address], [place] - [facility] 5 09:30:49 Obesity 043303915 Active 2022 Katie Angeol, GROCERY ASSOCIATE [address], [place], [address], [place] - [facility] 11:12:30 Fatigue 05043978 Active 2022 Katie Angelo, GROCERY ASSOCIATE [address], [place], [address], [place] [facility] 11:12:02 Acute left otitis media 011338374 Completed 202201/15/2023 Adela Coello, GROCERY ASSOCIATE [address], [place], [address], [place] - [facility] 4 10:26:25 Conjunct ivitis 9653344 Completed 202201/15/2023 Teresa Mara null[place] [facility] 15:35:08 Pain of ear 439323858 Completed 202201/15/2023 Teresa Mara [place] [facility] 15:34:46 Influenz a-like symptoms 362082297 Completed 202201/15/2023 Teresa Mara [place] [facility] 15:34:37 Upper respirat ory infectio n 34515712 Completed 202201/15/2023 Teresa Terry null[place] [facility] 15:34:56 Pharyngi tis 049813113 Completed 202201/15/2023 Caryn Sanderson null, [place] [facility] 5 09:03:35 History of total hysterec nilay 501764710 Active 2022 Katiebrinda Angelo, GROCERY ASSOCIATE [address], [place], [address], [place] [facility] 4 11:12:04 Acne 76912000 Active 2022 Katiebrinda Angelo, GROCERY ASSOCIATE [address], [place], [address], [place] [facility] 4 11:11:42 Pain of breast 11138011 Completed 202212/10/2023 bilat US-benig n lymph node left breast Katiebrinda Angelo, GROCERY ASSOCIATE [address], [place], [address], [place] [facility] 4 11:12:37 Prediabe gustavo 560043743 Active 2022 Julieta Marcial, GROCERY ASSOCIATE [address], [place], [address], [place] [facility] 5 15:58:37 Acute upper respirat ory infectio n 68379639 Completed 202209/03/2023 Caryn Sand[place] null[place] [facility] 09:03:45 Insect bite - wound 534470226 Completed 202212/10/2023 Katie Angelo, GROCERY ASSOCIATE [address], [place], [address], [place] [facility] 4 11:12:13 Pharyngi tis 945795636 Completed 202212/10/2023 Caryn Sand[place] [facility] 09:03:35 Labial cyst 783796138 Completed 202212/10/2023 Katie Angelo, GROCERY ASSOCIATE [address], [place], [address], [place] [facility] 4 11:12:18 Overacti ve urinary bladder 199946438 Active 2022 Katiebrinda Angelo APRN [address], [place], [address], [place] [facility] 4 11:12:32 Anxiety 46950021 Active 2022 Katiebrinda Angelo APRN [address], [place], [address], [place] [facility] 4 11:11:47 Acute left otitis media 276150628 Completed 202312/10/2023 Adela Coello APRN [address], [place], [address], [place] [facility] 4 10:26:25 Hyperten sive disorder 15343424 Active 2023 Julieta Ceja APRN [address], [place], [address], [place] [facility] 5 13:13:22 Right upper quadrant pain 750713316 Completed 202302/20/2024 Adela Coello APRN [address], [place], [address], [place] [facility] 4 10:53:19 Nausea 770658812 Completed 202312/10/2023 Katie Angelo APRN [address], [place], [address], [place] [facility] 4 11:12:27 Pain radiatin g to right side of chest 496601363 Completed 202303/16/2025 Caryn [place]air, [place] - [facility] 5 09:01:52 Diarrhea 89236290 Completed 202312/10/2023 Julieta Ceja APRN [address], [place], [address], [place] [facility] 4 10:41:09 Steatoti c liver disease 477761227 Active 2023 Katie Angelo APRN [address], [place], [address], [place] [facility] 4 11:12:51 Unintent ional weight gain 6166356948 52581 Active 2023 Katie Angelo APRN [address], [place], [address], [place] [facility] 4 11:12:54 Acute pharyngi tis 681555036 Completed 202303/13/2024 Adela Coello APRN [address], [place], [address], [place] [facility] 4 10:26:30 Otitis externa 1889078 Active 2023 Tia Larsen MD [address], [place], [address], [place] [facility] 4 09:34:50 Cough 82532737 Completed 202303/13/2024 Julieta Ceja APRN [address], [place], [address], [place] [facility] 4 11:13:09 Malaise and fatigue 341237949 Active 2023 Johnny Fletcher APRN [address], [place], [address], [place] [facility] 4 08:09:42 Acute otitis externa of right ear [id number] Completed 202303/13/2024 Adela Coello APRN [address], [place], [address], [place] [facility] 4 10:26:27 Acute sinusiti s [id number] Completed 202303/13/2024 Adela Coello APRN [address], [place], [address], [place] [facility] 4 10:26:36 Acute bronchit is [id number] Completed 202303/13/2024 Adela Coello APRN [address], [place], [address], [place] [facility] 4 10:26:21 Biliary dyskines ia [id number] Active 2023 Adela Coello, [employer] [address] [address], [place], [address], [place] [facility] 4 08:56:27 Acute left otitis media [id number] Completed 202303/13/2024 Adela Mode, GROCERY ASSOCIATE [address], [place], [address], [place] [facility] 4 10:26:25 Vitamin D deficien cy 72293184 Active 2023 Rosemino Pradhan, GROCERY ASSOCIATE [address], [place], [address], [place] [facility] 4 09:00:18 History of cholecys tectomy 678180757 Active 2023 Katie Angelo, GROCERY ASSOCIATE [address], [place], [address], [place] [facility] 4 13:28:28 Non-terry pausal hot flash 2050745396 85105 Active 2023 Adela Coello, GROCERY ASSOCIATE [address], [place], [address], [place] [facility] 4 10:51:47 Chest wall pain 826937114 Active 2023 Johnny Fletcher, GROCERY ASSOCIATE [address], [place], [address], [place] [facility] 4 08:31:23 Chest pain 97579178 Active 2023 Johnny Fletcher, GROCERY ASSOCIATE [address], [place], [address], [place] [facility] 4 10:34:37 Localize d eruption of skin 604777215 Active 2023 Adela Coello, GROCERY ASSOCIATE [address], [place], [address], [place] [facility] 4 13:38:51 Middle ear effusion 7175114478 Completed 202303/16/2025 Caryn adair, [place] - [facility] 5 09:02:21 Gastroes ophageal reflux disease without esophagi tis 101136148 Active 2023 Rose Pradhan APRN [address], [place], [address], [place] [facility] 4 12:08:17 Allergic rhinitis 19180570 Active 2023 Rose Pradhan APRN [address], [place], [address], [place] [facility] 4 13:25:43 Diarrhea 71232739 Active 2023 Julieta Ceja APRN [address], [place], [address], [place] [facility] 4 10:41:09 Nausea and vomiting 62959656 Active 2023 Julieta Ceja APRN [address], [place], [address], [place] [facility] 4 10:44:14 Acute bilatera l otitis media 891794878 Completed 202303/16/2025 Caryn Sanderson [place], [place] [facility] 5 09:02:46 Pharyngi tis 343737139 Completed 202303/16/2025 Caryn [place] [facility] 5 09:03:35 Candidia sis of vagina 61360285 Completed 202303/16/2025 Caryn [place] [facility] 5 09:01:26 Cough 77418268 Active 2023 Julieta Ceja GROCERY ASSOCIATE [address], [place], [address], [place] [facility] 4 11:13:09 Pain in finger of right hand 0086923675 41347 Active 2023 Julieta Ceja GROCERY ASSOCIATE [address], [place], [address], [place] [facility] 4 14:42:47 Sleep pattern disturba moe 12493938 Active 2023 Julieta Ceja GROCERY ASSOCIATE [address], [place], [address], [place] [facility] 4 10:03:11 Narcolep sy 02032490 Active 2023 Julieta Ceja, GROCERY ASSOCIATE [address], [place], [address], [place] [facility] 5 08:37:16 Pain of left knee joint 8018051142 88761 Active 2024 Julieta Ceja GROCERY ASSOCIATE [address], [place], [address], [place] [facility] 5 09:18:32 Acute lower respirat ory tract infectio n 436618681 Active 2024 Julieta Ceja, GROCERY ASSOCIATE [address], [place], [address], [place] [facility] 5 14:31:38 Acute upper respirat ory infectio n 50784882 Completed 202403/16/2025 Caryn [place]air[place] - [facility] 5 09:03:45 Urgent desire to urinate 64521198 Active 2024 Adela Coello, GROCERY ASSOCIATE [address], [place], [address], [place] [facility] 5 16:47:50 Low back pain 531057047 Active 2024 Adela Coello GROCERY ASSOCIATE [address], [place], [address], [place] [facility] 5 16:47:52 Microsco pic hematuri a 507611990 Completed 202403/16/2025 Caryn [place]air[place] [facility] 5 09:01:11 Ear pressure sensatio n 674488837 Active 2024 Julieta Ceja GROCERY ASSOCIATE [address], [place], [address], [place] [facility] 5 13:22:18 Contact dermatit is 23380923 Active 2024 Julieta Ceja GROCERY ASSOCIATE [address], [place], [address], [place] [facility] 5 15:32:34 Obstruct doreen sleep apnea syndrome 24229234 Active 2024 Julieta Ceja, GROCERY ASSOCIATE [address], [place], [address], [place] [facility] 14:08:48 Narcolep sy type 2 2891515408 9104 Active 2024 Julieta Ceja APRN [address], [place], [address], [place] [facility] 5 11:27:05 Posterio r rhinorrh ea 42815217 Active 2024 Julieta Ceja APRN [address], [place], [address], [place] [facility] 13:26:42 Feeling of lump in throat 381442703 Active 2024 Julieta Ceja APRN [address], [place], [address], [place] [facility] 13:27:54 Infectio n of skin 685500945 Active 2024 Julieta Ceja APRN [address], [place], [address], [place] [facility] 11:46:34 Mixed hyperlip idemia 769985374 Active 2024 Julieta Ceja APRN [address], [place], [address], [place] [facility] 16:04:32 Mild intermit tent asthma 016978772 Active 2024 Julieta Ceja GROCERY ASSOCIATE [address], [place], [address], [place] [facility] 13:10:40 Acute migraine 9717560632 54815 Active 2024 Julieta Ceja GROCERY ASSOCIATE [address], [place], [address], [place] [facility] 5 13:17:40 Migraine without aura, not refracto ry 450532818 Active 2024 Julieta Ceja GROCERY ASSOCIATE [address], [place], [address], [place] [facility] 13:23:19 Problem Notes None recorded. Procedures Surgical History Date Name Laterality Status Provider Name and Address Organization Details Recorded Time 025 OMT completed Mathew Arzate, DO [address], [place], [address], [place] [facility] 12/15/2024 13:12:34 025 OMT completed Mathewmelissa Arzate, DO [address], [place], [address], [place] [facility] 2024 10:21:49 024 Infusion Center completed Infusion Nurse [facility] [address], [place], [address], [place] [facility] 08/29/2024 08:17:32 024 Infusion Center completed Infusion Nurse [facility] [address], [place], [address], [place] [facility] 08/06/2024 08:00:28 024 Infusion Center completed Infusion Nurse [facility] [address], [place], [address], [place] [facility] 07/30/2024 11:38:15 024 Infusion Center completed Infusion Nurse [facility] [address], [place], [address], [place] [facility] 07/23/2024 08:03:49 024 Infusion Center completed Infusion Nurse [facility] [address], [place], [address], [place] [facility] 07/16/2024 08:18:37 024 Cholecystectomy completed Katie Angelo APRN [address], [place], [address], [place] [facility] 02/12/2024 13:28:14 024 Cholecystectomy, laparoscopic completed Caryn Sanderson [place] - [facility] 03/13/2024 09:59:35 024 Ear Tubes - Tympanostomy Tubes completed Caryn GU[place] - [facility] 02/20/2024 10:20:35 024 Skin Tag Removal completed Ashley Lomeli APRN [address], [place], [address], [place] [facility] 11/27/2023 17:45:47 023 Dimethyl Sulfoxide (DMSO) completed Johana Krause MD [address], [place], [address], [place] [facility] 04/10/2023 12:36:40 023 Dimethyl Sulfoxide (DMSO) completed Julieta Webber, GROCERY ASSOCIATE [address], [place], [address], [place] [facility] 03/27/2023 12:01:45 023 Dimethyl Sulfoxide (DMSO) completed Johana Krause MD [address], [place], [address], [place] [facility] 03/13/2023 08:52:24 023 Dimethyl Sulfoxide (DMSO) completed Johana Krause MD [address], [place], [address], [place] [facility] 02/27/2023 13:01:22 023 potassium sensitivity test- MOB completed Johana Krause MD [address], [place], [address], [place] [facility] 02/16/2023 21:17:46 023 Skin Tag Removal completed Shanna Velasquez [place] [facility] 09/20/2022 13:25:20 022 Hysterectomy, Total laparoscopic completed Priti [place] [facility] 07/10/2022 10:57:59 022 Date of Last Pap Smear completed Anne Peña APRN [address], [place], [address], [place] [facility] 03/10/2022 11:52:50 021 cystoscopy completed Teresa Terry [place] [facility] 01/15/2023 15:47:53 020 Systolic B/P less than 130 mm Hg completed Ashlie Dennis [place] [facility] 10/21/2019 11:01:48 020 Diastolic B/P 80-89 mm Hg completed Ashlie Dennis [place] [facility] 10/21/2019 11:01:49 019 IUD Insertion (Mirena) completed Anne Peña APRN [address], [place], [address], [place] [facility] 02/28/2019 16:50:46 019 IUD Insertion completed Fern [place] [facility] 02/28/2019 15:36:40 017 Appl. Splint - Finger completed Carolee De Leon PA-C [address], [place], [address], [place] [facility] 08/06/2017 14:45:47 017 IUD Removal completed Rissa Morgan APRN [address], [place], [address], [place] [facility] 04/20/2017 15:36:01 017 IUD Removal completed Teresa Terry [place] [facility] 06/19/2017 13:23:09 015 IUD Insertion completed Teresa Mara [place] [facility] 03/15/2017 13:13:26 013 Colposcopy completed Teresa Zacariass [place] - [facility] 03/15/2017 13:15:53 013 Colposcopy completed Teresa Zacariass [place] - [facility] 03/15/2017 13:16:23 Tonsillectomy completed Zita Higuera [place] - [facility] 11/14/2021 08:36:51 cystoscopy completed Teresa Zacariass [place] [facility] 01/15/2023 15:47:26 Ear Tubes - Tympanostomy Tubes completed Deepika [place] - [facility] 01/02/2017 11:54:55 Remove tonsils and adenoids completed Deepika [place] - [facility] 01/02/2017 11:55:01 Unlisted px urinary system completed Teresa [place]manrus [place] - [facility] 03/15/2017 13:17:16 Imaging Results None recorded. Procedure Notes None recorded. Medical Equipment None Reported. Allergies Allergen ID Allergen Name Allergen Category Reaction Reaction Severity Criticality Documentation Date Start Date Code Code System Note Provider Name and Address Organization Details Recorded Time 157642 Adhesive agent (substanc e) environme nt,medica tion Not available Not available Not available 08/03/20252023 05623 0007 SNOMED Not Available cheli - External Data Service - prod 07:51:25 04100 Product containin g penicilli n (product) medicatio n Not available Not available Not available 06/23/20162007 54652 8001 SNOMED React ion: unsur e; Comme nt: pcn; Not Available [facility] 6 09:04:57 54727 Substance with sulfonami de structure and antibacte rial mechanism of action (substanc e) medicatio n Not available Not available Not available 06/23/20162007 58563 8003 SNOMED React ion: unsur e; Comme nt: Sulfo namid es; Not Available [facility] 6 09:04:57 64137 Cephalosp vi (substanc e) medicatio n rash Not available Not available 06/23/20162009 92040 7003 SNOMED React ion: rash; Not Available [facility] 6 09:28:10 Medications Name Sig Start Date Stop Date Status Note LastModified by Organization Details LastModified Time Allergy serum (from health editor ) injectio n(repeat same dose as before 2022 active Not Available Not Available Not Avai lable CANKER SORE ADHESIVE POWDER use as directed 02/16 completed Not Available Not Available Not Available Allergy serum (from health editor ) injectio n 2023 active Mix 1 Not Available Not Available Not Avai lable Allergy serum (from health editor ) injectio n 2022 active Not Available Not Available Not Avai lable Allergy serum (from health editor ) injectio n 2023 active Patient presente d with allergy serum. Not Available Not Available Not Available Magic Mouthwash (lido/meghan /maa) 10mL swish and spit every 4 hours PRN sore throat 01/03 completed Not Available Not Available Not Available Allergy serum (from health editor ) injectio n( repeat same dose as before 2022 active Not Available Not Available Not Avai lable Allergy serum (from health editor ) injectio n 2022 active Not Available Not Available Not Avai lable Allergy serum (from health editor ) inject 0.3ml 01/21 completed Not Available Not Available Not Available Magic Mouthwash (lido/meghan /maa) 10mL gargle and spit every 4 hours PRN sore throat 2021 active Not Available Not Available Not Avai lable Allergy serum (from health editor ) Mix 3 2023 active Mix 3 Not Available Not Available Not Avai lable Allergy serum (from health editor ) inject 0.25ml 2023 active Not Available Not Available Not Avai lable Allergy serum (from health editor ) injectio n 2023 active Not Available Not Available Not Avai lable Allergy serum (from health editor ) Mixture #3 q wk 2023 active Not Available Not Available Not Avai lable Allergy serum (from health editor ) SQ every week 2023 active Not Available Not Available Not Avai lable Allergy serum (from health editor ) mixture #2 q wk 2023 active Not Available Not Available Not Avai lable Allergy serum (from health editor ) inject 0.3ml 2024 active Not Available Not Available Not Avai lable Allergy serum (from health editor ) Weekly injectio ns 2023 active Mix 2 Not Available Not Available Not Avai lable Allergy serum (from health editor ) Inject ).25ml SQ from red top vial Cat, mite, W 2022 active Not Available Not Available Not Avai lable Allergy serum (from health editor ) injectio n( repeated same dose as before 2022 active Not Available Not Available Not Avai lable Allergy serum (from health editor ) inject 0.3ml 2024 active Not Available Not Available Not Avai lable Allergy serum (from health editor ) Mixture #3 q wk 2023 active Not Available Not Available Not Avai lable Allergy serum (from health editor ) inject 0.25ml RASQ from red vial Mold 2022 active Not Available Not Available Not Avai lable semagluti de 1mg/1ml injectabl e Inject 0.25mL (0.25mg= 25 units) subcutan eously once weekly for four (4) weeks. 07/18 completed Not Available Not Available Not Available Allergy serum (from health editor ) 0.25ml 2023 active Not Available Not Available Not Avai lable Allergy serum (from health editor ) inject 0.25ml 2023 active Not Available Not Available Not Avai lable Allergy serum (from health editor ) injectio n 2022 active Not Available Not Available Not Avai lable Allergy serum (from health editor ) injectio n 2023 active Not Available Not Available Not Avai lable semagluti de methylcob alamin 4mg 1mg/1ml injectabl e Inject 0.25mL (1mg=25 units) subcutan eously once weekly for four (4) weeks 01/27 completed Not Available Not Available Not Available Prescript ion - Prior Authoriza tion Request active Not Available Not Available Not Available Allergy serum (from health editor ) SQ every week 2023 active Mix 2 Not Available Not Available Not Avai lable Allergy serum (from health editor ) injectio n 2023 active Not Available Not Available Not Avai lable Allergy serum (from health editor ) Mixture #3 q wk 2023 active Not Available Not Available Not Avai lable Allergy serum (from health editor ) Inject 0.25ml SQ from red top [...] Disconti nued on: 01/10/20 14 1:14PM;U ser: [email or web address] ;Est. Crooksi on: 09/26/19 14;Print ed: 09/23/19 14 Not Available Not Available Not Available Pyridium 200 mg tablet take 1 tablet (200 mg) by oral route 3 times per day after meals 07/25 completed Pyridium 200 mg oral tablet;R ecorded Status: Recorded on: 07/05/20 11 6:37PM;D iscontin ued Status: Disconti nued on: 07/25/20 11 3:23PM;U ser: [email or web address] ;Printed : 07/05/20 11 Not Available Not [...] Disconti nued on: 12/20/19 13 8:56AM;U ser: vineet [place] d: 05/01/20 12 Not Available Not Available [...] Disconti nued on: 09/23/19 14 3:39PM;U ser: ne; Est. 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 12/29 completed Not [...] (65 mg iron) oral tablet,d elayed release (DR/EC); Recorded Status: Recorded on: 07/03/20 13 9:31AM;D iscontin ued Status: Disconti nued on: 09/23/19 14 3:39PM;U ser: hogger;E st. Completi on: 10/01/19 14;Print ed: 07/03/20 13 [...] Disconti nued on: 11/06/19 13 10:50AM; User: [email or web address] Not Available Not Available Not Available doxycycli [...] ndicatio n: Iron Deficien cy Anemia - () Not Available Not Available Not Available Mononessa (28) 0.25 mg-35 mcg tablet TAKE ONE (1) TABLET BY MOUTH ONCE DAILY 03/28 completed Not Available Not Available Not Available oxymetazo line 0.05 % nasal spray Mineral 2 sprays twice a day by intranas [...] mL 31 gauge x /16 USE DIRECTED active Not Available Not Available [...] Disconti nued on: 04/13/20 10 10:38AM; User: [email or web address] Not Available Not Available Not Available Loestrin [...] Disconti nued on: 12/02/19 11 10:01AM; User: [email or web address];Es t. Completi on: 06/15/20 10 Not Available Not [...] ser: himese;I ndicatio n: Cold Symptoms - (08.4600 00);Prin malia: 03/07/20 11 Not Available Not [...] Disconti nued on: 09/23/19 14 3:39PM;U ser: kunal SantoEstMichelle Crooksi on: 10/15/19 14;Print ed: 12/20/19 13 Not [...] oral route as needed. 07/17 completed L [id number] Not Available Not Available Not Available [...] mass index (BMI) Body weight Body temperature Heart rate Oxygen saturation Respiratory rate Pain severity - 0-10 verbal numeric rating [Score] - Reported Systolic And Diastolic Provider Name and Address Organization Details Last Updated DateTime 154.94 cm 37.8 kg/m2 09848.1 7 g 98.5 [degF] 96 /min 97 % 18 /min 1 134/90 mm[Hg] Nancy Torres [place] - [facility] 10/31/202 5 13:04:46 Social History Question Answer Notes LastModified by Organization Details LastModified Time Tobacco Smoking Status Never Smoker Deepika Santiago [facility], [place] [facility] 01/02/2017 11:54:14 Do You Have An Advance Directive? No [email or web address] Information not available 01/28/2018 Are You Blind Or Do You Have Difficulty Seeing? No [email or web address] Information not available 03/08/2023 Is Blood Transfusion Acceptable In An Emergency? Yes [email or web address] Information not available 01/28/2018 What Is Your Level Of Caffeine Consumption? Occasional Information not available 01/24/2017 How Much Tobacco Do You Chew? None Information not available 01/02/2017 In The 14 Days Before Symptom Onset, Have You Had Close Contact With A Laboratory-conf irmed COVID-19 While That Case Was Ill? No [email or web address] Information not available 03/08/2023 In The 14 Days Before Symptom Onset, Have You Had Close Contact With A Person Who Is Under Investigation For COVID-19 While That Person Was Ill? No [email or web address] Information not available 03/08/2023 Have You Been To An Area Known To Be High Risk For COVID-19? No [email or web address] Information not available 03/08/2023 Are You Deaf Or Do You Have Serious Difficulty Hearing? No [email or web address] Information not available 01/28/2018 What Type Of Diet Are You Following? [email or web address] Information not available 11/14/2021 Which Illicit Or Recreational Drugs Have You Used? N/A Information not available 11/14/2021 Have You Processed Blood Or Body Fluids From An Ebola Virus Disease Patient Without Appropriate PPE? No [email or web address] Information not available 03/08/2023 Do You Reside In Or Have You Traveled To An Area Where Ebola Virus Transmission Is Active? No [email or web address] Information not available 03/08/2023 What Is The Highest Grade Or Level Of School You Have Completed Or The Highest Degree You Have Received? [id number] Information not available 11/14/2021 How Many Days Of Moderate To Strenuous Exercise, Like A Brisk Walk, Did You Do In The Last 7 Days? 3 [email or web address] Information not available 03/08/2023 On Those Days That You Engage In Moderate To Strenuous Exercise, How Many Minutes, On Average, Do You Exercise? 45 [email or web address] Information not available 03/08/2023 Have There Been Any Changes To Your Family Or Social Situation? No [email or web address] Information not available 03/08/2023 How Hard Is It For You To Pay For The Very Basics Like Food, Housing, Medical Care, And Heating? Not Very Hard Information not available 03/08/2023 What Is The Fluoride Status Of Your Home? Fluoridated Information not available 03/08/2023 Have You Recently Or Are You Planning To Travel To An Area With Zika Virus? No [email or web address] Information not available 03/08/2023 Live Alone Or With Others? With Others Information not available 03/08/2023 Do You Have A Medical Power Of Supervisor Game Farm? No [email or web address] Information not available 03/08/2023 What Was The Date Of Your Most Recent Tobacco Screening? 07/17/2025 Information not available 07/17/2025 How Many Children Do You Have? 3 [email or web address] Information not available 04/25/2024 Performs Monthly Self-breast Exam? Yes [email or web address] Information not available 03/08/2023 Do You Use Protection During Sex? No [email or web address] Information not available 03/08/2023 Do You Use Protection Against STDs? No [email or web address] Information not available 01/24/2023 What Is Your [...] Are You Passively Exposed To Smoke? No Information not available 07/19/2021 How Much Tobacco Do You Smoke? No [email or web address] Information not available 03/08/2023 General Stress Level Medium [email or web address] Information not available 03/08/2023 Do You Use Sunscreen Routinely? Yes [email or web address] Information not available 03/08/2023 Has Tobacco Cessation Counseling Been Provided? No [email or web address] Information not available 12/17/2023 On What Date Was Tobacco Cessation Counseling Provided? 06/18/2025 [email or web address] Answered No To The Tobacco Cessation Counseling Provided Question On 01/28/2018. [email or web address] Information not available 06/18/2025 How Many Years Have You Smoked Tobacco? 0 [email or web address] Information not available 02/16/2023 Do You Have Difficulty Walking Or Climbing Stairs? No [email or web address] Information not available 03/08/2023 What Contraceptive Method Was Reported At End Of This Visit? None Hysterectomy [email or web address] Information not available 03/08/2023 Do You Want To Talk About Contraception Or Prevention During Your Visit Today? No - I Do Not Want To Talk About Contraception Today Because I Am Here For Something Else [email or web address] Information not available 03/08/2023 How Was The Contraceptive Method Provided? Provided On Site [email or web address] Information not available 03/08/2023 Do You Have Any Future Plans To Get ? No, I Don't Want To Become Information not available 03/08/2023 Sex: Female Functional Status Question Answer Note LastModified by Organizat ion Details LastModified Time Do you or have you ever used smokeless tobacco? Never used smokeless tobacco [email or web address] Information not available 02/20/2020 Are you currently employed? No [email or web address] Information not available 03/16/2025 Do you have transportation difficulties? No [email or web address] Information not available 03/08/2023 Are you able to care for yourself independently? Yes [email or web address] Information not available 02/10/2021 Do you have difficulty dressing, bathing, grooming, or toileting? No [email or web address] Information not available 03/08/2023 Do you or have you ever used e-cigarettes or vape? Never used electronic cigarettes [email or web address] Information not available 02/20/2020 What is your exercise level? Occasional Information not available 11/14/2021 Do you use any illicit or recreational drugs? No [email or web address] Information not available 03/08/2023 Do you or have you ever used any other forms of tobacco or nicotine? No [email or web address] Information not available 03/08/2023 What is your level of alcohol consumption? Occasional [email or web address] Information not available 02/03/2021 What is your status? Not [email or web address] Information no t available 03/08/2023 Are you able to walk independently without assistance or assistive devices? [email or web address] Information not available 03/08/2023 Do you have difficulty doing errands alone? No [email or web address] Information not available 03/08/2023 Mental Status Question Answer Note LastModified by Organizat ion Details LastModified Time Do you feel stressed (tense, restless, nervous, or anxious, or unable to sleep at night)? [id number] [email or web address] Information not available 03/08/2023 Do you have difficulty concentrating, remembering or making decisions? No Information no t available 03/08/2023 Family History Relationship Description Onset Age of this Age Resolved Age Notes LastModified by Organization Details LastModified Time Father Cerebrovascu lar accident [email or web address] Not available 16:01:06 Father Hypertensive disorder [email or web address] Not available 2023 09:15:40 Mother Type 2 diabetes mellitus [email or web address] Not available 2024 09:41:42 Mother Hypertensive disorder [email or web address] Not available 2021 09:19:20 Mother Diabetes mellitus [email or web address] Not available 2022 09:30:13 Mother Osteoporosis Not avai lable 03/13/2024 09:57:00 Maternal Grandfather Family history of malignant neoplasm skin cancer [email or web address] Not available 06/18/2025 09:41:42 Maternal Grandmother Type 2 diabetes mellitus [email or web address] Not available 2024 09:41:42 Maternal Grandmother Diabetes mellitus [email or web address] Not available 2023 09:15:40 Maternal Grandmother Osteoporosis [email or web address] Not available 03/13/2024 09:57:00 Paternal Grandmother Malignant neoplasm of lung [email or web address] Not available 2022 08:45:36 Maternal Aunt Diabetes mellitus [email or web address] Not available 2023 09:15:40 Medical History Condition [...] colitis N Cerebrovascular Disease N Depression N Guillain-[place] N Sleep Apnea N Aneurysm N Heart [...] completed Adela Coello APRN [address], [place], [address], [place] [facility] 10/22/2024 22:28:24 OPV, trivalent 6 completed Adela Coello APRN [address], [place], [address], [place] [facility] 10/22/2024 22:28:24 Influenza, split virus, trivalent, preservative 3 completed Adela Coello APRN [address], [place], [address], [place] [facility] 10/22/2024 22:28:24 Influenza, split virus, trivalent, PF 3 completed Adela Coello APRN [address], [place], [address], [place] [facility] 10/22/2024 22:28:24 Influenza, split virus, trivalent, PF 2 completed Adela Coello APRN [address], [place], [address], [place] [facility] 10/22/2024 22:28:24 Td (adult), 2 Lf tetanus toxoid, preservative free, adsorbed 3 completed Adela Coello APRN [address], [place], [address], [place] [facility] 10/22/2024 22:28:24 Hep B, adolescent or pediatric 7 completed Adela Coello APRN [address], [place], [address], [place] [facility] 10/22/2024 22:28:24 Hep B, adolescent or pediatric 6 completed Adela Coello APRN [address], [place], [address], [place] [facility] 10/22/2024 22:28:24 Hep B, adolescent or pediatric 6 completed Adela Coello, [employer] [address], [place], [address], [place] [facility] 10/22/2024 22:28:24 DTaP, unspecified formulation 6 completed Adela Coello, [employer] [address], [place], [address], [place] [facility] 10/22/2024 22:28:24 COVID-19, mRNA, LNP-S, PF, 100 mcg/0.5mL dose or 50 mcg/0.25mL dose 1 completed Ashlie adair, [place] - [facility] 05/05/2021 19:00:06 influenza, unspecified formulation 2 completed Adela Coello APRN [address], [place], [address], [place] [facility] 10/22/2024 22:28:24 influenza, unspecified formulation 3 completed Adela Coello APRN [address], [place], [address], [place] [facility] 10/22/2024 22:28:24 Tdap 3 completed Not Available [facility] 10/16/2023 08:10:39 HPV, unspecified formulation 0 completed Not Available [facility] 10/16/2023 08:10:39 HPV, unspecified formulation 0 completed Not Available [facility] 10/16/2023 08:10:39 HPV, unspecified formulation 1 completed Not Available [facility] 10/16/2023 08:10:39 COVID-19, mRNA, LNP-S, PF, 100 mcg/0.5mL dose or 50 mcg/0.25mL dose 1 completed Caryn adair, [place] - [facility] 03/08/2023 08:35:30 Past Encounters Encounter ID Performer Location Encounter Start Date Encounter Closed Date Diagnosis/Indication Diagnosis SNOMED-CT Code Diagnosis ICD10 Code Diagnosis IMO Codes Diagnosis Note [id number] Alyson Ceja APRN [facility] [address] [place] [address] 06/18/2025 09:41:38 06/18/2025 10:24:51 Seborrheic dermatitis of scalp 185416640 L21.9 176489 Discussed alternatin g her Ketoconazo le shampoo with t-gel and selsun blue shampoo. Body mass index 30+ - obesity 133214872 Z68.38 [id number] Julieta Ceja APRN [facility] [address] [place] [address] 07/17/2025 12:57:04 07/17/2025 13:46:31 Migraine without aura, not refractory 819341579 G43.434 9185030 Vitamin D deficiency 347 11977 R53.83 Health Concerns Section Related Observation LastModified by Organization Detai ls LastModified Time None Recorded Concern Status LastModified by Organization Details LastModified Time None Recorded Payers Encounter Date Sequence Insurance Name Policy Number Policy Castañeda Covered Member ID Castañeda Member ID Guarantor Name 07/17/2025 2 [employer] [id number] Lon Cornell [id number] Keira Kanchan Cornell 07/17/2025 1 [place] [id number] Keira Cornell [id number] Keira Cornell Notes Date Note Type Note Provider Name and Address Organization Details Recorded Time 07/17/2025 text/html ROS as noted in the HPI Keira presents to the office today with c/o of the weekend of the she had a migraine that went away with medication and then came bk the next day. States the same thing happened the following weekend. Pt states that the medication is not helping.Patient is over18 years old, does have a diagnosis of episodic or chronic migraine with at least 4 migraine days per month. Unrelieved by previous treatment-failed topamax, triptans, ubrelvy, amitripyline. CTA performed returns for review on 07/27 Goes to sleep & pulm on Sunday Julieta Ceja APRN [address], [place], [address], [place] [facility] 07/17/2025 21:33:43 OBGyn Episode No OBEpisode recorded.
--- OUTSIDE RECORDS SUMMARY | 2025-08-07 09:37 | XMS_ITS | Data Portability ---
Author Organization [facility] [place] [facility]low [place] CLOSED Address [address] [place] [address] Care Team Providers Care Sludge Filtration Attendant Name Role Phone NEIL ARRIOLA Primary Care Provider [phone] Assessment No assessment recorded. Plan of Treatment Reminders Order Date Submit Date Provider Last Modified By Organization Details Last Modified Time Details Appointments None record ed. Lab None record ed. Referral None record ed. Procedures None record ed. Surgeries None record ed. Imaging None record ed. Medication Orders None record ed. Patient TargetsNo targets recorded. Patient Instructions Encounter Date Encounter Id Patient Instructions Last Modified By Organization Details Last Modified Time 04/16/2020 [id number] MRI lumbar spine CD-ROM: Mild degenerative changes. Disc bulge present at L4-5. Unremarkable with regards to any neurocompression Spent 45 total minutes with the patient today. Greater than 50% of this time was spent counseling/coordinat ion of care as documented in my assessment and plan above. [email or web address] Not available 04/16/2020 10:17:57 Reason for Referral None Reported. Results Created Date Observation Date Name Description Value Unit Range Abnormal Flag Note LastModifiedBy Organization Detail LastModifiedTime 04/19/20 20 02/06/2020 MRI, lumba r spine , w/o contr ast No observ ation record ed. BARCODE Not Available 2019 08:38:58 Result Notes None recorded. Procedures Surgical History Date Name Laterality Status Provider Name and Address Organization Details Recorded Time tonsillectomy and adenoidectomy completed [facility] 04/16/2020 09:44:05 ganglionectomy of nerve completed [facility] 04/16/2020 09:44:19 Imaging Results None recorded. Procedure Notes None recorded. Medical Equipment None Reported. Allergies Allergen ID Allergen Name Allergen Category Reaction Reaction Severity Criticality Documentation Date Start Date Code Code System Note Provider Name and Address Organization Details Recorded Time 866516 Product containin g penicilli n (product) medicatio n Not available Not available Not available 04/16/2020 21785 [facility] Pau Cerda [facility] 0 09:45:04 813397 Substance with sulfonami de structure and antibacte rial mechanism of action (substanc e) medicatio n Not available Not available Not available 04/16/2020 32873 [facility] Pau Cerda [facility] 0 09:45:10 945585 Cephalosp vi (substanc e) medicatio n Not available Not available Not available 04/16/2020 525[facility] 0 09:45:21 Medications Name Sig Start Date Stop Date Status Note LastModified by Organization Details LastModified Time cyclobenzap rine 10 mg tablet Take 1 tablet every 8 hours by oral route. 2019 active Not Available Not Available Not Avai lable promethazin e-DM 6.25 mg-15 mg/5 mL oral syrup 04/16 completed Not Available Not Available Not Available azithromyci n 250 mg tablet 04/16 completed Not Available Not Available Not Available valacyclovi r 1 gram tablet 04/16 completed Not Available Not Available Not Available meloxicam 15 mg tablet 04/16 completed Not Available Not Available Not Available Celebrex 100 mg capsule Take 1 capsule twice a day by oral route. 2019 active Not Available Not Available Not Avai lable oseltamivir 75 mg capsule 04/16 completed Not Available Not Available Not Available diclofenac potassium 50 mg tablet 04/16 completed Not Available Not Available Not Available oxybutynin chloride ER 5 mg tablet,exte nded release 24 hr active Not Available Not Available Not Available methylpredn isolone 4 mg tablets in a dose pack 04/16 completed Not Available Not Available Not Available Protonix active Not Available Not Avai lable Not Available Voltaren 1 % topical gel APPLY 2 GRAMS TO THE AFFECTED AREA(S) BY TOPICAL ROUTE 4 TIMES PER DAY 2019 active Not Available Not Available Not Avai lable Vitals Date Recorded Body height Body mass index (BMI) Body weight Systolic And Diastolic Provider Name and Address Organization Details Last Updated DateTime 04/16/2020 149.86 cm 38 kg/m2 00260.37 g 120/80 mm[Hg] Pau Cerda [facility] 04/16/2020 09:46:25 Social History None recorded. Functional Status None recorded. Mental Status None recorded. Family History Relationship Description Onset Age of this Age Resolved Age Notes LastModified by Organization Details LastModified Time Unspecified Relation Diabetes mellitus [email or web address] Not available 04/16 09:43:51 Unspecified Relation Hypertensive disorder [email or web address] Not available 04/16 09:43:56 Medical History No medical history recorded. Gynecological HistoryNo gynecological history recorded. Obstetrics History GPAL:G 0 P 0 0 0 0 Past Encounters Encounter ID Performer Location Encounter Start Date Encounter Closed Date Diagnosis/Indication Diagnosis SNOMED-CT Code Diagnosis ICD10 Code Diagnosis IMO Codes Diagnosis Note [id number] MARTHA CONTRERAS MD [facility] [address] [place] [address] 04/16/2020 09:28:02 04/16/2020 10:20:18 Lumbosacral spondylosis without myelopathy [id number] M47.817 -Patient presents for evaluation of her low back issues. Present for the last 2 years. Worse with standing for long periods of time. 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 MRI of lumbar spine was reviewed with the patient. She has mild degenerati ve changes but no significan t central or foraminal stenosis. We reviewed the results of the MRI. Talked about treatment options. I do not see any surgical pathology at this time. Encouraged the patient to pursue further conservati ve measures. Trial of anti-infla mmatory gel, Flexeril, Celebrex. We will see her as needed in the future. We will be happy to make a pain management appointmen t if she wishes to consider injections in the future as well Health Concerns Section Related Observation LastModified by Organization Sarah singh LastModified Time None Recorded Concern Status LastModified by Organization Details LastModified Time None Recorded Advance Directives Directive None Recorded Payers Insurance Date Sequence Insurance Name Policy Number Policy Castañeda Covered Member ID Castañeda Member ID Guarantor Name 04/21/2020 Telly MANN [id number] Keira Cornell [id number] Keira Cornell Notes Date Note Type Note Provider Name and Address Organization Details Recorded Time 04/16/2020 text/html ROS as noted in the HPI The patient was seen for evaluation of her low back pain. She lives in [place], [place]. Presents for evaluation of her low back pain. Present for the last 2 years. Referred pain across the low back occasionally into the buttocks. Episodes 3 4 times a week. Worse with standing for long periods of time. Intensity 6 7 . Description, shooting pain. He comes and goes. Once the pain starts, no identify alleviating factors. She has attempted physical therapy chiropractor without sustained relief. She takes [id number] Tylenol and ibuprofen as needed. Occasional numbness and tingling. No weakness. No bowel or bladder issues reported. She did go to a pain management clinic in [place] but did not enjoy the atmosphere and therefore did not proceed with any further treatment. MARTHA CONTRERAS MD [address] [place], [address], [facility] 04/16/2020 10:19:55 OBGyn Episode No OBEpisode recorded.
--- OUTSIDE RECORDS SUMMARY | 2025-08-07 09:37 | XMS_ITS | Clinical Summary ---
Author Organization [facility] Address [address] [place] [address] Care Team Providers Care Slubber Runner Name Role Phone Carolynn Rose CARR Primary Care Provider [phone] Source Comments This information has been disclosed [...] therelease of HIV test results or diagnoses. [id number] Allergies Active Allergy Reactions Criticality [...] Comments Diabetes Screening 1991 Hepatitis C Screening ([facility]) 1991 HIV Screening 11/17/2009 Cervical Cancer Screening/Pa p Smear ([facility]) 11/17/2021 Immunization: DTaP/Tdap/Td ( 4 - Td or Tdap) 07/03/2023 07/03/2013, 12/15/2002, 03/24/1996 Depression Screening 03/10/2025 03/10/2024 Immunization: COVID-19 ( season) 2025 05/05/2021, 11/16/2020 Immunization: Influenza ([facility]) (#1) 2025 06/06/2013, 07/01/2012 Immunization: Hepatitis B Completed 1996, 05/05/1996, 03/24/1996 Immunization: Pneumococcal Aged Out N o longer eligible based on patient's age to complete this topic Insurance BLUE [facility] Care Teams Slubber Runner Relationship Specialty Start Date End Date Rose Pradhan APRN [address] [place] [address] [place] [address] PCP - General Family Medicine 03/09/24
--- OUTSIDE RECORDS SUMMARY | 2025-08-07 09:37 | XMS_ITS | Data Portability ---
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 [id number] : 1990 Age: 33 Sex: F Acct: [id number] Loc: UNK PHONE #: Exam Date: 12/26/2023 Status: UNK FAX #: Rad# [id number] Unit# [id number] Admit Date: EXAMS: CPT CODE: [id number] NM HEPATOBILIARY W/EF 08266 CLINICAL INFORMATION: Right upper quadrant abdominal pain DOSAGE: Technetium Choletec 5.0 mCi IV COMPARISONS: There are no relevant anatomic examinations and/or corelative/comparison studies. FINDINGS: There is prompt homogenous hepatic uptake. Biliary tree and small bowel are both well visualized by 15 minutes. The gallbladder begins to fill at about 40 minutes postinjection. There is appropriate clearance of activity from the liver into the biliary tree and small bowel, over the initial 60 minutes of the examination. At 60 minutes post injection, the patient received sincalide 1.8 mcg by slow intravenous injection over 5 minutes. The gallbladder ejection fraction is abnormally low and calculated at 17%. The patient experienced right upper quadrant abdominal pain with the sincalide injection IMPRESSION: Findings are compatible with biliary dyskinesia. This report is generated using voice recognition computer software. Inadvertent errors may have occurred while dictating report. Common sense approach is appreciated and do not hesitate to call for clarification when necessary. at 1418 Reported and signed by: KOBE MCCULLOUGH M.D. CC: Rose Pradhan [employer] PIPE SUPERVISOR; Adela Coello [employer] PIPE SUPERVISOR Dictated Date/Time: 12/26/2023 (1418) Technologist: AILYN OBRIEN, [facility] Transcribed Date/Time: 12/26/2023 (1418) Stem Roller Or Crusher Operator: Electronic Signature Date/Time: 12/26/2023 (1418) Printed Date/Time: 08/03/2025 (0855) BATCH NO: N/A PAGE 1 Signed Report CC'ed Logic: Ordering Provider: OMDE Coello, [employer] SUPERVISOR [address], [place], [address], [place] [facility] 08/03/2025 12:09:10 Problems Name Problem SNOMED Code Status Onset Date Resolution Date Notes Provider Name and Address Organization Details Recorded Time Irritabl e bowel syndrome 76009930 Active lactose intolera nt Katie Angelo, [employer]PER[employer] [address], [place], [address], [place] [facility] 4 11:12:16 Polycyst ic ovaries Completed 01/15/2023 Teresa Mara null, [place] [facility] 3 15:34:53 Hyperins ulinism 30612261 Active Katie Angelo, [employer]PER[employer] [address], [place], [address], [place] [facility] 4 11:12:06 Asthma 154358769 Active Katie Petey [employer]PER[employer] [address], [place], [address], [place] [facility] 4 11:11:48 Chronic intersti tial cystitis 353231678 Active 2011 Katie Angelo, [employer] SUPER[employer] [address], [place], [address], [place] [facility] 4 11:11:53 Cyst of right ovary 6737304483 5369775 Completed 201801/15/2023 Teresa Mara [place] [facility] 3 15:35:05 Exposure to SARS-CoV -2 Completed 201901/15/2023 Teresa Mar[place] [facility] 3 15:34:31 COVID-19 006276417 Completed 201901/15/2023 Teresa Zacariass [place] [facility] 3 15:34:22 Migraine 59646293 Active 2020 Katie Angelo, [employer] SUPER[employer] [address], [place], [address], [place] [facility] 4 11:12:22 Mixed anxiety and depressi ve disorder 239907546 Active 2021 Katie Angelo, [employer] SUPER[employer]OR [address], [place], [address], [place] [facility] 4 11:12:24 Menorrha esteban 185506764 Completed 202101/15/2023 Teresa Zac[place]ass [place] [facility] 3 15:34:40 Irregula r intermen strual bleeding 32817569 Completed 202101/15/2023 Teresa Zacariass [place] [facility] 3 15:34:35 Uterine leiomyom a 23515908 Completed 202101/15/2023 Teresa [place]ac[place]ass [place] [facility] 3 15:34:59 Cellulit is of skin 192207889 Completed 202101/15/2023 Teresa [place]ac[place] [facility] 3 15:34:26 Depressi ve disorder 11952793 Active 2021 Katie Angelo, [employer] SUPERVISOR [address], [place], [address], [place] [facility] 4 11:11:54 Metaboli c syndrome X 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 Active 2022 Katie Angelo, [employer] SUPERVISOR [address], [place], [address], [place] [facility] 4 11:12:20 Body mass index 30+ - obesity 970338291 Active 2022 Adela Coello, [employer] SUPERVISOR [address], [place], [address], [place] [facility] 5 09:30:49 Obesity 965142596 Active 2022 Katie Angelo, [employer] SUPERVISOR [address], [place], [address], [place] [facility] 4 11:12:30 Fatigue 33652854 Active 2022 Katie Angelo, [employer] SUPERVISOR [address], [place], [address], [place] [facility] 4 11:12:02 Acute left otitis media 220840505 Completed 202201/15/2023 Adela Coello, [employer] SUPER[employer]OR [address], [place], [address], [place] [facility] 4 10:26:25 Conjunct ivitis 9854728 Completed 202201/15/2023 Teresa Mar[place] [facility] 3 15:35:08 Pain of ear 596844124 Completed 202201/15/2023 Teresa Mar[place] [facility] 3 15:34:46 Influenz a-like symptoms 276653149 Completed 202201/15/2023 Teresa [place] [facility] 3 15:34:37 Upper respirat ory infectio n 33041436 Completed 202201/15/2023 [place] [facility] 3 15:34:56 Pharyngi tis 584064271 Completed 202201/15/2023 Caryn Sand[place] [facility] 5 09:03:35 History of total hysterec nilay 326981913 Active 2022 Katie Angelo, [employer] SUPERVISOR [address], [place], [place], [address], [place] [facility] 4 11:12:04 Acne 67510281 Active 2022 Katie Angelo, [employer] SUPERVISOR [address], [place], [address], [place] [facility] 4 11:11:42 Pain of breast 65673337 Completed 202212/10/2023 bilat US-benig n lymph node left breast Katie Angelo, [employer] SUPERVISOR [address], [place], [address], [place] [facility] 4 11:12:37 Prediabe gustavo 178333302 Active 2022 Julieta Ceja, [employer] SUPERVISOR [address], [place], [address], [place] [facility] 5 15:58:37 Acute upper respirat ory infectio n 61247771 Completed 202209/03/2023 Caryn adair, [place] [facility] 5 09:03:45 Insect bite - wound 274010444 Completed 202212/10/2023 Katie Angelo, [employer] SUPER[employer]OR [address], [place], [address], [place] [facility] 4 11:12:13 Pharyngi tis 894299138 Completed 202212/10/2023 Caryn Sand[place] [facility] 5 09:03:35 Labial cyst 728265830 Completed 202212/10/2023 Katie Angelo, [employer] SUPERVISOR [address], [place], [address], [place] [facility] 4 11:12:18 Overacti ve urinary bladder 527607985 Active 2022 Katie Angelo, [employer] PIPE SUPERVISOR [address], [place], [address], [place] [facility] 4 11:12:32 Anxiety 61560659 Active 2022 Katie Angelo, [employer] PIPE SUPERVISOR [address], [place], [address], [place] [facility] 4 11:11:47 Acute left otitis media 533544282 Completed 202312/10/2023 Adela Coello, [employer] SUPERVISOR [address], [place], [address], [place] [facility] 4 10:26:25 Hyperten sive disorder 68760846 Active 2023 Julietakatalina Ceja APRN [address], [place], [address], [place] [facility] 5 13:13:22 Right upper quadrant pain 817236457 Completed 202302/20/2024 Adela Coello APRN [address], [place], [address], [place] [facility] 4 10:53:19 Nausea 848813795 Completed 202312/10/2023 Katie Angelo APRN [address], [place], [address], [place] [facility] 4 11:12:27 Pain radiatin g to right side of chest 372035083 Completed 202303/16/2025 Caryn Kin [place]air[place] [facility] 5 09:01:52 Diarrhea 94895093 Completed 202312/10/2023 Julieta Ceja APRN [address], [place], [address], [place] [facility] 4 10:41:09 Steatoti c liver disease 747150053 Active 2023 Katie Angelo APRN [address], [place], [address], [place] [facility] 4 11:12:51 Unintent ional weight gain 1533259735 34457 Active 2023 Katie Angelo APRN [address], [place], [address], [place] [facility] 4 11:12:54 Acute pharyngi tis 926461681 Completed 202303/13/2024 Adela Coello APRN [address], [place], [address], [place] [facility] 4 10:26:30 Otitis externa 8194058 Active 2023 Tia Larsen MD [address], [place], [address], [place] [facility] 4 09:34:50 Cough 82781656 Completed 202303/13/2024 Julietamagy Ceja, [employer] SUPERVISOR [address], [place], [address], [place] [facility] 4 11:13:09 Malaise and fatigue 111713063 Active 2023 Johnny Fletcher, [employer] SUPERVISOR [address], [place], [address], [place] [facility] 4 08:09:42 Acute otitis externa of right ear 5306931956 629233 Completed 202303/13/2024 Adela Coello, [employer] PIPE SUPERVISOR [address], [place], [address], [place] [facility] 4 10:26:27 Acute sinusiti s 81448376 Completed 202303/13/2024 Adela Coello, [employer] PIPE SUPERVISOR [address], [place], [address], [place] [facility] 4 10:26:36 Acute bronchit is 86804937 Completed 202303/13/2024 Adela Coello, [employer] PIPE SUPERVISOR [address], [place], [address], [place] [facility] 4 10:26:21 Biliary dyskines ia 000672276 Active 2023 Adela Coello, [employer] PIPE SUPERVISOR [address], [place], [address], [place] [facility] 4 08:56:27 Acute left otitis media 459768625 Completed 202303/13/2024 Adela Coello, [employer] PIPE SUPERVISOR [address], [place], [address], [place] [facility] 4 10:26:25 Vitamin D deficien cy 01933742 Active 2023 Rose Pradhan, [employer] P[employer] SUPERVISOR [address], [place], [address], [place] [facility] 4 09:00:18 History of cholecys tectomy 474974372 Active 2023 Katie Angelo, [employer] PIPE SUPERVISOR [address], [place], [address], [place] [facility] 4 13:28:28 Non-terry pausal hot flash 9398593249 37295 Active 2023 Adela Mode, [employer] SUPERVISOR [address], [place], [address], [place] [facility] 4 10:51:47 Chest wall pain 238721358 Active 2023 Johnny Fletcher [employer] PIPE SUPERVISOR [address], [place], [address], [place] [facility] 4 08:31:23 Chest pain 46032362 Active 2023 Johnny Ndiayeing, [employer] PIPE SUPERVISOR [address], [place], [address], [place] [facility] 4 10:34:37 Localize d eruption of skin 438642989 Active 2023 Adela Mode, [employer] SUPERVISOR [address], [place], [address], [place] [facility] 4 13:38:51 Middle ear effusion 3059205540 Completed 202303/16/2025 Caryn Sanderson [facility], [place] - [facility] 5 09:02:21 Gastroes ophageal reflux disease without esophagi tis 881340903 Active 2023 Rose Pradhan APRN [address], [place], [address], [place] [facility] 4 12:08:17 Allergic rhinitis 07239160 Active 2023 Rose Pradhan APRN [address], [place], [address], [place] [facility] 4 13:25:43 Diarrhea 85929297 Active 2023 Juileta Ceja APRN [address], [place], [address], [place] [facility] 4 10:41:09 Nausea and vomiting 64936785 Active 2023 Julieta Ceja APRN [address], [place], [address], [place] [facility] 4 10:44:14 Acute bilatera l otitis media 547997664 Completed 202303/16/2025 Caryn [place] [facility] 5 09:02:46 Pharyngi tis 190503593 Completed 202303/16/2025 Caryn [place] [facility] 5 09:03:35 Candidia sis of vagina 07394981 Completed 202303/16/2025 Caryn [place] [facility] 5 09:01:26 Cough 48154535 Active 2023 Julieta Ceja, [employer] PIPE SUPERVISOR [address], [place], [address], [place] [facility] 4 11:13:09 Pain in finger of right hand 5210481614 30370 Active 2023 Julieta Ceja, [employer] PIPE SUPERVISOR [address], [place], [address], [place] [facility] 4 14:42:47 Sleep pattern disturba nce 33095032 Active 2023 Julieta Ceja, [employer] P[employer] SUPERVISOR [address], [place], [address], [place] [facility] 4 10:03:11 Narcolep sy 70542947 Active 2023 Julieta Ceja, [employer] PIPE SUPERVISOR [address], [place], [address], [place] [facility] 5 08:37:16 Pain of left knee joint 7390667014 94019 Active 2024 Julieta Ceja, [employer] PIPE SUPERVISOR [address], [place], [address], [place] [facility] 5 09:18:32 Acute lower respirat ory tract infectio n 925966758 Active 2024 Julieta Ceja, [employer]BE[employer] PIPE SUPERVISOR [address], [place], [address], [place] [facility] 5 14:31:38 Acute upper respirat ory infectio n 46350739 Completed 202403/16/2025 Caryn [place] [facility] 5 09:03:45 Urgent desire to urinate 78009802 Active 2024 Adela Coello, [employer] PIPE SUPERVISOR [address], [place], [address], [place] [facility] 5 16:47:50 Low back pain 399912005 Active 2024 Adela Coello, [employer] PIPE SUPERVISOR [address], [place], [address], [place] [facility] 5 16:47:52 Microsco pic hematuri a 457647125 Completed 202403/16/2025 Caryn [place] [facility] 5 09:01:11 Ear pressure sensatio n 854691858 Active 2024 Julieta Ceja APRN [address], [place], [address], [place] [facility] 5 13:22:18 Contact dermatit is 29181005 Active 2024 Julieta Ceja [employer] PIPE SUPERVISOR [address], [place], [address], [place] [facility] 15:32:34 Obstruct doreen sleep apnea syndrome 06306762 Active 2024 Julieta Ceja [employer] PIPE SUPERVISOR [address], [place], [address], [place] [facility] 5 14:08:48 Narcolep sy type 2 5984567542 9104 Active 2024 Julieta Ceja [employer] PIPE SUPERVISOR [address], [place], [address], [place] [facility] 5 11:27:05 Posterio r rhinorrh ea 42847809 Active 2024 Julieta Ceja [employer] PIPE SUPERVISOR [address], [place], [address], [place] [facility] 5 13:26:42 Feeling of lump in throat 328493217 Active 2024 Julieta Ceja [employer] PIPE SUPERVISOR [address], [place], [address], [place] [facility] 13:27:54 Infectio n of skin 366017861 Active 2024 Julieta Ceja, [employer] PIPE SUPERVISOR [address], [place], [address] [facility] 11:46:34 Mixed hyperlip idemia 054201816 Active 2024 Julieta Ceja, [employer] PIPE SUPERVISOR [address], [place], [address], [place] [facility] 16:04:32 Mild intermit tent asthma 883297632 Active 2024 Julieta Ceja, [employer] PIPE SUPERVISOR [address], [place], [address], [place] [facility] 13:10:40 Acute migraine 6048481469 07018 Active 2024 Julieta Ceja, [employer] PIPE SUPERVISOR [address], [place], [address], [place] [facility] 13:17:40 Migraine without aura, not refracto ry 168507659 Active 2024 Julieta Ceja, [employer] PIPE SUPERVISOR [address], [place], [address], [place] [facility] 13:23:19 Problem Notes None recorded. Procedures Surgical History Date Name Laterality Status Provider Name and Address Organization Details Recorded Time 025 OMT completed Mathew Arzate DO [address], [place], [address], [place] [facility] 12/15/2024 13:12:34 025 OMT completed Mathew Arzate DO [address], [place], [address], [place] [facility] 2024 10:21:49 024 Infusion Center completed Infusion Nurse [facility] [address], [place], [address], [place] [facility] 08/29/2024 08:17:32 024 Infusion Center completed Infusion Nurse [facility] [address], [place], [address], [place] [facility] 08/06/2024 08:00:28 024 Infusion Center completed Infusion Nurse [facility] [address], [place], [address], [place] [facility] 07/30/2024 11:38:15 024 Infusion Center completed Infusion Nurse [facility] [address], [place], [address] [facility] 07/23/2024 08:03:49 024 Infusion Center completed Infusion Nurse [facility] [address], [place], [address], [place] [facility] 07/16/2024 08:18:37 024 Cholecystectomy completed Katie Petey, [employer] PIPE SUPERVISOR [address], [place], [place], [address] [facility] 02/12/2024 13:28:14 024 Cholecystectomy, laparoscopic completed Caryn Sanderson [place] [facility] 03/13/2024 09:59:35 024 Ear Tubes - Tympanostomy Tubes completed Caryn [place]erson [place] [facility] 02/20/2024 10:20:35 024 Skin Tag Removal completed Ashley Lomeli, [employer] SUPERVISOR [address], [place], [address], [place] [facility] 11/27/2023 17:45:47 023 Dimethyl Sulfoxide (DMSO) completed Johana Krause MD [address], [place], [address], [place] [facility] 04/10/2023 12:36:40 023 Dimethyl Sulfoxide (DMSO) completed Julieta Webber, [employer] P[employer] SUPERVISOR [address], [place], [place], [address], [place] [facility] 03/27/2023 12:01:45 023 Dimethyl Sulfoxide (DMSO) completed Johana Krause MD [address], [place], [address], [place] [facility] 03/13/2023 08:52:24 023 Dimethyl Sulfoxide (DMSO) completed Johana Krause MD [address], [place], [address], [place] [facility] 02/27/2023 13:01:22 023 potassium sensitivity test- MOB completed Johana Krause MD [address], [place], [address], [place] [facility] 02/16/2023 21:17:46 023 Skin Tag Removal completed Shanna Ron [place] [facility] 09/20/2022 13:25:20 022 Hysterectomy, Total laparoscopic completed Priti Jean-Baptiste [place] [facility] 07/10/2022 10:57:59 022 Date of Last Pap Smear completed Anne Peña, [employer] SUPER[employer]OR [address], [place], [address], [place] [facility] 03/10/2022 11:52:50 021 cystoscopy completed Teresa Terry [place] [facility] 01/15/2023 15:47:53 020 Systolic B/P less than 130 mm Hg completed Ashlie Dennis [place] [facility] 10/21/2019 11:01:48 020 Diastolic B/P 80-89 mm Hg completed Ashlie Dennis [place] [facility] 10/21/2019 11:01:49 019 IUD Insertion (Mirena) completed Anne Castillomond, [employer] SUPERVISOR [address], [place], [address], [place] [facility] 02/28/2019 16:50:46 019 IUD Insertion completed Fern Cary [place] [facility] 02/28/2019 15:36:40 017 Appl. Splint - Finger completed Carolee De Leon PA-C [address], [place], [address], [place] [facility] 08/06/2017 14:45:47 017 IUD Removal completed Rissa Morgan, [employer] SUPER[employer] [address], [place], [address], [place] [facility] 04/20/2017 15:36:01 017 IUD Removal completed Teresa Terry [place] [facility] 06/19/2017 13:23:09 015 IUD Insertion completed Teresa Mara [place] [facility] 03/15/2017 13:13:26 013 Colposcopy completed Teresa Mara [place] [facility] 03/15/2017 13:15:53 013 Colposcopy completed Teresa GUO - [facility] 03/15/2017 13:16:23 Tonsillectomy completed Zita [...] Name and Address Organization Details Recorded Time 541341 Adhesive agent (substanc e) environme nt,medica tion Not available Not available Not available 08/03/20252023 27468 0007 SNOMED Not Available cheli - [employer] - prod 5 07:51:25 70838 Product containin g penicilli n (product) medicatio n Not available Not available Not available 06/23/20162007 34202 8001 SNOMED React ion: unsur e; Comme nt: pcn; Not Available [facility] 6 09:04:57 30691 Substance with sulfonami de structure and antibacte rial mechanism of action (substanc e) medicatio n Not available Not available Not available 06/23/20162007 46127 8003 SNOMED React ion: unsur e; Comme nt: Sulfo namid es; Not Available [facility] 6 09:04:57 77035 Cephalosp vi (substanc e) medicatio n rash Not available Not available 06/23/20162009 63078 7003 SNOMED React ion: rash; Not Available [facility] 6 09:28:10 Medications Name Sig Start Date Stop Date Status Note LastModified by Organization Details LastModified Time Allergy serum (from special [employer] ) injectio n(repeat same dose as before 2022 active Not Available Not Available Not Avai lable CANKER SORE ADHESIVE POWDER use as directed 02/16 completed Not Available Not Available Not Available Allergy serum (from [employer] ) injectio n 2023 active Mix 1 Not Available Not Available Not Avai lable Allergy serum (from [employer] ) injectio n 2022 active Not Available Not Available Not Avai lable Allergy serum (from [employer] ) injectio n 2023 active Patient presente d with allergy serum. Not Available Not Available Not Available Magic Mouthwash (lido/meghan /maa) 10mL swish and spit every 4 hours PRN sore throat 01/03 completed Not Available Not Available Not Available Allergy serum (from [employer] ) injectio n( repeat same dose as before 2022 active Not Available Not Available Not Avai lable Allergy serum (from [employer] ) injectio n 2022 active Not Available Not Available Not Avai lable Allergy serum (from [employer] ) inject 0.3ml 01/21 completed Not Available Not Available Not Available Magic Mouthwash (lido/meghan /maa) 10mL gargle and spit every 4 hours PRN sore throat 2021 active Not Available Not Available Not Avai lable Allergy serum (from [employer] ) Mix 3 2023 active Mix 3 Not Available Not Available Not Avai lable Allergy serum (from [employer] ) inject 0.25ml 2023 active Not Available Not Available Not Avai lable Allergy serum (from [employer] ) injectio n 2023 active Not Available Not Available Not Avai lable Allergy serum (from [employer] ) Mixture #3 q wk 2023 active Not Available Not Available Not Avai lable Allergy serum (from [employer] ) SQ every week 2023 active Not Available Not Available Not Avai lable Allergy serum (from [employer] ) mixture #2 q wk 2023 active Not Available Not Available Not Avai lable Allergy serum (from [employer] ) inject 0.3ml 2024 active Not Available Not Available Not Avai lable Allergy serum (from [employer] ) Weekly injectio ns 2023 active Mix 2 Not Available Not Available Not Avai lable Allergy serum (from [employer] ) Inject ).25ml SQ from red top vial Cat, mite, W 2022 active Not Available Not Available Not Avai lable Allergy serum (from [employer] ) injectio n( repeated same dose as before 2022 active Not Available Not Available Not Avai lable Allergy serum (from [employer] ) inject 0.3ml 2024 active Not Available Not Available Not Avai lable Allergy serum (from [employer] ) Mixture #3 q wk 2023 active Not Available Not Available Not Avai lable Allergy serum (from [employer] ) inject 0.25ml RASQ from red vial Mold 2022 active Not Available Not Available Not Avai lable semagluti de 1mg/1ml injectabl e Inject 0.25mL (0.25mg= 25 units) subcutan eously once weekly for four (4) weeks. 07/18 completed Not Available Not Available Not Available Allergy serum (from [employer] ) 0.25ml 2023 active Not Available Not Available Not Avai lable Allergy serum (from [employer] ) inject 0.25ml 2023 active Not Available Not Available Not Avai lable Allergy serum (from [employer] ) injectio n 2022 active Not Available Not Available Not Avai lable Allergy serum (from [employer] ) injectio n 2023 active Not Available Not Available Not Avai lable semagluti de methylcob alamin 4mg 1mg/1ml injectabl e Inject 0.25mL (1mg=25 units) subcutan eously once weekly for four (4) weeks 01/27 completed Not Available Not Available Not Available Prescript ion - Prior Authoriza tion Request active Not Available Not Available Not Available Allergy serum (from [facility] ) SQ every week 2023 active Mix 2 Not Available Not Available Not Avai lable Allergy serum (from [facility] ) injectio n 2023 active Not Available Not Available Not Avai lable Allergy serum (from [facility] ) Mixture #3 q wk 2023 active Not Available Not Available Not Avai lable Allergy serum (from [facility] ) Inject 0.25ml SQ from red top [...] ation: Vulvovag inal Candidia sis - ();Prin malai: 12/20/19 13 Not Available Not Available Not [...] MOUTH EVERY SIX (6) HOURS 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 12/29 completed Not [...] ndicatio n: Iron Deficien cy Anemia - (04.2809 00) Not Available Not Available Not Available Mononessa (28) 0.25 mg-35 mcg tablet TAKE ONE (1) TABLET BY MOUTH ONCE DAILY 03/28 completed Not Available Not Available Not Available oxymetazo line 0.05 % nasal spray Omro 2 sprays twice a day by intranas [...] nued on: 12/02/19 11 10:01AM; User: webbg;Es josé. Completi on: 06/15/20 10 Not Available Not [...] by oral route as needed. 07/17 completed [id number] Not Available Not Available Not Available [...] (BMI) Body weight Respiratory rate Oxygen saturation Heart rate Pain severity - 0-10 verbal numeric rating [Score] - Reported Systolic And Diastolic Provider Name and Address Organization Details Last Updated DateTime 5 154.94 cm 37.9 kg/m2 53278.9 2 g 16 /min 98 % 76 /min 2 120/74 mm[Hg] Sarina Dean in [facility] 5 15:34:07 Date Recorded Body height Body mass index (BMI) Body weight Oxygen saturation Respiratory rate Pain severity - 0-10 verbal numeric rating [Score] - Reported Heart rate Systolic And Diastolic Provider Name and Address Organization Details Last Updated DateTime 5 154.94 cm 38 kg/m2 29832.0 7 g 98 % 16 /min 0 78 /min 120/76 mm[Hg] Sarina Dean in [facility] 5 08:46:28 Date Recorded Body height Body mass index (BMI) Body weight Pain severity - 0-10 verbal numeric rating [Score] - Reported Oxygen saturation Respiratory rate Heart rate Systolic And Diastolic Provider Name and Address Organization Details Last Updated DateTime 5 154.94 cm 37.9 kg/m2 26487.2 7 g 2 98 % 16 /min 76 /min 130/86 mm[Hg] Sarina Dean in [facility] 5 12:49:22 Date Recorded Body height Body mass index (BMI) Body weight Body temperature Oxygen saturation Respiratory rate Pain severity - 0-10 verbal numeric rating [Score] - Reported Heart rate Systolic And Diastolic Provider Name and Address Organization Details Last Updated DateTime 5 154.94 cm 38 kg/m2 22057.4 7 g 98.4 [degF] 98 % 16 /min 0 102 /min 124/76 mm[Hg] Claritza Vega [facility] 5 09:54:48 Date Recorded Body height Body mass index (BMI) Body weight Body temperature Heart rate Oxygen saturation Respiratory rate Pain severity - 0-10 verbal numeric rating [Score] - Reported Systolic And Diastolic Provider Name and Address Organization Details Last Updated DateTime 5 154.94 cm 37.8 kg/m2 47941.1 7 g 98.5 [degF] 96 /min 97 % 18 /min 1 134/90 mm[Hg] Nancy Torres [facility] 5 13:04:46 Social History Question Answer Notes LastModified by Organization Details LastModified Time Tobacco Smoking Status Never Smoker Deepika Santiago giovany, [facility] 01/02/2017 11:54:14 Do You Have An Advance Directive? No [email or web address] Information not available 01/28/2018 Are You Blind Or Do You Have Difficulty Seeing? No [email or web address] Information not available 03/08/2023 Is Blood Transfusion Acceptable In An Emergency? Yes [email or web address] Information not available 01/28/2018 What Is Your Level Of Caffeine Consumption? Occasional Information not available 01/24/2017 How Much Tobacco Do You Chew? None Information not available 01/02/2017 In The 14 Days Before Symptom Onset, Have You Had Close Contact With A Laboratory-conf irmed COVID-19 While That Case Was Ill? No [email or web address] Information not available 03/08/2023 In The 14 Days Before Symptom Onset, Have You Had Close Contact With A Person Who Is Under Investigation For COVID-19 While That Person Was Ill? No [email or web address] Information not available 03/08/2023 Have You Been To An Area Known To Be High Risk For COVID-19? No [email or web address] Information not available 03/08/2023 Are You Deaf Or Do You Have Serious Difficulty Hearing? No [email or web address] Information not available 01/28/2018 What Type Of Diet Are You Following? [email or web address] Information not available 11/14/2021 Which Illicit Or Recreational Drugs Have You Used? N/A Information not available 11/14/2021 Have You Processed Blood Or Body Fluids From An Ebola Virus Disease Patient Without Appropriate PPE? No [email or web address] Information not available 03/08/2023 Do You Reside In Or Have You Traveled To An Area Where Ebola Virus Transmission Is Active? No [email or web address] Information not available 03/08/2023 What Is The Highest Grade Or Level Of School You Have Completed Or The Highest Degree You Have Received? MR19077-3 Information not available 11/14/2021 How Many Days Of Moderate To Strenuous Exercise, Like A Brisk Walk, Did You Do In The Last 7 Days? 3 Information not available 03/08/2023 On Those Days That You Engage In Moderate To Strenuous Exercise, How Many Minutes, On Average, Do You Exercise? 45 [email or web address] Information not available 03/08/2023 Have There Been Any Changes To Your Family Or Social Situation? No [email or web address] Information not available 03/08/2023 How Hard Is It For You To Pay For The Very Basics Like Food, Housing, Medical Care, And Heating? Not Very Hard Information not available 03/08/2023 What Is The Fluoride Status Of Your Home? Fluoridated [email or web address] Information not available 03/08/2023 Have You Recently Or Are You Planning To Travel To An Area With Zika Virus? No [email or web address] Information not available 03/08/2023 Live Alone Or With Others? 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 No [email or web address] Information not available 03/08/2023 What Was The Date Of Your Most Recent Tobacco Screening? 07/17/2025 [email or web address] Information not available 07/17/2025 How Many Children Do You Have? 3 [email or web address] Information not available 04/25/2024 Performs Monthly Self-breast Exam? Yes [email or web address] Information not available 03/08/2023 Do You Use Protection During Sex? No [email or web address] Information not available 03/08/2023 Do You Use Protection Against STDs? No [email or web address] Information not available 01/24/2023 What Is Your Relationship Status? Information not available 01/02/2017 Do You Use Your Seat Belt Or Car Seat Routinely? No Information not available 11/14/2021 Seat Belts Used Routinely Yes [email or web address] Information not available 03/08/2023 Are You Sexually Active? Yes Information not available 11/14/2021 Do You Have Smoke And Carbon Monoxide Detectors In Your Home? Yes [email or web address] Information not available 07/19/2021 Are You Passively Exposed To Smoke? No [email or web address] Information not available 07/19/2021 How Much Tobacco Do You Smoke? No Information not available 03/08/2023 General Stress Level Medium [email or web address] Information not available 03/08/2023 Do You Use Sunscreen Routinely? Yes [email or web address] Information not available 03/08/2023 Has Tobacco Cessation Counseling Been Provided? No [email or web address] Information not available 12/17/2023 On What Date Was Tobacco Cessation Counseling Provided? 06/18/2025 Marcelo Answered No To The Tobacco Cessation Counseling Provided Question On 01/28/2018. [email or web address] Information not available 06/18/2025 How Many Years Have You Smoked Tobacco? 0 [email or web address] Information not available 02/16/2023 Do You Have Difficulty Walking Or Climbing Stairs? No [email or web address] Information not available 03/08/2023 What Contraceptive Method Was Reported At End Of This Visit? None Hysterectomy Information not available 03/08/2023 Do You Want To Talk About Contraception Or Prevention During Your Visit Today? No - I Do Not Want To Talk About Contraception Today Because I Am Here For Something Else [email or web address] Information not available 03/08/2023 How Was The Contraceptive Method Provided? Provided On Site [email or web address] Information not available 03/08/2023 Do You Have Any Future Plans To Get ? No, I Don't Want To Become [email or web address] Information not available 03/08/2023 Sex: Female Functional Status Question Answer Note LastModified by Organizat ion Details LastModified Time Do you or have you ever used smokeless tobacco? Never used smokeless tobacco [email or web address] Information not available 02/20/2020 Are you currently employed? No [email or web address] Information not available 03/16/2025 Do you have transportation difficulties? No [email or web address] Information not available 03/08/2023 Are you able to care for yourself independently? Yes [email or web address] Information not available 02/10/2021 Do you have difficulty dressing, bathing, grooming, or toileting? No [email or web address] Information not available 03/08/2023 Do you or have you ever used e-cigarettes or vape? Never used electronic cigarettes Information not available 02/20/2020 What is your exercise level? Occasional Information not available 11/14/2021 Do you use any illicit or recreational drugs? No Information not available 03/08/2023 Do you or have you ever used any other forms of tobacco or nicotine? No [email or web address] Information not available 03/08/2023 What is your level of alcohol consumption? Occasional [email or web address] Information not available 02/03/2021 What is your status? Not Information no t available 03/08/2023 Are you able to walk independently without assistance or assistive devices? YESWOREST [email or web address] Information not available 03/08/2023 Do you have difficulty doing errands alone? No [email or web address] Information not available 03/08/2023 Mental Status Question Answer Note LastModified by Organizat ion Details LastModified Time Do you feel stressed (tense, restless, nervous, or anxious, or unable to sleep at night)? [id number] [email or web address] Information not available 03/08/2023 Do you have difficulty concentrating, remembering or making decisions? No [email or web address] Information no t available 03/08/2023 Family History Relationship Description Onset Age of this Age Resolved Age Notes LastModified by Organization Details LastModified Time Father Cerebrovascu lar accident Not available 16:01:06 Father Hypertensive disorder [email or web address] Not available 2023 09:15:40 Mother Type 2 diabetes mellitus [email or web address] Not available 2024 09:41:42 Mother Hypertensive disorder [email or web address] Not available 2021 09:19:20 Mother Diabetes mellitus Not available 2022 09:30:13 Mother Osteoporosis [email or web address] Not avai lable 03/13/2024 09:57:00 Maternal Grandfather Family history of malignant neoplasm skin cancer [facility]-251 Not available 06/18/2025 09:41:42 Maternal Grandmother Type 2 diabetes mellitus [facility]-251 Not available 2024 09:41:42 Maternal Grandmother Diabetes mellitus [email or web address] Not available 2023 09:15:40 Maternal Grandmother Osteoporosis [email or web address] Not available 03/13/2024 09:57:00 Paternal Grandmother Malignant neoplasm of lung Not available 2022 08:45:36 Maternal Aunt Diabetes mellitus [email or web address] Not available 2023 09:15:40 Medical History Condition Response Pancreatitis N Coronary Artery Disease N Gout N Other N Atrial Fibrillation N congenital heart disease N Blood Diseases N Kidney Stones N Hyperthyroidism N Rheumatoid arthritis N Blood Transfusion N Erectile Dysfunction N amputation N Colonoscopy N Skin Lesions N COPD N Depression Y Pneumonia N Incontinence N Murmur N Edema [...] colitis N Cerebrovascular Disease N Depression N Guillain[place] N Sleep Apnea N Aneurysm N Bronchitis [...] MMR 6 completed Adela Coello APRN [address], [address], [facility] 10/22/2024 22:28:24 OPV, trivalent 6 irma Coello APRN [address], [address], [place] - [facility] 10/22/2024 22:28:24 Influenza, split virus, trivalent, preservative 3 irma Coello APRN [address], [address], [facility] - [facility] 10/22/2024 22:28:24 Influenza, split virus, trivalent, PF 3 irma Coello APRN [address], [address], [place] - [facility] 10/22/2024 22:28:24 Influenza, split virus, trivalent, PF 2 completed Adela Coello APRN [address], [place], [address], [place] - [facility] 10/22/2024 22:28:24 Td (adult), 2 Lf tetanus toxoid, preservative free, adsorbed 3 completed Adela Coello APRN [address], [place], [address], [place] - [facility] 10/22/2024 22:28:24 Hep B, adolescent or pediatric 7 completed Adela Coello APRN [address], [place], [address], [place] [facility] 10/22/2024 22:28:24 Hep B, adolescent or pediatric 6 completed Adela Coello APRN [address], [place], [address], [place] [facility] 10/22/2024 22:28:24 Hep B, adolescent or pediatric 6 completed Adela Coello APRN [address], [place], [address], [place] [facility] 10/22/2024 22:28:24 DTaP, unspecified formulation 6 completed Adela Coello APRN [address], [place], [address], [place] [facility] 10/22/2024 22:28:24 COVID-19, mRNA, LNP-S, PF, 100 mcg/0.5mL dose or 50 mcg/0.25mL dose 1 completed Ashlie adair, [place] - [facility] 05/05/2021 19:00:06 influenza, unspecified formulation 2 completed Adela Coello APRN [address], [place], [address], [place] [facility] 10/22/2024 22:28:24 influenza, unspecified formulation 3 completed Adela Coello APRN [address], [place], [address], [place] [facility] 10/22/2024 22:28:24 Tdap 3 completed Not Available [facility] 10/16/2023 08:10:39 HPV, unspecified formulation 0 completed Not Available [facility] 10/16/2023 08:10:39 HPV, unspecified formulation 0 completed Not Available [facility] 10/16/2023 08:10:39 HPV, unspecified formulation 1 completed Not Available [facility] 10/16/2023 08:10:39 COVID-19, mRNA, LNP-S, PF, 100 mcg/0.5mL dose or 50 mcg/0.25mL dose 1 completed BRANT Zhao - [facility] 03/08/2023 08:35:30 Past Encounters Encounter ID Performer Location Encounter Start Date Encounter Closed Date Diagnosis/Indication Diagnosis SNOMED-CT Code Diagnosis ICD10 Code Diagnosis IMO Codes Diagnosis Note [id number] [facility] [address] [place] [address] 03/29/2004 00:00:00 [id number] [facility] [address] [place] [address] 04/18/2004 00:00:00 [id number] [facility] [address] [place] [address] 05/25/2004 00:00:00 [id number] [facility] [address] [place] [address] 06/03/2004 00:00:00 [id number] [facility] [address] [place] [address] 06/22/2004 00:00:00 [id number] [facility] [address] [place] [address] 09/01/2004 00:00:00 [id number] [facility] [address] [place] [address] 09/06/2004 00:00:00 [id number] [facility] [address] [place] [address] 05/05/2003 00:00:00 [id number] [facility] [address] [place] [address] 08/28/2003 00:00:00 [id number] [facility] [address] [place] [address] 09/01/2003 00:00:00 [id number] [facility] [address] [place] [address] 09/23/2003 00:00:00 [id number] [facility] [address] [place] [address] 09/23/2003 00:00:00 [id number] [facility] [address] [place] [address] 01/19/2004 00:00:00 [id number] [facility] [address] [place] [address] 09/06/2004 00:00:00 [id number] [facility] [address] [place] [address] 10/11/2004 00:00:00 [id number] [facility] [address] [place] [address] 03/27/2005 00:00:00 [id number] [facility] [address] [place] [address] 03/15/2006 00:00:00 [id number] [facility] [address] [place] [address] 01/21/2007 00:00:00 [id number] [facility] [address] [place] [address] 04/25/2007 00:00:00 [id number] [facility] [address] [place] [address] 05/21/2007 00:00:00 [id number] [facility] [address] [place] [address] 11/19/2007 00:00:00 [id number] [facility] [address] [place] [address] 03/18/2010 00:00:00 [id number] [facility] [address] [address] [address] 04/13/2010 00:00:00 [id number] [facility] [address] [address] 01/06/2010 00:00:00 [id number] [facility] [address] [place] [address] 06/01/2010 00:00:00 [id number] [facility] [address] [place] [address] 08/05/2009 00:00:00 [id number] [facility] [address] [place] [address] 01/31/2010 00:00:00 [id number] [facility] [address] [address] [address] 08/24/2009 00:00:00 [id number] [facility] [address] [place] [address] 06/07/2010 00:00:00 [id number] [facility] [address] [place] [address] 02/22/2010 00:00:00 [id number] [facility] [address] [place] [address] 12/30/2009 00:00:00 [id number] [facility] [address] [place] [address] 06/14/2010 00:00:00 [id number] [facility] [address] [place] [address] 07/06/2010 00:00:00 [id number] [facility] [address] [place] [address] 07/11/2010 00:00:00 [id number] [facility] [address] [place] [address] 07/08/2008 00:00:00 [id number] [facility] [address] [place] [address] 07/10/2008 00:00:00 [id number] [facility] [address] [place] [address] 03/22/2009 00:00:00 [id number] [facility] [address] [place] [address] 06/11/2009 00:00:00 [id number] [facility] [address] [place] [address] 08/05/2009 00:00:00 [id number] [facility] [address] [place] [address] 10/04/2010 00:00:00 [id number] [facility] [address] [place] [address] 11/30/2010 00:00:00 [id number] [facility] [address] [place] [address] 08/04/2010 00:00:00 [id number] [facility] [address] [place] [address] 08/15/2010 00:00:00 [id number] [facility] [address] [place] [address] 08/25/2010 00:00:00 [id number] [facility] [address] [place] [address] 09/02/2010 00:00:00 [id number] [facility] [address] [place] [address] 11/30/2010 00:00:00 [id number] [facility] [address] [place] [address] 12/01/2010 00:00:00 [id number] [facility] [address] [place] [address] 12/05/2010 00:00:00 [id number] [facility] [address] [place] [address] 01/31/2011 00:00:00 [id number] [facility] [address] [place] [address] 03/07/2011 00:00:00 [id number] [facility] [address] [place] [address] 03/13/2011 00:00:00 [id number] [facility] [address] [place] [address] 03/13/2011 00:00:00 [id number] [facility] [address] [place] [address] 03/21/2011 00:00:00 [id number] [facility] [address] [place] [address] 06/01/2011 00:00:00 [id number] [facility] [address] [place] [address] 06/05/2011 00:00:00 [id number] [facility] [address] [place] [address] 07/05/2011 00:00:00 [id number] [facility] [address] [place] [address] 09/02/2012 00:00:00 [id number] [facility] [address] [place] [address] 07/21/2011 00:00:00 [id number] [facility] [address] [place] [address] 10/03/2012 00:00:00 [id number] [facility] [address] [place] [address] 07/25/2011 00:00:00 [id number] [facility] [address] [place] [address] 11/06/2012 00:00:00 [id number] [facility] [address] [place] [address] 12/19/2012 00:00:00 [id number] [facility] [address] [place] [address] 12/26/2012 00:00:00 [id number] [facility] [address] [place] [address] 02/16/2012 00:00:00 [id number] [facility] [address] [place] [address] 03/01/2012 00:00:00 [id number] [facility] [address] [place] [address] 03/15/2012 00:00:00 [id number] [facility] [address] [place] [address] 05/01/2012 00:00:00 [id number] [facility] [address] [place] [address] 07/25/2011 00:00:00 [id number] [facility] [address] [place] [address] 10/18/2011 00:00:00 [id number] [facility] [address] [place] [address] 07/01/2012 00:00:00 [id number] [facility] [address] [place] [address] 11/06/2011 00:00:00 [id number] [facility] [address] [place] [address] 07/10/2012 00:00:00 [id number] [facility] [address] [place] [address] 12/27/2011 00:00:00 [id number] [facility] [address] [place] [address] 09/02/2012 00:00:00 [id number] [facility] [address] [place] [address] 01/09/2012 00:00:00 [id number] [facility] [address] [place] [address] 02/16/2012 00:00:00 [id number] [facility] [address] [place] [address] 08/18/2013 00:00:00 [id number] [facility] [facility] [address] [place] [address] 09/23/2013 00:00:00 [id number] [facility] [address] [place] [address] 10/14/2013 00:00:00 [id number] [facility] [address] [place] [address] 12/01/2013 00:00:00 [id number] [facility] [address] [place] [address] 01/09/2014 00:00:00 [id number] [facility] [address] [place] [address] 08/31/2009 00:00:00 [id number] [facility] [address] [place] [address] 09/20/2009 00:00:00 [id number] [facility] [address] [place] [address] 11/30/2009 00:00:00 [id number] [facility] [address] [place] [address] 11/30/2009 00:00:00 [id number] [facility] [address] [place] [address] 12/29/2009 00:00:00 [id number] [facility] [address] [place] [address] 04/04/2013 00:00:00 [id number] [facility] [address] [place] [address] 07/22/2013 00:00:00 [id number] Ginny Abraham [facility] [address] [address] 01/02/2017 16:10:59 01/02/2017 17:13:33 Cyst of left ovary 0566554399 4380878 N83.202 Bacterial vaginosis 4197 77866 N76.0 [id number] [facility] [address] [address] 01/24/2017 09:36:35 01/24/2017 10:51:35 Routine gynecologic examination done 6861048775 9101 Z01.419 Depression screening 171 645977 Z13.89 PHQ-9 completed today. Diet education 95265669 Z71.3 Counseling 111453698 Z71 .9 Exercise counsellin g. Patient encouraged to exercise 30 minutes 5 days a week. Examinatio n of blood pressure 902130597 Z01.30 Body mass index 30+ - obesity 433234301 Z68.32 Complainin g of pelvic pain 077919706 R10.2 Cyst of ovary 26538087 N 83.209 Contracept ion care management 087037221 Z30.9 Vaginal discharge 339023 006 N89.8 Candidiasis of skin 4988 3006 B37.2 [id number] Ginny Abraham APRN [facility] [address] [address] 01/31/2017 08:16:32 01/31/2017 08:56:24 Polycystic ovaries 98523083 E28.2 Irritable bowel syndrome 67669620 K58.9 Pain in pelvis 88231529 R10.2 Hyperinsulinism 34957805 E16.1 [id number] BRUNO Gomez [employer] [address] [facility] [place] [address] 03/16/2017 13:09:10 03/16/2017 14:10:51 Right lower quadrant pain 130334605 R10.31 Cyst of ovary 14040613 N 83.201 Irritable bowel syndrome 91353507 K58.9 Chronic in terstitial cystitis 201006378 N30.10 The diagnosis of, physiology of, and natural history of interstiti al cystitis was discussed with the patient today. Multiple modalities of treatment including dietary, behavioral , and pharmacolo gic were all discussed today. [id number] BRUNO Gomez [employer] [address] [place] [address] [place] [address] 04/20/2017 13:40:40 04/20/2017 15:59:10 Irritable bowel syndrome 07831563 K58.9 Abdominal pain 29780841 R10.9 Removal of intrauterine device 37545351 Z30.431 [id number] Carolee De Leon PA-C [facility] [address] [place] [address] 08/06/2017 14:09:51 08/06/2017 15:35:42 Body mass index 30+ - obesity 053414646 Z68.39 Sprained finger/thumb 28 2839753 S63.611A [id number] BRUNO Gmoez [employer] [address] [place] [address] [place] [address] 09/27/2017 10:34:55 09/27/2017 11:26:09 Acute pelvic pain 135596880 R10.2 Resolved - continue with OCPs [id number] BRUNO Anne [employer] [address] [place] [address] [place] [address] 01/28/2018 10:07:11 01/28/2018 11:03:05 Routine gynecologic examination done 3090163165 9101 Z01.419 Examinatio n of blood pressure 235819268 Z01.30 BP goal < 140/90 Depression screening 171 856010 Z13.89 Diet education 21507412 Z71.3 0903-4248 calorie diet recommende d with emphasis on low saturated fat, low carbohydra te, and adequate protein intake. She declines dietary consult. Counseling 899203196 Z71 .9 Exercise counselrufina nieves Patient encouraged to exercise 30 minutes 5 days a week. Vaccine de clined by patient 9070741279 02 Z28.21 Screening for malignant neoplasm of cervix 983245065 Z12.4 Z11.8 Body mass index 25-29 - overweight 029409926 Z68.29 Surveillan ce of oral contraception done 8808356994 02593 Z30.41 Dysmenorrhea 339654966 N 94.6 Bladder mu scle dysfunction - overactive 744391855 N32.81 [id number] BRUNO Anne [employer] [address] [place] [address] [place] [address] 02/14/2019 15:35:15 02/14/2019 16:39:51 Routine gynecologic examination done 4208478989 9101 Z01.419 Examinatio n of blood pressure 136071928 Z01.30 BP goal < 140/90 Depression screening 171 354774 Z13.31 Diet education 48666266 Z71.3 7644-1114 calorie diet recommende d with emphasis on low saturated fat, low carbohydra te, and adequate protein intake. She declines dietary consult. Counseling 450159199 Z71 .82 Exercise counselrufina g. Patient encouraged to exercise 30 minutes 5 days a week. Screening for malignant neoplasm of cervix 698855509 Z12.4 Z11.8 [facility] 689468894 Z30.9 Body mass index 30+ - obesity 250128991 Z68.32 [id number] Anne Peña APRN [employer] [address] [place] [address] [place] [address] 02/20/2020 11:19:13 02/20/2020 11:59:46 Routine gynecologic examination done 6598722911 9101 Z01.419 Examinatio n of blood pressure 973803035 Z01.30 BP goal < 140/90 Depression screening 171 Z13.31 Diet education 25513276 Z71.3 4058-4048 calorie diet recommende d with emphasis on low saturated fat, low carbohydra te, and adequate protein intake. She declines dietary consult. Counseling 704680088 Z71 .82 Exercise counselrufina g. Patient encouraged to exercise 30 minutes 5 days a week. Chronic in terstitial cystitis 118457223 N30.10 Body mass index 30+ - obesity 521472402 Z68.35 Surveillan ce of intrauterine device contraception done 2852194341 15552 Z30.40 [id number] BRUNO Anne [employer] [address] [place] [address] [place] [address] 02/28/2019 15:29:11 02/28/2019 16:12:11 Insertion of intrauterine contraceptive device 87427031 Z30.192 [id number] BRUNO Anne [employer] [address] [place] [address] [place] [address] 03/28/2019 15:13:20 03/28/2019 16:29:00 Surveillance of intrauterine device contraception done 0402622287 83315 Z30.40 Cyst of right ovary 1223 067647 1462583 N83.319 [id number] BRUNO Anne [employer] [address] [place] [address] [place] [address] 06/06/2019 10:27:58 06/06/2019 13:31:09 Cyst of right ovary 6944915138 1063531 N83.201 resolved Surveillan ce of intrauterine device contraception done 9111662374 42501 Z30.40 [id number] Cristy vila MD [address] [address] 08/19/2019 14:44:15 08/19/2019 15:32:51 Pharyngitis 581912757 J02.9 Ulcer of mouth 35184136 K12.1 [id number] Cristy vila MD [facility] [address] [place] [address] 9 [place] [address] 10/21/2019 10:45:12 10/21/2019 12:04:35 Low back pain 489115316 M54.5 [id number] BRUNO Anne [employer] [address] [place] [address] [place] [address] 03/07/2022 15:25:11 03/07/2022 16:45:41 Routine gynecologic examination done 9931078094 9101 Z01.419 Examinatio n of blood pressure 490783597 Z01.30 BP goal < 140/90 Depression screening 171 073118 Z13.31 Diet education 33022252 Z71.3 9573-7843 calorie diet recommende d with an emphasis on reducing sugar and refined carbohydra gustavo, avoiding highly processed foods and decreasing saturated fats. She declines dietary consult. Counseling 133928705 Z71 .82 Exercise counselrufina nieves Patient encouraged to exercise 30 minutes 5 days a week. Screening for malignant neoplasm of cervix 407510599 Z12.4 Z11.8 Body mass index 30+ - obesity 065120278 Z68.36 Surveillan ce of intrauterine device contraception done 1285396920 60494 Z30.40 Mirena current until 2025 Chronic in terstitial cystitis 552949836 N30.10 on Myrbetriq per Michael Webber APRN [id number] Cristy vila MD [facility] [address] [place] [address] 08/06/2020 15:50:14 08/06/2020 16:48:43 Exposure to SARS-CoV-2 109064654 Z20.828 COVID-19 067468654 U07.1 quarantine instructio ns given to patient, patient voiced understand ing.pt instructed to increase fluid intake to decrease chances of dehydratio n, tylenol or ibuprofen for fever or body aches, if any sob or concerning symptoms please call the office [id number] Carolee De Leon PA-C [facility] [address] [place] [address] 08/16/2020 10:53:04 08/16/2020 11:07:27 COVID-19 689248997 U07.1 [id number] Nicola Avalos MD [facility] [address] [place] [address] 12/15/2020 09:25:21 12/15/2020 10:26:47 Exposure to SARS-CoV-2 696744442 Z20.344 [id number] Ashley Lomeli APRN [facility] [address] [place] [address] 01/26/2021 15:04:41 01/26/2021 15:53:41 Multiple benign melanocytic nevi 180413670 D22.9 patient educated on risk of tanning bed use Educated on monitoring for ABCDE changes. Offered reassuranc e regarding benign clinical nature of nevi [id number] Carolee De Leon PA-C [facility] [address] [place] [address] 02/03/2021 15:53:36 02/03/2021 16:34:26 Increased frequency of urination 964724766 R35.0 [id number] Julieta Webber [address] [place] [address] 02/10/2021 08:14:37 02/10/2021 09:03:36 Body mass index 30+ - obesity 468822408 Z68.38 38.4 Increased frequency of urination 008408853 R35.0 - US - suspect she will benefit from an additional bladder hydrodiste ntion. -We may try switching her to myrbetriq possibly following that if she still has some frequency. Sensation as if urinary bladder still full 535050905 R39.14 Chronic in terstitial cystitis 169028742 N30.10 -never had PST or any instillati ons. denies clockwork frequency. [id number] Julieta [place] [address] [place] [address] 02/24/2021 07:57:09 02/24/2021 08:39:55 Chronic interstitial cystitis 902902759 N30.10 -never had PST or any installati [...] postop. Body mass index 30+ - obesity 305100654 Z68.38 38.2 Increased frequency of urination 755659916 R35.0 - suspect she will benefit from an additional bladder hydrodiste ntion. -We may try switching her to myrbetriq possibly following that if she still has some frequency. Sensation as if urinary bladder still full 036233944 R39.14 [id number] Carolee De Leon PA-C [facility] [address] [place] [address] 03/02/2021 14:26:50 03/02/2021 15:10:52 Increased frequency of urination 142103187 R35.0 Migraine 98750541 G43.90 9 [id number] Ashlie Monzon MD [facility] [address] [place] [address] 05/05/2021 16:44:19 05/05/2021 17:01:42 Administration of SARS-CoV-2 antigen vaccine 255963869 Z23 [id number] Angela Perez APRN [facility] [address] [place] [address] 05/20/2021 11:45:47 05/20/2021 12:43:30 Axillary lymphadenopathy 752444484 R59.0 Explained that according to her history this is a normal findingAs long as the area fluctuates in size and doesn't become larger and stay that sizeIf characteri stics change RTC for further evaluation . Eczema of scalp 09129197 13 2100 L30.9 Instructed to use selsun blue shampoo around 2 times a week and wash with regular shampoo other timesRTC if symptoms worsen [id number] [facility] [address] [address] 06/14/2021 07:50:32 06/14/2021 09:32:58 Body mass index 30+ - obesity 262347624 Z68.36 Chronic in terstitial cystitis 276895422 N30.10 [id number] Shanna Velasquez APRN [facility] [address] [address] 07/19/2021 08:05:12 07/19/2021 09:03:42 General examination of patient 663989546 Z00.00 Screening for cardiovascular system disease 684642564 Z13.6 Endocrine/ metabolic screening 663248347 Z13.228 Exercises education, guidance, and counseling 102261275 Z71.82 Dietary ma nagement surveillance 228613007 Z71.3 Vitamin D deficiency 347 01160 E55.9 Body mass index 30+ - obesity 633167942 Z68.36 Hypotricho sis of eyelid 93346349 H02.729 Internal h ordeolum of lower eyelid 105240942 H00.029 Mucopurule nt conjunctivitis 325295312 H10.029 Environmental allergy 42 2129042 T78.49XA [id number] Shanna Velasquez [facility] [address] [place] [address] 09/20/2021 07:56:55 09/20/2021 08:41:22 Long-term drug therapy 594881179 Z79.899 Body mass index 30+ - obesity 903657560 Z68.35 High hemog lobin A1c level 061420844 R73.09 Vesicular eczema of hand 803940764 L30.8 [id number] Julietakatalina Webber [address] [place] [address] 11/01/2021 07:51:49 11/01/2021 08:43:03 Body mass index 30+ - obesity 921153344 Z68.38 35.3 Chronic in terstitial cystitis 933069418 N30.10 -will try switching to myrbetriq 25mg daily. Sensation as if urinary bladder still full 080072134 R39.14 Overactive urinary bladder 175331112 N32.81 -avoid anticholin ergics in this patient since she already reports memory issues.-sa mples of myrbetriq given. [id number] Julieta Webber [facility] [address] [place] [address] 01/05/2022 07:55:08 01/05/2022 08:30:57 Chronic interstitial cystitis 948349547 N30.10 continue myrbetriq 25mg daily. Overactive urinary bladder 171615232 N32.81 -avoid anticholin ergics in this patient since she already reports memory issues.-sa mples of myrbetriq given. Microscopic hematuria 19 6835081 R31.29 d/t IC [id number] Shanna Velasquez [facility] [address] [place] [address] 11/08/2021 17:45:34 11/08/2021 18:04:12 Migraine 95962972 G43.649 [id number] Freedom Emerson [employer] [facility] [address] [place] [address] 11/14/2021 08:24:15 11/14/2021 09:18:53 Streptococcal sore throat 49676452 J02.0 AcuteAsses sment: Rapid strep positive at [facility], started on clindamyci n without improvemen t. Posterior pharynx erythemato us. Tmax 102Plan: Continue clindamyci n for today, if no improvemen t in symptoms, stop clindamyci n and start azithromyc in tomorrow. Magic mouthwash for symptom relief.Dis position: Follow up in 3 - 5 days if symptoms do not improve, sooner if symptoms worsen. Allergy to drug 75023629 2 Z88.9 Patient reports allergies to PCN and Cephalospo rins. Patient unable to recall reaction to PCN.Recomm end special police referral for allergy testing [id number] Shanna Velasquez APRN [facility] [address] [address] 01/03/2022 07:56:16 01/03/2022 08:57:15 Mixed anxiety and depressive disorder 163296012 F41.8 Fatigue 56237974 R53.83 Failure to lose weight 86719966 R63.8 History of migraine 1614 90952 Z86.69 [id number] Julieta Webber [facility] [address] [place] [address] 03/30/2022 07:54:59 03/30/2022 08:37:42 Chronic interstitial cystitis 968081735 N30.10 continue myrbetriq daily. Overactive urinary bladder 904660757 N32.81 -avoid anticholin ergics in this patient since she already reports memory issues.-sa mples of myrbetriq given. Microscopic hematuria 19 2847505 R31.29 d/t IC vaginal spotting- awaiting [employer] appt [id number] Shanna Velasquez APRN [facility] [address] [address] 01/18/2022 16:46:16 01/18/2022 18:15:43 Mixed anxiety and depressive disorder 681908934 F41.8 Elevated blood-pressure reading without diagnosis of hypertension 053852632 R03.0 [id number] Shanna Velasquez APRN [facility] [address] [place] [address] 02/07/2022 08:21:37 02/07/2022 09:39:10 General examination of patient 307268597 Z00.00 Body mass index 30+ - obesity 682632311 Z68.36 Screening for cardiovascular system disease 748584434 Z13.6 Endocrine/ metabolic screening 973261783 Z13.228 Exercises education, guidance, and counseling 322921267 Z71.82 Dietary ma nagement surveillance 667620758 Z71.3 [id number] Freedom Emerson [employer] [facility] [address] [place] [address] 02/20/2022 10:21:33 02/20/2022 12:15:00 Dysuria 34540807 R30.9 Acute urin martín tract infection 092029017 N39.0 AcutePlan: 5-day course of Macrobid.D isposition : Follow-up in 5 to 7 days if your symptoms fail to improve, sooner if symptoms worsen or new symptoms develop. [id number] Shanna Velasquez [employer] [facility] [address] [place] [address] 03/08/2022 15:25:35 03/08/2022 18:03:59 Allergy to drug 049344495 Z88.9 History of multiple allergies 330205707 Z91.018 Aphthous u lcer of mouth 175441689 K12.0 Unintentio nal weight gain 4175456942 41840 R63.5 [id number] BRUNO Perez [employer] 7 [facility] [place] [address] 03/08/2023 08:32:28 03/08/2023 09:25:40 Routine gynecologic examination done 8762187328 9101 Z01.419 Depression screening 171 114669 Z13.31 Hypertensi on screening 782656014 Z13.6 Diet education 10994922 Z71.3 Encourage healthy eating/dec reased fats, sugars, fried foods Counseling 760243602 Z71 .82 Encouraged regular exercise 30-40min/d ay 4-5 days/wk Examinatio n of blood pressure 555708059 Z01.30 Body mass index 30+ - obesity 812894783 Z68.35 Obesity 221111684 E66.9 History of total hysterectomy 418431630 Z90.710 Acne 81415055 L70.9 Hyperlipid emia screening 012010307 Z13.220 Endocrine/ metabolic screening 345750863 Z13.228 HIV screening 557068091 Z11.4 Hepatitis C screening 41 6256103 Z11.59 Depressive disorder 3548 9007 F32.A Chronic in terstitial cystitis 355223347 N30.10 Pain of breast 60795069 N64.4 [id number] Freedom Emerson APRN [facility] [address] [place] [address] 03/17/2022 07:57:49 03/17/2022 08:44:52 Pain of right ankle joint 9278625392 1614288 M25.571 Sprain of right ankle 11 57954788 6629125 S93.401A Acute Management : Supportive care measures, ibuprofen or acetaminop hen per OTC label instructio ns for pain/swell ing. Continue to use Tan wrap or you may utilize a commercial compressio n sleeve for your ankle for the next 3 days. Dispositio n: Follow-up in 5 to 7 days if your symptoms fail to improve, sooner if symptoms worsen or new symptoms develop. [id number] Julieta Webber APRN [facility] [address] [place] [address] 09/28/2022 07:46:57 09/28/2022 08:32:07 Chronic interstitial cystitis 754400663 N30.10 Overactive urinary bladder 374780934 N32.81 -avoid anticholin ergics in this patient since she already reports memory issues.-sa mples of myrbetriq given. Microscopic hematuria 19 1017892 R31.29 d/t IC vaginal spotting- awaiting [employer] appt [id number] BRUNO Anne [employer] [address] [facility] [place] [address] 04/07/2022 16:05:38 04/07/2022 17:21:58 Irregular periods 64725377 N92.6 Surveillan ce of intrauterine device contraception done 4855309613 61659 Z30.40 Mirena current until 2025 [id number] Anne Peña APRN [employer] [address] [place] [address] [place] [address] 04/28/2022 15:41:23 04/28/2022 17:01:01 Menorrhagia 083218069 N92.0 Sterilizat ion requested 227598472 Z30.2 Irregular intermenstrual bleeding 86233121 N92.1 Uterine leiomyoma 673491 05 D25.9 3 cm intramural fibroid Body mass index 30+ - obesity 636026228 Z68.36 Surveillan ce of intrauterine device contraception done 5290864073 02964 Z30.40 Mirena current until 2025 [id number] Ashley Lomeli APRN [facility] [address] [place] [address] 05/03/2022 17:05:00 05/03/2022 17:47:43 Solar lentigo 46135201 X32.XXXS continue to monitor for changes Melanocytic nevus 958093 001 D22.9 continue to monitor for changes [id number] Ayana Curiel DO [employer] [address] [place] [address] [place] [address] 05/31/2022 15:55:16 05/31/2022 16:25:38 Menorrhagia 403465913 N92.0 Irregular intermenstrual bleeding 87806538 N92.1 Sterilizat ion requested 758719663 Z30.2 Uterine leiomyoma 004604 05 D25.9 3 cm intramural fibroid Body mass index 30+ - obesity 482606667 Z68.36 [id number] Shanna Velasquez APRN [facility] [address] [place] [address] 06/05/2022 15:21:42 06/05/2022 16:16:20 Inflammation related to voluntary body piercing 251227992 L25.8 cont mupirocin x 4-5 more days - most likely will resolve with this - do not touch area without clean hands - change back to your original jewelry, keep jewelry and piercing clean and dry - do not change hardware until instructed to by cylinder handler and be sure to use quality hardware/m etal. If no improvemen t or worsening, will start oral abx as well, however I do not believe this needs it at this time since it's only been 3 days of using ointment and pt reports it has improved some. [id number] Angie [place] [facility] [address] [place] [address] 06/16/2022 08:29:29 06/16/2022 09:17:59 Cellulitis of skin 640057530 L03.90 acute, unhealed Depressive disorder 3548 9007 F32.A chronic, stable [id number] DO Carlito Riddle [employer] [address] [place] [address] [place] [address] 06/23/2022 12:52:37 06/23/2022 13:15:23 Pre-surgery evaluation 739670344 Z01.818 Irregular intermenstrual bleeding 00861200 N92.1 Menorrhagia 633385305 N9 2.0 Uterine leiomyoma 862837 05 D25.9 3 cm intramural fibroid [id number] Angie [place] [facility] [address] [place] [address] 06/26/2022 16:59:33 06/26/2022 17:35:52 Cellulitis of skin 374594549 L03.90 Resolved. Patient completed all her medication , feeling better. [id number] DO Carlito Riddle [employer] [address] [place] [address] [place] [address] 07/10/2022 10:48:01 07/10/2022 11:20:40 Surgical follow-up 513618436 Z09 [id number] DO Carlito Riddle [employer] [address] [place] [address] [place] [address] 08/15/2022 12:56:06 08/15/2022 13:14:52 Surgical follow-up 561313404 Z09 [id number] Shanna Velasquez [facility] [address] [place] [address] 08/23/2022 07:56:47 08/23/2022 08:52:03 Body mass index 30+ - obesity 690293540 Z68.37 Obesity 591828122 E66.3 Fatigue 44808230 R53.83 [id number] Shanna Velasquez [facility] [address] [place] [address] 08/30/2022 17:20:34 08/30/2022 18:39:01 Metabolic syndrome X 983955099 E88.81 Body mass index 30+ - obesity 507829437 Z68.37 Obesity 996624452 E66.3 Fatigue 12872053 R53.83 [id number] Shanna Velasquez [facility] [address] [address] 09/12/2022 08:31:21 09/12/2022 09:36:04 Nasal congestion 00070274 R09.81 Pain in throat 935597265 R07.0 Acute fron mikaela sinusitis 98745234 J01.10 Cough 04409514 R05.9 [id number] Cristy vila MD [facility] [address] [facility] 9 [place] [address] 09/13/2022 10:35:45 09/13/2022 11:23:50 Diarrhea 08062389 R19.7 Viral gastroenteritis 11 3781171 A08.4 Nausea 396676629 R11.0 [id number] Shanna Velasquez [facility] [address] [address] 09/20/2022 13:12:14 09/20/2022 13:31:53 Skin tag 274982891 L91.8 [id number] Julieta Webber [facility] [address] [place] [address] 03/27/2023 11:21:16 03/27/2023 12:00:58 Chronic interstitial cystitis 260499153 N30.10 Overactive urinary bladder 149469832 N32.81 -avoid anticholin ergics in this patient since she already reports memory issues.-sa mplalexis of kash given. History of total hysterectomy 678785889 Z90.623 [id number] Alyson Ceja APRN [address] [place] [address] 10/13/2022 09:15:59 10/13/2022 09:55:26 Viral screening 999686890 Z11.52 Pharyngitis 913953526 J0 2.9 Influenza- like symptoms 531220144 R68.89 Nasal congestion 9503208 0 R09.81 [id number] Rose Pradhan APRN [address] [place] [address] 10/16/2022 13:54:27 10/16/2022 15:00:09 Body mass index 30+ - obesity 781483920 Z68.37 Obesity 010501666 E66.9 Cough 85501346 R05.9 Acute left otitis media 929268085 H66.92 F/U PRN if symptoms worsen or no improvemen t [id number] Adela Coello APRN [facility] [employer] [address] [place] [address] [place] [address] 10/19/2022 09:05:11 10/19/2022 09:21:16 Conjunctivitis 6403904 H10.9 Acute left otitis media 072203542 H66.92 [id number] Miranda Muir MD [address] [place] [address] 10/23/2022 11:37:22 10/25/2022 08:05:14 Allergic rhinitis 17811840 J30.9 [id number] Rose Pradhan APRN [address] [place] [address] 7 11/01/2022 08:53:35 11/01/2022 09:36:20 Body mass index 30+ - obesity 776493215 Z68.36 Restart Adipex - has taken in the past; Discussed side effects of medication . F/U 1 month. Obesity 428092612 E66.9 Ear pressu re sensation 667762514 H93.8X9 Advised to use Flonase regularly along with HCTZ x10-14 days. Long-term current use of drug therapy 863358231 Z79.906 [id number] Rose Pradhan APRN [address] [place] [address] 11/08/2022 13:29:58 11/08/2022 14:36:20 Allergic rhinitis 64705178 J30.9 [id number] Rose Pradhan APRN [address] [place] [address] 7 11/15/2022 13:06:46 11/15/2022 13:59:54 Allergic rhinitis 37782377 J30.9 patient spoke to special police- recommende d repeating same dose due to last reaction. Patient stayed in the office 10 minutes after the injections . [id number] Rose Pradhan APRN [address] [place] [address] 7 11/27/2022 11:36:00 11/27/2022 12:02:14 Body mass index 30+ - obesity 023290739 Z68.35 Continue Adipex - advised on continued diet/exerc ise. F/U 1 month. Obesity 246111665 E66.9 [id number] Julieta Webber [facility] [address] [place] [address] 12/08/2022 08:04:49 12/08/2022 08:40:51 Chronic interstitial cystitis 858790139 N30.10 Overactive urinary bladder 468086547 N32.81 -avoid anticholin ergics in this patient since she already reports memory issues.-sa mples of myrbetriq given. Microscopic hematuria 19 3967592 R31.29 d/t IC vaginal spotting- awaiting CARPENTRY SUPERVISOR appt [id number] Alyson Ceja [address] [place] [address] 12/29/2022 10:17:20 12/29/2022 10:51:52 Irritation of ear 731581248 H93.8X9 Body mass index 30+ - obesity 796030317 Z68.35 [id number] Rose Pradhan APRN [address] [place] [address] 01/08/2023 11:12:58 01/08/2023 12:03:05 Body mass index 30+ - obesity 940698171 Z68.35 Continue phentermin e - advised on continued diet/exerc ise. F/U 1 month. Discussed stopping phentermin e next month and trying Contrave or another form of weight loss medication if available. Obesity 474597265 E66.9 [id number] Joe Logan PA-C [address] [place] [address] 01/10/2023 09:02:50 01/10/2023 10:01:47 Influenza-like symptoms 994492523 R68.89 Upper resp iratory infection 15754160 J06.9 URI vs allergic, has OTC fluticason [...] and sxs to seek further treatment. Pharyngitis 181472051 J0 2.9 check culture [id number] MD Carlito Grijalva [employer] [facility] [address] [place] [address] [place] [address] 01/19/2023 14:47:38 01/23/2023 11:15:28 [id number] Sunny Nuñez MD [address] [place] [address] 01/17/2023 10:05:53 01/17/2023 10:59:39 Pharyngitis 095442762 J02.9 Body mass index 30+ - obesity 375756343 Z68.35 [id number] MD Carlito Grijalva [facility] [address] [place] [address] [place] [address] 7 01/23/2023 10:45:58 01/23/2023 11:49:51 Increased frequency of urination 665626319 R35.0 Overactive urinary bladder 396083007 N32.81 Patient with chronic urgency/fr equency symptoms, [...] ergic drugs in combinatio n..We will send sharynillalesli ce culture today, and have her return to [...] has at least transient effects with her. [id number] BRUNO Perez [employer] [address] [place] [address] [place] [address] 01/24/2023 10:04:44 01/24/2023 10:28:28 Superficial folliculitis 998433218 L73.9 [id number] BRUNO Galindo [address] [place] [address] 02/06/2023 07:42:01 02/06/2023 08:36:17 Body mass index 30+ - obesity 053439066 Z68.35 Continue phentermin e - advised on continued diet/exerc ise. F/U 1 month. Discussed stopping phentermin e next month and trying Contrave or another form of weight loss medication if available. Migraine 58296469 G43.90 9 Well-contr olled Candidiasis of vagina 72 388802 B37.31 F/U PRN Obesity 918178201 E66.9 [id number] MD Carlito Grijalva [employer] [facility] [address] [facility] [place] [address] 02/16/2023 14:54:40 02/16/2023 18:13:55 Chronic interstitial cystitis 555331255 N30.10 discontinu e gemtesa, restart myrbetriq 50 [...] formal baseline retinal check Overactive urinary bladder 057674688 N32.81 Patient with chronic urgency/fr equency symptoms, [...] trial and affect Increased frequency of urination 869397646 R35.0 [id number] MD Carlito Grijalva [facility] [facility] [address] [facility] [place] [address] 02/27/2023 11:12:46 02/27/2023 11:39:31 Chronic interstitial cystitis 138379983 N30.10 Overactive urinary bladder 337323646 N32.81 Patient with chronic urgency/fr equency symptoms, [...] by outcome of treatment trial and affect [id number] MD Carlito Grijalva [employer] [address] [facility] [place] [address] 03/13/2023 07:57:28 03/13/2023 08:52:48 Chronic interstitial cystitis 343740138 N30.10 Symptoms of refractory urgency symptoms -significa ntly resolved see below Overactive urinary bladder 689350802 N32.81 Patient with chronic urgency/fr equency symptoms, [...] another DMSO at a 2-week interval then. [id number] Rose Pradhan APRN [address] [place] [address] 03/13/2023 09:43:31 03/13/2023 13:26:22 Body mass index 30+ - obesity 628603177 Z68.35 Continue phentermin e but switch to capsules - advised on continued diet/exerc ise. F/U 1 month. Discussed stopping phentermin e next month and trying Contrave or another form of weight loss medication if no weight loss next month. Obesity 581035010 E66.9 [id number] MD Carlito Grijalva [facility] [facility] [address] [place] [address] [place] [address] 04/10/2023 11:12:52 04/10/2023 12:06:35 Chronic interstitial cystitis 609186569 N30.10 Overactive urinary bladder 360960626 N32.81 Patient with chronic urgency/fr equency symptoms, [...] had started Myrbetriq, Elavil, started DMSO (02/27,27. 03/27) and doing much better. She has opted [...] call for further tx on prn basis. [id number] Rose Pradhan APRN [address] [place] [address] 04/16/2023 09:31:26 04/16/2023 10:08:37 Body mass index 30+ - obesity 792233515 Z68.35 No change in weight with phentermin e so will stop that, Start Saxenda - discussed this is a daily injectable ; advised on possible side effects of medication . Offered referral to nurse outreach case manager, patient refuses at this time. Advised on diet/exerc ise. Obesity 234460471 E66.9 Migraine 75931009 G43.90 9 Well-contr olled, switched to regular tab instead of disintegra ting tab [id number] Rose Pradhan APRN [address] [place] [address] 05/15/2023 08:12:56 05/15/2023 09:00:13 Body mass index 30+ - obesity 610718852 Z68.35 Restart Adipex - F/U 1 month. Advised on diet/exerc ise. Offered referral to nurse outreach case manager but patient refused today. Obesity 983941139 E66.9 Depressive disorder 3548 9007 F32.A Genetic test sent today - F/U when results return Anxiety 10979670 F41.9 Will call with results of genetic testing [id number] Noemi Kincaid [address] [place] [address] 05/16/2023 10:16:12 05/16/2023 11:06:43 Pharyngitis 762485890 J02.9 Body mass index 30+ - obesity 987994488 Z68.36 [id number] Johnny Fletcher [address] [place] [address] 05/17/2023 08:02:11 05/17/2023 10:14:50 Acute upper respiratory infection 25302694 J06.9 [id number] Rose Pradhan [address] [place] [address] 06/12/2023 08:08:03 06/12/2023 08:50:13 Body mass index 30+ - obesity 189372902 Z68.36 Continue Adipex - F/U 1 month. Advised on continued diet/exerc ise. Candidiasis of vagina 72 235291 B37.31 F/U PRN Obesity 853793103 E66.9 Long-term drug therapy 806780289 Z79.899 Depressive disorder 3548 9007 F32.A Stop Wellbutrin , Start Viibryd. F/U 1 month. Discussed possible side effects of medication . [id number] BRUNO Perez [employer] [facility] [address] [place] [address] [place] [address] 07/09/2023 08:14:16 07/09/2023 08:31:47 Insect bite - wound 859721654 T14.8XXA [id number] Rose Pradhan APRN [address] [place] [address] 07/13/2023 08:29:11 07/13/2023 09:35:47 Body mass index 30+ - obesity 963740966 Z68.36 Continue Adipex - F/U 1 month. Advised on continued diet/exerc ise. (Already sent RX to [facility]) Depressive disorder 4772 9006 F32.A Well-contr olled Obesity 894396312 E66.9 Long-term current use of drug therapy 428794523 Z79.117 [id number] Rose Pradhan APRN [address] [place] [address] 07/23/2023 08:32:12 07/23/2023 09:03:05 Body mass index 30+ - obesity 082280326 Z68.36 Obesity 376804743 E66.9 Spider bite wound 920560 008 T14.8XXA F/U PRN if symptoms worsen - has hydrocorti sone cream [id number] Kera Rojas DO [address] [place] [address] 07/31/2023 14:59:11 07/31/2023 15:32:31 Pharyngitis 535840174 J02.9 Reassuring exam, negative rapid strep. Recommend supportive care as needed. [id number] Ashley Lomeli APRN [facility] [place] [address] 08/07/2023 17:12:23 08/07/2023 18:09:57 Folliculitis 56775885 L73.9 Melanocytic nevus 817690 001 D22.9 continue to monitor for changes patient notes she pays close attention as many are within her tattoos Seborrheic dermatitis 50 034868 L21.9 [id number] Miranda Muir MD [address] [place] [address] 08/13/2023 16:33:51 08/13/2023 17:18:30 Migraine 73996712 G43.809 [id number] Rose Pradhan APRN [address] [place] [address] 08/14/2023 07:54:32 08/14/2023 08:37:13 Body mass index 30+ - obesity 704180299 Z68.36 Migraine 40026517 G43.90 9 Start Topamax - discussed possible side effects of medication . F/U 1 month. Viral screening 92091666 4 Z11.59 Obesity 186837856 E66.9 Acute sinusitis 21543634 J01.90 F/U PRN if symptoms worsen or no improvemen t Long-term current use of drug therapy 422405875 Z79.492 [id number] Adela Coello [employer] PIPE SUPERVISOR [facility] [employer] [address] [place] [address] [place] [address] 09/03/2023 08:22:46 09/03/2023 09:09:15 Labial cyst 753710122 N90.7 [id number] Rose Pradhan APRN [address] [place] [address] 09/04/2023 08:02:47 09/04/2023 08:50:05 Body mass index 30+ - obesity 465036268 Z68.37 Chronic in terstitial cystitis 787315005 N30.10 Well-contr olled; sees Urology Allergic rhinitis 940996 04 J30.9 patient spoke to special police- recommende d repeating same dose due to last reaction. Patient stayed in the office 10 minutes after the injections . Overactive urinary bladder 454817517 N32.81 Follows with Urology Irritable bowel syndrome 03997402 K58.9 Well-contr olled Depressive disorder 5808 9007 F32.A Well-contr olled Migraine 73322519 G43.90 9 Well-contr olled; continue Topamax Anxiety 55619423 F41.9 Start Buspar - discussed taking twice daily (AM AND PM) consistent ly, then will have extra dose for mid-day if needed. F/U 1 month or sooner if needed. Discussed anxiety likely situationa l and may not have to take Buspar superintendent terminal but this should help with the anxiety attacks/ch est tightness she has felt. [id number] DO Oly [place] [employer] [address] [place] [address] [place] [address] 10/04/2023 11:20:29 10/04/2023 12:08:31 Labial cyst 738738764 N90.7 [id number] Johnny Fletcher APRN [address] [place] [address] 7 10/11/2023 09:22:01 10/11/2023 10:18:12 Body mass index 30+ - obesity 040470862 Z68.37 Obesity 200193184 E66.9 Acute left otitis media 214292412 H66.92 Otitis MediaDiscu ssed otitis media, potential causes, treatment, and prognosis. Prescribed oral antibiotic Follow-up in 5 days or sooner if required. [id number] Rose Pradhan APRN [address] [place] [address] 10/16/2023 08:10:08 10/16/2023 08:54:00 Anxiety 42602776 F41.9 Well-contr olled; Continue Buspar PRN Body mass index 30+ - obesity 263730145 Z68.38 Restart Adipex - discussed possible side effects of medication . Advised on continued diet/exerc ise. Offered referral to dietitian patient refused at this time. F/U 1 month. Obesity 873745420 E66.9 Long-term drug therapy 998409817 Z79.899 Hyperinsulinism 25511375 E16.1 Prediabetes 463580987 R7 3.03 [id number] Alyson Ceja APRN [address] [place] [address] 11/08/2023 09:11:46 11/08/2023 09:53:51 Chest pain 15524123 R07.9 Anxiety 11578664 F41.9 Elevated blood-pressure reading without diagnosis of hypertension 316732359 R03.0 Body mass index 30+ - obesity 725825397 Z68.37 Obesity 775461685 E66.9 [id number] Rose Pradhan APRN [address] [place] [address] 11/16/2023 08:10:39 11/16/2023 09:18:42 Body mass index 30+ - obesity 800124060 Z68.38 Advised to continue to hold Adipex while trying to identify cause of chest pain. Hypertensive disorder 38 647403 I10 Start metoprolol - discussed possible side effects of medication . F/U 1 month. Go to ER for any chest pain lasting longer than 5 minutes. Monitor BP at home and keep log to bring to F/U visit. Epigastric pain 91097703 R10.13 Will get labs/US to evaluate if gallbladde r is causing symptoms. F/U PRN if symptoms worsen - will call with results and consider HIDA pending results. Anxiety 89433536 F41.9 Well-contr olled; discussed she can D/C Buspar since it is not helping, but continue the Viibryd. [id number] [facility] [place] [address] 11/27/2023 17:06:39 11/27/2023 17:39:48 Skin tag 918094021 L91.8 removed today, patient tolerated well [id number] BRUNO Perez [facility] [facility] [address] [place] [address] [place] [address] 11/28/2023 09:54:22 11/28/2023 10:14:54 Nausea 187612423 R11.0 Right uppe r quadrant pain 595865209 R10.11 Pain radia ting to right side of chest 885782885 R07.89 Diarrhea 23146055 R19.7 Steatotic liver disease 306108398 K76.0 [id number] BRUNO Lopez [facility] [address] [place] [address] [place] [address] 12/07/2023 08:24:41 12/07/2023 09:22:01 Unintentional weight gain 9517444789 76375 R63.5 [id number] Tia Larsen MD [address] [place] [address] 12/17/2023 08:47:56 12/17/2023 09:25:20 Viral screening 333376443 Z11.59 Acute pharyngitis 394951 003 J02.9 Strep, influenza and COVID screens are negative but patient has marked erythema of throat with enlarged tonsils. Will treat with azithromyc in, decongesta nts Otitis externa 0108859 H 60.91 [id number] Johnny Fletcher APRN [address] [place] [address] 12/20/2023 07:44:39 12/20/2023 08:50:01 Body mass index 30+ - obesity 293164898 Z68.38 Obesity 313830907 E66.9 Malaise and fatigue 2717 06983 R53.83 -patient requesting to be tested for [place]; low suspicion but cannot say definitive ly that she does not so will proceed with Monospot test Cough 05974975 R05.9 Acute otit is externa of right ear 9665148265 959279 H60.501 -ear drops prescribed by previous provider were unavailabl e-Explaine d otitis externa, possible causes, treatment, and prognosis. -Prescribe d antibiotic ear drops and suggested pain relief measures.- Return in 5 days for a follow-up or sooner if required. Acute bronchitis 2308990 2 J20.9 - Patient presents with cough [...] and rule out any secondary infections . [id number] Kera Rojas DO [address] [place] [address] 12/25/2023 08:25:09 12/25/2023 09:20:59 Tuberculosis screening 162940768 Z11.1 [id number] Rose Pradhan APRN [address] [place] [address] 12/26/2023 08:14:03 12/26/2023 08:33:05 Body mass index 30+ - obesity 152910844 Z68.38 May resume post-HIDA scan today pending results. Advised on diet/exerc ise. F/U 1 month. Offered referral to dietitian patient refuses at this time. Switching to capsules to see if that works for weight loss better than the tablets have been. Obesity 349711871 E66.9 Hyperlipidemia 68689140 E78.5 Vitamin D deficiency 347 96405 E55.9 Endocrine/ metabolic screening 168735535 Z13.712 [id number] Adela Coello APRN [facility] [employer] [facility] [address] [place] [address] [place] [address] 01/02/2024 14:02:06 01/02/2024 14:19:00 Acute left otitis media 644005256 H66.92 [id number] Rose Pradhan APRN [address] [place] [address] 01/07/2024 08:25:50 01/07/2024 09:09:30 Acute left otitis media 879714307 H66.92 F/U PRN if symptoms worsen or no improvemen t - Clinda since allergic to other abx that would be useful and drops show no improvemen t. Advised to schedule with ENT for ear tube consult. Body mass index 30+ - obesity 587752382 Z68.39 Obesity 210539002 E66.9 Candidiasis of vagina 72 419595 B37.31 F/U PRN [id number] Rose Pradhan APRN [address] [place] [address] 01/29/2024 08:15:56 01/29/2024 09:11:01 Body mass index 30+ - obesity 395945861 Z68.39 Obesity 327763051 E66.9 Vitamin D deficiency 347 90961 E55.9 Hyperinsulinism 58582368 E16.1 Hypertensive disorder 38 897818 I10 Systolic slightly elevated today - diastolic WNL - advised to discuss with Cardiology at appt. tomorrow - patient verbalized understand ing. Prediabetes 313528157 R7 3.03 Will call with results Biliary dyskinesia 2007 K82.8 [id number] BRUNO [place] [address] [place] [address] 02/05/2024 09:47:22 02/05/2024 10:22:39 History of tympanostomy 614288045 Z93.8 Referred for further evaluation [id number] BRUNO Lopez [facility] [address] [place] [address] [place] [address] 02/12/2024 07:56:14 02/12/2024 08:55:34 Postoperative visit 437494274 Z48.89 History of cholecystectomy 659586933 Z90.49 02/07/2024 [id number] Adela Coello APRN [facility] [employer] [address] [place] [address] [place] [address] 02/20/2024 10:06:10 02/20/2024 10:54:23 Hypertensive disorder 39867268 I10 Non-menopa usal hot flash 3334492513 73905 R23.2 Prediabetes 546762210 R7 3.03 [id number] BRUNO Perez [facility] [address] [place] [address] [place] [address] 03/13/2024 09:10:15 03/13/2024 10:33:16 Routine gynecologic examination done 9045499809 9101 Z01.419 Depression screening 171 342844 Z13.31 Diet education 16775526 Z71.3 Encourage healthy eating/dec reased fats, sugars, fried foods Counseling 261507441 Z71 .82 Encouraged regular exercise 30-40min/d ay 4-5 days/wk Examinatio n of blood pressure 926837293 Z01.30 Hyperlipid emia screening 057454615 Z13.220 Endocrine/ metabolic screening 699682250 Z13.228 History of total hysterectomy 899796751 Z90.710 Body mass index 30+ - obesity 968091246 Z68.38 Obesity 621222558 E66.9 Hypertensive disorder 38 647999 I10 Depressive disorder 3548 9007 F32.A Prediabetes 640785415 R7 3.03 Screening for malignant neoplasm of colon 541511371 Z12.11 [id number] MD Oly [place] [facility] [address] [place] [address] [place] [address] 03/21/2024 13:30:55 03/21/2024 14:14:23 Acute left otitis media 972658785 H66.92 Candidiasis of vagina 72 001767 B37.31 History of tympanostomy 550731043 Z93.8 [id number] Johnny Fletcher APRN [address] [place] [address] 03/24/2024 07:51:03 03/24/2024 08:33:49 Chest pain 54911818 R07.9 - normal EKG- very minimal concern for cardiovasc ular etiology with normal EKG and recent normal ECHO, exercise stress test, and holter monitor (cardiolog y notes reviewed)- troponin to further evaluate and rule out cardiac dysfunctio n as cause of chest pain- CMP and CBC to assess kidney, liver function, anemia, infectious process Body mass index 30+ - obesity 949869021 Z68.39 Obesity 901983049 E66.9 Chest wall pain 34081926 6 R07.89 - most likely musculoske letal in nature with movement aggravatin g the symptoms- will treat with NSAIDs and muscle relaxers while ruling out other etiologies [id number] BRUNO Perez [facility] [address] [place] [address] [place] [address] 03/31/2024 13:10:03 03/31/2024 13:35:29 Body mass index 30+ - obesity 780767996 Z68.39 Obesity 821519816 E66.9 Chafing of skin 07575356 2 L30.4 [id number] BRUNO Perez [facility] [address] [place] [address] [place] [address] 04/14/2024 15:59:44 04/14/2024 16:35:53 Fatigue 48926788 R53.83 [id number] Johnny Fletcher APRN [address] [place] [address] 04/16/2024 08:12:49 04/16/2024 08:39:51 Body mass index 30+ - obesity 935663952 Z68.38 Obesity 467308388 E66.9 Middle ear effusion 1004 767431 H74.8X9 -oral corticoste roid for short term relief-sta rt azelastine as directed by ENT-follow up with ENT and special police for re-evaluat ion if symptoms persist [id number] Rose Pradhan APRN [address] [place] [address] 04/25/2024 08:00:28 04/25/2024 08:48:29 Hypertensive disorder 22451835 I10 Well-contr olled Migraine 20925582 G43.90 9 Well-contr olled; continue Topamax Irritable bowel syndrome 23411562 K58.9 Well-contr olled Body mass index 30+ - obesity 496251866 Z68.38 Discussed can restart phentermin e since [...] at this time. Vitamin D deficiency 347 52225 E55.9 Depressive disorder 3548 9007 F32.A Well-contr olled Obesity 468348636 E66.9 Prediabetes 520883697 R7 3.03 Last A1C 6.0, has been as high as 6.3 - medically necessary for patient to be on weight lowering medication . Cardiology had her on Wegovy but ran out of samples and not covered by insurance. Chronic in terstitial cystitis 358022756 N30.10 Well-contr olled; sees Urology Acute fron mikaela sinusitis 03512283 J01.10 Refills Allergic rhinitis 097374 04 J30.9 Well-contr olled; sees Security Installer getting allergy injections regularly Gastroesop hageal reflux disease without esophagitis 976545239 K21.9 Well-contr olled [id number] Ayana Curiel DO [facility] [address] [place] [address] [place] [address] 05/05/2024 09:03:15 05/05/2024 09:19:54 Labial cyst 789965268 N90.7 resolved [id number] Julieta Ceja APRN [address] [place] [address] 05/07/2024 10:14:36 05/07/2024 10:51:50 Diarrhea 19257599 R19.7 Nausea and vomiting 1693 1999 R11.2 [id number] Julieta Ceja APRN [address] [place] [address] 06/18/2024 09:07:48 06/18/2024 09:26:36 Pharyngitis 639961546 J02.9 Acute left otitis media 367120319 H66.92 Candidiasis of vagina 72 601062 B37.31 [id number] Julieta Ceja APRN [address] [place] [address] 06/24/2024 10:26:52 06/24/2024 11:16:18 Sore throat 791273629 J02.9 Cough 38943472 R05.9 Prediabetes 162197948 R7 3.03 [id number] BRUNO Lopez [facility] [address] [place] [address] [place] [address] 07/04/2024 08:46:45 07/04/2024 09:11:43 Fatigue 00120283 R53.83 Prediabetes 233486121 R7 3.03 [id number] Infusion Nurse DAVE [place] [facility] [address] [place] [address] [place] [address] 07/16/2024 08:05:02 07/16/2024 08:24:52 Allergic rhinitis 91946715 J30.9 [id number] Julieta Ceja APRN [address] [place] [address] 07/18/2024 13:56:45 07/18/2024 15:09:52 Fatigue 80371644 R53.83 Pain in fi nger of right hand 1385862249 92148 M79.589 [id number] Infusion Nurse DAVE [place] [facility] [address] [place] [address] [place] [address] 7 07/23/2024 07:51:32 07/23/2024 08:04:46 Allergic rhinitis 98499174 J30.9 [id number] Infusion Nurse DAVE [place] [facility] [address] [place] [address] [place] [address] 7 07/30/2024 10:12:41 07/30/2024 11:33:54 Allergic rhinitis 77933695 J30.9 [id number] Infusion Nurse DAVE [place] [facility] [address] [place] [address] [place] [address] 7 08/06/2024 07:47:19 08/06/2024 07:47:32 Allergic rhinitis 71961995 J30.9 [id number] Julieta Ceja APRN [address] [place] [address] 08/06/2024 09:02:52 08/06/2024 10:09:30 Sleep pattern disturbance 80861295 G47.9 [id number] Julieta Ceja APRN [address] [place] [address] 08/13/2024 14:20:02 08/13/2024 15:24:26 Acute bilateral otitis media [id number] H66.93 [id number] MD Carlito Young [employer] [address] [place] [address] [place] [address] 08/27/2024 13:38:09 08/27/2024 14:13:06 Folliculitis 29166065 L73.9 Body mass index 30+ - obesity 850261681 Z68.39 Obesity 065817280 E66.9 [id number] Infusion Nurse DAVE Esteban [employer] [address] [place] [address] [place] [address] 08/29/2024 07:52:45 08/29/2024 08:23:18 Allergic rhinitis 47917129 J30.9 [id number] Katie Angelo APRN [employer] [address] [place] [address] [place] [address] 09/12/2024 09:28:30 09/12/2024 09:57:08 Allergic rhinitis 00500844 J30.9 [id number] Katie Angelo APRN [employer] [address] [place] [address] [place] [address] 09/19/2024 09:14:14 09/19/2024 09:14:30 Allergic rhinitis 74823023 J30.9 [id number] Julieta Webber [facility] [address] [place] [facility] [place] [address] 09/24/2024 09:57:23 09/24/2024 10:35:53 Chronic interstitial cystitis 365132467 N30.10 Overactive urinary bladder 477335369 N32.81 -avoid anticholin ergics in this patient since she already reports memory issues.-sa mples of myrbetriq given. -we also discussed EBP study which showed in pts with underlying OAB that phentermin e can cause increased bladder sphincter tone, inflammati on of the urethra, both resulting in worsening OAB symptoms. History of total hysterectomy 986121148 Z90.895 [id number] Julieta Ceja [employer] [address] [place] [address] 09/29/2024 13:15:17 09/29/2024 14:54:23 Migraine 94783300 G43.649 [id number] Julieta eCja APRN [address] [place] [address] 09/30/2024 09:04:14 09/30/2024 10:06:31 Pain of left knee joint 4921249988 54737 M25.599 [id number] Julieta Ceja [address] [place] [address] 10/07/2024 08:22:51 10/07/2024 08:51:37 Acute bilateral otitis media 106172260 H66.93 Candidiasis of vagina 72 231854 B37.31 Cough 44659675 R05.9 [id number] Julieta Ceja APRN [address] [place] [address] 10/13/2024 14:04:48 10/13/2024 14:33:03 Acute upper respiratory infection 77553097 J06.9 Cough 29459085 R05.9 [id number] BRUNO [place] [employer] [address] [place] [address] [place] [address] 10/22/2024 16:10:54 10/22/2024 16:52:30 Urgent desire to urinate 62072459 R39.15 Low back pain 478521780 M54.50 Microscopic hematuria 19 8551418 R31.29 [id number] Julieta Ceja APRN [address] [place] [address] 10/31/2024 13:03:57 10/31/2024 13:26:00 Ear pressure sensation 834846863 H93.8X9 Prediabetes 887272656 R7 3.03 Contact dermatitis 99226 004 L25.9 [id number] Adela Coello APRN [employer] [address] [place] [address] [place] [address] 11/06/2024 15:58:48 11/06/2024 16:22:34 Migraine 68543237 G43.094 [id number] Julieta Ceja APRN [address] [place] [address] 11/11/2024 07:55:58 11/11/2024 08:15:46 Obstructive sleep apnea syndrome 35859836 G47.33 [id number] Mathew Arzate DO [address] [place] [address] 11/17/2024 16:19:38 11/17/2024 16:50:47 Migraine 91959813 G43.909 chronic; exacerbate d; somatic dysfunctio n present and complicati ng; OMT provided and well tolerated with subjective mild improvemen t in sx Somatic dy sfunction of head region 542676611 M99.00 as above Cervical s omatic dysfunction 142402958 M99.01 as above Somatic dy sfunction of thoracic region 591082064 M99.02 as above Spasm of back muscles 20 9371201 M62.830 b/l trapezius mm; a/c; likely stimulus for above; treated as above Chronic neck pain 523973 3684 107 M54.2 a/c; likely stimulus for above; treated as above [id number] Mathew Arzate DO [address] [place] [address] 12/15/2024 16:01:06 12/15/2024 16:26:12 Chronic neck pain 5952641812 107 M54.2 chronic; improved to baseline comparativ morgan to last visit; somatic dysfunctio n present and complicati ng; treated with OMT in office today with improvemen t in sx following tx Somatic dy sfunction of head region 144029375 M99.00 as above Cervical s omatic dysfunction 957819024 M99.01 as above Somatic dy sfunction of thoracic region 607142412 M99.02 as above Spasm of back muscles 20 2546689 M62.830 R>L trapezius mm; as above Migraine 31265737 G43.90 9 chronic; stable; somatic dysfunctio n present and complicati ng; OMT provided and well tolerated with subjective mild improvemen t in sx; continue chronic regimen for this [id number] DO O[place] [employer] [address] [place] [address] [place] [address] 12/22/2024 08:24:46 12/22/2024 08:51:02 Tuberculosis screening 433759994 Z11.1 [id number] Julieta Ceja APRN [address] [place] [address] 01/05/2025 10:56:47 01/05/2025 12:43:39 Obstructive sleep apnea syndrome 25224809 G47.33 Narcolepsy type 2 455300 3594 9104 G47.429 09065941 [id number] Julieta Ceja APRN [address] [place] [address] 01/21/2025 12:51:59 01/21/2025 14:43:26 Pharyngitis 683012050 J02.9 67137519 Posterior rhinorrhea 758 39464 J34.89 321980 Feeling of lump in throat 302742735 R22.1 038031 Prediabetes 535090248 R7 3.03 [id number] Julieta Ceja APRN [address] [place] [address] 02/10/2025 11:05:33 02/10/2025 12:47:00 Infection of skin 325829470 L08.9 39001 Candidiasis of vagina 72 191185 B37.31 102318 [id number] Adela Coello APRN [employer] [address] [place] [address] [place] [address] 03/16/2025 08:40:08 03/16/2025 09:48:52 Routine gynecologic examination done 0048195280 9101 Z01.419 Depression screening 171 310993 Z13.31 Hypertensi on screening 074326578 Z13.6 Diet education 41134666 Z71.3 Encourage healthy eating/dec reased fats, sugars, fried foods Counseling 223972537 Z71 .82 Encouraged regular exercise 30-40min/d ay 4-5 days/wk Examinatio n of blood pressure 150891732 Z01.30 Body mass index 30+ - obesity 957796860 Z68.38 344382 Obesity 546353920 E66.9 Hyperlipid emia screening 849237150 Z13.220 908619 Endocrine/ metabolic screening 572596374 Z13.29 8260433 History of total hysterectomy 982223402 Z90.710 Hypertensive disorder 38 195228 I10 Depressive disorder 3548 9007 F32.A Prediabetes 141578073 R7 3.03 [id number] BRUNO [address] [place] [address] 03/30/2025 15:21:33 03/30/2025 16:07:12 Prediabetes 607422778 R73.03 547059 Mixed hyperlipidemia 267 405664 E78.2 69823 [id number] Julieta Ceja APRN [address] [place] [address] 04/14/2025 08:23:26 04/14/2025 09:27:20 Pharyngitis 940009612 J02.9 [id number] Julieta Ceja APRN [address] [place] [address] 05/05/2025 12:30:33 05/05/2025 13:21:33 Migraine 18643778 G43.909 Mild inter mittent asthma 389247497 J45.20 1568071 Chronic in terstitial cystitis 667750500 N30.10 Hypertensive disorder 38 263202 I10 85371093 Acute migraine 148522724 1 79169 G43.909 5795441674 [id number] Alyson Ceja APRN [facility] [address] [place] [address] 06/18/2025 09:41:38 06/18/2025 10:24:51 Seborrheic dermatitis of scalp 072185507 L21.9 682687 Discussed alternatin g her Ketoconazo le shampoo with t-gel and selsun blue shampoo. Body mass index 30+ - obesity 130449155 Z68.38 00011440 38 [id number] Julieta Ceja APRN [address] [place] [address] 07/17/2025 12:57:04 07/17/2025 13:46:31 Migraine without aura, not refractory 813887399 G43.273 0674255 Vitamin D deficiency 347 87479 R53.83 Health Concerns Section Related Observation LastModified by Organization Detai ls LastModified Time None Recorded Concern Status LastModified by Organization Details LastModified Time None Recorded Advance Directives Directive N: Payers Insurance Date Sequence Insurance Name Policy Number Policy Castañeda Covered Member ID Castañeda Member ID Guarantor Name 02/14/2019 1 [employer] (PPO) [id number] Lon Cornell [id number] Keira Cornell 07/22/2025 2 [id number] Lon Cornell [id number] Keira Cornell 03/30/2025 1 [place] [id number] Keira Cornell [id number] Keira Cornell 07/22/2025 1 [place] [id number] Keira Cornell [id number] Keira Cornell Notes Date Note Type Note Provider Name and Address Organization Details Recorded Time 03/30/2025 text/html ROS as noted in the [...] shortness of breath, N/V/D. CPAP continues. Julieta Ceja APRN [address], [place], [address], [facility] 03/30/2025 22:30:08 04/14/2025 text/html ROS [...] continues to be managed by pulmonology for narcolepsy-modafin il is effective and she does report being well rested with decreased daytime sleeping noted. Julieta Ceja APRN [address], [place], [address], [place] [facility] 04/17/2025 22:30:28 05/05/2025 text/html [...] controlled on topamax up until recently. Julieta Ceja APRN [address], [place], [address], [facility] 05/05/2025 22:58:47 06/18/2025 text/html ROS [...] skin cancer, unsure the type. Alyson BRUNO Ceja [address], [place], [address], [facility] 06/18/2025 10:21:11 07/17/2025 text/html ROS as noted in the [...] Goes to sleep & pulm on Sunday Julietakatalina Ceja APRN [address], [place], [address], [facility] 07/17/2025 21:33:43 OBGyn Episode Ob Episode Information Episode Created Date Number of Fetuses Patient Bloodtype Patient rh Status Prepregnancy Weight lbs Domestic Partner Domestic Partner Phone Father Name Technology Education Teacher Status 03/15/20 17 1 CLOSED Fetus Data [...] idural 40 14 no lac or repairnee Stanton Smith Discharge Information Feeding Method Contraceptive Method Maternal HG B and HCT Levels
--- NOTE | 2025-08-07 09:45 | MR_ITS ---
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 Software platform sequences were performed using the Siemens [employer] [place] MR B19 platform. A set of three-plane, low-resolution, large obiqy-rd-gprl localizers were initially acquired. Then axial, coronal, sagittal TrueFISP, as well as axial HASTE images, were obtained. These were followed by gated TrueFISP breathold cinematic sequences obtained in the short axis with 8 mm slices and 2 mm gaps, 2-chamber (vertical long axis), 3-chamber, 4-chamber (horizontal long axis). A bolus of contrast was injected intravenously with first-pass sequences obtained in the short axis and four-chamber planes. After approximately 10 minutes, a TI rivet spinner sequence was performed to determine the optimal TI time. Using the optimized TI time, delayed contrast enhancement segmented inversion???recovery TurboFLASH sequences were obtained in the short axis, 2-chamber, 3-chamber, and 4-chamber projections. 2D-velocity phase mapping was performed. Functional parameters were calculated by offline analysis on an independent workstation ([employer], [employer]). Contrast: ProHance??? (Gadoteridol) FINDINGS MORPHOLOGY AND FUNCTION Left ventricle: The left ventricle is normal in size. The indexed left ventricular end-diastolic volume (LVEDVi) is 60 ml/m2 (reference range 57-105 ml/m2 in males, 56-96 ml/m2 in females). Normal left ventricular systolic function is present. There is normal left ventricular wall thickness. There are no regional wall motion abnormalities noted. LVEF is calculated at 66.3% (reference range 57-77%). Right ventricle: The right ventricle is normal in size. The indexed right ventricular end-diastolic volume (RVEDVi) is 64 ml/m2 (reference range 61-121 ml/m2 in males, 48-112 ml/m2 in females). Normal right ventricular systolic function is present. RVEF is calculated at 54.0% (reference range 52-72% in males, 51-71% in females). Atria: The left atrium is mildly dilated. The maximum indexed left atrial volume is 38 ml/m2 (reference range 26-52 ml/m2 in males, 27-53 ml/m2 in females). The right atrium is normal in size. The maximum indexed right atrial volume is 33 ml/m2 (reference range 18-90 ml/m2). Aorta: The diameter of the aortic annulus is normal, measuring 25 mm (coronal view reference range 21-30 mm in males, 19-27 mm in females). The diameter of the aortic sinus is normal, measuring 31 mm (coronal view reference range 25-42 mm in males, 24-36 mm in females). The diameter of the sinotubular junction is normal, measuring 23 mm (coronal view reference range 18-32 mm in males, 18-28 mm in females). The diameters of the ascending and descending thoracic aorta are normal. Main pulmonary artery: The main pulmonary artery diameter is normal. Pericardium: The pericardial thickness is normal. The pericardial thickness measures 2.7 mm (normal < 4.0 mm). There is no pericardial effusion. VALVES The valvular morphologies in the visualized sequences appear normal. There is no significant valvular stenosis or regurgitation of the mitral, aortic, tricuspid, or pulmonic valve noted visually. Systolic anterior motion of the mitral valve is not visualized. Ratio of pulmonary to systemic flow, Qp:Qs ratio = 1.06 (normal < or = 1.2, hemodynamically significant shunt > 1.5), demonstrating no evidence of hemodynamically significant shunt. TISSUE CHARACTERIZATION Resting Perfusion: Normal myocardial blood flow at rest. No evidence of resting hypoperfusion. Myocardial Fibrosis and/or edema: Normal gadolinium kinetics are present. No evidence of late gadolinium enhancement is noted, consistent with absence of myocardial scarring, infarction, or necrosis. T2-weighted imaging demonstrates no evidence of myocardial edema or inflammation. OTHER No other significant findings are noted. However, this exam is focused on the cardiac structure and function. IMPRESSION Normal LV size with normal LV systolic function. LVEDVi= 60 ml/m2 and LVEF= 66.3%. Normal RV size with normal RV systolic function. RVEDVi= 64 ml/m2 and RVEF= 54.0%. Mild LA enlargement. No CMR evidence of myocardial scarring, infarction, or necrosis. No evidence of myocardial edema or inflammation. Perfusion analysis demonstrates normal blood flow at rest with no evidence of resting hypoperfusion. Ratio of pulmonary to systemic flow, Qp:Qs ratio = 1.06 (normal < or = 1.2, hemodynamically significant shunt > 1.5), demonstrating no evidence of hemodynamically significant shunt. COMPARISON None CRITICAL RESULT None COMMUNICATION The above findings were relayed to the patient at the time of the routine outpatient cardiology follow-up visit, prior to dictation of this report. The findings of this cardiac MR were reviewed, reported, and signed by Edwin Georges MD (Car Pusher). Conclusion Electronically signed by : Alexa Georges MD 08/11/2025 13:16:57
[2025-08-07] MEDS: 0.9 % SODIUM CHLORIDE 50 ML VIAL 20 ML IV (10:32)
[2025-08-07] MEDS: SODIUM CHLORIDE 0.9% 10ML SYR (RAD ONLY) 10 ML IV (10:32)
[2025-08-07] MEDS: GADOTERIDOL INJ 20ML SYRINGE 20 ML IV (10:33)
== END 2025-08-07 23:59 | disposition home or self-care (01) ==
LOC: RAD 09:26
PROVIDERS: PCP Nurse Practitioner Family; Visit Provider Internal Medicine
DX: I51.7 Cardiomegaly (principal); R94.31 Abnormal electrocardiogram [ECG] [EKG]; R00.2 Palpitations
CPT/HCPCS: 75561; A9576